=== PATIENT | female | born 1945 | race Caucasian/White ===

== ENCOUNTER 2018-01-13 16:57 | Inpatient (IN) | payer OTHER ==
[2018-01-13] MEDS ORDERED: GLUCAGON 1 MG/VIAL IM PRN (17:53)
[2018-01-13] MEDS ORDERED: D50W 25 GM/50 ML SYRINGE IV PRN (17:53)
[2018-01-13 17:54] LABS: Urine Appearance CLOUDY; Urine Bilirubin NEGATIVE (NEG); Urine Blood TRACE (NEG); Urine Color YELLOW; Urine Glucose TRACE (NEG); Urine Protein 2+ (NEG); Urine Specific Gravity 1.015 (1.005-1.030); Urine Urobilinogen 0.2 mg/dL (0.2-1.0); Urine pH 6.5 (5.0-7.0)
[2018-01-13 18:52] LABS: ALT/SGPT 16 U/L (12-78); AST/SGOT 21 U/L (15-37); Albumin 3.7 g/dL (3.4-5.0); Alkaline Phosphatase 122 U/L (45-117); Amylase Level 152 U/L (25-115); BUN Blood Urea Nitrogen 48 mg/dL (7-18); Bicarbonate 24 mmol/L (21-32); CKMB Creatine Kinase MB < 1.0 ng/mL (0.3-3.6); Creatine Phosphokinase 73 U/L (26-192); Glucose Level 170 mg/dL (74-106); Lipase 1944 U/L (73-393); Magnesium 1.9 mg/dL (1.8-2.4); Potassium 3.6 mmol/L (3.5-5.1); Sodium Level 137 mmol/L (136-145); Troponin I < 0.02 ng/mL (0.0-0.045)
[2018-01-13 18:53] LABS: Absolute Lymphocytes (CBC) 2.2 K/uL (0.7-4.9); Absolute Monocytes 0.7 K/uL (0.1-1.3); Absolute Neutrophil 6.2 K/uL (1.8-8.0); Basophils % 0.5 % (0-1.3); Eosinophils % 1.3 % (0-4.4); Hematocrit 43.6 % (36.0-45.0); Lymphocytes % 23.4 % (15.3-44.8); MCH 30.9 pg (27.0-35.0); MCV 86.3 fL (80-100); MPV 10.4 fL (7.6-11.3); RBC Red Blood Cell Count 5.05 M/uL (3.86-4.86)
[2018-01-13 19:13] LABS: Urine Bacteria 20-50 /HPF (<20); Urine Culture Reflex Order REFLEXED; Urine RBC <5 /HPF (NONE SEEN)
--- NOTE | 2018-01-13 19:13 | RAD REPORT ---
EXAM DESCRIPTION: RAD - Chest Pa And Lat (2 Views) - 01/13/2018 7:06 pm CLINICAL HISTORY: chest pain Chest pain. COMPARISON: CHEST PA AND LAT 2 VIEW dated 09/24/2008; CHEST SINGLE VIEW dated 03/25/2006 FINDINGS: The lungs are clear. The heart is normal in size. No displaced fractures. IMPRESSION: No acute or concerning finding suspected.
[2018-01-13] MEDS ORDERED: SODIUM CHL 0.9% 1000 ML BAG IV ONE (20:34)
[2018-01-13] MEDS ORDERED: AMLODIPINE 5 MG TAB PO ONE (20:45)
[2018-01-13] MEDS ORDERED: ONDANSETRON 4 MG/2 ML VIAL IV PRN (20:51)
[2018-01-13] MEDS ORDERED: MORPHINE 2 MG/ML SYR IV PRN (20:51)
[2018-01-13] MEDS: INSULIN -REGULAR HUMAN 50 UNIT/0.5 ML ML SQ SCH (21:00)
[2018-01-13] MEDS ORDERED: NA CHLORIDE 0.9% 1,000 ML IV SCH ×2 (21:00)
[2018-01-13] MEDS: METOPROLOL TAR 50 MG TAB PO SCH (21:05)
[2018-01-14] MEDS: NA CHLORIDE 0.9% 1,000 ML IV SCH ×3 (03:09→22:54)
[2018-01-14 04:45] LABS: Absolute Lymphocytes (CBC) 2.3 K/uL (0.7-4.9); Absolute Monocytes 0.8 K/uL (0.1-1.3); Absolute Neutrophil 4.2 K/uL (1.8-8.0); Basophils % 0.8 % (0-1.3); Hematocrit 38.8 % (36.0-45.0); Lymphocytes % 30.8 % (15.3-44.8); MCH 30.8 pg (27.0-35.0); Monocytes % 10.5 % (3.3-12.3); RBC Red Blood Cell Count 4.51 M/uL (3.86-4.86)
[2018-01-14 05:18] LABS: Albumin 3.1 g/dL (3.4-5.0); Bilirubin Total 0.7 mg/dL (0.2-1.0); Magnesium 1.7 mg/dL (1.8-2.4); Potassium 3.8 mmol/L (3.5-5.1); Protein, Total 6.5 g/dL (6.4-8.2)
[2018-01-14] MEDS ORDERED: MAGNESIUM SULFATE 1 gm IVPB 1 GM/100 ML BAG IV ONE (05:49)
[2018-01-14] MEDS ORDERED: POTASSIUM CL SA 10 MEQ TAB PO ONE (05:51)
[2018-01-14] MEDS: LEVOTHYROXINE SOD 0.075 MG TAB PO SCH (06:00)
--- NOTE | 2018-01-14 06:49 | HP ---
Date of Admission: 01/13/2018 Chief Complaint: Abdominal pain, chest pain, nausea, vomiting. History Of Present Illness: This is a 72-year-old female patient who came into office today and she called office this morning with her complaints and she was asked to come in and she was walked in for this acute problem. The patient described as last 1 week she has been having upper abdominal pain that radiates to her lower center of chest area. She has some stomach upset type of feeling, nausea and vomiting off and on in last 1 week. She feels hot and cold. She did not check her temperature as she does not have any thermometer at home. She stopped taking her metformin about 1 month ago and she has not taken her Jardiance or Januvia since she got sick. She does not have good appetite in last 1 week, but in last 2 days or so she has not had anything to eat or drink except some peppermint from time to time. The patient says eating or drinking anything makes her symptoms worse. Denies any constipation or diarrhea. She feels very weak and dizzy, especially when she gets up. After she was evaluated at office, decision was made to admit her to hospital directly and further evaluation after admission has revealed presence of acute renal failure and acute pancreatitis. Allergies: TO PROCHLORPERAZINE CAUSING BLURRED VISION. Medications: According to office list, aspirin 81 mg daily, Crestor 40 mg daily , Flonase 1 spray 2 times a day nasal spray, Januvia 100 mg daily, Jardiance 10 mg daily, levothyroxine 75 mcg daily, losartan/HCTZ 100/12.5 p.o. daily, metoprolol 50 mg 2 times a day, multivitamin daily, Nexium 20 mg daily as needed , Proventil inhaler as needed. Review of Systems: GI: As mentioned above. Cardiovascular: As mentioned. Above all other systems reviewed and negative. Social History: Negative for smoking and alcohol use. Family History: Significant for coronary artery disease and lung cancer. Past Surgical History: Significant for surgery for right shoulder rotator cuff repair in 2011 and malignant melanoma surgery, benign breast tumor removal, D and C, and thyroidectomy. Past Medical History: Significant for hypertension, mixed hyperlipidemia, diabetes mellitus, overactive bladder, postoperative hypothyroidism. Physical Examination: Vital Signs: When she came into office today, height 60 inches, weight 151.6 pounds, blood pressure 151/78, pulse 78, respiratory rate 15, temperature 98.2. General: Awake, alert, oriented, not in distress. HEENT: Head atraumatic, normocephalic. Conjunctivae nonerythematous. Sclerae white. Mouth, no thrush or edema noted. Ears/Nose, no mass, lesion, discharge noted. Neck: Supple. No JVD, lymph nodes, bruit, thyromegaly noted. Lungs: Bilateral good equal air entry. Clear to auscultation. No rhonchi. No rales. Heart: Normal heart sounds, no murmur or gallop. Abdomen: The patient has epigastric tenderness. No guarding, rigidity. No distention. Bowel sounds normoactive. No hepatosplenomegaly. Extremities: No leg edema. No calf tenderness. Skin: No rash, ulcer, cellulitis. Lymphatics: No lymph node enlargement in neck, supraclavicular, infraclavicular region. Neuro: No focal neurological deficit. Chest: Unremarkable. External Genitalia: Deferred. Rectal: Deferred. Laboratory Data: White count 9.3, hemoglobin 15.6, platelets 267. Sodium 137, potassium 3.6, chloride 101, bicarb 24, BUN 48, creatinine 6, glucose 170. Liver function tests unremarkable. Amylase 152, lipase 1944. Urinalysis 1+ esterase, 20-50 bacteria. Impression: 1. Acute renal failure. 2. Acute pancreatitis. 3. Mixed hyperlipidemia. 4. Hypertension. 5. Type 2 diabetes mellitus. 6. Postoperative hypothyroidism. 7. Overactive bladder. Plan: Admit the patient to hospital for further evaluation and management of this problem. The patient is appropriate for inpatient and is expected to spend 2 midnights in hospital. Her chest x-ray came back unremarkable. After available test results, we will go ahead and treat her by keeping her in the hospital as an inpatient. She is appropriate for inpatient and is expected to spend 2 midnights in hospital. We will keep her n.p.o. Home medications will be continued per order and we will go ahead and not give her any losartan at this point considering acute renal failure problem and start her on amlodipine 5 mg daily first dose to be given tonight. IV fluid will be given at normal saline 150 cc/hour for 1 L and then we will reduce rate to 100 cc/hour. SCD was ordered for DVT prophylaxis. We will consult Nephrology, tomorrow morning, we will do CT scan of abdomen and abdominal ultrasound. CAT scan of abdomen will be done without IV contrast. Her cardiac enzymes are negative. I will see her tomorrow morning for followup. PATRIC/JATIN Voice ID: [id number]
[2018-01-14] MEDS ORDERED: KCL 20 MEQ/100 mL IVPB 20 MEQ/100 ML BAG IV SCH (07:00)
[2018-01-14] MEDS: INSULIN -REGULAR HUMAN 50 UNIT/0.5 ML ML SQ SCH ×4 (07:30→21:00)
[2018-01-14] MEDS: AMLODIPINE 5 MG TAB PO SCH (09:09)
[2018-01-14] MEDS: METOPROLOL TAR 50 MG TAB PO SCH ×2 (09:10→21:09)
--- NOTE | 2018-01-14 09:31 | RAD REPORT ---
EXAM DESCRIPTION: US - Abdomen Exam Complete - 01/14/2018 8:46 am CLINICAL HISTORY: Abdominal pain COMPARISON: none FINDINGS: The liver has a normal echotexture. . A gallstone is present. The gallbladder wall is not thickened. The biliary tree is normal caliber. The pancreas is normal in size and echotexture The right kidney measures 12 centimeters with a mildly increased echotexture. The left kidney measures 11 centimeters with a mildly increased echotexture. The spleen measures 10 centimeters. The abdominal aorta and inferior vena cava appear unremarkable IMPRESSION: Cholelithiasis without evidence cholecystitis Mildly increased renal echotexture may indicate parenchymal disease
--- NOTE | 2018-01-14 09:40 | RAD REPORT ---
EXAM DESCRIPTION: CT - Abdomen Pelvis Wo Contrast - 01/14/2018 8:51 am CLINICAL HISTORY: Abdominal pain COMPARISON: None TECHNIQUE: Computed axial tomography of the abdomen and pelvis was obtained. IV was not requested. O ral contrast was given. Coronal reconstructions performed. All CT scans are performed using dose optimization technique as appropriate and may include automated exposure control or mA/KV adjustment according to patient size. FINDINGS: The evaluation of solid organs and vessels is limited secondary to the lack of contrast a dministration. The liver, spleen, pancreas, adrenals and kidneys appear grossly normal. A pseudocyst is not noted. Gallstone is present without gallbladder wall thickening. Biliary tree is normal caliber. The appendix is normal. There is no evidence of diverticulitis. IMPRESSION: Cholelithiasis without evidence cholecystitis
[2018-01-14 12:26] LABS: Urine Appearance CLEAR; Urine Bilirubin NEGATIVE (NEG); Urine Blood TRACE (NEG); Urine Color YELLOW; Urine Glucose TRACE (NEG); Urine Protein TRACE (NEG); Urine Specific Gravity <=1.005 (1.005-1.030); Urine Urobilinogen 0.2 mg/dL (0.2-1.0); Urine pH 7.5 (5.0-7.0)
[2018-01-14 12:31] LABS: CKMB Creatine Kinase MB < 1.0 ng/mL (0.3-3.6); Creatine Phosphokinase 75 U/L (26-192)
[2018-01-14 12:56] LABS: Urine Bacteria <20 /HPF (<20); Urine Culture Reflex Order NOT NEEDED; Urine RBC <5 /HPF (NONE SEEN)
[2018-01-14 13:01] LABS: Urine Protein/Creatinine Ratio 1.09 ratio (<0.15)
--- NOTE | 2018-01-14 15:37 | EKG ---
Test Date: 2018-01-14 Test Time: 07:55:24 Tree Trimming Line Technician: CLARISSA MEASUREMENT RESULTS: Intervals: Rate: 71 IN: 144 QRSD: 66 QT: 430 QTc: 467 [place]: P: 42 IN: 144 QRS: -6 T: 64 INTERPRETIVE STATEMENTS: Normal sinus rhythm Normal ECG Compared to ECG 03/25/2006 21:22:17 No significant changes Electronically Signed On 01-14-18 15:34:48 CDT by Fausto Segura
--- NOTE | 2018-01-14 15:51 | ECHO ---
HEIGHT: 5 ft 0 in WEIGHT: 152 lb 0 oz DATE OF STUDY: 01/14/[address]: Geremias Thompson MD 2-DIMENSIONAL: YES M.MODE: YES DOPPLER: YES COLOR FLOW: YES TDS: PORTABLE: DEFINITY: BUBBLE STUDY: DIAGNOSIS: CHEST PAIN CARDIAC HISTORY: CATHERIZATION: NO SURGERY: NO PROSTHETIC VALVE: NO PACEMAKER: NO MEASUREMENTS (cm) DIASTOLIC (NORMALS) SYSTOLIC (NORMALS) IVSd 1.0 (0.6-1.2) LA Diam 3.9 (1.9-4.0) LVEF 51% LVIDd 4.5 (3.5-5.7) LVIDs 3.4 (2.0-3.5) %FS 26% LVPWd 1.1 (0.6-1.2) Ao Diam 2.8 (2.0-3.7) 2 DIMENSIONAL ASSESSMENT: RIGHT ATRIUM: NORMAL LEFT ATRIUM: NORMAL RIGHT VENTRICLE: NORMAL LEFT VENTRICLE: NORMAL TRICUSPID VALVE: NORMAL MITRAL VALVE: NORMAL PULMONIC VALVE: NORMAL AORTIC VALVE: NORMAL PERICARDIAL EFFUSION: NONE AORTIC ROOT: NORMAL LEFT VENTRICULAR WALL MOTION: NORMAL DOPPLER/COLOR FLOW: MILD TRICUSPID REGURGITATION. COMMENTS: MILD TRICUSPID REGURGITATION. NORMAL LEFT VENTRICULAR SIZE AND FUNCTION. NO WALL MOTION ABNORMALITY. NO EFFUSION. TECHNOLOGIST: WILI CRUZ
--- NOTE | 2018-01-15 01:15 | PN ---
Date of Progress Note: 01/14/2018 Subjective: The patient was seen this morning for followup. Her abdominal pain is better. Denies a ny chest pain, shortness of breath, nausea, or vomiting. Overall, she feels better compared to yeste rday. Objective: Vital Signs: Reviewed. HEENT: Examination unremarkable. Lungs: Clear to auscultation. Heart: Sounds normal. Abdomen: Soft. Bowel sounds normal. No guarding, rigidity, tenderness, or distention. Extremities: No leg edema. Laboratory Data: White count 7.6, hemoglobin 13.9, and platelets 226. Sodium 142, potassium 3.8, ch loride 108, bicarb 27, BUN 44, creatinine 5.30, and glucose 152. Liver function tests unremarkable. Magnesium 1.7. Lipase 1607. Impression: 1.Acute pancreatitis. 2.Acute renal failure. 3.Hypertension. 4.Type 2 diabetes mellitus. Plan: We will go ahead and continue IV fluid. We will follow up on ultrasound and CAT scan result. Continue to follow with farm mechanic apprentice. Repeat blood work tomorrow morning. Details of plan of treat ment discussed with the patient today. Ambulation was encouraged. Continue SCD for DVT prophylaxis. PATRIC/MODL Voice ID: [id number] Report ID: [id number]
--- NOTE | 2018-01-15 02:51 | CON ---
Date of Consultation: 01/14/2018 Reason For Consultation: Elevated BUN and creatinine, fluid management, electrolyte imbalance. History Of Present Illness: This is a pleasant 72-year-old female with significant past medical history of hypertension, hyperlipidemia, diabetes newly diagnosed, complicated with neuropathy, no retinopathy, no nephropathy, and GERD. The patient was in her regular state of health. The patient started having some abdominal pain with discomfort in the chest area. The patient reported that her symptoms were the last week. Denied any fever or any chills. Apparently, primary workup showed elevation in BUN and creatinine. For that reason, the patient was directed to the hospital. According to the patient, the patient had been taking Advil on a daily basis for the last few months. The patient has also been on metformin. The patient is also on losartan and hydrochlorothiazide. Primary workup yesterday; creatinine of 6 with GFR of 7. Reviewing the record, the patient back in May 2016, creatinine 0.7 with normal GFR. Blood sugar was not elevated. Past Medical History: Includes; 1. Diabetes, newly diagnosed, complicated with neuropathy, no retinopathy. 2. Hypertension. 3. Hyperlipidemia. 4. Arthritis. 5. GERD. Home Medications: Include; 1. Aspirin. 2. Crestor. 3. Flonase. 4. Januvia. 5. Jardiance. 6. Metformin. 7. Levothyroxine. 8. Losartan and hydrochlorothiazide. 9. Metoprolol. 10. Multivitamin. 11. Nexium. 12. P.r.n. Advil. Social History: Denies smoking, denies drinking, and denies drug abuse. Family History: Positive for cancer and coronary artery disease. Past Surgical History: Includes; 1. Rotator cuff. 2. Melanoma removal. 3. Breast tumor removal. 4. Thyroidectomy. 5. . Review of Systems: Head and Neck: No red eye. No ear pain. Gastrointestinal: Has epigastric pain. Genitourinary: No polyuria. No dysuria. No hematuria. Gynecologic: No vaginal discharge. Respiratory: No shortness of breath. Cardiovascular: No leg swelling. Endocrine: No polydipsia. Skin: No rash. Physical Examination: Vital Signs: When I saw the patient, blood pressure of 123/62, pulse of 67, and afebrile. The patient had still good urine output. Chest: Clear to auscultation. Heart: S1, S2. Regular. Abdomen: Soft, nontender. Extremities: No edema. Vascular Examination: No carotid bruit. No renal bruit. Neurologic: Alert and oriented x3. Nonfocal. No tremor. Laboratory Data: Sodium 142, potassium 3.8, bicarb 27, chloride 108, BUN 44, creatinine 5.3, and calcium of 8.6. Albumin 3.1. Lipase of 1600. Amylase 136 TSH of 5, PTH of 80. Urinalysis; specific gravity of 1.005, wbc's of 10, protein and creatinine of 1. Peripheral WBC 7.6, H and H 13.9/38.8. Reviewing the record back in May 2016, H and H 16.1/46.8. CT abdomen and pelvis showing cholelithiasis without cholecystitis. Abdominal ultrasound; no hydronephrosis, 12.1. Assessment And Plan: 1. Acute kidney injury secondary to multifactorial. a. Nonsteroidal use. b. Poor perfusion, acute tubular necrosis, dehydration, superimposed with hydrochlorothiazide. c. Losartan and hydrochlorothiazide. 2. Normal sized kidney, proteinuric, nonnephrotic. a. Given the the JERRICA and normal GFR before : I am going to go ahead and send for full serology. b. We will hold the hydrochlorothiazide and ARB. Start aggressive hydration for the patient, agreed with holding nonsteroidal, and we will follow up the patient. c. I had long discussion with the patient regarding the need to avoid any nonsteroidal. d. We will monitor. 3. Hypertension, currently controlled. We will keep holding losartan and hydrochlorothiazide. Start the patient on calcium channel lesia to avoid rebound on her blood pressure. 4. Diabetes. Discontinue metformin. Follow up with the primary. 5. Hypokalemia. We will replace cautiously. 6. Hypothyroidism. We will follow up with the primary. 7. Cholelithiasis as by primary. CHRISTOPHER/JATIN Voice ID: [id number] Report ID: [id number] RADHA
[2018-01-15] MEDS: LEVOTHYROXINE SOD 0.075 MG TAB PO SCH (05:29)
[2018-01-15 06:42] LABS: Rheumatoid Factor NEG (NEG)
[2018-01-15 06:57] LABS: Albumin 3.4 g/dL (3.4-5.0); Magnesium 1.7 mg/dL (1.8-2.4); Phosphorus 3.9 mg/dL (2.5-4.9); Potassium 3.7 mmol/L (3.5-5.1)
[2018-01-15] MEDS: INSULIN -REGULAR HUMAN 50 UNIT/0.5 ML ML SQ SCH ×4 (07:30→21:00)
[2018-01-15] MEDS: METOPROLOL TAR 50 MG TAB PO SCH ×2 (09:27→21:20)
[2018-01-15] MEDS: AMLODIPINE 5 MG TAB PO SCH (09:27)
[2018-01-15] MEDS ORDERED: KCL 20 MEQ/100 mL IVPB 20 MEQ/100 ML BAG IV SCH (10:00)
[2018-01-15] MEDS: NA CHLORIDE 0.9% 1,000 ML IV SCH ×2 (13:34→21:21)
[2018-01-15] MEDS ORDERED: MAGNESIUM SULFATE 1 gm IVPB 1 GM/100 ML BAG IV ONE (17:00)
--- NOTE | 2018-01-15 23:41 | PN ---
Date of Progress Note: 01/15/2018 Subjective: The patient feeling better. The patient being on IV fluid. The patient was admitted wi th acute kidney injury, acidosis. Physical Examination: Vital Signs: Blood pressure 152/70, pulse of 67, afebrile. Chest: Clear to auscultation. Heart: S1, S2. Regular. Abdomen: Soft, nontender. Extremities: No edema. Laboratory Data: WBC 7.6, H and H 13.9/38.8, platelet of 226. Sodium 143, potassium 3.7, bicarb 26, BUN 34, creatinine of 4, calcium 8.9, phos 3.9. Magnesium 1.7. CK within normal limits. Serology is still pending. Protein creatinine is 1. Renal ultrasound, no hydronephrosis, normal-sized kidney . Current Medications: 1.IV fluid. 2.Norvasc. 3.Metoprolol. 4.Zofran. Assessment And Plan: 1.Acute kidney injury secondary to prerenal, superimposed with ARB and hydrochlorothiazide and nonst eroidal use with metformin on chronic kidney disease, on the recovery, nonoliguric, still I do not se e any need for any renal replacement therapy. I am going to continue hydration. We will follow up t he rest of the serology. 2.Hypertension. Keep holding losartan and hydrochlorothiazide. Continue current treatment. We val l continue to monitor. 3.Hypothyroidism. Continue supplement. 4.Diabetes, as by primary. CHRISTOPEHR/JATIN Voice ID: [id number] Report ID: [id number]
--- NOTE | 2018-01-16 00:39 | PN ---
Date of Progress Note: 01/15/2018 Subjective: The patient was seen this morning for followup. She was feeling much better this vita cunningham. Denies any nausea or vomiting. No abdominal pain. No chest pain. Objective: Vital Signs: Reviewed. HEENT Examination: Unremarkable. Lungs: Clear to auscultation. Heart: Sounds normal. Abdomen: Soft. Bowel sounds normal. No guarding, rigidity, tenderness, or distention. Extremities: No leg edema. Laboratory Data: Sodium 143, potassium 3.7, chloride 110, bicarb 26, BUN 34, creatinine 4.0, glucose 123, lipase 3016. Impression: 1.Acute renal failure. 2.Acute pancreatitis. 3.Diabetes mellitus. 4.Gallstones. Plan: The patient's CAT scan and abdominal ultrasound both showing gallstones, without any evidence of cholecystitis. She does not drink alcohol and we have 2 possible explanations about her pancreati tis; one is gallstone, other one is her medication like Januvia. Her common bile duct appeared marvin l. I am thinking that her pancreatitis is more likely to be medication induced and gallstone induced , but we definitely need to keep gallstone induced pancreatitis in mind at this point. GI consultati on was requested. Details were discussed with Dr. Adkins. I talked to him this morning and all th e details were explained to him and he did evaluate the patient and, after his evaluation, Dr. Black ui called and he informed me that he would like to keep in mind about possibility of gallstone induce d pancreatitis and has recommended elective outpatient surgical evaluation by surgeon to see if she w ill need gallbladder surgery or not, but after talking to him we will go ahead and order HIDA scan fo r further evaluation. Her renal failure is improving. We will continue IV fluid. Ambulation was en couraged. Clear liquid diet will be started, and I will see her tomorrow for followup. The patient' s daughter was present at bedside. Details were discussed with both of them. PATRIC/MODL Voice ID: [id number] Report ID: [id number]
[2018-01-16] MEDS: LEVOTHYROXINE SOD 0.075 MG TAB PO SCH (05:26)
[2018-01-16] MEDS: NA CHLORIDE 0.9% 1,000 ML IV SCH ×3 (05:27→15:00)
[2018-01-16 06:17] LABS: Phosphorus 3.6 mg/dL (2.5-4.9); Potassium 3.8 mmol/L (3.5-5.1)
[2018-01-16] MEDS: INSULIN -REGULAR HUMAN 50 UNIT/0.5 ML ML SQ SCH ×4 (07:30→20:38)
[2018-01-16] MEDS: METOPROLOL TAR 50 MG TAB PO SCH ×3 (09:00→20:01)
[2018-01-16] MEDS ORDERED: POTASSIUM 25 MEQ EFFERV TAB PO ONE ×2 (09:00→16:06)
[2018-01-16] MEDS: AMLODIPINE 5 MG TAB PO SCH ×2 (09:00→16:18)
[2018-01-16] MEDS ORDERED: KCL 20 MEQ/100 mL IVPB 20 MEQ/100 ML BAG IV SCH (11:00)
--- NOTE | 2018-01-16 15:28 | RAD REPORT ---
EXAM DESCRIPTION: NM - Hepatobiliary System W/ Ph - 01/16/2018 3:15 pm CLINICAL HISTORY: Abdominal pain TECHNIQUE: The patient was administered approximately 6.6 millicuries technetium Choletec intravenou sly. Images of the gallbladder were obtained for 58 minutes. The patient declined to eat ice cream so images of gallbladder contraction could not be obtained. FINDINGS: There is prompt radiotracer uptake involving the liver. Activity is promptly seen within small bowel. Radiotracer uptake is visualized in the gallbladder by 30 minutes. IMPRESSION: No evidence of cholecystitis as radiotracer enters the gallbladder Evaluation for gallbladder contraction could not be obtained as described above
[2018-01-16] MEDS ORDERED: NACHLORIDE 0.45% 1,000 ML IV SCH (18:00)
[2018-01-16 18:29] LABS: Potassium 3.8 mmol/L (3.5-5.1)
[2018-01-16] MEDS: AMOXICILLIN TRIHYDR 250 MG CAP PO SCH (20:01)
[2018-01-16] MEDS ORDERED: POTASSIUM CL SA 10 MEQ TAB PO ONE (20:19)
[2018-01-16] MEDS ORDERED: SODIUM BICARB 50 MEQ/50ML VIAL ONE (20:55)
[2018-01-16] MEDS ORDERED: D5W 1,000 ML IV ONE (20:56)
[2018-01-16] MEDS ORDERED: D5W 1,000 ML with NA BICARB 8.4% 100 MEQ IV SCH ×2 (21:00)
--- NOTE | 2018-01-17 00:26 | PN ---
Date of Progress Note: 01/16/2018 Subjective: The patient was seen this morning for followup. She was complaining of some cough, sore throat and coughing up yellowish colored mucus. No shortness of breath. No nausea. No vomiting. No abdominal pain. Objective: Vital Signs: Reviewed. HEENT: Unremarkable. Lungs: Clear to auscultation. No rhonchi or rales. Heart: Heart sounds normal. Abdomen: Soft. Bowel sounds normal. No guarding, rigidity, tenderness, or distention. Extremities: No leg edema. Laboratory Data: Sodium 144, potassium 3.8, chloride 113, bicarb 24, BUN 27, creatinine 3.0, glucose 115. Impression: 1.Acute renal failure. 2.Volume depletion. 3.Acute pancreatitis. 4.Acute bronchitis. 5.Hypertension. 6.Diabetes mellitus. 7.Gallstones. Plan: We will go ahead and get a HIDA scan done today. Details were discussed with the patient. He r daughter was present with her at bedside and reason for such testing explained. We will start her on oral antibiotic, amoxicillin, for bronchitis symptoms. Continue other current medications. We wi ll repeat her lipase, CBC and chemistry test tomorrow. Renal function is improving on a day-to-day b asis. I will see her tomorrow for followup. Possible discharge to go home this weekend. PATRIC/JATIN Voice ID: [id number] Report ID: [id number]
--- NOTE | 2018-01-17 01:34 | PN ---
Date of Progress Note: 01/16/2018 Chief Complaint: Acute kidney injury secondary to prerenal azotemia superimposed with effects of medication. History Of Present Illness: The patient was taking multiple medications prior to this admission including angiotensin receptor lesia, hydrochlorothiazide, and nonsteroidal anti-inflammatory medication, which were contributory to prerenal azotemia, acute kidney injury. The patient was taken off metformin because of chronic kidney disease. The patient has moderately severe nonoliguric acute kidney injury. Renal function has not improved significantly. The patient has history of hypertension, and losartan and hydrochlorothiazide were stopped because of acute kidney injury. The patient has diabetes mellitus, and currently, she is on insulin. The patient is not a candidate for metformin due to kidney insufficiency. For future reference, the patient cannot resume metformin because of high risk of side effects. Review of Systems: Denies fever, chills. Physical Examination: Lungs: Clear to auscultation bilaterally. Heart: S1, S2. Abdomen: Soft, benign. Extremities: Minimal edema. Laboratory Work: Sodium 144, potassium 3.8, chloride 113, CO2 24, BUN 27, creatinine 3.0, glucose 115, albumin 3.0. Lab work was done this evening showed sodium 144, potassium 3.8, chloride 115, CO2 16, BUN 24, creatinine 2.5, glucose 107. Impression And Plan: 1. Acute on chronic kidney injury, renal function has not improved over the last 24 hours, although since January 13 creatinine level improved from 6.0 to 2.5. The patient has nonoliguric urine output. The patient developed metabolic acidosis, non-anion gap. Plan is to change IV fluids and add sodium bicarbonate for replacement. Monitor potassium level and continue replacement of potassium as needed. 2. Hypertension. Monitor blood pressure. Adjust medication. Avoid angiotensin receptor lesia and avoid ROXANA inhibitor because of acute kidney injury. The patient is taking Norvasc and metoprolol. 3. Diabetes mellitus. Continue insulin. I spent total 36 min including 25 min to coordinate care plan. JORGE ALBERTO/JATIN Voice ID: [id number] Report ID: [id number] RADHA
[2018-01-17] MEDS: LEVOTHYROXINE SOD 0.075 MG TAB PO SCH (05:03)
[2018-01-17 06:21] LABS: Absolute Lymphocytes (CBC) 2.2 K/uL (0.7-4.9); Absolute Monocytes 0.9 K/uL (0.1-1.3); Absolute Neutrophil 6.5 K/uL (1.8-8.0); Hematocrit 36.9 % (36.0-45.0); Lymphocytes % 22.5 % (15.3-44.8); MCH 30.6 pg (27.0-35.0); MCV 84.4 fL (80-100); MPV 9.3 fL (7.6-11.3); Monocytes % 9.1 % (3.3-12.3); RBC Red Blood Cell Count 4.37 M/uL (3.86-4.86)
[2018-01-17 06:37] LABS: Albumin 2.9 g/dL (3.4-5.0); Bilirubin Direct 0.2 mg/dL (0-0.2); Bilirubin Total 0.6 mg/dL (0.2-1.0); Phosphorus 3.4 mg/dL (2.5-4.9); Potassium 3.6 mmol/L (3.5-5.1); Protein, Total 6.3 g/dL (6.4-8.2)
[2018-01-17] MEDS: INSULIN -REGULAR HUMAN 50 UNIT/0.5 ML ML SQ SCH ×4 (07:30→21:00)
[2018-01-17] MEDS ORDERED: POTASSIUM CL SA 10 MEQ TAB PO ONE (08:00)
[2018-01-17] MEDS ORDERED: CETIRIZINE HCL 5 MG TABLET PO PRN (08:17)
[2018-01-17] MEDS: AMLODIPINE 5 MG TAB PO SCH (09:26)
[2018-01-17] MEDS: AMOXICILLIN TRIHYDR 250 MG CAP PO SCH ×2 (09:26→21:20)
[2018-01-17] MEDS: METOPROLOL TAR 50 MG TAB PO SCH ×2 (09:27→21:20)
[2018-01-17] MEDS: NACHLORIDE 0.45% 1,000 ML IV SCH ×2 (10:04→22:51)
[2018-01-17] MEDS: CEPACOL LOZENGES PO PRN (10:10)
--- NOTE | 2018-01-17 10:17 | RAD REPORT ---
EXAM DESCRIPTION: Norah Dowd (2 Views)01/17/2018 9:40 am CLINICAL HISTORY: Cough COMPARISON: 12/28/2017 FINDINGS: The lungs appear clear of acute infiltrate. The heart is normal size IMPRESSION: No acute abnormalities displayed
[2018-01-17 18:30] LABS: Hepatitis C Virus RNA (PCR)log <1.18 log IU/mL
[2018-01-17 19:46] LABS: HBsAG Nonreactive (Nonreactive)
--- NOTE | 2018-01-17 23:17 | PN ---
Date of Progress Note: 01/17/2018 Chief Complaint: Acute kidney injury secondary to prerenal azotemia with nonoliguric acute tubular necrosis superimposed with effect of medication causing renal hypoperfusion and accelerating prerenal azotemia. Hpi: The patient was taking multiple medications prior to this admission, including angiotensin receptor lesia, hydrochlorothiazide, and nonsteroidal anti-inflammatory medication, which likely were contributory to prerenal azotemia. The patient was taken off metformin because of renal insufficiency. The patient developed moderately uehhya-ct-rmyses nonoliguric acute kidney injury. Renal function has improved slightly over last 24 hours. The patient has history of hypertension and losartan was stopped because of acute kidney injury. Review of Systems: The patient is complaining of upper respiratory congestion, nonproductive cough. Denies PND, orthopnea. Physical Examination: Lungs: Few rhonchi. Heart: S1-S2. Abdomen: Soft, benign. Extremities: Slight edema in both legs. Laboratory Data: Hemoglobin 13.4, hematocrit 36.9, WBC 10, and platelet count 237,000. Chemistry showed sodium 143, potassium 3.6, chloride 112, CO2 24, BUN 21, creatinine 2.3, and glucose 161. Albumin 2.9. Yesterday, creatinine was 2.5. On arrival to the hospital, creatinine was 6.0. Impression And Plan: 1. Acute kidney injury, nonoliguric, associated with prerenal azotemia, acute tubular necrosis, nonoliguric. Renal function is gradually improving. The patient will continue IV fluids. The patient tolerated IV fluids. Chest x-ray did not show any evidence of vascular congestion. There is no infiltrate. The patient developed nonproductive cough, is on antibiotics for bronchitis. Acute kidney injury is nonoliguric. The patient does not have uremic symptomatology and plan is to monitor urine output and fluid balance. Continue IV fluids. The patient was found to have metabolic acidosis and was started on bicarbonate drip. Currently, bicarbonate is improving, acidosis resolved, and the patient will continue half normal saline. Plan is to monitor potassium and replace potassium as needed. 2. Hypertension. Monitor blood pressure closely. Angiotensin receptor lesia is on hold. The patient is taking Norvasc and metoprolol for blood pressure. 3. Diabetes mellitus. The patient is not a candidate for metformin because of renal insufficiency. The patient will continue insulin for blood glucose control. EB/MODL Voice ID: [id number] Report ID: [id number]
--- NOTE | 2018-01-17 23:32 | PN ---
Date of Progress Note: 01/17/2018 Subjective: The patient was seen this morning for followup. She was lying in bed, not in distress. Feels better. No chest pain, shortness of breath. No abdominal pain, nausea, vomiting. Objective: Vital Signs: Reviewed. HEENT: Unremarkable. Lungs: Clear to auscultation. Heart: Sounds normal. Abdomen: Soft. Bowel sounds normal. No guarding, rigidity, tenderness, or distention. Extremities: No leg edema. Laboratory Data: White count 10, hemoglobin 13.4, platelets 237. Sodium 143, potassium 3.6, chlorid e 112, bicarb 24, BUN 21, creatinine 2.30, glucose 161. Liver function tests unremarkable. Amylase 78, lipase 523. Chest x-ray done today shows no evidence of any infiltrate. Impression: 1.Acute pancreatitis. 2.Acute renal failure. 3.Volume depletion. 4.Acute bronchitis. 5.Hypertension. 6.Diabetes mellitus. 7.Gallstones. Plan: We will continue current medications. Continue current antibiotic, which is amoxicillin for b ronchitis. Throat lozenges ordered for her sore throat and cough problem and we will continue other current medical management. I will see her tomorrow for followup, possible discharge to go home this weekend depending on her condition. PATRIC/MODL Voice ID: [id number] Report ID: [id number]
[2018-01-18] MEDS: LEVOTHYROXINE SOD 0.075 MG TAB PO SCH (06:09)
[2018-01-18 06:31] LABS: Albumin 2.9 g/dL (3.4-5.0); Phosphorus 3.6 mg/dL (2.5-4.9); Potassium 3.2 mmol/L (3.5-5.1)
[2018-01-18] MEDS ORDERED: POTASSIUM 25 MEQ EFFERV TAB PO ONE (06:54)
[2018-01-18] MEDS: INSULIN -REGULAR HUMAN 50 UNIT/0.5 ML ML SQ SCH ×4 (07:30→21:00)
[2018-01-18] MEDS ORDERED: POTASSIUM CL SA 10 MEQ TAB PO ONE (07:53)
[2018-01-18] MEDS: NACHLORIDE 0.45% 1,000 ML IV SCH ×3 (08:47→18:47)
[2018-01-18] MEDS: AMOXICILLIN TRIHYDR 250 MG CAP PO SCH ×2 (09:42→20:36)
[2018-01-18] MEDS: METOPROLOL TAR 50 MG TAB PO SCH ×2 (09:42→20:36)
[2018-01-18] MEDS: AMLODIPINE 5 MG TAB PO SCH (09:43)
[2018-01-18 19:18] LABS: HIV 1/2 Antibody Diff Not indicated.; HIV AG/AB 4TH GEN Non-reactive (Non-reactive)
--- NOTE | 2018-01-18 23:28 | PN ---
Date of Progress Note: 01/18/2018 Subjective: The patient was seen this morning for followup. She is feeling better. Had a normal tab wel movement this morning, and she reported no abdominal pain. No nausea, no vomiting. She is ambul ating well. Objective: Vital Signs: Reviewed. HEENT: Unremarkable. Lungs: Clear to auscultation. Heart: Sounds normal. Abdomen: Soft, bowel sounds normal. No guarding, rigidity, tenderness, or distention. Extremity: No leg edema. Laboratory Data: Creatinine this morning is 2.10, yesterday morning it was 2.30, and day before yest erday it was 3.0. This morning, sodium 144, potassium 3.2, chloride 112, bicarb 25, BUN 16, glucose 120. Impression: 1.Acute pancreatitis. 2.Acute renal failure. 3.Cholelithiasis. 4.Acute bronchitis. Plan: We will go ahead and continue current antibiotic which is amoxicillin. Continue IV fluid, rat e was increased from 75 cc/hour to 100 cc/hour and we will go ahead and continue other current medica l management. I will repeat blood work tomorrow morning. Depending on her blood test results, we wi ll see if we can discharge her tomorrow or Saturday. Details were discussed with the patient and her tomeka monreal who was at bedside. We also discussed about outpatient evaluation by 1 of the General Rashel chery for her gallstone problem. Daughter reported today that in last 6 months, the patient has been hav ing intermittent nausea, belching, bloating type of problem and that could be due to her gallstones. So, we will need to consider gallbladder surgery some time after 4-6 weeks. PATRIC/MODL Voice ID: [id number] Report ID: [id number]
--- NOTE | 2018-01-19 01:34 | PN ---
Date of Progress Note: 01/18/2018 Chief Complaint: Acute kidney injury. History Of Present Illness: Acute kidney injury, nonoliguric, secondary to prerenal azotemia, nonoliguric, ATN, superimposed with medication and had causing renal hypoperfusion. The patient was taken off any medication. Apparently, she was taking a nonsteroidal anti-inflammatory medication prior to this admission. She was instructed to stay off nonsteroidal anti-inflammatory medication because of risk of acute kidney injury. The patient was taken off metformin because of renal insufficiency. The patient developed moderately severe to severe nonoliguric acute kidney injury. Renal function is gradually improving. Review of Systems: Denies fever or chills. Denies PND or orthopnea. Cough is resolving. Physical Examination: Lungs: Few crackles. Heart: S1 and S2. Abdomen: Soft and benign. Extremities: Minimal edema. Impression And Plan: 1. Acute kidney injury associated with prerenal azotemia, acute tubular necrosis. Renal function is gradually improving. Continue IV fluids. Monitor fluid balance. 2. Chest x-ray did not show any evidence of congestion. There is no infiltrate. 3. The patient does not have uremic symptomatology. Continue to monitor fluid balance. Patient was found to have mild metabolic acidosis secondary to renal insufficiency and currently acidosis is well compensated. 4. Hypertension. Monitor blood pressure closely. Angiotensin receptor lesia is on hold to prevent renal hypoperfusion. JORGE ALBERTO/JATIN Voice ID: [id number] Report ID: [id number] RADHA
[2018-01-19] MEDS: NACHLORIDE 0.45% 1,000 ML IV SCH ×2 (05:14→16:09)
[2018-01-19] MEDS: LEVOTHYROXINE SOD 0.075 MG TAB PO SCH (05:14)
[2018-01-19 06:07] LABS: Albumin 2.8 g/dL (3.4-5.0); Magnesium 1.7 mg/dL (1.8-2.4); Phosphorus 3.7 mg/dL (2.5-4.9); Potassium 3.4 mmol/L (3.5-5.1)
[2018-01-19] MEDS ORDERED: MAGNESIUM SULFATE 1 gm IVPB 1 GM/100 ML BAG IV ONE (06:15)
[2018-01-19] MEDS ORDERED: POTASSIUM CL SA 10 MEQ TAB PO ONE ×2 (06:16→14:17)
[2018-01-19] MEDS: INSULIN -REGULAR HUMAN 50 UNIT/0.5 ML ML SQ SCH ×4 (07:30→20:43)
[2018-01-19] MEDS: CEPACOL LOZENGES PO PRN ×2 (07:47→20:42)
[2018-01-19] MEDS: AMLODIPINE 5 MG TAB PO SCH (08:24)
[2018-01-19] MEDS: AMOXICILLIN TRIHYDR 250 MG CAP PO SCH ×2 (08:25→20:43)
[2018-01-19] MEDS: METOPROLOL TAR 50 MG TAB PO SCH ×2 (08:25→20:43)
--- NOTE | 2018-01-19 16:07 | PN ---
Date of Progress Note: 01/19/2018 Subjective: Patient was seen this morning for followup. Denied any complaints. Had 2 bowel movemen ts yesterday. No nausea, vomiting. No abdominal pain. Objective: Vital signs: Reviewed. HEENT: Unremarkable. Lungs: Clear to auscultation. Heart: Sounds normal. Abdomen: Soft. Bowel sounds normal. No guarding, rigidity, tenderness, or distention. Extremities: No leg edema. Laboratory Data: Sodium 144, potassium 3.4, chloride 111, bicarb 25, BUN 15, creatinine 1.90, glucos e 135, magnesium 1.7. Impression: 1.Acute pancreatitis. 2.Acute renal failure. 3.Volume depletion. 4.Hypertension. 5.Diabetes mellitus. 6.Acute bronchitis. 7.Hypokalemia. Plan: We will continue current medication. Replace electrolyte per protocol. We will continue IV f luid at current rate and repeat blood work tomorrow morning. Possible discharge to go home either to [facility] or day after tomorrow depending on the patient's renal function test result. Continue amoxicillin for bronchitis problem. She is tolerating diet very well and ambulatin g well. PATRIC/MODL Voice ID: [id number] Report ID: [id number]
[2018-01-19 19:58] LABS: P-ANCA Anti-Myeloperoxidase Ab <1.0 AI (<1.0)
[2018-01-20] MEDS: NACHLORIDE 0.45% 1,000 ML IV SCH ×3 (01:44→20:29)
--- NOTE | 2018-01-20 02:42 | PN ---
Date of Progress Note: 01/19/2018 Chief Complaint: Acute kidney injury. History Of Present Illness: Acute kidney injury, nonoliguric, secondary to prerenal azotemia, nonoliguric ATN, superimposed with medication effect causing renal hypoperfusion. The patient was taken off medication. Apparently, she was taking nonsteroidal anti-inflammatory medication prior to this admission. The patient is improving with IV fluids. Review of Systems: Denies fever, chills. Cough is resolving. Physical Examination: Lungs: Clear to auscultation bilaterally. Heart: S1, S2. Abdomen: Soft, benign. Extremities: No edema. Laboratory Data: Hemoglobin 13.4, WBC 10.0, platelet count 237,000. Chemistry showed sodium 144, potassium 3.4, chloride 111, CO2 25, BUN 15, creatinine 1.9, magnesium 1.7, phosphorus 3.7, calcium 8.7. Impression And Plan: 1. Acute kidney injury in recovery phase. Renal function is gradually improving. Continue IV fluids. Monitor electrolytes, adjust replacement according to lab results. 2. Hypertension. Blood pressure controlled. Angiotensin receptor lesia is on hold due to acute kidney injury. JORGE ALBERTO/JATIN Voice ID: [id number] Report ID: [id number] RADHA
[2018-01-20 05:35] LABS: Absolute Lymphocytes (CBC) 1.9 K/uL (0.7-4.9); Absolute Monocytes 0.7 K/uL (0.1-1.3); Absolute Neutrophil 5.9 K/uL (1.8-8.0); Basophils % 0.5 % (0-1.3); Eosinophils % 2.7 % (0-4.4); Hematocrit 37.9 % (36.0-45.0); Lymphocytes % 21.4 % (15.3-44.8); MCV 85.3 fL (80-100); MPV 9.2 fL (7.6-11.3); Monocytes % 7.9 % (3.3-12.3); RBC Red Blood Cell Count 4.44 M/uL (3.86-4.86)
[2018-01-20] MEDS: LEVOTHYROXINE SOD 0.075 MG TAB PO SCH (05:35)
[2018-01-20 05:56] LABS: Magnesium 1.9 mg/dL (1.8-2.4); Potassium 3.6 mmol/L (3.5-5.1)
[2018-01-20] MEDS ORDERED: POTASSIUM CL SA 10 MEQ TAB PO ONE (06:30)
[2018-01-20] MEDS: INSULIN -REGULAR HUMAN 50 UNIT/0.5 ML ML SQ SCH ×4 (07:30→20:30)
[2018-01-20] MEDS: AMOXICILLIN TRIHYDR 250 MG CAP PO SCH ×2 (10:02→20:29)
[2018-01-20] MEDS: AMLODIPINE 5 MG TAB PO SCH (10:02)
[2018-01-20] MEDS: METOPROLOL TAR 50 MG TAB PO SCH ×2 (10:03→20:29)
--- NOTE | 2018-01-20 23:33 | PN ---
Date of Progress Note: 01/20/2018 Subjective: The patient was seen this morning for followup. She was sitting at bedside. No new com plaints or problems reported. Her daughter was present with her. Denies any abdominal pain today, b ut yesterday she says after she ate some, she had some pain. No nausea, no vomiting. Objective: Vital Signs: Reviewed HEENT Examination: Unremarkable. Lungs: Clear to auscultation. Heart: Sounds normal. Abdomen: Soft. Bowel sounds normal. No guarding, rigidity, tenderness, or distention. Extremities: No leg edema. Laboratory Data: White count 8.8, hemoglobin 13.8, platelets 273. Sodium 142, potassium 3.6, chlori de 110, bicarb 23, BUN 13, creatinine 1.70, glucose 147. Impression: 1.Acute renal failure. 2.Acute pancreatitis. 3.Hypertension. 4.Diabetes mellitus. 5.Acute bronchitis. Plan: The patient's renal function is improving, but in last 2 days or so we are seeing much slower improvement. We will continue IV fluid. Repeat blood work tomorrow. Possible discharge to go home tomorrow. Continue current amoxicillin and other current medications. Details and plan of treatment discussed with the patient. PATRIC/MODL Voice ID: [id number] Report ID: [id number]
--- NOTE | 2018-01-21 02:36 | PN ---
Date of Progress Note: 01/20/2018 Chief Complaint: Acute kidney injury, nonoliguric, secondary to prerenal azotemia, nonoliguric ATN. In the setting of medication effect causing renal hypoperfusion, the patient was taken off nonsteroid al anti-inflammatory medication and is started on IV fluids. Renal function has gradually improved. Review of Systems: Denies fever or chills. Cough, resolved. Physical Examination: Lungs: Clear to auscultation bilaterally. Heart: S1, S2. Abdomen: Soft benign. Extremities: No edema. Laboratory Data: Hemoglobin 13.8, WBC 8.8, platelet count is 273,000. Chemistries showed sodium 142 , potassium 3.6, chloride 110, CO2 23, BUN 13, creatinine 1.7, glucose 147, calcium 8.8, phosphorus 1 .9. Impression And Plan: 1.Acute kidney injury, nonoliguric. Renal function is improving. Continue IV fluids and avoid nons teroidal anti-inflammatory medication. 2.Hypertension. Blood pressure is controlled. 3.Nonoliguric acute tubular necrosis. The patient was instructed to avoid nonsteroidal anti-inflamm atory medication. JORGE ALBERTO/JATIN Voice ID: [id number] Report ID: [id number]
[2018-01-21 03:59] VITALS: O2SAT 95
[2018-01-21 04:58] LABS: Potassium 3.6 mmol/L (3.5-5.1)
[2018-01-21 04:59] VITALS: BMI 28.5
[2018-01-21] MEDS ORDERED: POTASSIUM CL SA 10 MEQ TAB PO ONE (05:29)
[2018-01-21] MEDS: NACHLORIDE 0.45% 1,000 ML IV SCH (05:59)
[2018-01-21] MEDS: LEVOTHYROXINE SOD 0.075 MG TAB PO SCH (05:59)
[2018-01-21] MEDS: INSULIN -REGULAR HUMAN 50 UNIT/0.5 ML ML SQ SCH ×2 (07:30→11:30)
[2018-01-21] MEDS ORDERED: INFLUENZA VACCINE (for 3y+) 0.5 ML DOSE IMVAC ONE (08:00)
[2018-01-21 08:41] VITALS: BP 155/74; TEMP 98.3
[2018-01-21] MEDS: METOPROLOL TAR 50 MG TAB PO SCH (10:23)
[2018-01-21] MEDS: AMOXICILLIN TRIHYDR 250 MG CAP PO SCH (10:23)
[2018-01-21] MEDS: AMLODIPINE 5 MG TAB PO SCH (10:23)
--- NOTE | 2018-01-21 18:15 | PN ---
Date of Progress Note: 01/21/2018 Subjective: The patient was admitted with acute kidney injury secondary to prerenal, normal sized ki dney, superimposed with nonsteroidal use and ARB, recovered plateau. Objective: Vital Signs: Currently blood pressure 155/74, pulse of 69, afebrile. Chest: Clear to auscultation. Heart: S1, S2. Regular. Abdomen: Soft, nontender. Extremities: No edema. Laboratory Data: WBC 8.8, H and H 13.9/37.9, platelets 273. Sodium 142, potassium 3.6, bicarb 2, BU N 17, creatinine 1.8, calcium 8.5. Medications: Current medications the patient on its include amlodipine 5 mg, metoprolol 50, Zofran, IV fluid. Assessment And Plan: 1.Acute kidney injury, normal size kidney, secondary to prerenal, nonsteroidal use, plateau currentl y possible slow recovery. I am going to discontinue IV fluid. The patient is going to be cleared fr om the renal standpoint for discharge planning to follow up in the office in 2-3 weeks with chemistry . 2.Proteinuria, not on nephrotic. Workup including serology and SPEP was negative. I am going to ke ep holding ARB for the time being and hydrochlorothiazide given the acute kidney injury and we will c ontinue to monitor. 3.Hypertension, controlled, not optimal. I am going to go ahead and increase Norvasc. 4.Dehydration, resolved. 5.Cholelithiasis as by primary. Case discussed with the patient and verbalized understanding. IRINA Voice ID: [id number] Report ID: [id number]
--- NOTE | 2018-01-22 06:39 | DS ---
Date of Discharge: 01/21/2018 Disposition: Discharged to go home. Physical Examination: HEENT: Unremarkable. Lungs: Clear to auscultation. Heart: Sounds normal. Abdomen: Soft. Bowel sounds normal. No guarding, rigidity, tenderness, or distention. Extremities: No leg edema. Laboratory Data: Initial white count was 9.3, hemoglobin 15.6, and platelets 267. Yesterday, white count 8.8, hemoglobin 13.8, and platelets 273. Last chemistry today, sodium 142, potassium 3.6, chlo ride 109, bicarb 25, BUN 17, creatinine 1.80, glucose 138. Lowest creatinine was yesterday. It was 1.70. Her highest creatinine was when she came in. It was 6.0. Discharge Medications: 1.Do not take any metformin, Januvia, Jardiance, losartan/HCTZ. 2.Take amlodipine 5 mg p.o. daily and amoxicillin 500 mg p.o. twice a day for 5 days. 3.Follow up at my office next week on Saturday or . Call office for appointment. 4.Follow up with Dr. Campbell in 2 weeks. 5.The patient to come to my office for blood work next week on Saturday or Saturday. 6.Drink 60 ounces of water daily. 7.Do not take any Aleve, Motrin, naproxen, ibuprofen, etc. 8.Continue rosuvastatin, metoprolol, and levothyroxine. Hospital Course: The 72-year-old female patient who came in to office with abdominal pain, chest kael n, nausea, and vomiting. Please see dictated H and P for more information. After she was evaluated at the office, she was admitted to the hospital. The patient had further testing done after admissio n to the hospital. It revealed that she was in acute renal failure with creatinine of 6.0. Her lipa se was also elevated. Amylase was 152. Lipase was 1944. The patient was treated with IV fluid hydr ation for this volume depletion. Her acute renal failure problem was thought to be due to acute tubu lar necrosis. Nephrology consultation was obtained. Her electrolytes and renal function were follow ed on a day-to-day basis, and it showed steady daily improvement, except last 24 hours we have not se en any improvement. IV fluid was continued throughout this hospitalization. Her abdominal pain has resolved. Lipase level came down. GI consultation was obtained from Dr. Adkins. The patient was started on diet, and she is tolerating diet very well. Abdominal ultrasound and CAT scan of the abdo men showed evidence of gallstones, but no evidence of cholecystitis. HIDA scan was done, and it show ed no evidence of cholecystitis. We were not able to evaluate motility of gallbladder and biliary tr act because the patient did not cooperate with the last part of the HIDA scan, and she did not get th e last part done because the patient told me that she was getting claustrophobic. So, she requested the test to be terminated. Dr. Adkins has advised for her to get evaluation done on an elective ou tpatient basis by one of the surgeons for consideration of gallbladder surgery. The patient's daught er did report that in last 6 months, the patient has been having some upper abdominal discomfort with belching and nausea, and it is possible that those symptoms could be related to her gallstones. Her abdominal pain complaint resolved. Chest pain complaint resolved. She did have some symptoms of ac clifford bronchitis with cough, congestion, coughing up some colored mucus, and was started on oral antibi otic amoxicillin and has responded well to that. Land Use Planner continue to follow her up; and overall , her condition had improved. We are not sure what actually she takes at home for her diabetes becau se my office medications list does not match with her medication supply that her daughter was showing me today. Obviously, her diabetes medication gets managed by her manager grant, Dr. Belle, in [facility], and I have advised her today that she should follow up with Dr. Belle as soon as possible for di abetes management. During this hospitalization, she did not get any diabetes medication except she r eceived insulin per sliding scale one time. Otherwise, she did not require any medication for her di abetes. Final Diagnoses: 1.Acute renal failure. 2.Acute tubular necrosis. 3.Acute pancreatitis. 4.Volume depletion. 5.Acute bronchitis. 6.Gallstones without choledocholithiasis and without cholecystitis. 7.Mixed hyperlipidemia. 8.Hypertension. 9.Type 2 diabetes mellitus. 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 11.Overactive bladder. PATRIC/MODL Voice ID: [id number] Report ID: [id number]
[2018-01-22] MEDS ORDERED: AMLODIPINE 10 MG TAB PO SCH (09:00)
== END 2018-01-21 15:20 | disposition home or self-care (01) | DRG 682 ==
LOC: OBSVTOIN 17:09 → 4TH 17:09 → INTOOBSV 17:09 → OBSVTOIN 20:50
PROVIDERS: ADMIT Internal Medicine; ATTEND Internal Medicine
DX: N17.0 Acute kidney failure with tubular necrosis (principal); K85.90 Acute pancreatitis without necrosis or infection, unspecified; E86.9 Volume depletion, unspecified; J20.9 Acute bronchitis, unspecified; K80.80 Other cholelithiasis without obstruction; E78.2 Mixed hyperlipidemia; E11.9 Type 2 diabetes mellitus without complications; E03.9 Hypothyroidism, unspecified; N32.81 Overactive bladder; E87.6 Hypokalemia; I10 Essential (primary) hypertension; Z79.1 Long term (current) use of non-steroidal anti-inflammatories (NSAID)
CPT/HCPCS: 36415; 71046; 74176; 76700; 78227; 80048; 80053; 80069; 80076; 81001; 82150; 82550; 82553; 82570; 82962; 83520; 83690; 83735; 83970; 84132; 84156; 84439; 84443; 84484; 85025; 86021; 86038; 86160; 86225; 86317; 86430; 86704; 86706; 87086; 87088; 87340; 87389; 87522; 93005; 93306; A9537; J2405; J3475; J7030

== ENCOUNTER 2018-02-07 06:22 | Day surgery (SDC) | payer OTHER ==
[2018-02-06 10:53] LABS: Absolute Lymphocytes (CBC) 2.6 K/uL (0.7-4.9); Absolute Monocytes 0.5 K/uL (0.1-1.3); Absolute Neutrophil 3.1 K/uL (1.8-8.0); Basophils % 0.6 % (0-1.3); Eosinophils % 4.6 % (0-4.4); Hematocrit 39.8 % (36.0-45.0); Lymphocytes % 39.7 % (15.3-44.8); MCH 31.2 pg (27.0-35.0); MCV 85.7 fL (80-100); MPV 9.7 fL (7.6-11.3); Monocytes % 7.4 % (3.3-12.3); RBC Red Blood Cell Count 4.64 M/uL (3.86-4.86)
[2018-02-06 11:15] LABS: Potassium 3.4 mmol/L (3.5-5.1)
[2018-02-06 11:18] LABS: Albumin 3.8 g/dL (3.4-5.0); Bilirubin Direct 0.3 mg/dL (0-0.2); Protein, Total 7.9 g/dL (6.4-8.2)
[2018-02-07] MEDS ORDERED: NA CHLORIDE 0.9% 1,000 ML ONE (06:33)
[2018-02-07] MEDS ORDERED: CEFOXITIN/SWI 1gm 1 GM/10 ML SYR ONE (06:33)
[2018-02-07] MEDS ORDERED: PROPOFOL 200 MG/20 ML VIAL IV ONE ×2 (06:49→07:00)
[2018-02-07] MEDS ORDERED: GLYCOPYRROLATE 0.2 MG/ML SYR ONE (06:50)
[2018-02-07] MEDS ORDERED: FENTANYL CITR 100 MCG/2 ML ONE ×2 (06:50→07:00)
[2018-02-07] MEDS ORDERED: LIDOCAINE 2% MPF 5 ML VIAL ONE ×2 (06:51→07:00)
[2018-02-07] MEDS ORDERED: ROCURONIUM 50 MG/5 ML VIAL IV ONE (06:55)
[2018-02-07] MEDS ORDERED: NEOSTIGMINE 1 MG/ML -5 ML SYRINGE ONE (06:55)
[2018-02-07] MEDS ORDERED: MIDAZOLAM HCL 2 MG/2 ML INJ ONE (07:00)
[2018-02-07] MEDS ORDERED: EPHEDRINE SULF 50 MG/10 ML SYR ONE (07:30)
[2018-02-07] MEDS ORDERED: ONDANSETRON 4 MG/2 ML VIAL ONE (08:16)
[2018-02-07] MEDS ORDERED: PROMETHAZINE 25 MG/ML VIAL ONE (08:27)
[2018-02-07] MEDS ORDERED: MEPERIDINE HCL 50 MG/ML AMP ONE (08:32)
[2018-02-07] MEDS ORDERED: HYDROCODONE/APAP 7.5/325 MG TAB ONE (10:10)
[2018-02-07 12:16] VITALS: BP 134/52; TEMP 97.5; O2SAT 98
--- NOTE | 2018-02-07 12:27 | OP ---
Date of Procedure: 02/07/2018 Surgeon: Brian Huynh MD Custom Clothier: JAIDA Zee. Preoperative Diagnosis: Symptomatic cholelithiasis. Postoperative Diagnosis: Symptomatic cholelithiasis. Procedure: Laparoscopic cholecystectomy. Estimated Blood Loss: Minimal. Specimen: Gallbladder. Finding: As above. Anesthesia: General. Complications: None. Disposition: The patient tolerated the procedure in stable condition and taken to Recovery in good g eneral condition. Procedure In Detail: The patient was brought to the OR and placed in supine position. General anest hesia was begun. The patient was prepped and draped in the usual sterile fashion. Marcaine 0.5% was infiltrated locally. A 15-blade was used to make a 1 cm supraumbilical midline incision. Subcutane ous tissue divided. The fascia was identified and divided. A #1 Vicryl stay suture was placed. Per itoneal cavity was entered with blunt dissection. A 12-mm trocar was placed into the peritoneal cavi ty under direct vision. Pneumoperitoneum was established and then three 5-mm trocars were placed, 1 in the epigastrium just to the right of midline and 2 in the right subcostal region. Laparoscopy rev ealed chronic inflammation of the gallbladder. Fundus retracted superiorly. Infundibulum was identi fied and retracted inferolaterally. Cystic duct and cystic artery were clearly identified with blunt dissection. Clips were placed. Both structures were divided. Cautery used to remove the gallbladd er from the liver bed. Bleeding on the liver bed was controlled with cautery. The gallbladder was r etrieved through the umbilicus via an EndoCatch bag. Right upper quadrant was irrigated. Effluent w as clear. No evidence of bleeding or bile leakage appreciated. Subsequently, all trocars were remov ed under direct vision. Stay sutures were tied to each other across the fascial defect. Subcutaneou s wounds were irrigated. Bleeding controlled with cautery. 3-0 chromic used to approximate the subc utaneous tissue and close the skin. Sterile dressing applied. The patient was awakened and taken to Recovery in good general condition. /MODL Voice ID: [id number] Report ID: [id number]
--- NOTE | 2018-02-07 12:33 | DS ---
Discharge Note: The patient will go to Day Surgery and home when stable. Disposition: Home. Condition: Stable. Discharge Instructions: Resume home medications and diet. Activity as tolerated. No heavy lifting. Remove outer dressing in 2 days. Shower. Keep wound clean and dry. Keep Steri-Strips on at all t imes. Tylenol No. 3 one tablet p.o. q.4 hours p.r.n. pain. Incentive spirometry is ordered. Follow up in my office in 1 week. Call for appointment. MICHELLE/JATIN Voice ID: [id number] Report ID: [id number]
== END 2018-02-07 11:10 | disposition home or self-care (01) ==
LOC: OR 06:22
PROVIDERS: ATTEND Surgery
PROC: 0FT44ZZ Resection of Gallbladder, Percutaneous Endoscopic Approach (ICD-10-PCS; principal; 2018-02-07 07:30)
DX: K80.10 Calculus of gallbladder with chronic cholecystitis without obstruction (principal); I10 Essential (primary) hypertension; E11.9 Type 2 diabetes mellitus without complications; E07.9 Disorder of thyroid, unspecified; Z88.8 Allergy status to other drugs, medicaments and biological substances; Z80.1 Family history of malignant neoplasm of trachea, bronchus and lung
CPT/HCPCS: 36415; 47562; 80048; 80076; 82150; 82962 ×2; 83690; 85025; 88304; J2175; J2405; J2550; J2710; J3010; J7030; J2250

== ENCOUNTER 2018-11-08 10:48 | Emergency (ER) | payer OTHER ==
--- OUTSIDE RECORDS SUMMARY | 2018-11-08 11:01 | XMS REPORT ---
:1945 [facility] Address [address] [place] [address] Dr. Goss [address] [place] [id number] Care Team Providers Name Role Phone Unavailable Unavailable Unavailable Problems This patient has no known problems. Allergies, Adverse Reactions, Alerts This patient has no known allergies or adverse reactions. Medications This patient has no known medications.
--- OUTSIDE RECORDS SUMMARY | 2018-11-08 11:01 | XMS REPORT | Clinical Summary ---
:1945 Author Organization [facility] Address [address] [place] [address] Care Team Providers Name Role Phone Asked, No Pcp Primary Care Provider Unavailable Allergies Not on File Medications Not on file Active Problems Not on file Encounters Date Type Specialty Care Team Description 07/02/2018 Hospital Encounter Radiology Tano Reyes Polyarthropathy MD Corey 07/02/2018 Transcribe Orders Radiology Tano Reyes Polyarthropathy ( Primary Dx) MD Corey after 11/07/2017 Social History Tobacco Use Types Packs/Day Years Used Date Never Assessed Sex Assigned at Date Recorded Not on file Job Start Date Occupation Industry Not on file Not on file Not on file Travel History Travel Start Travel End No recent travel history available. 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 after 11/07/2017 Results XR Hands 3 Vw Bilateral (07/02/2018 4:14 PM WAREHOUSE LOGISTICS MANAGER) Specimen Narrative Performed At EXAMINATION:XR HANDS 3 VW BILATERAL HM [facility] CLINICAL HISTORY:M13.0 Polyarthritis COMPARISON:None available at this time. 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 No evidence of an inflammatory arthropathy. FINDINGS: RIGHT HAND: Changes of mild and moderately severe primary osteoarthritis involving the interphalangeal joints of the thumb and fingers are greatest in the distal interphalangeal joints of the ring and little fingers. Changes of moderate and severe osteoarthritis are also observed within the first CMC, scaphotrapezial, and scaphotrapezoid joints. There is also moderate to severe narrowing of the capitolunate joint with subchondral sclerosis and cystic changes. There is no evidence of an inflammatory arthropathy, and no fracture or malalignment. Soft tissues are unremarkable. No chondrocalcinosis. LEFT HAND: Changes of mild and moderately severe primary osteoarthritis involving the interphalangeal joints of the thumb and fingers are greatest in the distal interphalangeal joints of the index and ring fingers. Changes of moderate and severe primary osteoarthritis are seen in the first CMC, scaphotrapezial, and scaphotrapezoid joints. There is also mild narrowing of the scaphocapitate joint with subcortical cystic change in the proximal scaphoid pole. Faint calcification of the triangular fibrocartilage is likely degenerative. A small ossicle distal to the ulnar styloid process is probably chronic posttraumatic. There is no evidence of an inflammatory arthropathy, and no acute fracture or malalignment. Soft tissues are unremarkable. No chondrocalcinosis. [facility]-[id number] Procedure Note Hm Interface, Radiology Results Incoming - 07/04/2018 9:53 AM WAREHOUSE LOGISTICS MANAGER EXAMINATION: XR HANDS 3 VW BILATERAL CLINICAL HISTORY: M13.0 Polyarthritis COMPARISON: None available at this time. 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 No evidence of an inflammatory arthropathy. FINDINGS: RIGHT HAND: Changes of mild and moderately severe primary osteoarthritis involving the interphalangeal joints of the thumb and fingers are greatest in the distal interphalangeal joints of the ring and little fingers. Changes of moderate and severe osteoarthritis are also observed within the first CMC, scaphotrapezial, and scaphotrapezoid joints. There is also moderate to severe narrowing of the capitolunate joint with subchondral sclerosis and cystic changes. There is no evidence of an inflammatory arthropathy, and no fracture or malalignment. Soft tissues are unremarkable. No chondrocalcinosis. LEFT HAND: Changes of mild and moderately severe primary osteoarthritis involving the interphalangeal joints of the thumb and fingers are greatest in the distal interphalangeal joints of the index and ring fingers. Changes of moderate and severe primary osteoarthritis are seen in the first CMC , scaphotrapezial, and scaphotrapezoid joints. There is also mild narrowing of the scaphocapitate joint with subcortical cystic change in the proximal scaphoid pole. Faint calcification of the triangular fibrocartilage is likely degenerative. A small ossicle distal to the ulnar styloid process is probably chronic posttraumatic. There is no evidence of an inflammatory arthropathy, and no acute fracture or malalignment. Soft tissues are unremarkable. No chondrocalcinosis. [facility]-[id number] Performing Organization Address City/State/Zipcode Phone Number [facility] [address] [place] [address] after 11/07/2017 Insurance Payer Benefit Plan / Subscriber ID Effective Dates Phone Address Type Group HUMANA MEDICARE HUMANA MEDICARE xxxxxxxxx 2018-Present PPO PPO/PFFS/ERS [facility] Advance Directives Patient has advance care planning documents on file. For more information, please contact:[address] [place] [address]
[2018-11-08 11:33] LABS: Absolute Lymphocytes (CBC) 1.7 K/uL (0.7-4.9); Basophils % 0.6 % (0-1.3); Eosinophils % 2.2 % (0-4.4); Hematocrit 46.2 % (36.0-45.0); Lymphocytes % 27.2 % (15.3-44.8); MPV 9.9 fL (7.6-11.3); Monocytes % 9.5 % (3.3-12.3); RBC Red Blood Cell Count 5.26 M/uL (3.86-4.86)
[2018-11-08] MEDS ORDERED: NA CHLORIDE 0.9% 500 ML ONE (11:39)
[2018-11-08 11:46] LABS: Albumin 3.5 g/dL (3.4-5.0); Potassium 3.8 mmol/L (3.5-5.1); Protein, Total 7.1 g/dL (6.4-8.2)
--- NOTE | 2018-11-08 13:01 | ER ---
Nurse's Notes [facility] Name: María Robison Age: 73 yrs Sex: Female : 1945 Arrival Date: 11/08/2018 Time: 11:02 Bed 13 Private MD: Diagnosis: Malaise and fatigue Presentation: 11/08 10:45 Presenting complaint: EMS states: Received call from daughter saying that the pt. was rb1 in severe pain. When EMS arrived she was out in the yard watering her plants and denied pain. She took EMS in the house and put some dishes away and took her blood pressure medication and insulin before coming to the hospital. BP 200/100, 170/78, BGL before insulin 225. Pt. is A \T\ O x 4. Transition of care: patient was not received from another setting of care. Onset of symptoms was November 08, 2018. Risk Assessment: Do you want to hurt yourself or someone else? Patient reports no desire to harm self or others. Initial Sepsis Screen: Does the patient meet any 2 criteria? No. Patient's initial sepsis screen is negative. Does the patient have a suspected source of infection? No. Patient's initial sepsis screen is negative. Care prior to arrival: Pt. took home medications. 10:45 Method Of Arrival: EMS: [facility] 10:45 Acuity: CHEVY 3 rb1 Triage Assessment: 10:45 General: Appears in no apparent distress. comfortable, Behavior is calm, cooperative, rb1 Denies fever, Pt. reports feeling shaky, jittery. Pain: Denies pain. Neuro: Level of Consciousness is awake, alert, obeys commands, Oriented to person, place, time, situation, [employer] Att[employer] are equal bilaterally Moves all extremities. Gait is steady, Speech is normal, Facial symmetry appears normal, Pupils are PERRLA. Cardiovascular: Capillary refill < 3 seconds is brisk in bilateral fingers. Respiratory: Airway is patent Respiratory effort is even, unlabored, Respiratory pattern is regular, symmetrical. GI: No signs and/or symptoms were reported involving the gastrointestinal system. : No signs and/or symptoms were reported regarding the genitourinary system. Derm: Skin is pink, warm \T\ dry. Musculoskeletal: Range of motion: intact in all extremities. 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 - Social history:: Smoking status: Patient/guardian denies using tobacco. - Ebola Screening: : Patient negative for fever greater than or equal to 101.5 degrees Fahrenheit, and additional compatible Ebola Virus Disease symptoms. Screenin:45 Abuse screen: Denies threats or abuse. Nutritional screening: No deficits noted. rb1 Tuberculosis screening: No symptoms or risk factors identified. Fall Risk None identified. Assessment: 10:45 General: See triage assessment. rb1 11:45 Reassessment: Patient appears in no apparent distress at this time. No changes from rb1 previously documented assessment. 12:38 Reassessment: Patient appears in no apparent distress at this time. Patient and/or rb1 family updated on plan of care and expected duration. Pain level reassessed. Patient is alert, oriented x 3, equal unlabored respirations, skin warm/dry/pink. Pt. is sitting in the chair in her room talking on the telephone Patient denies pain at this time. 13:15 Reassessment: Patient appears in no apparent distress at this time. No changes from rb1 previously documented assessment. Vital Signs: 10:45 BP 174 / 82; Pulse 84; Resp 19; Temp 98.3(O); Pulse Ox 95% on R/A; Weight 68.04 kg (R); rb1 Height 5 ft. 0 in. (152.40 cm) (R); Pain 0/10; 11:45 BP 162 / 78; Pulse 80; Resp 16; Temp 98.3(O); Pulse Ox 99% on R/A; Pain 0/10; rb1 12:38 BP 148 / 85; Pulse 83; Resp 17; Temp 98.2(O); Pulse Ox 100% on R/A; Pain 0/10; rb1 13:15 BP 139 / 94; Pulse 83; Resp 17; Temp 97.9(O); Pulse Ox 100% on R/A; Pain 0/10; rb1 10:45 Body Mass Index 29.29 (68.04 kg, 152.40 cm) [facility] ED Course: 10:45 Arm band placed on right wrist. rb1 11:02 Patient arrived in ED. [facility] 11:05 Bhupendra Morales PA is PHCP. [facility] 11:05 Mikey Shelton MD is Attending Physician. [facility] 11:09 Patient has correct armband on for positive identification. Bed in low position. Call mh5 light in reach. Warm blanket given. Pulse ox on. NIBP on. 11:11 Triage completed. rb1 11:24 Inserted saline lock: 22 gauge in right antecubital area, using aseptic technique. tw2 Blood collected. 11:25 CPK Sent. tw2 11:25 CMP Sent. tw2 11:25 CBC with Diff Sent. tw2 11:44 Zayra Thayer, RN is Primary Nurse. rb1 13:25 No provider procedures requiring assistance completed. IV discontinued, intact, rb1 bleeding controlled, No redness/swelling at site. Pressure dressing applied. Administered Medications: 11:40 Drug: NS 0.9% 500 ml Route: IV; Rate: bolus; Site: right antecubital; rb1 12:10 Follow up: IV Status: Completed infusion [facility] Point of Care Testing: Blood Glucose: 11:12 Blood Glucose: 248 mg/dL; 5 Ranges: Outcome: 13:00 Discharge ordered by . [facility] 13:25 Patient left the ED. rb1 13:25 Discharged to home ambulatory. rb1 13:25 Condition: stable 13:25 Discharge instructions given to patient, Instructed on discharge instructions, follow up and referral plans. Demonstrated understanding of instructions, follow-up care, Prescriptions given X none Signatures: Bhupendra Morales PA PA Zayra Cole, RN RN [facility] Karyna Rhodes RN RN 2 Abigail Sanchez 5 Corrections: (The following items were deleted from the chart) 13:36 13:34 Patient left the ED. rb1 rb1
--- NOTE | 2018-11-08 13:01 | EDPHYS ---
Physician Documentation [facility] Name: María Robison Age: 73 yrs Sex: Female : 1945 Arrival Date: 11/08/2018 Time: 11:02 Bed 13 Private MD: ED Physician Mikey Shelton HPI: 11/08 11:10 This 73 yrs old Female presents to ER via EMS with complaints of Jitters; rojas schofield. 11:10 This is a 73 year old female with a history of DM, HLP, HTN that presents to the ED jm with complaints of "jitteryness" and fatigue which began last night. Patient states she believes she over exerted herself yesterday. Patient denies chest pain, shortness of breath, abdominal pain, vomiting.. 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 - Social history:: Smoking status: Patient/guardian denies using tobacco. - Ebola Screening: : Patient negative for fever greater than or equal to 101.5 degrees Fahrenheit, and additional compatible Ebola Virus Disease symptoms. ROS: 11:10 Cardiovascular: Negative for chest pain, palpitations, and edema, Respiratory: Negative [facility] for shortness of breath, cough, wheezing, and pleuritic chest pain, Abdomen/GI: Negative for abdominal pain, nausea, vomiting, diarrhea, and constipation. 11:10 Constitutional: Positive for malaise. 11:10 All other systems are negative. Exam: 11:10 Constitutional: This is a well developed, well nourished patient who is awake, alert, jmm and in no acute distress. Head/Face: atraumatic. Eyes: EOMI, no conjunctival erythema appreciated ENT: Moist Mucus Membranes Neck: Trachea midline, Supple Chest/axilla: Normal chest wall appearance and motion. Cardiovascular: Regular rate and rhythm. No edema appreciated Respiratory: Normal respirations, no respiratory distress appreciated Abdomen/GI: Non distended, soft Back: Normal ROM Skin: General appearance color normal MS/ Extremity: Moves all extremities, no obvious deformities appreciated, no edema noted to the lower extremities Neuro: Awake and alert, normal gait Psych: Behavior is normal, Mood is normal, Patient is cooperative and pleasant Vital Signs: 10:45 BP 174 / 82; Pulse 84; Resp 19; Temp 98.3(O); Pulse Ox 95% on R/A; Weight 68.04 kg (R); rb1 Height 5 ft. 0 in. (152.40 cm) (R); Pain 0/10; 11:45 BP 162 / 78; Pulse 80; Resp 16; Temp 98.3(O); Pulse Ox 99% on R/A; Pain 0/10; rb1 12:38 BP 148 / 85; Pulse 83; Resp 17; Temp 98.2(O); Pulse Ox 100% on R/A; Pain 0/10; rb1 13:15 BP 139 / 94; Pulse 83; Resp 17; Temp 97.9(O); Pulse Ox 100% on R/A; Pain 0/10; rb1 10:45 Body Mass Index 29.29 (68.04 kg, 152.40 cm) rb1 MDM: 11:10 Patient medically screened. [facility] 12:51 Data reviewed:. [facility] 15:29 Data reviewed: vital signs, nurses notes, lab test result(s). Counseling: I had a [facility] detailed discussion with the patient and/or guardian regarding: the historical points, exam findings, and any diagnostic results supporting the discharge/admit diagnosis, lab results, the need for outpatient follow up, to return to the emergency department if symptoms worsen or persist or if there are any questions or concerns that arise at home. ED course: Patient is alert and non toxic in appearance. Normal PE, labs unremarkable. Patient is advised to follow up with her pcp and otherwise given strict return precautions. patient understood and agrees with the plan of care. . 11/08 11:11 Order name: CBC with Diff; Complete Time: 11:54 [facility] 11/08 11:11 Order name: CMP; Complete Time: 11:54 [facility] 11/08 11:11 Order name: CPK; Complete Time: 11:54 [facility] 11/08 13:32 Order name: Urine Microscopic Only; Complete Time: 15:28 [facility] 11/08 13:32 Order name: Urine Culture [facility] 11/08 11:11 Order name: Urine Dipstick-Ancillary (obtain specimen); Complete Time: 13:33 [facility] 11/08 11:11 Order name: Saline Lock; Complete Time: 11:25 [facility] Administered Medications: 11:40 Drug: NS 0.9% 500 ml Route: IV; Rate: bolus; Site: right antecubital; rb1 12:10 Follow up: IV Status: Completed infusion rb1 Point of Care Testing: Blood Glucose: 11:12 Blood Glucose: 248 mg/dL; 5 Ranges: Critical Glucose Levels:Adult <50 mg/dl or >400 mg/dl <40 mg/dl or >180 mg/dl Disposition: 15:14 Co-signature as Attending Physician, Mikey Shelton MD. rn Disposition: 11/08/18 13:00 Discharged to Home. Impression: Malaise and fatigue. - Condition is Stable. - Discharge Instructions: Fatigue. - Medication Reconciliation Form, Thank You Letter, Antibiotic Education, Prescription Opioid Use form. - Follow up: Private Physician; When: 2 - 3 days; Reason: Recheck today's complaints, Continuance of care, Re-evaluation by your physician. Signatures: Dispatcher [employer] EDMS Bhupendra Morales PA PA [facility] Mikey Shelton MD MD rn Barber, Rebecca, RN RN rb1 Corrections: (The following items were deleted from the chart) 13:34 13:00 11/08/2018 13:00 Discharged to Home. Impression: Malaise and fatigue. Condition rb1 is Stable. Forms are Medication Reconciliation Form, Thank You Letter, Antibiotic Education, Prescription Opioid Use. Follow up: Private Physician; When: 2 - 3 days; Reason: Recheck today's complaints, Continuance of care, Re-evaluation by your physician. [facility]
[2018-11-08 14:04] LABS: Urine Bacteria <20 /HPF (<20); Urine Culture Reflex Order NOT NEEDED; Urine RBC <5 /HPF (NONE SEEN)
== END 2018-11-08 13:34 | disposition home or self-care (01) ==
LOC: ER 10:48
DX: R53.83 Other fatigue (principal); I10 Essential (primary) hypertension; E78.00 Pure hypercholesterolemia, unspecified; E11.9 Type 2 diabetes mellitus without complications; Z79.82 Long term (current) use of aspirin; Z88.8 Allergy status to other drugs, medicaments and biological substances
CPT/HCPCS: 36415; 80053; 81015; 82550; 82962; 85025; 87077; 87086; 87088; 87186; 99284

== ENCOUNTER 2019-04-10 13:52 | Inpatient (IN) | payer OTHER ==
--- OUTSIDE RECORDS SUMMARY | 2019-04-10 13:54 | XMS REPORT ---
:1945 [facility] Address [address] [place] [address] Dr. Goss [address] [place] [id number] Care Team Providers Name Role Phone Unavailable Unavailable Unavailable Problems This patient has no known problems. Allergies, Adverse Reactions, Alerts This patient has no known allergies or adverse reactions. Medications This patient has no known medications.
--- OUTSIDE RECORDS SUMMARY | 2019-04-10 13:54 | XMS REPORT | Summary of Care ---
:1945 Author Organization [facility] - Health Address [address] [place] [address] Care Team Providers Name Role Phone Geremias Thompson Candido Primary Care Provider Encounter Details Date Type Department Care Team Description 01/02/2019 Orders Only [facility] Doctor Unassigned, No [address] [facility] [place] [address] [address] [place] [address] Allergies Active Allergy Reactions Severity Noted Date Comments Prochlorperazine Unknown - See comments 02/23/2015 Mental reaction documented as of this encounter (statuses as of 01/02/2019) Medications Medication Sig Dispensed Refills Start Date End Date Status rosuvastatin 40 mg 0 11/28/2016 Active tablet metoprolol succinate XL Take 50 mg by 0 Active 50 mg 24 hr tablet mouth. levothyroxine 75 mcg 0 12/04/2016 Active tablet amlodipine besylate Take by mouth. 0 Active (AMLODIPINE ORAL) Insulin Syringe-Needle Use as directed 200 Syringe 2 06/04/2018 Active U-100 (INSULIN SYRINGE) BID DX: E11.9 1/2 mL 30 gauge x 5/16 Syrg methylPREDNISolone Take by mouth 21 Each 0 06/11/2018 Active (MEDROL, RANJEET,) 4 mg SEE-INSTRUCTION tabletsIndications: S. follow Multiple joint pain package directions diclofenac 75 mg EC Take 1 tablet 60 tablet 1 06/19/2018 Active tabletIndications: by mouth 2 Multiple joint pain (two) times daily with meals. blood sugar diagnostic Use daily DX 200 Strip 1 07/29/2018 Active (FREESTYLE LITE STRIPS) E11.8. Twice stripIndications: Type 2 daily diabetes mellitus with complication, without long-term current use of insulin Insulin [place], Use as 200 Each 1 07/29/2018 Active Disposable, (PEN NEEDLE) directed, twice 31 gauge x 5/16" daily, DX;E11.8 NdleIndications: Type 2 diabetes mellitus with complication, without long-term current use of insulin Lancets (ACCU-CHEK Use as 200 Each 1 07/29/2018 Active FASTCLIX LANCET DRUM) directed, 1-2 MiscIndications: Type 2 times daily, diabetes mellitus with DX:E11.9 complication, without long-term current use of insulin ACCU-CHEK GUIDE GLUCOSE Use as 1 Each 0 08/07/2018 Active METER Misc directed, TID, DX:E11.9 LEVEMIR FLEXTOUCH U-100 inject 12 Units 22 mL 1 09/30/2018 Active INSULN 100 unit/mL (3 under the skin mL) injection BID documented as of this encounter (statuses as of 01/02/2019) Active Problems Problem Noted Date H/O acute pancreatitis 01/28/2018 Type 2 diabetes mellitus with complication, without long-term current use of insulin Uncontrolled diabetes mellitus type 2 without complications 09/27/2015 HLD (hyperlipidemia) 09/27/2015 Primary hypothyroidism 09/27/2015 Wrist pain 02/23/2015 Hand pain 02/23/2015 documented as of this encounter (statuses as of 01/02/2019) Social History Tobacco Use Types Packs/Day Years Used Date Never Smoker Smokeless Tobacco: Never Used Alcohol Use Drinks/Week oz/Week Comments Not Asked 0 Standard drinks or equivalent 0.0 Sex Assigned at Date Recorded Not on file Job Start Date Occupation Industry Not on file Not on file Not on file Travel History Travel Start Travel End No recent travel history available. documented as of this encounter Last Filed Vital Signs Not on filedocumented in this encounter Plan of Treatment Date Type Specialty Care Team Description 02/03/2019 Office Visit Endocrinology Diabetes & Dominguez, MD [facility] [address], [place] [id number] Health Maintenance Due Date Last Done Comments EYE EXAM 07/07/1953 LDL-C 07/07/1953 URINE MICROALBUMIN 07/07/1953 DTaP,Tdap,and Td Vaccines (1 - 07/07/1962 Tdap) MAMMOGRAM 1983 COLONOSCOPY 07/07/1993 Zoster Recombinant Vaccine 07/07/1993 (SHINGRIX) (1 of 2) Medicare Wellness Visit 07/07/2008 Osteoporosis Screening 07/07/2008 PNEUMOCOCCAL VACCINES 65+ (1 of 2 07/07/2008 - PCV13) INFLUENZA VACCINE (#1) 2018 HgA1C 01/28/2019 07/29/2018, 04/01/2018, 01/27/2018, Additional history exists CREATININE (SERUM) 04/08/2019 04/08/2018 FOOT EXAM 07/30/2019 07/29/2018, 07/29/2018, 04/01/2018, Additional history exists documented as of this encounter Procedures Procedure Name Priority Date/Time Associated Diagnosis Comments NO SHOW OR MISSED Routine 01/02/2019 8:29 AM APPOINTMENT POLICY CDT ACKNOWLEDGEMENT documented in this encounter Results Not on filedocumented in this encounter Insurance Payer Benefit Plan / Subscriber ID Effective Dates Phone Address Type Group HUMANA - HUMANA [id number] 2016-Presen Medicare Adv MANAGED MEDICARE ERS t PPO MEDICARE documented as of this encounter
--- OUTSIDE RECORDS SUMMARY | 2019-04-10 13:55 | XMS REPORT | Summary of Care ---
:1945 Author Organization [facility] Address [address] [place] [id number] Care Team Providers Name Role Phone Geremias Thompson Primary Care Provider Reason for Visit Reason Comments Diabetes Mellitus II Follow-up Encounter Details Date Type Department Care Team Description 01/02/2019 Office Visit [facility] Sony Olmos Type 2 diabetes Endocrinology- [address] [place] [address] Dr mellitus with [facility] 208 complication, [place] [address] long-term current use Building [phone] of insulin ([address] Dx) [address] [place] [address] Allergies Active Allergy Reactions Severity Noted Date Comments Prochlorperazine Unknown - See comments 02/23/2015 Mental reaction documented as of this encounter (statuses as of 01/05/2019) Medications Medication Sig Dispensed Refills Start End Status Date Date metoprolol succinate Take 50 mg by 0 Active XL 50 mg 24 hr tablet mouth. levothyroxine 75 mcg 0 Active tablet 7 amlodipine besylate Take by 0 Active (AMLODIPINE ORAL) mouth. Insulin Syringe-Needle Use as 200 Syringe 2 Active U-100 (INSULIN directed BID 9 SYRINGE) 1/2 mL 30 DX: E11.9 gauge x 5/16 Syrg diclofenac 75 mg EC Take 1 tablet 60 tablet 1 Active tabletIndications: by mouth 2 9 Multiple joint pain (two) times daily with meals. blood sugar diagnostic Use daily DX 200 Strip 1 Active (FREESTYLE LITE E11.8. Twice 9 STRIPS) daily stripIndications: Type 2 diabetes mellitus with complication, without long-term current use of insulin Insulin [place], Use as 200 Each 1 Active Disposable, (PEN directed, 9 NEEDLE) 31 gauge x twice daily, 09/11" NdleIndications: DX;E11.8 Type 2 diabetes mellitus with complication, without long-term current use of insulin Lancets (ACCU-CHEK Use as 200 Each 1 Active FASTCLIX LANCET DRUM) directed, 1-2 9 MiscIndications: Type times daily, 2 diabetes mellitus DX:E11.9 with complication, without long-term current use of insulin ACCU-CHEK GUIDE Use as 1 Each 0 Active GLUCOSE METER Misc directed, TID, 9 DX:E11.9 gemfibrozil 600 mg TAKE 1 TABLET 6 Active tablet BY MOUTH TWICE 9 A DAY pantoprazole 40 mg EC TAKE 1 TABLET 3 Active tablet BY MOUTH 9 EVERYDAY AT BEDTIME predniSONE 5 mg tablet Take 5 mg by 2 Active mouth daily. 9 rosuvastatin 5 mg TAKE 1 TABLET 6 Active tablet BY MOUTH 2 9 TIMES A WEEK Insulin Detemir inject 12 22 mL 1 Active (LEVEMIR FLEXTOUCH Units under 9 U-100 INSULN) 100 the skin BID unit/mL (3 mL) injectionIndications: Type 2 diabetes mellitus with complication, without long-term current use of insulin rosuvastatin 40 mg 0 Discontinued tablet 7 019 methylPREDNISolone Take by mouth 21 Each 0 Discontinued (MEDROL, RANJEET,) 4 mg SEE-INSTRUCTIO 9 019 tabletsIndications: NS. follow Multiple joint pain package directions LEVEMIR FLEXTOUCH inject 12 22 mL 1 Discontinued U-100 INSULN 100 Units under 9 019 unit/mL (3 mL) the skin BID injection documented as of this encounter (statuses as of 01/05/2019) Active Problems Problem Noted Date H/O acute pancreatitis 01/28/2018 Type 2 diabetes mellitus with complication, without long-term current use of insulin Uncontrolled diabetes mellitus type 2 without complications 09/27/2015 HLD (hyperlipidemia) 09/27/2015 Primary hypothyroidism 09/27/2015 Wrist pain 02/23/2015 Hand pain 02/23/2015 documented as of this encounter (statuses as of 01/05/2019) Social History Tobacco Use Types Packs/Day Years [...] of this encounter Last Filed Vital Signs Vital Sign Reading Time Taken Comments Blood Pressure 153/80 01/02/2019 8:46 AM CDT Pulse 74 01/02/2019 8:46 AM CDT Temperature - - Respiratory Rate 18 01/02/2019 8:46 AM CDT Oxygen Saturation - - Inhaled Oxygen Concentration - - Weight 67.6 kg (149 lb) 01/02/2019 8:46 AM CDT Height 152.4 cm (5') 01/02/2019 8:46 AM CDT Body Mass Index 29.1 01/02/2019 8:46 AM CDT documented in this encounter Patient Instructions Patient InstructionsSony Olmos - 01/02/2019 8:30 AM CDTContinue Levemir 12 units twice daily. Check blood sugars before breakfast and before supper twice daily. Write down the times that you check them. They should be between 90 and 130. If they are high in the morning, but okay in the evening, that's generally okay. If they are high consistently throughout the day, we may suggest increasing the insulin to 14 units twice daily. Continue to work on avoiding liquid calories. Avoid high carbohydrate foods when going out to eat. Make sure Dr Thompson checks your cholesterol and thyroid tests. documented in this encounter Progress Notes Sony Olmos - 01/02/2019 8:30 AM CDT Chief Complaint Patient presents with Diabetes Mellitus II Follow-up HPI Patient is a 73 year old /White female who is here today for Diabetes Mellitus Type 2. Patient's diabetes is complicated by atherogenic diet, hyperlipidemia, hypertension , hypothyroidism andsedentary lifestyle. Diabetes regimen: Insulin N 12 unit bid- Takes once daily only Previous medications: None of brand insulins covered ( expansive), januvia, Metformin Glucose readings: Checks once daily in the AM, post meals (200s, but no times recorded) Diet: Semi compliant. Exercise: Limited Following all managed by PCP: Dyslipidemia HTn Hypothyroidism: Managed by PCP s/p thyroidectomy. Current dose LT4 at 50 mcg daily. [facility] Last Ophthalmology visit was 2017, s/p cataract surgery Patient on ROXANA/ARB therapy - No Patient on ASA therapy - Yes. Patient on Statin/Fibrate therapy - Yes. Patient instructed about daily feet exams, last sensation exam was 07/29/2018 Patient has received Nutrition/Diet/Diabetes Education on today. HISTORY Reviewed past medical, surgical, social, family history and no changes REVIEW OF SYSTEMS Constitutional: negative Eyes: Denies blurry vision. Cardiovascular: denies chest pain . Respiratory: denies shortness of breath. Gastrointestinal: negative Neuro: Denies pain in feet Endocrine: denies goiter, denies intolerance to cold and denies intolerance to heat. PHYSICAL EXAM Vitals: 01/02/19 0846 BP: (!) 153/80 Pulse: 74 Resp: 18 Weight: 149 lb (67.6 kg) Height: 5' (1.524 m) General: alert, oriented times three, no apparent distress, appearing age appropriate. Neck: negative findings: carotids without bruits Thyroid: bosselated Lungs: no wheezes or crackles. Heart: regular rate and rhythm. Neuro: no tremors Extremities/Musculoskeletal: no cyanosis, no edema Sensory exam of the foot is normal. Monofilament exam with sensation Right: 5/5 , Left: 5/5. Lesions and ulcers absent. Peripheral pulses present 2+. 10/2016 A1C 7 TC 199, TG 265, HDL 38, LDL 108, Non HDL 161 CMP normal TSH 3.9 Component Latest Ref Rng & Units 09/30/2017 06/24/2017 12:00 AM 9:34 AM POCT HBA1C 4 - 6 % 7.4 (A) 7.7 (A) Labs Scanned and reviewed from recent hospitalization Component Latest Ref Rng & Units 04/01/2018 01/27/2018 10:39 AM 12:00 AM POCT HBA1C 4 - 6 % 5.8 7.3 (A) Component Latest Ref Rng & Units 07/29/2018 12:00 AM POCT HBA1C 4 - 6 % 7.1 (A) Recent Labs 07/29/18 [id number] 7.1* ASSESSMENT ICD-10-CM ICD-9-CM 1. Type 2 diabetes mellitus with complication, without long-term current use of insulin E11.8 250.90 BGs high in the AM may be due to the Candace phenomenon. They were also post-meal numbers. Continue Levemir 12 units twice daily. Check BGs twice daily; write down times. BGs should be between 90 and 130. If they are high in the morning, but okay in the evening, that's generally okay. If BGs are high consistently throughout the day, consider increasing the insulin to 14 units twice daily. Emphasized lifestyle modifications. Ask Dr Thompson to check cholesterol and thyroid tests. No orders of the defined types were placed in this encounter. Jeannine Choe RN - 01/02/2019 8:30 AM CDT María Robison is a 73 year old female seen for a follow up visit for diabetes; Patient Active Problem List Diagnosis Wrist pain Hand pain Uncontrolled diabetes mellitus type 2 without complications HLD (hyperlipidemia) Primary hypothyroidism Type 2 diabetes mellitus with complication, without long-term current use of insulin H/O acute pancreatitis Current Outpatient Medications on File Prior to Visit Medication Sig Dispense Refill gemfibrozil 600 mg tablet TAKE 1 TABLET BY MOUTH TWICE A DAY 6 pantoprazole 40 mg EC tablet TAKE 1 TABLET BY MOUTH EVERYDAY AT BEDTIME 3 predniSONE 5 mg tablet Take 5 mg by mouth daily. 2 rosuvastatin 5 mg tablet TAKE 1 TABLET BY MOUTH 2 TIMES A WEEK 6 LEVEMIR FLEXTOUCH U-100 INSULN 100 unit/mL (3 mL) injection inject 12 Units under the skin BID 22 mL 1 ACCU-CHEK GUIDE GLUCOSE METER Misc Use as directed, TID, DX:E11.9 1 Each 0 blood sugar diagnostic (FREESTYLE LITE STRIPS) strip Use daily DX E11.8. Twice daily 200 Strip 1 Insulin Delphi, Disposable, (PEN NEEDLE) 31 gauge x 5/16" Ndle Use as directed, twice daily, DX;E11.8 200 Each 1 Lancets (ACCU-CHEK FASTCLIX LANCET DRUM) Misc Use as directed, 1-2 times daily, DX:E11.9 200 Each 1 diclofenac 75 mg EC tablet Take 1 tablet by mouth 2 (two) times daily with meals. 60 tablet 1 Insulin Syringe-Needle U-100 (INSULIN SYRINGE) 1/2 mL 30 gauge x 5/16 Syrg Use as directed BID DX: E11.9 200 Syringe 2 amlodipine besylate (AMLODIPINE ORAL) Take by mouth. levothyroxine 75 mcg tablet metoprolol succinate XL 50 mg 24 hr tablet Take 50 mg by mouth. No current facility-administered medications on file prior to visit. Level of pain is zero Location of pain n/a Appearance: healthy,alert,cooperative. This patient is accompanied in the office by her daughter. Medications and allergies reviewed with patient by BHARAT Booth. Patient will demonstrate three measures of preventative foot care: avoid going shoeless, daily cleaning and check, proper care of toe nails and proper foot wear. Met documented in this encounter Plan of Treatment Date Type Specialty Care Team Description 05/29/2019 Office Visit Endocrinology Diabetes & Sony Olmos Metabolism [facility] Dr Merida [address] [place] [id number] Health Maintenance Due Date Last Done Comments [...] history exists documented as of this encounter Results Not on filedocumented in this encounter Visit Diagnoses Diagnosis Type 2 diabetes mellitus with complication, without long-term current use of insulin - Primary documented in this encounter Insurance Payer Benefit Plan / Subscriber ID Effective Dates Phone Address Type Group HUMANA - HUMANA [id number] 2016-Presen Medicare Adv MANAGED MEDICARE ERS t PPO MEDICARE documented as of this encounter
--- OUTSIDE RECORDS SUMMARY | 2019-04-10 13:55 | XMS REPORT | Summary of Care ---
:1945 Author Organization [facility] Address [address] [place] [address] Care Team Providers Name Role Phone Geremias Thompson Primary Care Provider Reason for Visit Reason Comments Diabetes Mellitus II Follow-up Encounter Details Date Type Department Care Team Description 01/02/2019 Office Visit [facility] Sony Olmos Type 2 diabetes Endocrinology- [address] [place] [address] Dr mellitus with [facility] 208 complication, [place] [address] long-term current use Building [phone] of insulin ([address] Dx) [address] [place] [address] Allergies Active Allergy Reactions Severity [...] without long-term current use of insulin Insulin [place], Use as 200 Each 1 Active Disposable, [...] 6 % 7.1 (A) Recent Labs 07/29/18 [id number] 7.1* ASSESSMENT ICD-10-CM ICD-9-CM 1. Type 2 [...] E11.8. Twice daily 200 Strip 1 Insulin [place], Disposable, (PEN NEEDLE) 31 gauge x 5/16" [...] Visit Endocrinology Diabetes & Sony Olmos Metabolism [facility] Dr Merida [address] [place] [address] [id number] Health Maintenance Due Date Last Done Comments [...] Phone Address Type Group HUMANA - HUMANA [id number] 2016-Presen Medicare Adv MANAGED MEDICARE ERS t PPO MEDICARE documented as of this encounter
[2019-04-10 14:53] LABS: Absolute Lymphocytes (CBC) 2.3 K/uL (0.7-4.9); Basophils % 0.6 % (0-1.3); Lymphocytes % 12.8 % (15.3-44.8); MPV 9.9 fL (7.6-11.3)
[2019-04-10 14:55] LABS: Urine Blood TRACE (NEG); Urine Glucose NEGATIVE (NEG); Urine Protein NEGATIVE (NEG); Urine Specific Gravity <1.005 (1.005-1.030); Urine pH 6.5 (5.0-7.0)
[2019-04-10 15:12] LABS: Albumin 4.2 g/dL (3.4-5.0); Bilirubin Direct 0.2 mg/dL (0-0.2); Bilirubin Total 0.7 mg/dL (0.2-1.0); Potassium 4.1 mmol/L (3.5-5.1); Protein, Total 8.2 g/dL (6.4-8.2)
[2019-04-10 15:14] LABS: Urine Bacteria 20-50 /HPF (<20); Urine Culture Reflex Order REFLEXED; Urine Mucus 1+ /HPF (NONE SEEN); Urine RBC <5 /HPF (NONE SEEN)
[2019-04-10] MEDS ORDERED: NA CHLORIDE 0.9% 1,000 ML ONE (16:01)
--- NOTE | 2019-04-10 16:50 | RAD REPORT ---
EXAM DESCRIPTION: CT - Abdomen Pelvis W Contrast - 04/10/2019 4:23 pm CLINICAL HISTORY: unable to urinate for 2 days, abdominal pain, decreased bowel movement COMPARISON: CT study December 2017 TECHNIQUE: Biphasic, helical CT imaging of the abdomen and pelvis was performed following 100 ml non -ionic IV contrast. No oral contrast administered. All CT scans are performed using dose optimization technique as appropriate and may include automated exposure control or mA/KV adjustment according to patient size. FINDINGS: No suspicious findings in the lung bases. The liver, spleen, and pancreas show no suspicious findings. Cholecystectomy clips are present. No bi liary tree dilatation. Symmetric renal function is seen with no hydronephrosis or suspicious renal mass. No pyelonephritis o r acute parenchymal process. No bladder abnormalities. No adrenal abnormalities are present. No uteri ne abnormality. Left ovary is relatively prominent in size for the patient's age. However, the left o vary has not changed since December 2017. Right ovary is not clearly distinguishable from the on opa cified bowel. No ovarian process suspected. No gastric dilatation or gastric wall thickening. No small bowel abnormality. The appendix is normal. Moderate stool volume present in the right-side of the colon. From cecum to mid rectum there are no acute findings. Trivedi of the distal rectum are relatively prominent. There is stranding in the latera l and posterior perirectal tissues. There is a 15 millimeter area of ill-defined decreased density al tad the posterior wall of the anus at the inferior aspect of the gluteal crease. No free air, free fluid or pneumatosis. No hernia, mass or bulky lymphadenopathy. No acute bone finding. Degenerative disc disease at L4-5 and L5-S1. No acute vascular findings. IMPRESSION: No pyelonephritis or acute renal parenchymal process. No urinary bladder abnormality see n. Trivedi of the distal rectum are prominent and there is some stranding in the perirectal fat is well is an ill-defined 15 millimeter low-density area midline posterior at the rectal anal junction. Correlation is needed to determine the patient's urinary pain and bowel issues are related to a proct itis and possible developing posterior perirectal abscess. No diverticulitis or acute colon finding. Moderate stool volume is present in the right-side of the c olon.
--- NOTE | 2019-04-10 17:17 | RAD REPORT ---
EXAM DESCRIPTION: RAD - Abdomen Acute Series - 04/10/2019 3:50 pm CLINICAL HISTORY: unable to urinate for 2 days;Constipation Abdominal pain COMPARISON: Chest Pa And Lat (2 Views) dated 05/06/2018 . FINDINGS: Lungs are clear. Interstitial pattern matches comparison. Heart size and pulmonary vascula ture are normal. No pleural effusion, pneumothorax or other acute cardiopulmonary process seen. Bowel gas pattern is nonspecific. No bowel obstruction, free air or other acute findings. Patient bond s have a moderate stool volume filling but not dilating the colon from cecum to sigmoid colon. No other suspicious for significant findings. IMPRESSION: No acute chest finding. Moderately large stool volume filling but not dilating the colon from cecum to sigmoid colon.
--- NOTE | 2019-04-10 17:53 | EDPHYS ---
Physician Documentation [facility] Name: María Robison Age: 73 yrs Sex: Female : 1945 Arrival Date: 04/10/2019 Time: 13:53 Bed 30 Private MD: Sugey Thompson C ED Physician Virgil Champagne HPI: 04/10 14:31 This 73 yrs old Female presents to ER via Ambulatory with complaints of pkl Urinary Retention. 14:31 The patient presents with urinary symptoms, unable to urinate for 2 days. Associated pkl signs and symptoms: Pertinent positives: constipation, for 2 days. The patient has not experienced similar symptoms in the past. Historical: - Allergies: 14:04 Compazine; ss - Home Meds: 14:04 Aspirin Oral [Active]; levothyroxine oral [Active]; losartan-hydrochlorothiazide ss 100-12.5 mg Oral tab [Active]; amlodipine oral [Active]; Metoprolol Tartrate Oral [Active]; Prednisone Oral [Active]; gemfibrozil 600 mg Oral tab [Active]; pantoprazole oral oral [Active]; rosuvastatin oral oral [Active]; Humira subcutaneous subcutaneous [Active]; Trulicity subcutaneous subcutaneous [Active]; Levemir 100 unit/mL subcutaneous soln [Active]; - PMHx: 14:04 bladder problems; High Cholesterol; Hypertension; Diabetes - IDDM; ss - PSHx: 14:04 Knee surgery; Thyroidectomy; 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 - Social history:: Smoking status: Patient/guardian denies using tobacco. - Ebola Screening: : No symptoms or risks identified at this time. ROS: 14:31 Positive for unable to urinate for 2 days. pkl 14:31 Eyes: Negative for injury, pain, redness, and discharge, ENT: Negative for injury, pain, and discharge, Neck: Negative for injury, pain, and swelling, Cardiovascular: Negative for chest pain, palpitations, and edema, Respiratory: Negative for shortness of breath, cough, wheezing, and pleuritic chest pain. 14:31 Abdomen/GI: Positive for constipation. 14:31 Back: Negative for acute changes. 14:31 : Positive for unable to urinate . 14:31 MS/extremity: Negative for acute changes. 14:31 Skin: Negative for rash. 14:31 Neuro: Negative for altered mental status. Exam: 14:31 Head/Face: Normocephalic, atraumatic. Eyes: Pupils equal round and reactive to light, pkl extra-ocular motions intact. Lids and lashes normal. Conjunctiva and sclera are non-icteric and not injected. Cornea within normal limits. Periorbital areas with no swelling, redness, or edema. ENT: Nares patent. No nasal discharge, no septal abnormalities noted. Tympanic membranes are normal and external auditory canals are clear. Oropharynx with no redness, swelling, or masses, exudates, or evidence of obstruction, uvula midline. Mucous membranes moist. Neck: Trachea midline, no thyromegaly or masses palpated, and no cervical lymphadenopathy. Supple, full range of motion without nuchal rigidity, or vertebral point tenderness. No Meningismus. Chest/axilla: Normal chest wall appearance and motion. Nontender with no deformity. No lesions are appreciated. Cardiovascular: Regular rate and rhythm with a normal S1 and S2. No gallops, murmurs, or rubs. Normal PMI, no JVD. No pulse deficits. Respiratory: Lungs have equal breath sounds bilaterally, clear to auscultation and percussion. No rales, rhonchi or wheezes noted. No increased work of breathing, no retractions or nasal flaring. 14:31 Abdomen/GI: Bowel sounds: normal, Palpation: abdomen is soft and non-tender, in all quadrants. 14:31 Back: Exam negative for acute changes. 14:31 : Exam negative for acute changes. 14:31 Musculoskeletal/extremity: Exam is negative for acute changes. 14:31 Skin: Exam negative for rash. 14:31 Neuro: Orientation: is normal, Mentation: is normal, Cranial nerves: grossly normal, Motor: is normal. 17:49 Abdomen/GI: Rectal exam: hemorrhoid(s), external, tenderness, that is moderate. pkl Vital Signs: 14:04 BP 153 / 80; Pulse 88; Resp 17 S; Temp 97.2(TE); Pulse Ox 96% on R/A; Weight 65.77 kg ss (R); Pain 5/10; 15:00 BP 142 / 67; Pulse 89; Resp 16; Pulse Ox 98% on R/A; rv 15:30 BP 130 / 64; Pulse 89; Resp 16; Pulse Ox 98% on R/A; rv 16:30 BP 136 / 68; Pulse 87; Resp 17; Pulse Ox 97% on R/A; rv 18:00 BP 156 / 90; Pulse 97; Resp 17; Pulse Ox 96% ; rv 19:46 BP 141 / 77; Pulse 91; Resp 17; Pulse Ox 99% on R/A; rv MDM: 14:10 Patient medically screened. pkl 17:45 Data reviewed: vital signs, nurses notes, lab test result(s), radiologic studies, CT pkl scan, plain films. ED course: Talked to Dr. Thompson and Dr. Sanchez. Admit patient. 04/10 14:29 Order name: Basic Metabolic Panel; Complete Time: 15:35 pkl 04/10 14:29 Order name: CBC with Diff; Complete Time: 15:06 pkl 04/10 14:29 Order name: Creatinine for Radiology; Complete Time: 15:35 pkl 04/10 14:29 Order name: Hepatic Function; Complete Time: 15:35 pkl 04/10 14:29 Order name: Lipase; Complete Time: 15:35 pkl 04/10 14:45 Order name: Urine Microscopic Only; Complete Time: 15:35 ss 04/10 14:30 Order name: XRAY Abdomen Acute Series; Complete Time: 17:53 pkl 04/10 14:46 Order name: Urine Dipstick--Ancillary (enter results); Complete Time: 15:06 ss 04/10 15:16 Order name: Urine Culture EDSC 04/10 15:52 Order name: CT Abd/Pelvis - IV Contrast Only; Complete Time: 17:10 pkl 04/10 18:25 Order name: Basic Metabolic Panel EDMS 04/10 18:25 Order name: Basic Metabolic Panel EDMS 04/10 18:25 Order name: CBC with Automated Diff EDMS 04/10 18:25 Order name: CBC with Automated Diff EDMS 04/10 14:29 Order name: IV Saline Lock; Complete Time: 14:50 pkl 04/10 14:29 Order name: Labs collected and sent; Complete Time: 14:51 pkl 04/10 18:25 Order name: CONS Physician Consult EDSC 04/10 18:25 Order name: NPO EDMS Administered Medications: 16:10 Drug: NS 0.9% 500 ml Route: IV; Rate: bolus; Site: right femoral; mg2 17:05 Follow up: IV Status: Completed infusion; IV Intake: 500ml rv 17:06 Drug: NS 0.9% 1000 ml Route: IV; Rate: 100 ml/hr; Site: right antecubital; rv 19:46 Follow up: IV Status: Completed infusion rv Disposition: 04/10/19 17:52 Hospitalization ordered by Sugey Thompson for Inpatient Admission. Preliminary diagnosis is Rectal pain. Leucocytosis. Possible perirectal abscess. External hemorrhoids. - Bed requested for Telemetry/MedSurg (Inpatient). - Status is Inpatient Admission. rv - Condition is Stable. - Problem is new. - Symptoms are unchanged. UTI on Admission? No Signatures: Dispatcher [employer] EDMS Virgil Champagne MD MD pkl Daniel, Rickie em1 Coral Mars RN RN ss Daniele Allen RN RN mg2 Naldo Herrera RN RN rv Corrections: (The following items were deleted from the chart) 18:52 17:52 Hospitalization Ordered by A Jay COULTER for Inpatient Admission. Preliminary em1 diagnosis is Rectal pain. Leucocytosis. Possible perirectal abscess. External hemorrhoids. Bed requested for Telemetry/MedSurg (Inpatient). Status is Inpatient Admission. Condition is Stable. Problem is new. Symptoms are unchanged. UTI on Admission? No. pkl 19:48 18:52 04/10/2019 17:52 Hospitalization Ordered by A Jay COULTER for Inpatient Admission. rv Preliminary diagnosis is Rectal pain. Leucocytosis. Possible perirectal abscess. External hemorrhoids. Bed requested for Telemetry/MedSurg (Inpatient). Status is Inpatient Admission. Condition is Stable. Problem is new. Symptoms are unchanged. UTI on Admission? No. em1
--- NOTE | 2019-04-10 17:53 | ER ---
Nurse's Notes [facility] Name: María Robison Age: 73 yrs Sex: Female : 1945 Arrival Date: 04/10/2019 Time: 13:53 Bed 30 Private MD: Sugey Thompson C Diagnosis: Rectal pain. Leucocytosis. Possible perirectal abscess. External hemorrhoids Presentation: 04/10 13:59 Presenting complaint: Patient states: "I haven't peed in 2 days." Reports last BM was 2 ss days ago as well. Transition of care: patient was not received from another setting of care. Onset of symptoms was April 08, 2019. Risk Assessment: Do you want to hurt yourself or someone else? Patient reports no desire to harm self or others. Initial Sepsis Screen: Does the patient meet any 2 criteria? No. Patient's initial sepsis screen is negative. Does the patient have a suspected source of infection? No. Patient's initial sepsis screen is negative. Care prior to arrival: None. 13:59 Method Of Arrival: Ambulatory ss 13:59 Acuity: CHEVY 3 ss Historical: - Allergies: 14:04 Compazine; ss - Home Meds: 14:04 Aspirin Oral [Active]; levothyroxine oral [Active]; losartan-hydrochlorothiazide ss 100-12.5 mg Oral tab [Active]; amlodipine oral [Active]; Metoprolol Tartrate Oral [Active]; Prednisone Oral [Active]; gemfibrozil 600 mg Oral tab [Active]; pantoprazole oral oral [Active]; rosuvastatin oral oral [Active]; Humira subcutaneous subcutaneous [Active]; Trulicity subcutaneous subcutaneous [Active]; Levemir 100 unit/mL subcutaneous soln [Active]; - PMHx: 14:04 bladder problems; High Cholesterol; Hypertension; Diabetes - IDDM; ss - PSHx: 14:04 Knee surgery; Thyroidectomy; 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 - Social history:: Smoking status: Patient/guardian denies using tobacco. - Ebola Screening: : No symptoms or risks identified at this time. Screenin:49 Abuse screen: Denies threats or abuse. Denies injuries from another. Nutritional rv screening: No deficits noted. Tuberculosis screening: No symptoms or risk factors identified. Fall Risk None identified. Assessment: 14:48 General: Appears in no apparent distress. uncomfortable, Behavior is calm, cooperative. rv Pain: Denies pain. Neuro: Level of Consciousness is awake, alert, obeys commands, Oriented to person, place, time, situation. Cardiovascular: Patient's skin is warm and dry. Respiratory: Airway is patent. GI: No signs and/or symptoms were reported involving the gastrointestinal system. : Reports inability to void, urgency. EENT: No signs and/or symptoms were reported regarding the EENT system. Derm: Skin is intact. Musculoskeletal: No signs and/or symptoms reported regarding the musculoskeletal system. 18:00 Reassessment: Patient appears in no apparent distress at this time. Patient and/or rv family updated on plan of care and expected duration. Pain level reassessed. Patient is alert, oriented x 3, equal unlabored respirations, skin warm/dry/pink. Daniele NICHOLSON assisted Dr Champagne with rectal exam. Guaiac test is positive. Vital Signs: 14:04 BP 153 / 80; Pulse 88; Resp 17 S; Temp 97.2(TE); Pulse Ox 96% on R/A; Weight 65.77 kg ss (R); Pain 5/10; 15:00 BP 142 / 67; Pulse 89; Resp 16; Pulse Ox 98% on R/A; rv 15:30 BP 130 / 64; Pulse 89; Resp 16; Pulse Ox 98% on R/A; rv 16:30 BP 136 / 68; Pulse 87; Resp 17; Pulse Ox 97% on R/A; rv 18:00 BP 156 / 90; Pulse 97; Resp 17; Pulse Ox 96% ; rv 19:46 BP 141 / 77; Pulse 91; Resp 17; Pulse Ox 99% on R/A; rv ED Course: 13:53 Patient arrived in ED. as 13:54 Tihsa Crowley MD is Private Physician. as 13:54 Sugey Thompson MD is Private Physician. as 14:00 Triage completed. ss 14:04 Arm band placed on right wrist. ss 14:10 Virgil Champagne MD is Attending Physician. pkl 14:40 Bladder scan completed. 391 ml. Inserted saline lock: 22 gauge in right forearm, using rv aseptic technique. Blood collected. 14:46 Naldo Herrera, RN is Primary Nurse. rv 14:50 Patient has correct armband on for positive identification. Call light in reach. Side rv rails up X 1. Pulse ox on. NIBP on. 15:46 Urine Culture Sent. jp3 15:50 XRAY Abdomen Acute Series In Process Unspecified. EDMS 16:34 CT Abd/Pelvis - IV Contrast Only In Process Unspecified. EDMS 17:50 Sugey Thompson MD is Hospitalizing Provider. pkl 19:47 No provider procedures requiring assistance completed. Patient admitted, IV remains in rv place. Administered Medications: 16:10 Drug: NS 0.9% 500 ml Route: IV; Rate: bolus; Site: right femoral; mg2 17:05 Follow up: IV Status: Completed infusion; IV Intake: 500ml rv 17:06 Drug: NS 0.9% 1000 ml Route: IV; Rate: 100 ml/hr; Site: right antecubital; rv 19:46 Follow up: IV Status: Completed infusion rv Intake: 17:05 IV: 500ml; Total: 500ml. rv Outcome: 17:52 Decision to Hospitalize by Provider. pkl 19:47 Admitted to Med/surg accompanied by tech, via wheelchair, room 210, with chart, Report rv called to DANE NICHOLSON 19:47 Condition: good 19:47 Instructed on the need for admit. 19:48 Patient left the ED. rv Signatures: Dispatcher [employer] Virgil Gonzalez MD MD pkl Phuong Sanchez Shelby, RN RN Daniele Allen RN RN [facility] Naldo Herrera RN RN rv Chad Castaneda jp3
[2019-04-10] MEDS ORDERED: MORPHINE 2 MG/ML SYR IV PRN (18:03)
[2019-04-10] MEDS ORDERED: ONDANSETRON 4 MG/2 ML VIAL IV PRN (18:03)
[2019-04-10] MEDS ORDERED: VANCOMYCIN 1 GM in NA CHLORIDE 0.9% 500 ML IVPB SCH (19:00)
[2019-04-10 20:17] VITALS: BMI 28.3
[2019-04-10] MEDS: PIPER/TAZO/NS 3.375gm 3.375 GM/100 ML BAG IVPB SCH (21:00)
[2019-04-10] MEDS ORDERED: VANCOMYCIN 1 GM/VIAL ONE (21:18)
[2019-04-10] MEDS ORDERED: VANCOMYCIN 500 MG/VIAL ONE (21:19)
[2019-04-10] MEDS ORDERED: NA CHLORIDE 0.9% 250 ML ONE (21:23)
[2019-04-10] MEDS ORDERED: PIPER/TAZO/NS 3.375gm 6.750 GM/200 ML BAG ONE (21:24)
[2019-04-10] MEDS: NA CHLORIDE 0.9% 1,000 ML IV SCH (21:48)
[2019-04-10] MEDS: VANCOMYCIN 1.25 GM in NA CHLORIDE 0.9% 250 ML IV SCH (22:00)
[2019-04-11] MEDS: PIPER/TAZO/NS 3.375gm 3.375 GM/100 ML BAG IVPB SCH ×4 (03:26→20:58)
[2019-04-11] MEDS: NA CHLORIDE 0.9% 1,000 ML IV SCH ×2 (05:00→14:43)
[2019-04-11 06:43] LABS: Basophils % 0.8 % (0-1.3); Hematocrit 39.3 % (36.0-45.0); Lymphocytes % 38.5 % (15.3-44.8); MPV 9.9 fL (7.6-11.3); RBC Red Blood Cell Count 4.47 M/uL (3.86-4.86)
[2019-04-11] MEDS ORDERED: D50W 25 GM/50 ML SYRINGE/VIAL IV PRN (06:49)
[2019-04-11] MEDS ORDERED: GLUCAGON 1 MG/VIAL IM PRN (06:49)
[2019-04-11] MEDS ORDERED: predniSONE 5 MG TAB PO SCH (07:00)
[2019-04-11 07:02] LABS: Potassium 3.5 mmol/L (3.5-5.1)
[2019-04-11] MEDS: INSULIN -REGULAR HUMAN 50 UNIT/0.5 ML ML SQ SCH ×4 (07:30→21:00)
[2019-04-11] MEDS: METOPROLOL TAR 50 MG TAB PO SCH ×2 (08:51→18:00)
[2019-04-11] MEDS: PANTOPRAZOLE 40MG TABLET PO SCH (08:51)
[2019-04-11] MEDS: ASPIRIN 81 MG CHEWABLE TABLET PO SCH (09:00)
[2019-04-11] MEDS ORDERED: PNEUMOCOCCAL VACCINE 0.5 ML IMVAC ONE (16:00)
[2019-04-11] MEDS ORDERED: INFLUENZA VACCINE (for 3y+) 0.5 ML DOSE IMVAC ONE (16:00)
[2019-04-11] MEDS ORDERED: ENOXAPARIN 40 MG/0.4 ML SQ SCH (17:00)
[2019-04-11 18:23] VITALS: O2SAT 96
[2019-04-11] MEDS: VANCOMYCIN 1.25 GM in NA CHLORIDE 0.9% 250 ML IV SCH (22:00)
--- NOTE | 2019-04-11 23:19 | HP ---
Date of Admission: 04/11/2019 Chief Complaint: Trouble urinating and abdominal pain. History Of Present Illness: This is a 73-year-old female patient who was brought into emergency room yesterday with trouble urinating with abdominal pain. The patient's daughter contacted me yesterday and when I called her back , she informed me that as of yesterday was the first time she found out about all this moment and this is actually while she was at the office of her entrepreneurial finance professor, Dr. Quan, she informed office staff members about this complaints that she had not urinated for last 36 hours and was having some abdominal pain, so with that in mind, Dr. Quan directed her to go to emergency room right away and daughter contacted me with this information. I did contact the ER physician requesting evaluation. After workup was done in the emergency room, patient was admitted to the hospital. Patient's normal bowel habit is either she has bowel movement every day or every other day. After she came into emergency room, she had a bowel movement in the ER and she describes the first bowel movement was hard stool and she had to strain a little bit at that time. Subsequently, she had few bowel movement and stool at that time was soft to loose. Denies any nausea, vomiting. She had a little bit discomfort in the emergency room when she had a bowel movement with a hard stool, but after that, denies any pain in rectum. Patient was able to void also in the emergency room after she had a bowel movement. She has not had any trouble voiding since that time. No fever, chills. Allergies: COMPAZINE CAUSING BLURRED VISION. Medications: List reviewed. Review of Systems: GI: As mentioned above. All other systems reviewed and negative. Past Medical History: Mixed hyperlipidemia, hypertension, type 2 diabetes mellitus, overactive bladder, rheumatoid arthritis, insomnia, and postsurgical hypothyroidism. Past Surgical History: Thyroidectomy, which is total removal of benign left breast tumor, cholecystectomy, D and C, shoulder surgery on the right side, knee surgery on the left side. Family History: Father had coronary artery disease. Mother had lung cancer. Brother had coronary artery disease. Social History: Negative for smoking. Use of alcohol occasionally. Physical Examination: Vital Signs: Today her last temperature 99.1, pulse 81, respiratory rate 16, blood pressure 125/58, height 5 feet, weight 144 pounds. General: Awake, alert, oriented, not in distress. HEENT: Head atraumatic, normocephalic. Conjunctivae nonerythematous. Sclerae white. Mouth, no thrush or edema noted. Ears/Nose, no mass, lesion, discharge noted. Neck: Supple. No JVD, lymph nodes, bruit, thyromegaly noted. Lungs: Bilateral good equal air entry. Clear to auscultation. No rhonchi. No rales. Heart: Normal heart sounds, no murmur or gallop. Abdomen: Soft, bowel sounds normal. No guarding, rigidity, tenderness, mass, hepatosplenomegaly, distention, or bruit noted. Extremities: No leg edema. No calf tenderness. Skin: No rash, ulcer, cellulitis. Lymphatics: No lymph node enlargement in neck, supraclavicular, infraclavicular region. Neuro: No focal neurological deficit. Chest: Unremarkable. External Genitalia: Deferred. Rectal: Done in presence of nurse and patient's daughter in the room. Upon inspection, rectal exam shows multiple hemorrhoids outside the anal opening. None of them are thrombosed or painful. Rectal exam shows normal sphincter tone. No rectal mass. No tenderness. Stool color brown. Laboratory Data: Yesterday's white count 17.7, hemoglobin 16. Today, white count 7.7, hemoglobin 14, platelets 250. Yesterday sodium 140, potassium 4.1, chloride 108, bicarb 26, BUN 11, creatinine 0.86, glucose 139. Liver function tests unremarkable. Lipase 308. Today, sodium 145, potassium 3.5, chloride 111 , bicarb 26, BUN 8, creatinine 0.78 glucose 106. Urinalysis; trace leukocyte esterase, 20-50 bacteria otherwise. CAT scan of abdomen pelvis with contrast shows no evidence of pyelonephritis or any other acute renal finding, coker of distal rectum is prominent with some stranding in the perirectal fat and there is ill-defined 15 mm low density area in midline posterior at the rectoanal junction. These findings could be related to proctitis or early developing perirectal abscess. Moderate stool volume on the right side of the colon. Impression: 1. Rule out perirectal abscess. 2. Constipation. 3. Urinary retention. 4. Rheumatoid arthritis. 5. Hypertension. 6. Hyperlipidemia, mixed. 7. Type 2 diabetes mellitus. 8. Postsurgical hypothyroidism. 9. Primary insomnia. Plan: Admit patient to hospital for further evaluation of and management of this problem. The patient is appropriate for inpatient and is expected to spend 2 midnights in hospital. We will go ahead and continue current IV antibiotics. Continue her home medication. She was kept n.p.o. after midnight for her general surgeon Dr. Sanchez to look at her and consultation is pending. We will find out if Dr. Sanchez is not planning to do any surgical intervention, then we can start her on diet. Home medications will be given per order. We will monitor fingerstick blood sugar with sliding scale insulin and I will see her tomorrow for followup. If no surgery is planned by Dr. Sanchez, then we will plan to discharge her tomorrow. Other details and plan of treatment discussed with the patient and her daughter. She takes Humira injection every 2 weeks and her last injection was last week. Next injection will be coming up next week and I have advised the patient and her daughter that she should skip the next dose considering this current infectious problem that is going on. We will see her tomorrow for followup. DVT prophylaxis was ordered with Lovenox. PATRIC/MODL Voice ID: [id number] RADHA
[2019-04-12] MEDS: NA CHLORIDE 0.9% 1,000 ML IV SCH (00:39)
[2019-04-12] MEDS: PIPER/TAZO/NS 3.375gm 3.375 GM/100 ML BAG IVPB SCH ×2 (02:58→08:36)
[2019-04-12] MEDS: METOPROLOL TAR 50 MG TAB PO SCH (05:08)
[2019-04-12] MEDS ORDERED: LEVOTHYROXINE SOD 0.075 MG TAB PO SCH (06:00)
[2019-04-12] MEDS: INSULIN -REGULAR HUMAN 50 UNIT/0.5 ML ML SQ SCH (07:30)
[2019-04-12] MEDS: ASPIRIN 81 MG CHEWABLE TABLET PO SCH (08:36)
[2019-04-12] MEDS: PANTOPRAZOLE 40MG TABLET PO SCH (08:37)
[2019-04-12 10:01] VITALS: BP 149/73; TEMP 98.3
--- NOTE | 2019-04-13 02:26 | DS ---
Date of Discharge: 04/12/2019 Subjective: Patient was seen this morning for followup. No new complaints were reported by patient. Denies any abdominal pain, nausea, vomiting. No constipation. No trouble emptying bladder. Objective: Vital Signs: Reviewed. HEENT: Unremarkable. Lungs: Clear to auscultation. Heart: Sounds normal. Abdomen: Soft. Bowel sounds normal. No guarding, rigidity, tenderness, or distention. Extremities: No leg edema. Discharge Medications And Instructions: Continue prior home medications except do not take your next dose of Humira, which is coming up this week and restart her Humira injection 2 weeks after the next dose, so it will be about 3 weeks from now. Followup with Dr. Thompson on 04/16/2019 at 5:[address] Sanchez on 04/17/2019 and call his office for appointment. Take Cipro and metronidazole as prescribed for 1 week, which is Cipro 500 mg twice a day and metronidazole 500 mg 3 times a day for 10 days. Hospital Course: This is a 73-year-old female patient who was admitted to the hospital after she came into emergency room with abdominal pain and trouble urinating. Please see dictated H and P for more information. After patient was evaluated in the ER, she was admitted to the hospital. Her initial white count was 17.7, hemoglobin 6, and this was on day of admission. Day after that her white count came down to 7.7, with hemoglobin 14, platelets 250. Upon admission, sodium 140, potassium 4.1, chloride 108, bicarb 26, BUN 11, creatinine of 0.86, glucose 139, and liver function tests unremarkable. Lipase was 308. CT scan of abdomen and pelvis with contrast done in emergency room did not show any evidence of pyelonephritis or any other acute renal finding. Trivedi of the distal rectum are prominent with some stranding in the perirectal fat and there is ill-defined 15 mm low density area in the midline posterior at rectoanal junction and this finding could be due to proctitis or early developing perirectal abscess. Moderate amount of stool on the right side of the colon present. After the patient was admitted to the hospital, she was given IV antibiotics. Dr. Sanchez was consulted from General Surgery and the patient actually had a bowel movement in the emergency room and has been having bowel movement on a daily basis and her trouble voiding urine has resolved and she has not had any further problems regarding bladder during this hospitalization. She denies any rectal pain. She is tolerating diet very well and she is feeling fine, back to her normal self, and wants to go home. Medically, she is stable for discharge. I did talk to Dr. Sanchez and he is okay with the patient going home with oral antibiotics and he will see patient on Saturday of this coming week and that he will plan to do either sigmoidoscopy or colonoscopy on an elective basis. Details were discussed with the patient and her daughter. Final Diagnoses: 1. Proctitis. 2. Rule out perirectal abscess. 3. Constipation. 4. Urinary retention. 5. Rheumatoid arthritis. 6. Hypertension. 7. Type 2 diabetes mellitus. 8. Postsurgical hypothyroidism. 9. Primary insomnia. 10. Mixed hyperlipidemia. PATRIC/MODL Voice ID: [id number] Report ID: [id number] MTDD
== END 2019-04-12 11:04 | disposition home or self-care (01) | DRG 394 ==
LOC: ER 13:52 → ERHOLD 18:01 → 2ND 19:34
PROVIDERS: ADMIT Internal Medicine; ATTEND Internal Medicine
DX: K62.89 Other specified diseases of anus and rectum (principal); K61.1 Rectal abscess; K59.00 Constipation, unspecified; R33.9 Retention of urine, unspecified; M06.9 Rheumatoid arthritis, unspecified; I10 Essential (primary) hypertension; E11.9 Type 2 diabetes mellitus without complications; E89.0 Postprocedural hypothyroidism; F51.01 Primary insomnia; E78.2 Mixed hyperlipidemia
CPT/HCPCS: 36415; 74022; 74177; 80048; 80076; 81003; 81015; 82947; 83690; 85025; 87086; 87088; 96360; 96361; 99285; J1650; J2543; J7030; J7512; Q9967

== ENCOUNTER 2019-04-20 14:02 | Emergency (ER) | payer OTHER ==
--- OUTSIDE RECORDS SUMMARY | 2019-04-20 14:03 | XMS REPORT ---
:1945 [facility] Address [address] [place] [address] Dr. Goss [address] [place] [id number] Care Team Providers Name Role Phone Unavailable Unavailable Unavailable Problems This patient has no known problems. Allergies, Adverse Reactions, Alerts This patient has no known allergies or adverse reactions. Medications This patient has no known medications.
[2019-04-20] MEDS ORDERED: KETOROLAC 30 MG/ML INJ ONE (15:04)
[2019-04-20 15:10] LABS: Absolute Lymphocytes (CBC) 1.9 K/uL (0.7-4.9); Hematocrit 46.7 % (36.0-45.0); Lymphocytes % 26.4 % (15.3-44.8); RBC Red Blood Cell Count 5.28 M/uL (3.86-4.86)
[2019-04-20 15:10] LABS: Urine Blood NEGATIVE (NEG); Urine Glucose NEGATIVE (NEG); Urine Protein NEGATIVE (NEG); Urine Specific Gravity <1.005 (1.005-1.030)
[2019-04-20 15:22] LABS: Albumin 4.1 g/dL (3.4-5.0); Bilirubin Direct 0.2 mg/dL (0-0.2); Bilirubin Total 0.6 mg/dL (0.2-1.0); Protein, Total 7.6 g/dL (6.4-8.2)
--- NOTE | 2019-04-20 16:08 | RAD REPORT ---
EXAM DESCRIPTION: CT - Abdomen Pelvis W Contrast - 04/20/2019 3:59 pm CLINICAL HISTORY: ABD PAIN, left flank pain COMPARISON: CT April 10 TECHNIQUE: Biphasic, helical CT imaging of the abdomen and pelvis was performed following 100 ml non -ionic IV contrast. No oral contrast given. All CT scans are performed using dose optimization technique as appropriate and may include automated exposure control or mA/KV adjustment according to patient size. FINDINGS: No suspicious findings in the lung bases. The liver, spleen, and pancreas show no suspicious findings. Gallbladder is absent. No biliary tree d ilatation. Symmetric renal function is seen with no hydronephrosis or suspicious renal mass. No pyelonephritis o r acute parenchymal process. No bladder abnormalities. No adrenal abnormalities. Uterus and ovaries s how no new or progressive finding from the short interval April 10 study. Stomach and small bowel show no acute findings. No evidence for appendicitis. Large stool volume is p resent filling but not dilating the colon. No wall thickening or edema. No acute colon process. No free air, free fluid or inflammatory stranding. No hernia, mass or bulky lymphadenopathy. No suspicious bony findings. Disc and bony degenerative changes are present they are IMPRESSION: No hydronephrosis, obstructing calculus or acute finding. Large stool volume is present filling but not dilating the entirety of the colon. No colon mass, wall thickening or acute process seen. Cholecystectomy change with no biliary tree or pancreatic abnormalities.
--- NOTE | 2019-04-20 16:20 | ER ---
Nurse's Notes [facility] Name: María Robison Age: 73 yrs Sex: Female : 1945 Arrival Date: 04/20/2019 Time: 14:03 Bed 19 Private MD: Diagnosis: Upper abdominal pain, unspecified Presentation: 04/20 14:11 Presenting complaint: Patient states: left flank sharp pain x 3 days. Denies urinary sv problems. Transition of care: patient was not received from another setting of care. Onset of symptoms was April 17, 2019. Risk Assessment: Do you want to hurt yourself or someone else? Patient reports no desire to harm self or others. Care prior to arrival: None. 14:11 Method Of Arrival: Ambulatory sv 14:11 Acuity: CHEVY 3 sv 14:30 Initial Sepsis Screen: Does the patient meet any 2 criteria? No. Patient's initial em sepsis screen is negative. Does the patient have a suspected source of infection? No. Patient's initial sepsis screen is negative. Historical: - Allergies: 14:12 Compazine; sv - PMHx: 14:12 bladder problems; Diabetes - IDDM; Diabetes - NIDDM; High Cholesterol; Hypertension; sv - PSHx: 14:12 Knee surgery; Thyroidectomy; tumor removed from breast; shoulder surgery; sv - Immunization history:: Adult Immunizations up to date, Flu vaccine is not up to date. - Social history:: Smoking status: Patient/guardian denies using tobacco, Patient/guardian denies using alcohol, street drugs, The patient lives with family. - Ebola Screening: : No symptoms or risks identified at this time. - Family history:: not pertinent. Screenin:29 Abuse screen: Denies threats or abuse. Nutritional screening: No deficits noted. em Tuberculosis screening: No symptoms or risk factors identified. Fall Risk None identified. Assessment: 14:30 General: Appears in no apparent distress. comfortable, Behavior is calm, cooperative, em Denies fever. Pain: Complains of pain in anterior aspect of left lateral abdomen Pain currently is 4 out of 10 on a pain scale. Pain began 1 day ago. Neuro: Level of Consciousness is awake, alert, obeys commands, Oriented to person, place, time, situation, Appropriate for age. Cardiovascular: Capillary refill < 3 seconds Patient's skin is warm and dry. Respiratory: Airway is patent Respiratory effort is even, unlabored, Respiratory pattern is regular, symmetrical. GI: Abdomen is flat, Bowel sounds present X 4 quads. Abd is soft X 4 quads Abdomen is tender to palpation in anterior aspect of left lateral abdomen Reports diarrhea, nausea, Patient currently denies vomiting. : Denies burning with urination. Derm: Skin is intact, is healthy with good turgor, Skin is pink, warm \T\ dry. Musculoskeletal: Capillary refill < 3 seconds, Range of motion: intact in all extremities. 16:12 Reassessment: Patient appears in no apparent distress at this time. Patient and/or em family updated on plan of care and expected duration. Pain level reassessed. Patient is alert, oriented x 3, equal unlabored respirations, skin warm/dry/pink. Patient states feeling better. Patient states symptoms have improved. Vital Signs: 14:13 BP 135 / 67; Pulse 82; Resp 16; Temp 97.7(O); Pulse Ox 99% ; Weight 63.5 kg; Height 5 sv ft. 0 in. (152.40 cm); Pain 4/10; 15:43 BP 109 / 62; Pulse 86; Resp 16; Temp 98.0(O); Pulse Ox 98% on R/A; mh5 16:19 BP 141 / 71; Pulse 87; Resp 18; Pulse Ox 99% on R/A; Pain 2/10; em 14:13 Body Mass Index 27.34 (63.50 kg, 152.40 cm) sv ED Course: 14:03 Patient arrived in ED. as 14:12 Triage completed. sv 14:14 Arm band placed on. sv 14:15 Barrett Haro LVN is Primary Nurse. em 14:25 Satish Carranza MD is Attending Physician. ma2 14:29 Patient has correct armband on for positive identification. Placed in gown. Bed in low em position. Call light in reach. Pulse ox on. NIBP on. 14:33 Patient has correct armband on for positive identification. Pulse ox on. NIBP on. mh5 14:33 Urine collected: clean catch specimen, clear. mh5 14:47 Missed attempt(s): 22 gauge in right forearm. mh5 15:00 Initial lab(s) drawn, by me, sent to lab. Inserted saline lock: 22 gauge in right em antecubital area, using aseptic technique. Blood collected. 15:59 CT Abd/Pelvis - IV Contrast Only In Process Unspecified. EDMS 16:34 No provider procedures requiring assistance completed. IV discontinued, intact, em bleeding controlled, No redness/swelling at site. Pressure dressing applied. Administered Medications: 15:10 Drug: TORadol 30 mg Route: IVP; Site: right antecubital; 16:10 Follow up: Response: No adverse reaction; Marked relief of symptoms; Pain is decreased em Outcome: 16:19 Discharge ordered by MD. [email or web address] 16:35 Discharged to home ambulatory. em 16:35 Condition: good 16:35 Discharge instructions given to patient, Instructed on discharge instructions, follow up and referral plans. medication usage, Demonstrated understanding of instructions, follow-up care, medications, Prescriptions given X 2. 16:36 Patient left the ED. em Signatures: Dispatcher [employer] Rosette Duke RN RN sv Munoz, Edgar, BANQUET COOK BANQUET COOK em Phuong Sanchez Shelby, RN RN ss Martinez, [facility] Satish Carranza MD MD ma2 Corrections: (The following items were deleted from the chart) 14:14 14:13 Pulse 82bpm; Resp 16bpm; Pulse Ox 99%; Temp 97.7F Oral; 63.5 kg; Height 5 ft. 0 sv in.; BMI: 27.3; Pain 4/10; sv
--- NOTE | 2019-04-20 16:21 | EDPHYS ---
Physician Documentation [facility] Name: María Robison Age: 73 yrs Sex: Female : 1945 Arrival Date: 04/20/2019 Time: 14:03 Bed 19 Private MD: ED Physician Satish Carranza HPI: 04/20 16:17 This 73 yrs old Female presents to ER via Ambulatory with complaints of ma2 Abdominal Pain. 16:17 The patient presents with abdominal pain. Onset: The symptoms/episode began/occurred ma2 gradually, 1 hour(s) ago. Associated signs and symptoms: Pertinent negatives: blood in stools, chest pain, headache, palpitations, vomiting. Severity of pain: At its worst the pain was very mild mild in the emergency department the pain is unchanged. The patient has not experienced similar symptoms in the past. Historical: - Allergies: 14:12 Compazine; sv - PMHx: 14:12 bladder problems; Diabetes - IDDM; Diabetes - NIDDM; High Cholesterol; Hypertension; sv - PSHx: 14:12 Knee surgery; Thyroidectomy; tumor removed from breast; shoulder surgery; sv - Immunization history:: Adult Immunizations up to date, Flu vaccine is not up to date. - Social history:: Smoking status: Patient/guardian denies using tobacco, Patient/guardian denies using alcohol, street drugs, The patient lives with family. - Ebola Screening: : No symptoms or risks identified at this time. - Family history:: not pertinent. ROS: 16:17 Constitutional: Negative for fever, chills, and weight loss. ma2 16:17 All other systems are negative. Exam: 16:17 Constitutional: This is a well developed, well nourished patient who is awake, alert, ma2 and in no acute distress. Neck: Trachea midline, no thyromegaly or masses palpated, and no cervical lymphadenopathy. Supple, full range of motion without nuchal rigidity, or vertebral point tenderness. No Meningismus. Chest/axilla: Normal chest wall appearance and motion. Nontender with no deformity. No lesions are appreciated. Cardiovascular: Regular rate and rhythm with a normal S1 and S2. No gallops, murmurs, or rubs. Normal PMI, no JVD. No pulse deficits. Respiratory: Lungs have equal breath sounds bilaterally, clear to auscultation and percussion. No rales, rhonchi or wheezes noted. No increased work of breathing, no retractions or nasal flaring. Abdomen/GI: Soft, non-tender, with normal bowel sounds. No distension or tympany. No guarding or rebound. No evidence of tenderness throughout. MS/ Extremity: Pulses equal, no cyanosis. Neurovascular intact. Full, normal range of motion. Neuro: Awake and alert, GCS 15, oriented to person, place, time, and situation. Cranial nerves II-XII grossly intact. Motor strength 5/5 in all extremities. Sensory grossly intact. Cerebellar exam normal. Normal gait. Vital Signs: 14:13 BP 135 / 67; Pulse 82; Resp 16; Temp 97.7(O); Pulse Ox 99% ; Weight 63.5 kg; Height 5 sv ft. 0 in. (152.40 cm); Pain 4/10; 15:43 BP 109 / 62; Pulse 86; Resp 16; Temp 98.0(O); Pulse Ox 98% on R/A; mh5 16:19 BP 141 / 71; Pulse 87; Resp 18; Pulse Ox 99% on R/A; Pain 2/10; em 14:13 Body Mass Index 27.34 (63.50 kg, 152.40 cm) sv MDM: 14:25 Patient medically screened. ma2 16:17 Differential diagnosis: cholecystitis, diverticulitis, gastritis, Hepatitis. Data ma2 reviewed: vital signs, nurses notes. Counseling: I had a detailed discussion with the patient and/or guardian regarding: the historical points, exam findings, and any diagnostic results supporting the discharge/admit diagnosis, the presence of at least one elevated blood pressure reading (>120/80) during this emergency department visit, the need for outpatient follow up. ED course: she got n orectal pain at this time, was old, epigastric pain resolved. 04/20 14:26 Order name: Basic Metabolic Panel; Complete Time: 15:42 ma2 04/20 14:26 Order name: CBC with Diff; Complete Time: 15:20 ma2 04/20 14:26 Order name: Creatinine for Radiology; Complete Time: 15:42 ma2 04/20 14:26 Order name: Hepatic Function; Complete Time: 15:42 ma2 04/20 14:26 Order name: Lipase; Complete Time: 15:42 ma2 04/20 14:32 Order name: Urine Dipstick--Ancillary (enter results); Complete Time: 15:20 bd 04/20 14:26 Order name: IV Saline Lock; Complete Time: 14:58 ma2 04/20 14:26 Order name: Labs collected and sent; Complete Time: 14:58 ma2 04/20 14:27 Order name: Urine Dipstick-Ancillary (obtain specimen); Complete Time: 14:29 ma2 04/20 14:27 Order name: CT Abd/Pelvis - IV Contrast Only; Complete Time: 16:23 ma2 Administered Medications: 15:10 Drug: TORadol 30 mg Route: IVP; Site: right antecubital; 16:10 Follow up: Response: No adverse reaction; Marked relief of symptoms; Pain is decreased em Disposition: 04/20/19 16:19 Discharged to Home. Impression: Upper abdominal pain, unspecified. - Condition is Stable. - Discharge Instructions: Abdominal Pain, Adult. - Prescriptions for Zofran 4 mg Oral Tablet - take 1 tablet by ORAL route every 12 hours As needed; 20 tablet. Pepcid 20 mg Oral Tablet - take 1 tablet by ORAL route once daily for 10 days; 10 tablet. - Medication Reconciliation Form, Thank You Letter, Antibiotic Education, Prescription Opioid Use form. - Follow up: Private Physician; When: Tomorrow; Reason: Continuance of care. Signatures: Dispatcher [employer] Rosette Duke RN RN sv Munoz, Edgar, HEALTHCARE ADMINISTRATION INTERN HEALTHCARE ADMINISTRATION INTERN Coral Baxter RN RN ss Alzahri, Mohammad, MD MD ma2 Corrections: (The following items were deleted from the chart) 16:36 16:19 04/20/2019 16:19 Discharged to Home. Impression: Upper abdominal pain, em unspecified. Condition is Stable. Forms are Medication Reconciliation Form, Thank You Letter, Antibiotic Education, Prescription Opioid Use. Follow up: Private Physician; When: Tomorrow; Reason: Continuance of care. ma2
[2019-04-20 17:19] VITALS: TEMP 98
[2019-04-20 17:21] VITALS: BP 141/71; O2SAT 99
== END 2019-04-20 16:36 | disposition home or self-care (01) ==
LOC: ER 14:02
DX: R10.13 Epigastric pain (principal); I10 Essential (primary) hypertension; Z88.8 Allergy status to other drugs, medicaments and biological substances
CPT/HCPCS: 85025; 80048; 36415; 80076; 81003; 83690; 74177; 96374; 99284; Q9967

== ENCOUNTER 2019-05-11 09:39 | Day surgery (SDC) | payer OTHER ==
--- OUTSIDE RECORDS SUMMARY | 2019-05-11 09:42 | XMS REPORT ---
:1945 [facility] Address [address] [place] [address] Dr. Goss [address] [place] [id number] Care Team Providers Name Role Phone Unavailable Unavailable Unavailable Problems This patient has no known problems. Allergies, Adverse Reactions, Alerts This patient has no known allergies or adverse reactions. Medications This patient has no known medications.
--- OUTSIDE RECORDS SUMMARY | 2019-05-11 09:44 | XMS REPORT ---
:1945 [facility] Address [address] [place] [address] Dr. Goss [address] [place] [id number] Care Team Providers Name Role Phone Unavailable Unavailable Unavailable Problems This patient has no known problems. Allergies, Adverse Reactions, Alerts This patient has no known allergies or adverse reactions. Medications This patient has no known medications.
[2019-05-11] MEDS ORDERED: NA CHLORIDE 0.9% 1,000 ML ONE (09:59)
[2019-05-11] MEDS ORDERED: EPINEPHRINE/PF 1 MG/ML AMP ONE ×3 (10:22→10:23)
[2019-05-11] MEDS ORDERED: propofoL 200 MG/20 ML VIAL IV ONE (10:34)
[2019-05-11] MEDS ORDERED: LIDOCAINE 1% MPF 5 ML VIAL ONE (10:34)
--- NOTE | 2019-05-11 11:18 | ENDO RPT ---
[address], [address] COLONOSCOPY PROCEDURE REPORT EXAM DATE: 05/11/2019 PATIENT NAME: María Robison MR #: [id number] BIRTHDATE: 1945 ATTENDING: Jim Sanchez MD STATUS: outpatient MONITOR TECH: Sissy Coombs and Katheryn Fry RN INDICATIONS: The patient is a 73 yr old Female here for a colonoscopy due to rectal abscess PROCEDURE PERFORMED: Colonoscopy with biopsy - cold polypectomy MEDICATIONS: Per Anesthesia. ESTIMATED BLOOD LOSS: None CONSENT: The patient understands the risks and benefits of the procedure and understands that these risks include, but are not limited to: sedation, allergic reaction, infection, perforation and/or bleeding. Alternative means of evaluation and treatment include, among others: physical exam, x-rays, and/or surgical intervention. The patient elects to proceed with this endoscopic procedure. DESCRIPTION OF PROCEDURE: During intra-op preparation period all mechanical medical equipment was checked for proper function. Hand hygiene and appropriate measures for infection prevention was taken. Procedure, possible complications, alternatives including, but not limited to possibility of bleeding, perforation, tear, infection, sepsis, need for surgery, need for blood transfusion, were explained to the patient. After the risks, benefits and alternatives of the procedure were thoroughly explained, Informed consent was verified, confirmed and timeout was successfully executed by the treatment team. The patient was placed in the left lateral position. After appropriate level of anesthesia, the scope was passed. The EC-[id number] ([id number]) endoscope was introduced through the anus and advanced to the cecum, which was identified by transillumination from the light source, the appendix, and the ileocecal valve. The quality of the prep was fair. The instrument was then slowly withdrawn as the colon was fully examined. Scope withdrawal time was . COLON FINDINGS: A sessile polyp was found at about 110 cm frm anal verge. Retroflexed views revealed no abnormalities. The scope was then completely withdrawn from the patient and the procedure terminated. ADVERSE EVENTS: There were no complications. IMPRESSIONS: 1. Sessile polyp was found; multiple biopsies were performed using hot forceps 2. Scattered diverticulum 3. External hemorrhoids 4. Internal hemorrhoids RECOMMENDATIONS: 1. follow-up: office 1 week(s) 2. no seeds in diet 3. await biopsy results RECALL: for Colonoscopy, pending biopsy results. Jim Sanchez MD eSigned: Jim Sanchez MD 05/11/2019 11:18 AM cc: CPT CODES: ICD9 CODES: PATIENT NAME: María Robison MR#: [id number]
--- NOTE | 2019-05-11 11:20 | ENDO RPT ---
[address], [address] COLONOSCOPY PROCEDURE REPORT EXAM DATE: 05/11/2019 PATIENT NAME: María Robison MR #: [id number] BIRTHDATE: 1945 ATTENDING: Jim Sanchez MD STATUS: outpatient STENCIL PRINTER: Sissy Coombs and Katheryn Fry RN INDICATIONS: The patient is a 73 yr old Female here for a colonoscopy due to rectal abscess PROCEDURE PERFORMED: Colonoscopy with biopsy - cold polypectomy MEDICATIONS: Per Anesthesia. ESTIMATED BLOOD LOSS: None CONSENT: The patient understands the risks and benefits of the procedure and understands that these risks include, but are not limited to: sedation, allergic reaction, infection, perforation and/or bleeding. Alternative means of evaluation and treatment include, among others: physical exam, x-rays, and/or surgical intervention. The patient elects to proceed with this endoscopic procedure. DESCRIPTION OF PROCEDURE: During intra-op preparation period all mechanical medical equipment was checked for proper function. Hand hygiene and appropriate measures for infection prevention was taken. Procedure, possible complications, alternatives including, but not limited to possibility of bleeding, perforation, tear, infection, sepsis, need for surgery, need for blood transfusion, were explained to the patient. After the risks, benefits and alternatives of the procedure were thoroughly explained, Informed consent was verified, confirmed and timeout was successfully executed by the treatment team. The patient was placed in the left lateral position. After appropriate level of anesthesia, the scope was passed. The EC-[id number] ([id number]) endoscope was introduced through the anus and advanced to the cecum, which was identified by transillumination from the light source, the appendix, and the ileocecal valve. The quality of the prep was fair. The instrument was then slowly withdrawn as the colon was fully examined. Scope withdrawal time was . COLON FINDINGS: A sessile polyp was found at about 110 cm frm anal verge. Retroflexed views revealed no abnormalities. The scope was then completely withdrawn from the patient and the procedure terminated. ADVERSE EVENTS: There were no complications. IMPRESSIONS: 1. Sessile polyp was found; multiple biopsies were performed using hot forceps 2. Scattered diverticulum 3. External hemorrhoids 4. Internal hemorrhoids RECOMMENDATIONS: 1. follow-up: office 1 week(s) 2. no seeds in diet 3. await biopsy results RECALL: for Colonoscopy, pending biopsy results. Jim Sanchez MD eSigned: Jim Sanchez MD 05/11/2019 11:19 AM Revised: 05/11/2019 11:19 AM cc: Geremias Thompson M.D. CPT CODES: ICD9 CODES: PATIENT NAME: María Robison MR#: [id number]
[2019-05-11 11:40] VITALS: BP 155/73; TEMP 97.3; O2SAT 100
== END 2019-05-11 11:35 | disposition home or self-care (01) ==
LOC: OR 09:39
PROVIDERS: ATTEND Surgery
PROC: 0DBP8ZX Excision of Rectum, Via Natural or Artificial Opening Endoscopic, Diagnostic (ICD-10-PCS; principal; 2019-05-11 10:45)
DX: D12.8 Benign neoplasm of rectum (principal); K61.1 Rectal abscess; K57.90 Diverticulosis of intestine, part unspecified, without perforation or abscess without bleeding; K64.4 Residual hemorrhoidal skin tags; K64.8 Other hemorrhoids
CPT/HCPCS: 82947; 88305; 45380; J2704; J7030; J0171

== ENCOUNTER 2019-09-09 09:50 | Observation (INO) | payer OTHER ==
--- OUTSIDE RECORDS SUMMARY | 2019-09-09 09:57 | XMS REPORT | Summary of Care ---
:1945 Author Encounter PRICILLA Douglas(EDDA) [id number] Date(s): 11/19/13 - 11/19/[address] Discharge Diagnosis: Snake bite Discharge Disposition: Home Physician Attending: Ashley Powers MD Physician Admitting: Andreas Mccartney MD PHD Reason for Visit SNAKEBITE Vital Signs Most recent to oldest 1 2 3 [Reference Range]: Height 152.4 cm (11/19/13 9:56 AM) Temperature Oral [96.4-99.1 98.5 DegF DegF] (11/19/13 9:56 AM) Systolic Blood Pressure [90-140 187 mmHg 197 mmHg 185 mmHg mmHg] *HI* *HI* *HI* (11/19/13 2:51 PM) (11/19/13 1:25 PM) (11/19/13 9:5 6 AM) Diastolic Blood Pressure [60-90 73 mmHg 95 mmHg 75 mmHg mmHg] (11/19/13 2:51 PM) *HI* (11/19/13 9:56 AM) (11/19/13 1:25 PM) Respiratory Rate [14-20 BRMIN] 72 BRMIN 76 BRMIN 7 4 BRMIN *HI* *HI* *HI* (11/19/13 2:51 PM) (11/19/13 1:25 PM) (11/19/13 9:5 6 AM) Peripheral Pulse Rate [60-100 18 bpm 20 bpm bpm] *LOW* *LOW* (11/19/13 2:51 PM) (11/19/13 9:56 AM) Weight 70.455 kg (11/19/13 9:56 AM) Body Mass Index 30.33 m2 (11/19/13 9:56 AM) Problem List Condition Effective Dates Status Health Status Informant CAD (coronary artery Resolved disease)(Confirmed) Diabetes(Confirmed) Resolved HTN (hypertension)(Confirmed) Resolved Hypothyroid(Confirmed) Resolved Allergies, Adverse Reactions, Alerts Substance Reaction Severity Status Compazine Active Medications Aspirin Low Dose 81 mg oral tablet 0 Refill(s) Start Date: 11/19/13 Status: OrderedCrestor 0 Refill(s) Start Date: 11/19/13 Status: OrderedFish Oil 0 Refill(s) Start Date: 11/19/13 Status: Orderedhydrochlorothiazide-losartan 12.5 mg-100 mg oral tablet 0 Refill(s) Start Date: 11/19/13 Status: OrderedmetFORMIN 500 mg oral tablet 0 Refill(s) Start Date: 11/19/13 Status: Orderedmetoprolol tartrate 0 Refill(s) Start Date: 11/19/13 Status: Orderedoxybutynin 0 Refill(s) Start Date: 11/19/13 Status: Orderedtetanus/diphtheria/pertussis, acel (Tdap) 5 units-2.5 units-18.5 mcg/0.5 mL intramuscular suspensio 0.5 ml, Route: IM, Drug Form: INJ, Dosing Weight 70.455, kg, ONCE, Start date: 11/19/13 10:44:00, Stop date: 11/19/13 10:44:00 Notes: (Tdap ) For Adolecent and Adult use For IM Use. Same as: Adacel (Tdap) Start Date: 11/19/13 Stop Date: 11/19/13 Status: DiscontinuedTylenol 975 mg, 3 tab, Route: PO, Drug form: TAB, ONCE, Dosing Weight 70.455, kg, Priority: STAT, Start date: 11/19/13 10:16:00, Stop date: 11/19/13 10:16:00 Notes: Do not exceed 4 gm/day. (Same as: Tylenol) Start Date: 11/19/13 Stop Date: 11/19/13 Status: Completed Results ELECTROLYTES Most recent to oldest [Reference Range]: 1 Sodium Lvl [135-145 mEq/L] 140 mEq/L (11/19/13 10:00 AM) Potassium Lvl [3.5-5.1 mEq/L] 4.0 mEq/L (11/19/13 10:00 AM) Chloride Lvl [95-109 mEq/L] 105 mEq/L (11/19/13 10:00 AM) CO2 [24-32 mEq/L] 26 mEq/L (11/19/13 10:00 AM) AGAP [10.0-20.0 mEq/L] 13.0 mEq/L (11/19/13 10:00 AM) CHEM PANEL Most recent to oldest [Reference Range]: 1 Creatinine Lvl [0.5-1.4 mg/dL] 1.0 mg/dL (11/19/13 10:00 AM) eGFR 57 mL/min/1.73m2 1 *NA* (11/19/13 10:00 AM) BUN [7-22 mg/dL] 22 mg/dL (11/19/13 10:00 AM) Glucose Lvl [70-99 mg/dL] 179 mg/dL 2 *HI* (11/19/13 10:00 AM) Calcium Lvl [8.5-10.5 mg/dL] 10.3 mg/dL (11/19/13 10:00 AM) 1Result Comment: The eGFR is calculated using the CKD-EPI formula. In most young, healthy individualsthe eGFR will be >90 mL/min/1.73m2. The eGFR declines with age. An eGFR of 60-89 may be normal in some populations, particularly the elderly, for whom the CKD-EPI formula has not been extensively validated. Use of the eGFR is not recommended in the following populations: Individuals with unstable creatinine concentrations, including patients and those with serious co-morbid conditions. Patients with extremes in muscle mass or diet. The data above are obtained from the National Kidney Disease Education Program (NKDEP) which additionally recommends that when the eGFR is used in patients with extremes of body mass index for purposesof drug dosing, the eGFR should be multiplied by the estimated BMI.2Interpretive Data: Adult reference range values reflect the clinical guidelines of the [place] [employer].CARDIAC ENZYMES Most recent to oldest [Reference Range]: 1 Total CK [12-191 unit/L] 80 unit/L (11/19/13 10:00 AM) HEMATOLOGY Most recent to oldest [Reference Range]: 1 WBC [3.7-10.4 K/CMM] 7.4 K/CMM (11/19/13 10:00 AM) RBC [4.20-5.40 M/CMM] 5.09 M/CMM (11/19/13 10:00 AM) Hgb [12.0-16.0 g/dL] 15.6 g/dL (11/19/13 10:00 AM) Hct [36.0-48.0 %] 44.7 % (11/19/13 10:00 AM) MCV [81.0-99.0 fL] 88.0 fL (11/19/13 10:00 AM) MCH [27.0-31.0 pg] 30.7 pg (11/19/13 10:00 AM) MCHC [32.0-36.0 g/dL] 34.8 g/dL (11/19/13 10:00 AM) RDW [11.5-14.5 %] 12.9 % (11/19/13 10:00 AM) Platelet [133-450 K/CMM] 235 K/CMM (11/19/13 10:00 AM) MPV [7.4-10.4 fL] 9.2 fL (11/19/13 10:00 AM) Segs [45.0-75.0 %] 43.4 % *LOW* (11/19/13 10:00 AM) Lymphocytes [20.0-40.0 %] 44.2 % *HI* (11/19/13 10:00 AM) Monocytes [2.0-12.0 %] 7.6 % (11/19/13 10:00 AM) Eosinophils [0.0-4.0 %] 4.7 % *HI* (11/19/13 10:00 AM) Basophils [0.0-1.0 %] 0.1 % (11/19/13 10:00 AM) Segs-Bands # [1.5-8.1 K/CMM] 3.2 K/CMM (11/19/13 10:00 AM) Lymphocytes # [1.0-5.5 K/CMM] 3.3 K/CMM (11/19/13 10:00 AM) Monocytes # [0.0-0.8 K/CMM] 0.6 K/CMM (11/19/13 10:00 AM) Eosinophils # [0.0-0.5 K/CMM] 0.3 K/CMM (11/19/13 10:00 AM) Basophils # [0.0-0.2 K/CMM] 0.0 K/CMM (11/19/13 10:00 AM) PT [12.0-14.7 seconds] 11.9 seconds *LOW* (11/19/13 10:00 AM) INR [0.85-1.17] 0.88 3 (11/19/13 10:00 AM) PTT [22.9-35.8 seconds] 27.3 seconds 4 (11/19/13 10:00 AM) 3Interpretive Data: RECOMMENDED RANGES FOR PROTIME INR: 2.0-3.0 for most medical and surgical thromboembolic states. 2.5-3.5 for artificial heart valves and recurrent embolism. INR SHOULD BE USED ONLY FOR PATIENTS ON STABLE ANTICOAGULANT THERAPY.4 Interpretive Data: Heparin Therapeutic Range: 57 - 92 Seconds Medications Administered During Your Visit No data available for this section Immunizations Vaccine Date Refusal Reason diphtheria/pertussis, acel/tetanus adult 11/19/13 Procedures Procedure Type Body Site Date of Procedure Related Diagno sis Knee replacement Rotator cuff repair
--- OUTSIDE RECORDS SUMMARY | 2019-09-09 09:57 | XMS REPORT | Continuity of Care Document ---
:1945 Author Organization [facility] Care Team Providers Name Role Phone [facility] Unavailable Un available Problems Problem Status Onset Classification Date Comments Sourc e Date Reported H/O acute Active 01/29/20 01/06/2019 [facility] pancreatitis 18 Health Uncontrolled Active 09/27/19 01/06/2019 [facility] diabetes mellitus 16 He alth type 2 without complications HLD Active 09/27/19 01/06/2019 [facility] (hyperlipidemia) 16 Hea lth Primary Active 09/27/19 01/06/2019 [facility] hypothyroidism 16 Healt h Wrist pain Active 02/24/20 01/06/2019 [facility] 15 Health Hand pain Active 02/24/20 01/06/2019 [facility] 15 Health Discharge 11/20/19 11/22/2013 [facility] Diagnosis: Snake 14 Med ical bite Center SNAKEBITE Active 11/20/19 [place] [id number] [facility] LIFE FLIGHT Active 11/20/19 [facility] BILLING [address] [place] [address] 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/21/2019 [facility] coronary artery Neur o, (disorder) [facility] Dementia Active Problem 08/21/2019 [facility] (disorder) Neuro Diabetes mellitus Resolved Problem 08/21/2019 [facility] (disorder) Neuro,[facility] Hypertensive Resolved Problem 08/21/2019 [facility] r disorder, systemic N euro, arterial [place] (disorder) [facility] Hyperlipidemia Active Problem [facility]2019 [facility] Hypothyroidism Resolved Problem 08/21/2019 [facility] [place]order) Neuro,[facility] Type 2 diabetes Active 01/06/2019 [facility] B mellitus with Health complication, without long-term current use of insulin Medications Medication Details Route Status Patient Ordering Order Source Instructions Provider Date donepezil 10 mg oral 10 mg = 1 Active 08/18/ M [facility]cher tablet tab, PO, 2019 Neuro Bedtime, # 30 tab, 3 Refill(s), Pharmacy: [facility]/pharmacy #[id number] Donepezil 5 mg = 1 Active 05/20/ [facility] hydrochloride 5 MG tab, PO, 2019 Neur o Oral Tablet [Aricept] Bedtime, # 30 tab, 3 Refill(s), Pharmacy: [facility]/pharmacy #[id number] Linagliptin 5 MG Oral 5 mg = 1 Active ischer Tablet [Tradjenta] tab, PO, 2019 Neur o Daily, # 30 tab, 3 Refill(s) Lorazepam 0.5 MG Oral See No Longer cher Tablet [Ativan] Instructions Active 2018 Carol[facility] , Take 1 tab po 1 hour prior to MRI, may repeat q 15 min. if still anxious, # 5 tab, 0 Refill(s), called to pharmacy losartan 25 mg oral 25 mg = 1 Active reynaldo tablet tab, PO, 2018 Neuro Daily, # 30 tab, 0 Refill(s) amLODIPine 5 mg oral 5 mg = 1 Active reynaldo tablet tab, PO, 2018 Neuro Daily, # 30 tab, 0 Refill(s) predniSONE 5 mg oral 5 mg = 1 Active reynaldo tablet tab, PO, 2018 Neuro Every Other Day, 0 Refill(s) gemfibrozil 600 mg 600 mg = 1 Active reynaldo oral tablet tab, PO, 2018 Neuro BID, # 60 tab, 1 Refill(s) levothyroxine 75 mcg 75 microgram Active cher (0.075 mg) oral = 1 tab, PO, 2018 Carolann ro tablet Daily, 0 Refill(s) 0.5 ML dulaglutide 3 SUB-Q, 0 Active reynaldo MG/ML Prefilled Refill(s) 2018 Neuro Syringe [Trulicity] Insulin Detemir inject 12 Active MB (LEVEMIR FLEXTOUCH Units under [facility] INSULN) 100 the skin BID unit/mL (3 mL) injection gemfibrozil 600 mg TAKE 1 Active MB tablet TABLET BY 2018 Health MOUTH TWICE A DAY rosuvastatin 5 mg TAKE 1 Active MB tablet TABLET BY 2018 Health MOUTH 2 TIMES A WEEK predniSONE 5 mg Take 5 mg by Oral Active M B tablet mouth daily. 2019 Health pantoprazole 40 mg EC TAKE 1 Active MB tablet TABLET BY 2018 Health MOUTH EVERYDAY AT BEDTIME LEVEMIR FLEXTOUCH inject 12 No Longer 09/30/ [place] MB U-100 INSULN 100 Units under Active 2018 [facility] lt unit/mL (3 mL) the skin BID injection ACCU-CHEK GUIDE Use as Active GLUCOSE METER Misc directed, 2018 Hea lth TID, DX:E11.9 blood sugar Use daily DX Active [facility] diagnostic (FREESTYLE E11.8. Twice 2018 [facility] LITE STRIPS) strip daily Insulin [place], Use as Active [facility] Disposable, (PEN directed, 2018 Healt h NEEDLE) 31 gauge x twice daily, 09/11" Ndle DX;E11.8 Lancets (ACCU-CHEK Use as Active [facility] FASTCLIX LANCET DRUM) directed, [facility] daily, DX:E11.9 diclofenac 75 mg EC Take 1 Oral Active tablet tablet by 2018 [facility] mouth 2 (two) times daily with meals. methylPREDNISolone Take by Oral No Longer (MEDROL RANJEET,) 4 mg mouth Active 2018 Heal th tablets SEE-INSTRUCT IONS. follow package directions Insulin Use as Active [facility] Syringe-Needle U-100 directed BID 2018 [facility] (INSULIN SYRINGE) 04/30 DX: E11.9 mL 30 gauge x 09/11 Syrg levothyroxine 75 mcg Active 12/04/ [facility] B tablet 2017 [facility] rosuvastatin 40 mg No Longer [facility] B tablet Active 2016 [facility] 0.5 ML Bordetella Notes: (Tdap Inactive [facility] pertussis filamentous ) For 2014 Me dical hemagglutinin [facility] vaccine, inactivated and Adult 0.016 MG/ML / use For IM Bordetella pertussis Use. Same pertactin vaccine, as: Adacel inactivated 0.005 (Tdap) MG/ML / Bordetella pertussis toxoid vaccine, inactivated 0.016 MG/ML / diphtheria toxoid vaccine, inactivate Tylenol Notes: Do Inactive [place] not exceed 4 2014 Medical gm/day. Center (Same as: Tylenol) Metformin 0 Refill(s) Active [facility] hydrochloride 500 MG 2013 Med ical Oral Tablet Center Hydrochlorothiazide 0 Refill(s) Active [facility] 12.5 MG / Losartan 2013 Medic al Potassium 100 MG Oral Ce nter Tablet Aspirin Low Dose 81 0 Refill(s) Active [facility] mg oral tablet 2013 [facility] Fish Oil 0 Refill(s) Active [facility] 2013 [facility] metoprolol tartrate 0 Refill(s) Active [facility] 2013 [facility] Crestor 0 Refill(s) Active [facility] 2013 [facility] oxybutynin 0 Refill(s) Active [facility] 2013 [facility] metoprolol succinate Take 50 mg Oral Active [facility] XL 50 mg 24 hr tablet by mouth. Health amlodipine besylate Take by Oral Active [facility] B (AMLODIPINE ORAL) mouth. Health Allergies, Adverse Reactions, Alerts Substance Category Reaction Severity Reaction Status Date Comments S ource type Reported Prochlorperaz Unknown - Propensity Active [facility] ine See to adverse 5 Healt h comments reactions Compazine Assertion Drug Active Misc her allergy Neuro Immunizations Immunization Date Given Site Status Last Comments Source Updated diphtheria/pertus 11/19/2013 Left completed Annamaria Ortega ischer sis, acel/tetanus Deltoid Ne uro,[facility] Results Order Name Results Value Reference Date Interpretation Comments Mitzi rce Range HEMATOLOGY INR 0.88 0.85 - 11/19 <sup>3</sup>[place] 1.17 erpretive Data: [facility] RANGES FOR PROTIME INR:
2.0-3.0 for most medical and surgical thromboembolic states.
2.5-3.5 for artificial heart valves and recurrent embolism.
< br/>INR SHOULD BE USED ONLY FOR PATIENTS ON STABLE ANTICOAGULANT THERAPY. HEMATOLOGY PT 11.9 12.0 - 11/19 [facility] 14.7 [facility] HEMATOLOGY PTT 27.3 22.9 - 11/19 <sup>4</sup>[place] 35.8 /2013 erpretive Data: [facility] Center Therapeutic Range: 57 - 92 Seconds CARDIAC Total CK 80 12 - 191 11/19 [facility] CHEM PANEL eGFR 57 11/19 <sup>1</sup>[place] /2013 ult Comment: Medical The eGFR is Center calculated using the CKD-EPI formula. In most young, healthy individuals the eGFR will be >90 mL/min/1.73m2. The eGFR declines with age. An eGFR of 60-89 may be normal in some populations, particularly the elderly, for whom the CKD-EPI formula has not been extensively validated. Use of the eGFR is not recommended in the following populations:&lt ;br/>
Indiv iduals with unstable creatinine concentrations, including patients and those with serious co-morbid conditions.<br/ >
Patients with extremes in muscle mass or diet.

The data above are obtained from the National Kidney Disease Education Program (NKDEP) which additionally recommends that when the eGFR is used in patients with extremes of body mass index for purposes of drug dosing, the eGFR should be multiplied by the estimated BMI. CHEM PANEL Glucose Lvl 179 70 - 99 11/19 <sup>2</sup>Int M H erpretive Data: [facility] Adult reference Center range values reflect the clinical guidelines
of the [place] [employer]. CHEM PANEL Creatinine 1.0 0.5 - 1.4 11/19 [facility] CHEM PANEL BUN 22 7 - 22 11/19 [facility] CHEM PANEL Calcium Lvl 10.3 8.5 - 10.5 11/19 [facility] CHEM PANEL CO2 26 24 - 32 11/19 [facility] CHEM PANEL Chloride Lvl 105 95 - 109 11/19 s [facility] CHEM PANEL Sodium Lvl 140 135 - 145 11/19 [facility] CHEM PANEL Potassium Lvl 4.0 3.5 - 5.1 11/19 [place] [facility] CHEM PANEL AGAP 13.0 10.0 - 11/19 20.0 [facility] HEMATOLOGY MPV 9.2 7.4 - 10.4 11/19 [facility] HEMATOLOGY Platelet 235 133 - 450 11/19 [facility] HEMATOLOGY Hgb 15.6 12.0 - 11/19 16. [facility] HEMATOLOGY Hct 44.7 36.0 - 11/19 48.0 [facility] HEMATOLOGY RDW 12.9 11.5 - 11/19 14. [facility] HEMATOLOGY MCHC 34.8 32.0 - 11/19 36.0 [facility] HEMATOLOGY WBC 7.4 3.7 - 10.4 11/19 [facility] HEMATOLOGY RBC 5.09 4.20 - 11/19 5.40 [facility] HEMATOLOGY MCH 30.7 27.0 - 11/19 31.0 [facility] HEMATOLOGY MCV 88.0 81.0 - 11/19 99.0 [facility] HEMATOLOGY Basophils # 0.0 0.0 - 0.2 11/19 [facility] HEMATOLOGY Monocytes # 0.6 0.0 - 0.8 11/19 [facility] HEMATOLOGY Eosinophils # 0.3 0.0 - 0.5 11/19 [facility] HEMATOLOGY Segs 43.4 45.0 - 11/19 75.0 [facility] HEMATOLOGY Lymphocytes 44.2 20.0 - 11/19 40.0 [facility] HEMATOLOGY Eosinophils 4.7 0.0 - 4.0 11/19 [facility] HEMATOLOGY Segs-Bands # 3.2 1.5 - 8.1 11/19 [facility] HEMATOLOGY Lymphocytes # 3.3 1.0 - 5.5 11/19 [facility] HEMATOLOGY Basophils 0.1 0.0 - 1.0 11/19 [facility] HEMATOLOGY Monocytes 7.6 2.0 - 12.0 11/19 [facility] Pathology Reports No Data Provided for This Section Diagnostic Reports No Data Provided for This Section Consultation Notes No Data Provided for This Section Discharge Summaries No Data Provided for This Section History and Physicals No Data Provided for This Section Vital Signs Vital Sign Value Date Comments Source Systolic (mm Hg) 105 05/20/2019 [facility] Carolann ro Diastolic (mm Hg) 68 05/20/2019 [facility] Ne uro Heart Rate 75 05/20/2019 [facility] Neuro Respitory Rate 16 05/20/2019 [facility] Neuro Height 149.86 cm 05/20/2019 [facility] Neuro Weight 63.636 05/20/2019 [facility] Neuro BMI Calculated 28.34 05/20/2019 [facility] Neuro Systolic (mm Hg) 133 04/08/2019 [facility] Carolann ro Diastolic (mm Hg) 71 04/08/2019 [facility] Ne uro Heart Rate 83 04/08/2019 [facility] Neuro Respitory Rate 16 04/08/2019 [facility] Height 152.4 cm 04/08/2019 [facility] Neuro Weight 66.818 04/08/2019 [facility] Neuro BMI Calculated 28.77 04/08/2019 [facility] Systolic (mm Hg) 153 01/02/2019 [facility] Health Diastolic (mm Hg) 80 01/02/2019 [facility] Healt h Heart Rate 74 01/02/2019 [facility] Health Respitory Rate 18 01/02/2019 [facility] Health Height 152.4 cm 01/02/2019 [facility] Health Weight 67.586 01/02/2019 [facility] Health Diastolic (mm Hg) 73 11/19/2013 [facility] edical Center Heart Rate 18 11/19/2013 [facility] Respitory Rate 72 11/19/2013 [facility] Systolic (mm Hg) 187 11/19/2013 [facility] Center Respitory Rate 76 11/19/2013 [facility] Diastolic (mm Hg) 95 11/19/2013 [facility] Systolic (mm Hg) 197 11/19/2013 [facility] Weight 70.455 11/19/2013 [facility] BMI Calculated 30.33 11/19/2013 [facility] Height 152.4 cm 11/19/2013 [facility] Diastolic (mm Hg) 75 11/19/2013 [facility] [place] Systolic (mm Hg) 185 11/19/2013 [facility] Heart Rate 20 11/19/2013 [facility] Temperature Oral (F) 98.5 F 11/19/2013 [facility] Respitory Rate 74 11/19/2013 [facility] Encounters Location Location Encounter Encounter Reason Attending ADM DC Stat us Source Details Type Number For Provider Date Date Visit [facility] [id number] Ashley Powers 11/19 11/19 [facility]2013 [facility] Orders Only [id number] No Doctor 01/02 [facility] Unassigned Health [facility] Office [id number] Sony 01/02 01/02 [facility] Health Visit [place] /2018 Health Endocrinol meenakshi Bean Outpatient [id number] Sina Asher 04/08 [facility] Kris MNA Outpatient [id number] Sina Asher 04/08 04/09 [facility]2018 Neuro [place] [facility] [id number] Sina Krell 05/20 [facility] Kris MNA Outpatient [id number] Sina Gardnerll 05/20 05/21 [facility]2019 Neuro [place] Outpatient [id number] Sina Krell 08/18 [facility] Kris MNA Outpatient [id number] Geremias Thompson 08/18 08/19 [facility] [place] Outpatient [id number] Sina Asher 12/21 Ac t[facility] [place] Procedures Procedure Code Date Perfomer Comments Source NO SHOW OR MISSED [id number] 01/02/2019 Doctor [facility] He alth APPOINTMENT POLICY Unassigned ACKNOWLEDGEMENT Knee replacement [id number] [facility] Rotator cuff repair [id number] [facility] Neuro,[facility] Assessment and Plan No Data Provided for This Section Plan of Care Plan of Care Date Source FOOT EXAM 07/30/2019 [facility] CREATININE (SERUM) 04/08/2019 [facility] HgA1C 01/28/2019 [facility] Upcoming EncountersDateTypeSpecialtyCare TeamDescription 09/2018 [facility] 05/29/2019 Office Visit Endocrinology Diabetes and Metabolism [place] [address] [phone] (Fax) Health MaintenanceDue DateLast DoneComments EYE EXAM 07/07/1955 LDL-C 07[birth year]07/1955 URINE MICROALBUMIN 07/07/1953 DTaP,Tdap,and Td Vaccines (1 - Tdap) 07/07/1962 MAMMOGRAM 1983 COLONOSCOPY 07/07/1993 Zoster Recombinant Vaccine (SHINGRIX) (1 of 2) 07/07/1993 Medicare Wellness Visit 07/07/2008 Osteoporosis Screening 07/07/2008 PNEUMOCOCCAL VACCINES 65+ (1 of 2 - PCV13) 07/07/2008 INFLUENZA VACCINE (#1) 2018 HgA1C 01/28/2019 07/29/2018, 04/01/2018, 01/27/2018, Additional history exist s CREATININE (SERUM) 04/08/2019 04/08/2018 FOOT EXAM 07/30/2019 07/29/2018, 07/29/2018, 04/01/2018, Additional history exist s documented as of this encounter Upcoming EncountersDateTypeSpecialtyCare TeamDescription 09/2018 [facility] Health 02/03/2019 Office Visit Endocrinology Diabetes and Metabolism Neelam Dominguez MD[address], [place] [phone] (Fax) Health MaintenanceDue DateLast DoneComments EYE EXAM 07/07/1955 LDL-C 07/07/1953 URINE MICROALBUMIN 07/07/1953 DTaP,Tdap,and Td Vaccines (1 - Tdap) 07/07/1962 MAMMOGRAM 1983 COLONOSCOPY 07/07/1993 Zoster Recombinant Vaccine (SHINGRIX) (1 of 2) 07/07/1993 Medicare Wellness Visit 07/07/2008 Osteoporosis Screening 07/07/2008 PNEUMOCOCCAL VACCINES 65+ (1 of 2 - PCV13) 07/07/2008 INFLUENZA VACCINE (#1) 2018 HgA1C 01/28/2019 07/29/2018, 04/01/2018, 01/27/2018, Additional history exist s CREATININE (SERUM) 04/08/2019 04/08/2018 FOOT EXAM 07/30/2019 07/29/2018, 07/29/2018, 04/01/2018, Additional history exist s documented as of this encounter INFLUENZA VACCINE (#1) 2018 [facility] Medicare Wellness Visit 07/07/2008 [facility] Health COLONOSCOPY 07/07/1993 [facility] MAMMOGRAM 1983 [facility] DTaP,Tdap,and Td Vaccines (1 - Tdap) 07/07/1962 [facility] Health EYE EXAM 07/07/1953 [facility] Social History Social History Date Source Social History TypeResponse 08/19/2019 [facility] Smoking Status Never smoker; Exposure to Tobacco Smoke None; Cigarette Smoking Last 365 Days No; Reg Smoking Cessation Counseling No entered on: 08/19/19 Tobacco UseTypesPacks/DayYears UsedDate 06/19/2018 [facility] Never Smoker Smokeless Tobacco: Never Used Alcohol UseDrinks/Weekoz/WeekComments Not Asked 0 Standard drinks or equivalent 0.0 Sex Assigned at BirthDate Recorded Not on file Job Start DateOccupationIndustry Not on file Not on file Not on file Travel HistoryTravel StartTravel End No recent travel history available. documented as of this encounter Family History No Data Provided for This Section Advance Directives No Data Provided for This Section Functional Status No Data Provided for This Section
--- OUTSIDE RECORDS SUMMARY | 2019-09-09 09:57 | XMS REPORT | Summary of Care ---
:1945 Author Organization [facility] [place] Address [address] [place] [address]- Encounter [facility] Misael(FIN) [id number] Date(s): 04/08/19 - 04/08/19 [facility] [address] [place] [address]- [phone] Discharge Disposition: Home or Self Care Attending Physician: Sina Asher MD Referring Physician: Geremias Thmopson MD Vital Signs Most recent to oldest [Reference Range]: 1 Height 152.4 cm (04/08/19 10:53 AM) Blood Pressure [90-140/60-90 mmHg] 133/71 mmHg (04/08/19 10:53 AM) Respiratory Rate [14-20 BRMIN] 16 BRMIN (04/08/19 10:53 AM) Peripheral Pulse Rate [60-100 bpm] 83 bpm (04/08/19 10:53 AM) Weight 66.818 kg (04/08/19 10:53 AM) Body Mass Index 28.77 m2 (04/08/19 10:53 AM) Problem List Condition Effective Dates Status Health Status Informant CAD (coronary artery Resolved disease)(Confirmed) Dementia(Confirmed) Active Diabetes(Confirmed) Resolved HTN (hypertension)(Confirmed) Resolved Hyperlipidemia(Confirmed) Active Hypothyroid(Confirmed) Resolved Allergies, Adverse Reactions, Alerts Substance Reaction Severity Status Compazine Active Medications amLODIPine 5 mg oral tablet 5 mg = 1 tab, PO, Daily, # 30 tab, 0 Refill(s) Start Date: 04/08/19 Status: Orderedgemfibrozil 600 mg oral tablet 600 mg = 1 tab, PO, BID, # 60 tab, 1 Refill(s) Start Date: 04/08/19 Status: Orderedlevothyroxine 75 mcg (0.075 mg) oral tablet 75 microgram = 1 tab, PO, Daily, 0 Refill(s) Start Date: 04/08/19 Status: Orderedlosartan 25 mg oral tablet 25 mg = 1 tab, PO, Daily, # 30 tab, 0 Refill(s) Start Date: 04/08/19 Status: OrderedpredniSONE 5 mg oral tablet 5 mg = 1 tab, PO, Every Other Day, 0 Refill(s) Start Date: 04/08/19 Status: OrderedTrulicity Pen 1.5 mg/0.5 mL subcutaneous solution SUB-Q, 0 Refill(s) Start Date: 04/08/19 Status: Ordered Results No data available for this section Immunizations Given and Recorded Vaccine Date Status Refusal Reason diphtheria/pertussis, acel/tetanus adult 11/19/13 Given Procedures Procedure Date Related Diagnosis Body Site Status Knee replacement Completed Rotator cuff repair Complete d Social History Social History Type Response Smoking Status Never smoker; Exposure to To bacco Smoke None; Cigarette Smoking Last 365 Days No; Reg Smoking Cessation Counseling No entered on: 04/08/19 Assessment and Plan No data available for this section
--- OUTSIDE RECORDS SUMMARY | 2019-09-09 09:57 | XMS REPORT | Summary of Care ---
:1945 Author Organization [facility] [place] Address [address] [place] [address]- Encounter [facility] Misael(FIN) [id number] Date(s): 05/20/19 - 05/20/19 [facility] [place] [address], [place] [address]- [phone] Discharge Disposition: Home or Self Care Attending Physician: Sina Asher MD Referring Physician: Geremias Thompson MD Vital Signs Most recent to oldest [Reference Range]: 1 Height 149.86 cm (05/20/19 10:56 AM) Blood Pressure [90-140/60-90 mmHg] 105/68 mmHg (05/20/19 10:56 AM) Respiratory Rate [14-20 BRMIN] 16 BRMIN (05/20/19 10:56 AM) Peripheral Pulse Rate [60-100 bpm] 75 bpm (05/20/19 10:56 AM) Weight 63.636 kg (05/20/19 10:56 AM) Body Mass Index 28.34 m2 (05/20/19 10:56 AM) Problem List Condition Effective Dates Status Health Status Informant CAD (coronary artery Resolved disease)(Confirmed) Dementia(Confirmed) Active Diabetes(Confirmed) Resolved HTN (hypertension)(Confirmed) Resolved Hyperlipidemia(Confirmed) Active Hypothyroid(Confirmed) Resolved Allergies, Adverse Reactions, Alerts Substance Reaction Severity Status Compazine Active Medications Aricept 5 mg oral tablet 5 mg = 1 tab, PO, Bedtime, # 30 tab, 3 Refill(s), Pharmacy: [facility]/pharmacy #[id number] Start Date: 05/20/19 Stop Date: 09/17/19 Status: OrderedAtivan 0.5 mg oral tablet See Instructions, Take 1 tab po 1 hour prior to MRI, may repeat q 15 min. if still anxious, # 5 tab,0 Refill(s), called to pharmacy Start Date: 04/14/19 Stop Date: 04/27/19 Status: CompletedTradjenta 5 mg oral tablet 5 mg = 1 tab, PO, Daily, # 30 tab, 3 Refill(s) Start Date: 05/20/19 Status: Ordered Results No data available for [...] Reg Smoking Cessation Counseling No entered on: 05/20/19 Assessment and Plan No data available for this section
--- OUTSIDE RECORDS SUMMARY | 2019-09-09 09:57 | XMS REPORT | Summary of Care ---
:1945 Author Organization [facility] [place] Address [address] [place] [address]- Encounter HQ Encntr_orne(FIN) [phone] Date(s): 08/19/19 - 08/19/19 [facility] [address] [place] [address]- [phone] Discharge Disposition: Home or Self Care Attending Physician: Sina Asher MD Referring Physician: Geremias Thompson MD Vital Signs No data available for this section Problem List Condition Effective Dates Status Health Status Informant CAD (coronary artery Resolved disease)(Confirmed) Dementia(Confirmed) Active Diabetes(Confirmed) Resolved HTN (hypertension)(Confirmed) Resolved Hyperlipidemia(Confirmed) Active Hypothyroid(Confirmed) Resolved Allergies, Adverse Reactions, Alerts Substance Reaction Severity Status Compazine Active Medications donepezil 10 mg oral tablet 10 mg = 1 tab, PO, Bedtime, # 30 tab, 3 Refill(s), Pharmacy: [id number] Start Date: 08/19/19 Stop Date: 12/17/19 Status: Ordered Results No data available for [...] Smoking Cessation Counseling No entered on: 08/19/19 Assessment and Plan No data available for this section
[2019-09-09] MEDS ORDERED: MORPHINE 2 MG/ML SYR IV PRN (10:17)
[2019-09-09] MEDS ORDERED: ONDANSETRON 4 MG/2 ML VIAL IV PRN (10:17)
[2019-09-09 10:43] LABS: Absolute Lymphocytes (CBC) 2.4 K/uL (0.7-4.9); Basophils % 0.9 % (0-1.3); Hematocrit 48.5 % (36.0-45.0); MPV 9.8 fL (7.6-11.3); RBC Red Blood Cell Count 5.61 M/uL (3.86-4.86)
[2019-09-09 10:56] LABS: Bilirubin Total 0.9 mg/dL (0.2-1.0); Potassium 3.6 mmol/L (3.5-5.1); Protein, Total 8.1 g/dL (6.4-8.2)
[2019-09-09] MEDS: Ringers Lactate 1,000 ML IV SCH ×2 (11:46→22:19)
[2019-09-09 11:55] LABS: Urine Appearance CLOUDY; Urine Blood NEGATIVE (NEG); Urine Color DK YELLOW; Urine Glucose 3+ (NEG); Urine Protein NEGATIVE (NEG); Urine Specific Gravity >=1.030 (1.005-1.030); Urine Urobilinogen 0.2 mg/dL (0.2-1.0); Urine pH 5.5 (5.0-7.0)
[2019-09-09 11:58] LABS: Urine Bilirubin NEGATIVE (NEG); Urine Microscopic Reflex ORDER UMIC
[2019-09-09 12:08] LABS: Calcium Oxalate Crystals- Ur MANY (NONE SEEN); Urine Bacteria NONE SEEN /HPF (<20); Urine Culture Reflex Order REFLEXED; Urine Mucus LIGHT /HPF (NONE SEEN); Urine RBC NONE SEEN /HPF (NONE SEEN)
--- NOTE | 2019-09-09 12:55 | RAD REPORT ---
EXAM DESCRIPTION: CT - Abdomen Pelvis W Contrast - 09/09/2019 12:41 pm CLINICAL HISTORY: acute pancreatitis, abdominal pain COMPARISON: Abdomen Pelvis W Contrast dated 04/20/2019 TECHNIQUE: Biphasic, helical CT imaging of the abdomen and pelvis was performed following 100 ml non -ionic IV contrast. Oral contrast was given. All CT scans are performed using dose optimization technique as appropriate and may include automated exposure control or mA/KV adjustment according to patient size. FINDINGS: No suspicious findings in the lung bases. Liver size is normal. Attenuation values indicate liver is borderline for fatty infiltration. No foca l liver lesion identified. Spleen is unremarkable. Cholecystectomy clips are present. Biliary tree is minimally dilated but within normal limits for a post cholecystectomy patient. No solid or cystic mass within the pancreatic parenchyma. No edematous or inflammatory stranding in t he peripancreatic tissues. Pancreatic duct is not dilated. Symmetric renal function is seen with no hydronephrosis or suspicious renal mass. No pyelonephritis o r acute parenchymal process. No bladder abnormalities. No adrenal abnormalities. No uterine abnormali ty seen. No acute ovarian process. Ovaries are similar to the March 2019 comparison. Minimal hiatal hernia is present. Distal esophageal coker are not abnormally thickened. No gastric di latation or wall thickening. Duodenum shows no wall thickening or edema. Remainder of the small bowel is unremarkable. There is minimal diverticulosis in a tortuous sigmoid colon. No appendicitis. There is no active GI process seen. No free air, free fluid or inflammatory stranding. No hernia, mass or bulky lymphadenopathy. No suspicious bony findings. Degenerative disc disease present at L4-5 and L5-S1. IMPRESSION: No pancreatic or peripancreatic abnormality identified. Gallbladder is absent. The mild biliary tree dilatation is not outside of normal range for a post cho lecystectomy patient. As detailed above, no active or acute abdominal or pelvic process identifiable.
--- NOTE | 2019-09-09 13:01 | RAD REPORT ---
EXAM DESCRIPTION: RAD - Chest Pa And Lat (2 Views) - 09/09/2019 12:45 pm CLINICAL HISTORY: pancreatitis, abdominal pain COMPARISON: Single-view chest March 2019, two view chest April 2018 TECHNIQUE: Frontal and lateral views of the chest were obtained. FINDINGS: The lungs are clear. Interstitial pattern matches comparison. Heart size is normal and ce ntral vasculature is within normal limits. No pleural effusion or pneumothorax seen. No acute bony finding noted. No aortic abnormality. IMPRESSION: No acute cardiopulmonary process. No significant change from comparison.
[2019-09-09 15:11] VITALS: BMI 27.3
[2019-09-09] MEDS ORDERED: ENOXAPARIN 40 MG/0.4 ML SQ SCH (17:00)
[2019-09-09] MEDS: ACETAMINOPHEN 500 MG TAB PO PRN (18:15)
[2019-09-09] MEDS ORDERED: PREDNISONE PO SCH (22:00)
--- NOTE | 2019-09-10 04:24 | HP ---
Date of Admission: 09/09/2019 Chief Complaint: Abdominal pain. History Of Present Illness: This is a 74-year-old pleasant female patient who was evaluated on 09/02 with her complaints of abdominal pain. At that time patient reported that a week prior to that evaluation, that on August 28, 2019 after she ate pizza, she started to have upper abdominal pain and na usea, had 1 episode of vomiting when she first got sick, but no more vomiting after that. She contin ues to have nausea. Denies any fever. Nausea she reports as more less constant feeling. No constip ation or diarrhea. No acid reflux feeling. No blood in stool. After I talked to her, I did a brief exam at the office limited to her abdominal exam which revealed very minimal tenderness in left uppe r and left lower quadrants, otherwise abdominal exam was unremarkable. Patient was asked to go get s ome blood work done, urinalysis done, and was started on empiric antibiotic, thinking about possibili ty of diverticulitis and she was prescribed Cipro 500 mg twice a day and metronidazole 500 mg 3 times a day for 1 week. Her blood work showed triglyceride 202, LDL 126, glucose 144. Rest of the chem p rofile was normal and hemoglobin A1c was 5.8. Amylase 71, which was normal with the range of 21 to 1 01. Lipase was slightly elevated at 63 with her range of 7 to 60. TSH normal. White count 9.8, hem oglobin 16.2, platelets 281. Urinalysis; leukocyte esterase trace, wbc 6 to 10, bacteria few, nitrit e negative. This morning on Saturday, I talked to patient and patient's daughter and the patient repor danny that she still continues to have abdominal pain and nausea. No fever. So, we did decide to go a head and repeat blood work again. Yesterday we did chem profile and amylase lipase. Her fasting glu cose was 130, otherwise rest of the chemistry was normal. Amylase 95 and lipase was 123. Patient's daughter was contacted this morning with this lab result. Considering patient's lack of improvement and worsening of lipase level, decision was made to admit her to the hospital with this diagnosis of acute pancreatitis. When I saw her today. She denies any complaints besides abdominal pain and naus ea. Medications: List reviewed. Review of Systems: GI: As mentioned above. AUTO DAMAGE ESTIMATOR: Impaired memory. All other systems reviewed and negative. Allergies: COMPAZINE CAUSING BLURRED VISION. Past Surgical History: Laparoscopic cholecystectomy in 2018, otherwise in the past she had total thy roidectomy, breast tumor removed from left breast which was benign, D and C, shoulder surgery, and kn ee surgery. Family History: Father , had coronary artery disease. Mother , had lung cancer. One brothe r of coronary artery disease. Social History: Negative for smoking. Use of alcohol, occasional use of a glass of wine. Past Medical History: Significant for type 2 diabetes mellitus, hypertension, mixed hyperlipidemia, overactive bladder, rheumatoid arthritis, insomnia. Physical Examination: Vital Signs: Temperature 97, pulse 64, respiratory rate 18, blood pressure 154/69, oxygen saturation 99%. Height 5 feet, weight is 140 pounds. General: Awake, alert, oriented, not in distress. HEENT: Head atraumatic, normocephalic. Conjunctivae nonerythematous. Sclerae white. Mouth, no thr ush or edema noted. Ears/Nose, no mass, lesion, discharge noted. Neck: Supple. No JVD, lymph nodes, bruit, thyromegaly noted. Lungs: Bilateral good equal air entry. Clear to auscultation. No rhonchi. No rales. Heart: Normal heart sounds, no murmur or gallop. Abdomen: Very minimum left upper quadrant tenderness. No rebound tenderness. Bowel sounds normoact angel. No guarding, rigidity, distention. Extremities: No leg edema. No calf tenderness. Skin: No rash, ulcer, cellulitis. Lymphatics: No lymph node enlargement in neck, supraclavicular, infraclavicular region. Neuro: No focal neurological deficit. Chest: Unremarkable. External Genitalia: Deferred. Rectal: Deferred. Laboratory Data: White count 11.1, hemoglobin 16.6, platelets 266. Sodium 138, potassium 3.6, chlor stephen 106, bicarb 27, BUN 13, creatinine 0.94, glucose 161. Liver function tests unremarkable. Amylas e 92, lipase 284. Urinalysis; 1+ esterase, bacteria not seen, nitrites negative, wbc less than 5. Imaging Studies: Chest x-ray; no acute cardiopulmonary changes. CAT scan of the abdomen and pelvis, no evidence of pancreatitis. Impression: 1.Acute pancreatitis. 2.Hypertension. 3.Mixed hyperlipidemia. 4.Type 2 diabetes mellitus. 5.Rheumatoid arthritis. Plan: Admit patient to hospital for further evaluation and management of this problem. After I cont acted the patient's daughter, arrangements were made for patient to be admitted to the hospital. Dir ect admission was done and lab work reviewed as mentioned above. CAT scan also reviewed. This eveni ng, I did call patient's daughter and details were discussed with her about all the test results and plan of treatment. Patient was started on Ringer lactate IV fluid and she was kept n.p.o. all day. Starting tomorrow we will start her on diet. I will see her again tomorrow morning depending on her condition our plan is to discharge her to go home tomorrow. She takes Tradjenta at home which is 1 o f her diabetes medication prescribed by her poultry helper and I have asked the patient's daughter t o discontinue this medication as of Saturday of this week. Her triglyceride was around 200, not high e nough to cause this acute pancreatitis. She does not have any gallstone or gallbladder. So we need to think about possibility of medication side effect and that is why stopped that medication and we w ill continue to monitor her blood sugar with sliding scale insulin while in the hospital, but when sh noemi goes home, she will not take Tradjenta. I have asked the patient and her daughter to make sure to follow up with her poultry helper Dr. Trinh as soon as possible to discuss about this possibility o f Tradjenta causing pancreatitis and I have advised her not to take it anymore and for Dr. Trinh to make decision about replacement therapy for that. What I suspect that the patient has very mild case of pancreatitis, mild enough not to show up on her CAT scan at this point, but clinically with her a bdominal pain and clinical parameters including elevated lipase level which was obviously done at out side labs, [facility] is consistent with acute pancreatitis. At this point no need for furthe r intervention as long as she shows clinical improvement. I also informed daughter that by next week if her abdominal pain continues then she will need to follow up with aquaculture director. Daughter w ill schedule her appointment or call my office if she needs any assistance. DVT prophylaxis will be given using Lovenox. PATRIC/MODL Voice ID: [id number]
[2019-09-10] MEDS: ACETAMINOPHEN 500 MG TAB PO PRN (05:39)
[2019-09-10] MEDS ORDERED: LEVOTHYROXINE SODIUM 75 MCG PO SCH (06:00)
[2019-09-10] MEDS: Ringers Lactate 1,000 ML IV SCH (07:00)
[2019-09-10 07:53] VITALS: O2SAT 97
[2019-09-10] MEDS ORDERED: HOME MED 1 EA UNK (Pantoprazole [Protonix Tab*] 1 TAB) PO SCH (09:00)
[2019-09-10] MEDS ORDERED: HOME MED 1 EA UNK (Metoprolol Tartrate [Lopressor*] 50 MG) PO SCH (09:00)
[2019-09-10] MEDS ORDERED: HOME MED 1 EA UNK (Aspirin Chewable [Aspirin Chewable*] 1 TAB) PO SCH (09:00)
[2019-09-10] MEDS ORDERED: HYDROXYCHLOROQUINE 200 MG PO SCH (09:00)
[2019-09-10 09:32] VITALS: BP 151/68; TEMP 97.1
[2019-09-10] MEDS ORDERED: DONEPEZIL 5 MG PO SCH (21:00)
--- NOTE | 2019-09-11 03:21 | DS ---
Date of Discharge: 09/10/2019 History Of Present Illness: Patient was seen this morning for followup. No new complaints or problems reported by the patient. Her nausea and abdominal pain were still present, but better today than yesterday. She had some diarrhea, which started after CAT scan, and she was made aware of expected problem due to oral contrast and that should resolve within the next 24 hours as well. Physical Examination: HEENT: Unremarkable. Lungs: Clear to auscultation. Heart: Sounds normal. Abdomen: Soft. Bowel sounds normal. No guarding, rigidity, tenderness, or distention. Extremities: No leg edema. Laboratory Data: White count 11.1, hemoglobin 16.6, platelets 266. Sodium 138, potassium 3.6, chloride 106, bicarb 27, BUN 13, creatinine 0.94, glucose 161, lipase 284, amylase 92. Hospital Course: 74-year-old very pleasant female patient, admitted to the hospital with abdominal pain and nausea. See dictated H and P for more details. After the patient was admitted to the hospital, she was initially kept n.p.o. CAT scan of the abdomen was done. Chest x-ray was unremarkable. Details were discussed with the patient and patient's daughter. Patient was started on diet. She is tolerating that very well. Her symptoms have improved. Her outpatient blood tests last week and this week showed elevated lipase level. This was done through [facility], and patient was admitted to the hospital with worsening lipase level with acute pancreatitis problem. After her admission, her condition has improved. I strongly suspect that her pancreatitis could be related to the use of oral diabetes medication, Tradjenta, and I have advised her to discontinue that medication. She normally sees Dr. Trinh for diabetes management and I have advised her and her daughter to follow with Dr. Trinh to discuss treatment options since she will not be taking any Tradjenta. Overall, her condition has improved. I have also advised patient's daughter that if her abdominal pain continues by later part of next week, that she should follow up with supplier quality engineering manager. Final Diagnoses: 1. Acute pancreatitis. 2. Hypertension. 3. Mixed hyperlipidemia. 4. Type 2 diabetes mellitus. 5. Rheumatoid arthritis. Discharge Medications And Instructions: 1. Continue all prior home medications except stop Tradjenta. 2. Follow up at my office a week after next. 3. Follow up with Dr. Trinh. PATRIC/MODL Voice ID: [id number] Report ID: [id number] RADHA
== END 2019-09-10 09:25 | disposition home or self-care (01) ==
LOC: 2ND 09:50 → INTOOBSV 09:50
PROVIDERS: ADMIT Internal Medicine; ATTEND Internal Medicine
DX: K85.90 Acute pancreatitis without necrosis or infection, unspecified (principal); I10 Essential (primary) hypertension; E78.2 Mixed hyperlipidemia; E11.9 Type 2 diabetes mellitus without complications; R19.7 Diarrhea, unspecified; M06.9 Rheumatoid arthritis, unspecified; N32.81 Overactive bladder; G47.00 Insomnia, unspecified; Z90.49 Acquired absence of other specified parts of digestive tract; Z80.1 Family history of malignant neoplasm of trachea, bronchus and lung; Z82.49 Family history of ischemic heart disease and other diseases of the circulatory system
CPT/HCPCS: 87088; 85025; 87086; 36415; 82150; 83735; 82947 ×2; 83690; 80053; 74177; 71046; Q9967; J1650; J7120 ×2; J2405; G0379; G0378 ×3; 81003; 81015

== ENCOUNTER 2021-06-01 19:28 | Observation (INO) | payer OTHER ==
--- OUTSIDE RECORDS SUMMARY | 2021-06-01 19:32 | XMS REPORT | Continuity of Care Document ---
:1945 Author Organization [facility] t Address [address] [place] [address] Care Team Providers Name Role Phone Candido Thompson Primary Care Physician Ashley COULTER L Attending Clinician Ziggy_T Attending Clinician Unavailable Lab, Fam Pob I Attending Clinician Unavailable Doctor Unassigned, Name Attending Clinician Unavailable Tony Olmos Attending Clinician Ziggy_Johnnie Admitting Clinician Unavailable Payers Payer Name Policy Type Policy Number Effective Date Expiration Date [facility] [id number] (MEDICARE REPLACEMENT/ADVANT AGE - PPO) [employer] (MEDICARE [id number] 2019 2020 REPLACEMENT/ADVANT 00:00:00 00:00:00 AGE - PPO) Problems Condition Condition Condition Status Onset Resolution Last Treating Co mments Source Name Details Category Date Date Treatment Clinician Date Overweight Overweight Problem Active 2020-04 [place] 05-07 Family 00:00: Practic 00 e Orthostati Orthostati Problem Active 2020-04 V illage c c 05-07 Family hypotensio Hypotensio 00:00: Pr actic n n 00 e Recurrent Recurrent Problem Active 2020-04 Josr [place] 05-07 Family 00:00: Practic 00 e Type 2 Type 2 Problem Active [facility] diabetes Diabetes 2- Family mellitus Mellitus 00:00: Practi c without without 00 e complicati Complicati on on Hypothyroi Hypothyroi Problem Active 2018-04 V ill[place] dism dism 05-18 Family 00:00: Practic 00 e Hyperlipid Hyperlipid Problem Active 2018-04 V illage emia emia 1-20 Family 00:00: Practic 00 e Essential Essential Problem Active 2018-04 Josr negro hypertensi Hypertensi 1-20 Fa trevor on on 00:00: Practic 00 e Rheumatoid Rheumatoid Problem Active 2018-04 [facility] [place] arthritis Arthritis 1-20 Fami ly 00:00: Practic 00 e Rheumatoid Rheumatoid Problem Active 2018-04 V ill[place] factor Factor 1-20 Family positive Positive 00:00: Practi c rheumatoid Rheumatoid 00 e arthritis Arthritis 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 Rheumatoid 00:00: Pr actic arthritis Arthritis 00 e Hypertensi Hypertensi Problem Active 2018-04 V illage ve ve 1-20 Family disorder Disorder 00:00: Practi c 00 e Gastro-eso Gastro-eso Problem Active 2018-04 V ill[place] phageal phageal 1-20 Family reflux Reflux 00:00: Practic disease Disease 00 e with with esophagiti Esophagiti s s H/O acute H/O acute Disease Active 2017-04 Uni vers pancreatit pancreatit 0-02 it y of is is 00:00: [place] [facility] Type 2 Type 2 Disease Active Univers diabetes diabetes 2-26 ity of mellitus mellitus 00:00: [place] with with 00 Medical complicati complicati Br anch on, on, without without long-term long-term current current use of use of insulin insulin Uncontroll Uncontroll Disease Active U roderick ed ed 5-31 ity of diabetes diabetes 00:00: [place] mellitus mellitus 00 Medica l type 2 type 2 Branch without without complicati complicati ons ons HLD HLD Disease Active Univers (hyperlipi (hyperlipi 09-26 it y of demia) demia) 00:00: [place] 00 Medical Branch Primary Primary Disease Active Univers hypothyroi hypothyroi 09-26 it y of dism dism 00:00: [place] [facility] Wrist pain Wrist pain Disease Active 2014-04 U nivers 0-28 ity of 00:00: [place] [facility] Hand pain Hand pain Disease Active 2014-04 Uni vers 0-28 ity of 00:00: [place] 00 Medical Branch LIFE Diagnosis Active 2013-11-19 Mem oria FLIGHT 11-19 11:46:00 l BILLING LIFE 00:00: Kris FLIGHT 00 BILLING Active 11/19/2013 [facility] SNAKEBITE Diagnosis Active 2013-11-19 Memoria 11-19 11:39:00 l 00:00: Kris SNAKEBITE 00 Active 11/19/2013 [facility] 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 d 21:41:33 l coronary [place] artery Atheroscle (disorder) rosis of coronary artery (disorder) Resolved Problem 09/03/2020 [facility] Diabetes Problem Resolve 2020-09-03 Me moria mellitus d 21:41:33 l (disorder) Diabetes He rmann mellitus (disorder) Resolved Problem 09/03/2020 [facility] Dementia Problem Active 2020-09-03 Mem oria (disorder) 21:41:33 l Dementia Joe n (disorder) Active Problem 09/03/2020 [facility] History of Past Illness Condition Condition Condition Status Onset Resolution Last Treating Co mments Source Name Details Category Date Date Treatment Clinician Date Discharge Problem 2013-11-22 2013-11-22 Memoria Diagnosis: 11-19 03:26:16 03:26:16 l Snake bite 05:00: Joe n Discharge 00 Diagnosis: Snake bite 11/19/2013 11/22/2013 [facility] Allergies, Adverse Reactions, Alerts Allergy Allergy Status Severity Reaction(s) Onset Inactive Treating Comm ents Source Name Type Date Date Clinician Prochlor Manasa Active Unknown - 2014-04 Mental Uni vers perazine ty to See comments 0-28 reaction ity of adverse 00:00: [place] reaction 00 Medical s Branch Compazin Allergy Active Anaphylaxis Vi llage e to Family substanc Practic e e Compazin Compazin Active Memori a e e l Kris Social History Social Habit Start Date Stop Date Quantity Comments Source History [facility] [place] Alcohol Comment Medical B ranch History [facility] [place] Alcohol Std Drinks Medica l Branch History [facility] [place] Alcohol Binge Medical Bra [facility] Alcohol intake 2020-12-29 2020-12-29 0 /d [facility] 00:00:00 00:00:00 Medical Branch History [facility] 2020-07-18 2020-07-18 1 [facility] o f [place] Alcohol Frequency 00:00:00 00:00:00 Medical Branch Social History 2020-04-06 2020-04-06 [facility] maryann 19:41:37 19:41:37 [birth year] [facility] [place] 00:00:00 00:00:00 Medical Branch Smoking Status Start Date Stop Date Source Never smoker [facility] Medical Branch Medications Ordered Filled Start Stop Current Ordering Indication Dosage Frequency Signature Comments Components Source Medication Medication Date Date Medication? Clinician (SIG) Name Name KELLEN Yes Univers FLEXTOUCH 3-08 ity of U-100 100 00:00: [place] unit/mL (3 00 Medical mL) InPn Branch TRESIBA Yes Univers FLEXTOUCH 3-08 ity of U-100 100 00:00: [place] unit/mL (3 00 Medical mL) InPn Branch memantine Yes Univers 10 mg 3-05 ity of tablet 00:00: 00 Medical Branch memantine Yes Univers 10 mg 3-05 ity of tablet 00:00: 00 Medical Branch losartan 25 Yes Univer s mg tablet 3-03 ity of 00:00: 00 Medical Branch losartan 25 0 Yes Univer s mg tablet 3-03 ity of 00:00: 00 Medical Branch fluconazole Yes TAKE 1 Univ ers 150 mg 2-26 TABLET BY ity of tablet 00:00: ORAL ROUTE ONCE FOR Medical VAGINAL Branch YEAST INFECTION fluconazole Yes TAKE 1 Univ ers 150 mg 2-26 TABLET BY ity of tablet 00:00: ORAL ROUTE ONCE FOR Medical VAGINAL Branch YEAST INFECTION Memantine Yes 10 mg = 1 Mem oria hydrochlori 1-28 tab, PO, l de 10 MG 18:08: BID, # 60 Herm valarie Oral Tablet 00 tab, 3 [Namenda] Refill(s), Pharmacy: [facility] cy #[id number], 152.4, cm, 05/26/20 11:42:00 BILLIARD [employer]CH[employer], Height, 88.636, kg, 05/26/20 11:42:00 [employer], Weight TRIJARDY XR Yes 2{tbl} Take 2 Un jessika 5-2.5-1,000 1-02 tablets by it y of mg TBph 00:00: mouth daily. Medical Branch TRIJARDY XR Yes 2{tbl} Take 2 Un jessika 5-2.5-1,000 -02 tablets by it y of mg TBph 00:00: mouth daily. Medical Branch pantoprazol 2019-04 Yes 40 mg, PO, Memoria e 2-09 Daily, # l 19:35: 30 tab, 0 [place] 00 Refill(s) Memantine 2019-04 Yes 5 mg = 1 Ronald johana hydrochlori 2-09 tab, PO, l de 5 MG 19:35: BID, # 60 Daphne nn Oral Tablet 00 tab, 3 [Namenda] Refill(s), Pharmacy: [facility] cy #[id number], 149.86, cm, 05/20/19 10:56:00 [employer], Height, 63.636, kg, 05/20/19 10:56:00 [employer], Weight 24 HR 2019-04 Yes 2 tab, PO, Memori a empaglifloz 209 QAM, 0 l in 25 MG / 19:35: Refill(s) He ann linagliptin 00 5 MG / metformin hydrochlori de 1000 MG Extended Release Oral Tablet [Trijardy] Tresiba 2019-04 Yes 14 units, Memor ia 2-09 SUB-Q, l 19:35: Daily, 0 [place] 00 Refill(s) rosuvastati 2019-04 Yes 10 mg, PO, Memoria n 2-09 Daily, 0 l 19:35: Refill(s) [place] 00 donepezil Yes 10 mg = 1 Mem oria 10 mg oral 4-22 tab, PO, l tablet 14:45: Bedtime, # Daphne nn 00 30 tab, 3 Refill(s), Pharmacy: [id number] Donepezil 2019-0 Yes 5 mg = 1 Ronald johana hydrochlori 1-22 tab, PO, l de 5 MG 17:33: Bedtime, # Herm valarie Oral Tablet 00 30 tab, 3 [Aricept] Refill(s), Pharmacy: [facility] #[id number] Linagliptin 2019-0 Yes 5 mg = 1 Me moria 5 MG Oral 1-22 tab, PO, l Tablet 17:01: Daily, # Kris [Tradjenta] 00 30 tab, 3 Refill(s) Lorazepam 2018-04 No See Memoria 0.5 MG Oral 2-17 Instructio l Tablet 23:06: ns, Take 1 Daphne nn [Ativan] 00 tab po 1 hour prior to MRI, may repeat q 15 min. if still anxious, # 5 tab, 0 Refill(s), called to pharmacy losartan 2018-04 Yes 25 mg = 1 M emoria mg oral 2-11 tab, PO, l tablet 17:24: Daily, # Kris 00 30 tab, 0 Refill(s) amLODIPine 2018-04 Yes 5 mg = 1 Mem oria 5 mg oral 2-11 tab, PO, l tablet 17:24: Daily, # [place] 00 30 tab, 0 Refill(s) predniSONE 2018-04 Yes 5 mg = 1 Mem oria 5 mg oral 2-11 tab, PO, l tablet 17:24: Every [place] 00 Other Day, 0 Refill(s) gemfibrozil 2018-04 Yes 600 mg = 1 Memoria 600 mg oral 2-11 tab, PO, l tablet 17:24: BID, # 60 Joe n 00 tab, 1 Refill(s) levothyroxi 2018-04 Yes 75 Memori a ne 75 mcg 2-11 microgram l (0.075 mg) 17:24: = 1 tab, Her urbano oral tablet 00 PO, Daily, 0 Refill(s) 0.5 ML 2018-04 Yes SUB-Q, 0 Memoria dulaglutide 2-11 Refill(s) l 3 MG/ML 17:24: [place] Prefilled 00 Syringe [Trulicity] gemfibrozil Yes TAKE 1 Univ ers 600 mg 8-27 TABLET BY ity of tablet 00:00: MOUTH 00 TWICE A Medical DAY Branch rosuvastati Yes TAKE 1 Univ ers n 5 mg 8-27 TABLET BY ity of tablet 00:00: MOUTH 2 TIMES A Medical WEEK Branch gemfibrozil Yes TAKE 1 Univ ers 600 mg 8-27 TABLET BY ity of tablet 00:00: MOUTH 00 TWICE A Medical DAY Branch rosuvastati Yes TAKE 1 Univ ers n 5 mg 8-27 TABLET BY ity of tablet 00:00: MOUTH 2 TIMES A Medical WEEK Branch predniSONE Yes 5mg Take 5 mg Un jessika 5 mg tablet 7-28 by mouth ity of 00:00: daily. Medical Branch predniSONE 2018- Yes 5mg Take 5 mg Un jessika 5 mg tablet 7-28 by mouth ity of 00:00: daily. Medical Branch pantoprazol Yes TAKE 1 Univ ers e 40 mg EC 7-09 TABLET BY ity of tablet 00:00: MOUTH EVERYDAY Medical AT BEDTIME Branch pantoprazol Yes TAKE 1 Univ ers e 40 mg EC 7-09 TABLET BY ity of tablet 00:00: MOUTH EVERYDAY Medical AT BEDTIME Branch ACCU-CHEK Yes Use as Univer s GUIDE 08-07 directed, ity of GLUCOSE 00:00: TID, [place] METER Misc 00 DX:E11.9 [facility] Branch ACCU-CHEK Yes Use as Univer s GUIDE 08-07 directed, ity of GLUCOSE 00:00: TID, [place] METER Misc 00 DX:E11.9 [facility] Branch metoprolol Yes 50mg Take 50 mg U nivers succinate - by mouth. ity o f XL 50 mg 24 09:07: [place] hr tablet Medical Branch amlodipine Yes Take by Uni vers besylate - mouth. ity of (AMLODIPINE 09:07: [place] ORAL) [address] [place] [address] Branch metoprolol Yes 50mg Take 50 mg U nivers succinate -02 by mouth. ity o f XL 50 mg 24 09:07: [place] hr tablet 26 [facility] Branch amlodipine Yes Take by Uni vers besylate 07-29 mouth. ity of (AMLODIPINE 09:07: [place] ORAL) [address] [place] [address] blood sugar Yes [id number] Use daily Univers diagnostic 07-29 DX E11.8. ity of (FREESTYLE 00:00: Twice [place] LITE 00 daily Medical STRIPS) Branch strip Insulin Yes [id number] Use as Univ ers [place], 07-29 directed, ity of Disposable, 00:00: twice [place] (PEN 00 daily, Medical NEEDLE) 31 DX;E11.8 Branc h gauge x 5/16" Ndle Lancets Yes [id number] Use as Univ ers (ACCU-CHEK 4-02 directed, ity of FASTCLIX 00:00: 1-2 times [place] LANCET 00 daily, Medical DRUM[place] [facility] [place]:E11.9 Branc h blood sugar Yes [id number] Use daily Univers diagnostic 4-02 DX E11.8. ity of (FREESTYLE 00:00: Twice [place] LITE 00 daily Medical STRIPS) Branch strip Insulin Yes [id number] Use as Univ ers [place], 4 directed, ity of Disposable, 00:00: twice [place] (PEN 00 daily, Medical NEEDLE) 31 DX;E11.8 Branc h gauge x 5/16" Ndle Lancets Yes [id number] Use as Univ ers (ACCU-CHEK 07-29 directed, ity of FASTCLIX 00:00: 1-2 [place] LANCET 00 daily, Medical DRUM[place] [facility] [place]:E11.9 Branc h diclofenac Yes [id number] 75mg Take 1 U nivers 75 mg EC 2-21 tablet by ity of tablet 00:00: mouth 2 (two) Medical times Branch daily with meals. diclofenac Yes [id number] 75mg Take 1 U nivers 75 mg EC 2-21 tablet by ity of tablet 00:00: mouth 2 00 (two) Medical times Branch daily with meals. Insulin Yes Use as Univers Syringe-Nee 2-06 directed ity of dle U-100 00:00: BID DX: [place] (INSULIN 00 E11.9 Medical SYRINGE) Branch 1/2 mL 30 gauge x 5/16 Syrg Insulin Yes Use as Univers Syringe-Nee 2-06 directed ity of dle U-100 00:00: BID DX: [place] (INSULIN 00 E11.9 Medical SYRINGE) Branch 1/2 mL 30 gauge x 5/16 Syrg levothyroxi Yes Univer s ne 75 mcg 8-08 ity of tablet 00:00: [place] [facility] levothyroxi Yes Univer s ne 75 mcg 8-08 ity of tablet 00:00: [place] [facility] 0.5 ML No Notes: Junior Bordetella 7-24 (Tdap ) l pertussis 15:44: For [place] filamentous 00 Adolecent hemagglutin and Adult in vaccine, use For IM inactivated Use. Same 0.016 MG/ML as: Adacel / (Tdap) Bordetella pertussis pertactin vaccine, inactivated 0.005 MG/ML / Bordetella pertussis toxoid vaccine, inactivated 0.016 MG/ML / diphtheria toxoid vaccine, inactivate Tylenol No Notes: Do Memor ia 7-24 not exceed l 15:16: 4 gm/day. (Same as: Tylenol) Metformin Yes 0 Memoria hydrochlori 7-24 Refill(s) l de 500 MG 15:12: Oral Tablet 00 Hydrochloro Yes 0 Memori a thiazide 7-24 Refill(s) l 12.5 MG / 15:12: Losartan 00 Potassium 100 MG Oral Tablet Aspirin Low Yes 0 Memori a Dose 81 mg 7-24 Refill(s) l oral tablet 15:11: Joe Fish Oil Yes 0 Memoria 7-24 Refill(s) l 15:11: metoprolol Yes 0 Memoria tartrate 7-24 Refill(s) l 15:11: Crestor Yes 0 Memoria 7-24 Refill(s) l 15:10: oxybutynin Yes 0 Memoria 7-24 Refill(s) l 15:10: Accu-Chek Accu-Chek No Accu-Chek [facility] FastClix FastClix FastClix Fam jose Lancing Lancing Lancing Practi c Device Device Device e Accu-Chek Accu-Chek No Accu-Chek [facility] Guide test Guide test Guide test Family strips USE strips USE strips USE Practic TO CHECK TO CHECK TO CHECK e GLUCOSE 3 GLUCOSE 3 GLUCOSE 3 TIMES A DAY TIMES A DAY TIMES A DAY Adult Adult No 1 Q1D Adult [place] Aspirin Aspirin Aspirin Family Regimen 81 Regimen 81 Regimen 81 Practic mg mg mg e tablet,korin tablet,korin tablet,del yed release yed release ayed Take 1 Take 1 release tablet tablet Take 1 every day every day tablet by oral by oral every day route. route. by oral route. alprazolam alprazolam No alprazolam [place] 0.25 mg 0.25 mg 0.25 mg Family tablet tablet tablet Practic e amlodipine amlodipine No amlodipine [facility] 5 mg tablet 5 mg tablet 5 mg F amily TAKE 1 TAKE 1 tablet Practic TABLET BY TABLET BY TAKE 1 e MOUTH EVERY MOUTH EVERY TABLET BY DAY DAY MOUTH EVERY DAY BD BD No BD [place] Ultra-Fine Ultra-Fine Ultra-Fine Family Short Pen Short Pen Short Pen Practic Needle 31 Needle 31 Needle 31 e gauge x gauge x gauge x 5/16" USE 516" USE 16" USE DIRECTED DIRECTED TWICE TWICE DIRECTED DAILY, DX DAILY, DX TWICE E11.8 90 E11.8 90 DAILY, DX E11.8 90 ciprofloxac ciprofloxac No ciprofloxa [facility] in 500 mg in 500 mg laxmi 500 mg Family tablet tablet tablet Practic e diclofenac diclofenac No diclofenac [facility] sodium 75 sodium 75 sodium 75 Family mg mg mg Practic tablet,korin tablet,korin tablet,del e yed release yed release ayed release dicyclomine dicyclomine No dicyclomin [facility] 10 mg 10 mg e 10 mg Family capsule capsule capsule Practi c e donepezil donepezil No donepezil [facility] 10 mg 10 mg 10 mg Family tablet tablet tablet Practic e famotidine famotidine No famotidine [facility] 20 mg 20 mg 20 mg Family tablet tablet tablet Practic e fluconazole fluconazole No fluconazol [facility] 150 mg 150 mg e 150 mg Family tablet TAKE tablet TAKE tablet Practic 1 TABLET BY 1 TABLET BY TAKE 1 e ORAL ROUTE ORAL ROUTE TABLET BY ONCE FOR ONCE FOR ORAL ROUTE VAGINAL VAGINAL ONCE FOR YEAST YEAST VAGINAL INFECTION INFECTION YEAST INFECTION FreeStyle FreeStyle No FreeStyle [facility] Soheila 14 Soheila 14 Soheila 14 Fam jose Day Sensor Day Sensor Day Sensor Practic e galantamine galantamine No galantamin [facility] ER 8 mg 24 ER 8 mg 24 e ER 8 mg Family hr hr 24 hr Practic capsule,ext capsule,ext capsule,ex e ended ended tended release release release Humira(CF) Humira(CF) No Humira(CF) [facility] Pen 40 Pen 40 Pen 40 Family mg/0.4 mL mg/0.4 mL mg/0.4 mL Practic subcutaneou subcutaneou subcutaneo e s kit s kit us kit hydroxychlo hydroxychlo No hydroxychl [facility] roquine 200 roquine 200 oroquine Family mg tablet mg tablet 200 mg Pra ctic tablet e levothyroxi levothyroxi No levothyrox [facility] ne 75 mcg ne 75 mcg ine 75 mcg Family tablet 1 tablet 1 tablet 1 Pra ctic TABLET BY TABLET BY TABLET BY e MOUTH MOUTH MOUTH DAILY, 30 DAILY, 30 DAILY, 30 MINUTES MINUTES MINUTES BEFORE BEFORE BEFORE BREAKFAST BREAKFAST BREAKFAST lorazepam lorazepam lorazepam [facility] 0.5 mg 0.5 mg 0.5 mg Family tablet tablet tablet Practic e losartan 25 losartan 25 No losartan [place] mg tablet mg tablet 25 mg Fami ly TAKE 1 TAKE 1 tablet Practic TABLET BY TABLET BY TAKE 1 e MOUTH EVERY MOUTH EVERY TABLET BY DAY DAY MOUTH EVERY DAY memantine memantine No memantine [facility] 10 mg 10 mg 10 mg Family tablet TAKE tablet TAKE tablet Practic 1 TABLET BY 1 TABLET BY TAKE 1 e MOUTH TWICE MOUTH TWICE TABLET BY A DAY A DAY MOUTH TWICE A DAY memantine 5 memantine 5 No memantine [facility] mg tablet mg tablet 5 mg Famil y TAKE 1 TAKE 1 tablet Practic TABLET BY TABLET BY TAKE 1 e MOUTH TWICE MOUTH TWICE TABLET BY A DAY A DAY MOUTH TWICE A DAY metoprolol metoprolol No metoprolol [facility] tartrate 25 tartrate 25 tartrate Family mg tablet mg tablet 25 mg Prac tic tablet e metoprolol metoprolol metoprolol [facility] tartrate 50 tartrate 50 tartrate Family mg tablet mg tablet 50 mg Prac tic TAKE 1 TAKE 1 tablet e TABLET BY TABLET BY TAKE 1 MOUTH TWICE MOUTH TWICE TABLET BY A DAY A DAY MOUTH TWICE A DAY metronidazo metronidazo No metronidaz [facility] le 500 mg le 500 mg ole 500 mg Family tablet tablet tablet Practic e on[facility]ansetron [facility] 4 mg HCl 4 mg n HCl 4 mg F amily tablet tablet tablet Practic e pantoprazol pantoprazol pantoprazo [facility] e 40 mg e 40 mg le 40 mg Famil y tablet,korin tablet,korin tablet,del Practic yed release yed release ayed e TAKE 1 TAKE 1 release TABLET BY TABLET BY TAKE 1 MOUTH MOUTH TABLET BY EVERYDAY AT EVERYDAY AT MOUTH BEDTIME BEDTIME EVERYDAY AT BEDTIME prednisone prednisone No prednisone [facility] 2.5 mg 2.5 mg 2.5 mg Family tablet TAKE tablet TAKE tablet Practic 1 TABLET BY 1 TABLET BY TAKE 1 e MOUTH EVERY MOUTH EVERY TABLET BY DAY DAY MOUTH EVERY DAY prednisone prednisone No prednisone [facility] 5 mg tablet 5 mg tablet 5 mg F amily TAKE 1 TAKE 1 tablet Practic TABLET BY TABLET BY TAKE 1 e MOUTH EVERY MOUTH EVERY TABLET BY OTHER DAY OTHER DAY MOUTH EVERY OTHER DAY rosuvastati rosuvastati No rosuvastjamal [facility] n 10 mg n 10 mg in 10 mg Famil y tablet TAKE tablet TAKE tablet Practic 1 TABLET BY 1 TABLET BY TAKE 1 e MOUTH MOUTH TABLET BY EVERYDAY AT EVERYDAY AT MOUTH BEDTIME BEDTIME EVERYDAY AT BEDTIME rosuvastati rosuvastati No 1 Q1D joaquinaastjamal [facility] n 5 mg n 5 mg in 5 mg Family tablet Take tablet Take tablet Practic 1 tablet 1 tablet Take 1 e every day every day tablet by oral by oral every day route. route. by oral route. Suprep Suprep No Suprep [place] Bowel Prep Bowel Prep Bowel Prep Family Kit 17.5 Kit 17.5 Kit 17.5 Pra ctic gram-3.13 gram-3.13 gram-3.13 e gram-1.6 gram-1.6 gram-1.6 gram oral gram oral gram oral solution solution solution tramadol 50 tramadol 50 No tramadol [place] mg tablet mg tablet 50 mg Fami ly TAKE 1 TAKE 1 tablet Practic TABLET BY TABLET BY TAKE 1 e MOUTH EVERY MOUTH EVERY TABLET BY 6 HOURS 6 HOURS MOUTH NEEDED FOR NEEDED FOR EVERY 6 PAIN PAIN HOURS NEEDED FOR PAIN Tresiba Tresiba No Tresiba [place] FlexTouch FlexTouch FlexTouch Family U-100 U-100 U-100 Practic insulin 100 insulin 100 insulin e unit/mL (3 unit/mL (3 100 mL) mL) unit/mL (3 subcutaneou subcutaneou mL) s pen s pen subcutaneo INJECT INJECT us pen UNDER THE UNDER THE INJECT SKIN 14 SKIN 14 UNDER THE UNITS EVERY UNITS EVERY SKIN 14 MORNING AND MORNING AND UNITS INCREASE INCREASE EVERY DIRECTED DIRECTED MORNING TOTAL DAILY TOTAL DAILY AND DOSE OF 30 DOSE OF 30 INCREASE DIRECTED TOTAL DAILY DOSE OF 30 Trijardy XR [facility]y [facility] 5 mg-2.5 5 mg-2.5 XR 5 Family mg-1,000 mg mg-1,000 mg mg-2.5 Practic tablet, tablet, mg-1,000 e extended extended mg tablet, release release extended TAKE 2 TAKE 2 release TABLETS BY TABLETS BY TAKE 2 MOUTH EVERY MOUTH EVERY TABLETS BY DAY DAY MOUTH EVERY DAY Immunizations Ordered Filled Immunization Date Status Comments Sour e Immunization Name Name SARS-COV-2 COVID-19 2020-07-07 Completed Unive rsity of ROXANNE/J&J VACCINE 00:00:00 [facility] SARS-COV-2 COVID-19 2020-07-07 Completed Unive rsity of ROXANNE/J&J VACCINE 00:00:00 [facility] SARS-COV-2 SARS-COV-2 2020-06-27 Completed [facility] (COVID-19) vaccine, (COVID-19) vaccine, 00:00:00 Practice UNSPECIFIED UNSPECIFIED influenza, influenza, 2020-03-15 Completed [facility] injectable, injectable, 00:00:00 Practice quadrivalent quadrivalent diphtheria/pertussi 2013-11-19 Completed Memor maribell Ponce s, acel/tetanus 18:23:00 adult Vital Signs Vital Name Observation Time Observation Value Comments Source BP Diastolic 2021-03-07 00:00:00 65 mm[Hg] [facility] Height 2021-03-07 00:00:00 60 [in_i] [facility] BMI (Body Mass Index) 2021-03-07 00:00:00 24.9 kg/m2 [facility] BP Systolic 2021-03-07 00:00:00 110 mm[Hg] [facility] Body Weight 2021-03-07 00:00:00 127.4 [lb_av] [facility] BP Systolic 2020-10-26 00:00:00 117 mm[Hg] [facility] Body Weight 2020-10-26 00:00:00 138.8 [lb_av] [facility] BP Diastolic 2020-10-26 00:00:00 54 mm[Hg] [facility] Height 2020-10-26 00:00:00 60 [in_i] [facility] BMI (Body Mass Index) 2020-10-26 00:00:00 27.1 kg/m2 [facility] BP Diastolic 2020-07-13 00:00:00 66 mm[Hg] [facility] Height 2020-07-13 00:00:00 60 [in_i] [facility] [facility] BMI (Body Mass Index) 2020-07-13 00:00:00 27.7 kg/m2 [facility] BP Systolic 2020-07-13 00:00:00 123 mm[Hg] [facility] Body Weight 2020-07-13 00:00:00 142 [lb_av] [facility] BP Diastolic 2020-03-30 00:00:00 82 mm[Hg] [facility] Height 2020-03-30 00:00:00 60 [in_i] [facility] BMI (Body Mass Index) 2020-03-30 00:00:00 30.5 kg/m2 [facility] BP Systolic 2020-03-30 00:00:00 126 mm[Hg] [facility] Body Weight 2020-03-30 00:00:00 156 [lb_av] [facility] BP Diastolic 2020-02-29 00:00:00 72 mm[Hg] [facility] Height 2020-02-29 00:00:00 60 [in_i] [facility] BMI (Body Mass Index) 2020-02-29 00:00:00 29.9 kg/m2 [facility] BP Systolic 2020-02-29 00:00:00 128 mm[Hg] [facility] Body Weight 2020-02-29 00:00:00 153 [lb_av] [facility] Systolic (mm Hg) 2020-05-26 17:13:00 Ronald [facility] Diastolic (mm Hg) 2020-05-26 17:13:00 [facility] [place] Heart Rate 2020-05-26 17:13:00 [facility] [place] Respitory Rate 2020-05-26 17:13:00 [facility] Height 2020-05-26 17:13:00 152.4 cm [facility] [place] Weight 2020-05-26 17:13:00 [facility] [place] BMI Calculated 2020-05-26 17:13:00 [facility] [place] Systolic (mm Hg) 2020-04-06 19:20:00 Ronald rial Kris Diastolic (mm Hg) 2020-04-06 19:20:00 [facility] [place] Heart Rate 2020-04-06 19:20:00 [facility] Respitory Rate 2020-04-06 19:20:00 [facility] Height 2020-04-06 19:20:00 147.32 cm [facility] Weight 2020-04-06 19:20:00 [facility] [place] BMI Calculated 2020-04-06 19:20:00 [facility] [place] Respitory Rate 2019-05-20 16:56:00 [facility] [place] Height 2019-05-20 16:56:00 149.86 cm [facility] [place] Weight 2019-05-20 16:56:00 [facility] [place] BMI Calculated 2019-05-20 16:56:00 [facility] [place] Systolic (mm Hg) 2019-05-20 16:56:00 [facility] [place] Diastolic (mm Hg) 2019-05-20 16:56:00 [facility] [place] Heart Rate 2019-05-20 16:56:00 [facility] [place] Systolic (mm Hg) 2019-04-08 16:53:00 Ronald rial Kris Diastolic (mm Hg) 2019-04-08 16:53:00 [facility] [place] Heart Rate 2019-04-08 16:53:00 [facility] Respitory Rate 2019-04-08 16:53:00 [facility] Height 2019-04-08 16:53:00 152.4 cm [facility] [place] Weight 2019-04-08 16:53:00 [facility] [place] BMI Calculated 2019-04-08 16:53:00 [facility] Diastolic (mm Hg) 2013-11-19 19:51:00 [facility] Heart Rate 2013-11-19 19:51:00 [facility] Respitory Rate 2013-11-19 19:51:00 [facility] Systolic (mm Hg) 2013-11-19 19:51:00 Ronald rial Kris Respitory Rate 2013-11-19 18:25:00 [facility] [place] Diastolic (mm Hg) 2013-11-19 18:25:00 [facility] [place] Systolic (mm Hg) 2013-11-19 18:25:00 Ronald [facility] Weight 2013-11-19 14:56:00 [facility] [place] BMI Calculated 2013-11-19 14:56:00 [facility] [place] Height 2013-11-19 14:56:00 152.4 cm [facility] [place] Diastolic (mm Hg) 2013-11-19 14:56:00 [facility] Systolic (mm Hg) 2013-11-19 14:56:00 Ronald [facility] Heart Rate 2013-11-19 14:56:00 [facility] Temperature Oral (F) 2013-11-19 14:56:00 98.5 F [facility] [place] Respitory Rate 2013-11-19 14:56:00 [facility] [place] Procedures Procedure Date / Time Performing Clinician Source Performed Procedure on Shoulder 2019-07-29 00:00:00 [facility] Colonoscopy 2019-04-29 00:00:00 [facility] Knee replacement Gaurav chery Rotator cuff repair Gaurav urbano [facility] Portia Graff amily Keratomileusis Practice Laparoscopic [facility] Cholecystectomy [facility] Total Replacement of Left [facility] Complete Repair of Rotator Nino ge Family Cuff Practice Plan of Care Planned Activity Planned Date Details Comments Source Diagnostic Test 2021-03-07 glucose, fingerstick, Josr negro Family Pending 00:00:00 blood [code = Practice glucose, fingerstick, blood] Diagnostic Test 2021-03-07 hemoglobin A1C, Portia lee Pending 00:00:00 fingerstick [code = Practice hemoglobin A1C, fingerstick] Encounters Start End Encounter Admission Attending Care Care Encounter Source Date/Time Date/Time Type Type Clinicians Facility Department ID 2021-05-30 2021-05-30 Telephone [facility] [id number] 00:00:00 00:00:00 [facility] [id number] it y of [place] [id number] Maximus as NICKY?BLEA [id number] [address] OFFICE [facility] 2021-05-17 2021-05-17 Telephone [facility] [id number] [facility] 00:00:00 00:00:00 [facility] [id number] it y of [place] [id number] Maximus as NICKY?BLEA [id number] [address] MEDICAL OFFICE [facility] 2021-04-03 2021-04-03 Outpatient Daniel_T VFP VFP [id number] 2-20 [facility] 08:37:00 08:37:00 [id number] Family Practic e 2021-03-07 2021-03-07 Outpatient Daniel_T VFP VFP [id number] 2-20 [facility] 05:08:00 05:08:00 [id number] Family Practic e 2021-03-07 2021-03-07 Luis VFP [place] - [id number] [place] ill[place] 00:00:00 00:00:00 Ashlie [facility] Jessy Portillo - Juma burr MD: [id number] GENOVEVA_KEYANNA_Wei e Shadow [address] [address] , Ph. 2020-10-28 2020-10-28 Outpatient Daniel_T VFP VFP [id number] [address] [place] [address] 06:10:00 06:10:00 [id number] Family Practic e 2020-10-28 2020-10-28 Outpatient Daniel_T VFP VFP [id number] [address] [place] [address] 06:10:00 06:10:00 [id number] Family Practic e 2020-10-26 2020-10-26 Outpatient Daniel_T VFP VFP [id number] [address] [place] [address] 03:14:00 03:14:00 [id number] Family Practic e 2020-10-26 2020-10-26 Luis VFP [place] - [id number] [facility] 00:00:00 00:00:00 [facility] Jessy rTinh - Prachans burr MD: [id number] [address], [address] [address] , Ph. 2020-09-01 2020-09-01 Ambulatory nullFlavo MNA [id number] [facility] 16:45:00 16:45:00 Pre-Reg r Neurology 08 l Sheridan Kris 2020-08-20 2020-08-20 Outpatient Daniel_T VFP VFP [id number] [address] [place] [address] 02:40:00 02:40:00 [id number] Family Practic e 2020-07-22 2020-07-22 Outpatient Daniel_T VFP VFP [id number] [address] [place] [address] 07:52:00 07:52:00 [id number] Family Practic e 2020-07-13 2020-07-13 Outpatient Daniel_T VFP VFP [id number] [address] [place] [address] 01:17:00 01:17:00 [id number] Family Practic e 2020-07-13 2020-07-13 Luis VFP [place] - [id number] V ill[place] 00:00:00 00:00:00 [facility] Jessy Trinh - Juma burr MD: [id number] VM[address]d e Shadow [address], [address], [place] [address] , Ph. 2020-07-12 2020-07-12 Outpatient Daniel_T VFP VFP [id number] [address] [place] [address] 07:47:00 07:47:00 [id number] Family Practic e 2020-05-26 2020-05-27 Outpatient nullFlavo MNA [id number] Memoria 17:15:00 05:59:59 r Neurology 07 l Sheridan Kris 2020-05-18 2020-05-18 Ambulatory nullFlavo MNA [id number] [facility] 19:45:00 19:45:00 Pre-Reg r Neurology 06 l Sheridan Kris 2020-04-18 2020-04-18 Outpatient Daniel_T VFP VFP [id number] [address] [place] [address] 06:01:00 06:01:00 [id number] Family Practic e 2020-04-06 2020-04-07 Outpatient nullFlavo MNA [id number] [facility] 19:00:00 05:59:59 r Neurology 05 l Sheridan Kris 2020-04-04 2020-04-04 Outpatient Daniel_T VFP VFP [id number] [address] [place] [address] 07:55:00 07:55:00 Family Practic e 2020-03-30 2020-03-30 Outpatient Daniel_T VFP VFP [id number] [address] [place] [address] 01:21:00 01:21:00 Family Practic e 2020-03-30 2020-03-30 Luis VFP [place] - [id number] V illage 00:00:00 00:00:00 Ashlie [facility] Family TrinhJessy - Prachans burr MD: [id number] VM_HOU_Dani e Shadow [facility], [address], [place] [address] , Ph. 2020-03-29 2020-03-29 Outpatient Daniel_T VFP VFP [id number] [address] [place] [address] 04:57:00 04:57:00 Family Practic e 2020-02-29 2020-02-29 Outpatient Daniel_T VFP VFP [id number] [address] [place] [address] 02:38:00 02:38:00 Family Practic e 2020-02-29 2020-02-29 Luis VFP [place] - [id number] [place] illage 00:00:00 00:00:00 Dilon [facility] Family Ziggy, Jessy - Juma burr MD: [id number] VM_HOU_Roberto [facility]lin [facility], [place] [address], [place] [address] , Ph. 2020-02-26 2020-02-26 Outpatient Ziggy_T VFP VFP [id number] [facility] 02:07:00 02:07:00 Family Practic e 2020-02-14 2020-02-14 Laboratory Lab, [facility] [id number] 10:15:11 10:35:11 Only Fam [facility] [id number] [place] [id number] [phone] nal [address] 2020-02-14 2020-02-14 Orders Doctor NINI [id number] 00:00:00 00:00:00 Only Unassigned, APOLINAR [id number] [place] [facility] [id number] 2019-12-22 2019-12-22 Ambulatory nullFlavo MNA [id number] Memoria 14:30:00 14:30:00 Pre-Reg r Neurology 04 l Shannan Ponce 2019-12-22 2019-12-22 Ambulatory nullFlavo MNA [id number] Mem[facility] 14:30:00 14:30:00 Pre-Reg r Neurology 03 l Shannan Ponce 2019-08-19 2019-08-20 Outpatient nullFlavo MNA [id number] [facility] 14:30:00 04:59:59 r Neurology 02 l Shannan Ponce 2019-05-20 2019-05-21 Outpatient nullFlavo MNA [id number] [facility] 16:45:00 05:59:59 r Neurology 01 l Shannan Ponce 2019-04-08 2019-04-09 Outpatient nullFlavo MNA [id number] [facility] 17:15:00 05:59:59 r Neurology 00 l Shannan Ponce 2019-01-02 2019-01-02 Office Nickolas [facility] [id number] 08:31:13 10:01:24 Visit Sony Bean [id number] [place] [id number] Edwin [id number] [facility] [address] 2013-11-19 2013-11-[facility] [id number] Mem[facility] 14:56:00 19:53:00 Emergency r [address] Results Test Description Test Time Test Comments Results Result Comments Source Hemoglobin A1c measurement device panel 2021-03-07 15:02:32 Test Item Value Reference Range Interpretation Comme nts Hemoglobin A1C Fingerstick: (test code = Hemoglobin A1C Fingerstick :) 4.6 [facility] PracticeGlucose [Mass/volume] in Capillary [id number] 14:49:06 Test Item Value Reference Range Interpretation Comments Blood Glucose: mg/dl (test code = Blood 235 Glucose: mg/dl) [facility] PracticeGlucose [Mass/volume] in Capillary [id number] 14:27:33 Test Item Value Reference Range Interpretation Comments Blood Glucose: mg/dl (test code = Blood 177 Glucose: mg/dl) [facility] WfpafswfHFUPBIVELN4072-80-38 15:00:420.88[facility] [id number] 15:00:42 Test Item Value Reference Range Interpretation Comments PT (test code = PT) 11.9 s 12.0-14.7 [facility] IudolpgKDLIBOPVYC7174-13-26 15:00:42 Test Item Value Reference Range Interpretation Comments PTT (test code = PTT) 27.3 s 22.9-35.8 [facility] HermannCARDIAC [id number] 15:00:0080[facility] HermannCHEM PANEL 2013-11-19 15:00:0057[facility] HermannCHEM [id number] 15:00:05270Cmarjndh HermannCHEM WPTKW5021-29-02 15:00:001.0[facility] HermannCHEM QTQXH0217-19-08 15:00:0022[facility] HermannCHEM [id number] 15:00:0010.3[facility] HermannCHEM GJQSU6549-01-41 15:00:0026[facility] HermannCHEM [id number] 15:00:25886 [facility] HermannCHEM PMYWX9911-07-17 15:00:46746Otozmouv HermannCHEM PANEL 2013-11-19 15:00:004.0[facility] HermannCHEM ATONQ5510-76-21 15:00:0013.0[facility]orial XplzetmAYXWZJXAFO0504-59-31 15:00:009.2[facility]orial VjsdtcnHIXTOSEJGQ3663-66-39 15:00:89690Ogpzacqt VwkwvakGTFMHTUPJG1536-05-85 15:00:0015.6[facility] [place] HFYFFFWHRY3806-90-00 15:00:0044.7[facility] WrkxblrDGCGTVEFVD5554-92-88 15:00:00 12.9[facility]orial NiizvfsTMVNEHHIQP3255-50-71 15:00:0034.8[facility] HermannHEMATOLOGY 2013-11-19 15:00:007.4[facility] VyqyqgkGSSHZMHTCG0774-39-27 15:00:005.09[facility] NtdzsncNVRZKRLHIS2257-36-67 15:00:00 Test Item Value Reference Range Interpretation Comments MCH (test code = MCH) 30.7 pg 27.0-31.0 [facility] WlkxhrfAVIHAEALAG3470-34-65 15:00:0088.0[facility] HermannHEMATOLOGY 2013-11-19 15:00:000.0[facility] LkuwemnJUIKSQJNEX7289-80-09 15:00:000.6[facility]orial QcgmkbtAEXPMXOWTC6851-63-93 15:00:000.3[facility] NkkaurkVVAKAYTNXQ8115-87-34 15:00:0043.4[facility] IxrawurQZOZSUTEHI9295-36-15 15:00:0044.2[facility] HOGJVSYGOK7408-81-60 15:00:004.7[facility] FehjbswJILZSPXGOS1068-10-88 15:00:003.2 [facility] IjkuyuwHCCYJPVDUW1191-80-13 15:00:003.3[facility] HermannHEMATOLOGY 2013-11-19 15:00:000.1[facility] HtvslymOWPLVAVSHJ9613-93-27 15:00:007.6[facility]
--- NOTE | 2021-06-01 20:12 | EDPHYS ---
Physician Documentation [facility] Name: María Robison Age: 75 yrs Sex: Female : 1945 Arrival Date: 06/01/2021 Time: 19:31 Bed 17 Private MD: Sugey Thompson C ED Physician Barak Underwood HPI: 06/01 19:59 This 75 yrs old Female presents to ER via Ambulatory with complaints of RT side pain. sp3 19:59 75-year-old female with history of diabetes, hyperlipidemia, bladder incontinence in sp3 the past now presents with right lower extremity radiculopathy type pain. Patient is seen by Dr. Thompson who has ordered outpatient radiographs and also had an MRI of the brain and C-spine yesterday. Patient's pain in the lower back radiculopathy started yesterday evening. He has advised her to come into the ED for pain control "to get admitted for an MRI". Patient denies any loss of strength, loss of sensation, numbness, or any other neurological symptoms. Patient only complains of pain. Patient also denies leg swelling, loss of bowel or bladder control past what her bladder is at baseline, abdominal pain, nausea, vomiting, diarrhea, chest pain, shortness of breath, neck pain, headache, syncope, memory loss (past her baseline dementia per her daughter), any other review of systems at this time.. Historical: - Allergies: 19:38 Compazine; [facility] - PMHx: 19:38 bladder problems; Diabetes - IDDM; Diabetes - NIDDM; High Cholesterol; Hypertension; [facility] - PSHx: 19:38 LEFT KNEE REPLACEMENT; RIGHT ROTATOR CUFF; [facility] - Immunization history:: Adult Immunizations up to date. - Social history:: Smoking status: Patient denies any tobacco usage or history of. ROS: 20:04 Constitutional: Negative for fever, chills, and weight loss, Eyes: Negative for injury, sp3 pain, redness, and discharge, ENT: Negative for injury, pain, and discharge, Neck: Negative for injury, pain, and swelling, Cardiovascular: Negative for chest pain, palpitations, and edema, Respiratory: Negative for shortness of breath, cough, wheezing, and pleuritic chest pain, Abdomen/GI: Negative for abdominal pain, nausea, vomiting, diarrhea, and constipation, MS/Extremity: Negative for injury and deformity, Skin: Negative for injury, rash, and discoloration, Neuro: Negative for headache, weakness, numbness, tingling, and seizure, Psych: Negative for depression, anxiety, suicide ideation, homicidal ideation, and hallucinations, Endocrine: Negative for neck swelling, polydipsia, polyuria, polyphagia, and marked weight changes, Hematologic/Lymphatic: Negative for swollen nodes, abnormal bleeding, and unusual bruising. 20:04 All other systems are negative. Exam: 20:05 Constitutional: This is a well developed, well nourished patient who is awake, alert, sp3 and in no acute distress. Head/Face: Normocephalic, atraumatic. Eyes: Pupils equal round and reactive to light, extra-ocular motions intact. Lids and lashes normal. Conjunctiva and sclera are non-icteric and not injected. Cornea within normal limits. Periorbital areas with no swelling, redness, or edema. ENT: Nares patent. No nasal discharge, no septal abnormalities noted. External auditory canals are clear. Oropharynx with no redness, swelling, or masses, exudates, or evidence of obstruction, uvula midline. Mucous membranes moist. Neck: Trachea midline, no thyromegaly or masses palpated, and no cervical lymphadenopathy. Supple, full range of motion without nuchal rigidity, or vertebral point tenderness. No Meningismus. Chest/axilla: Normal chest wall appearance and motion. Nontender with no deformity. No lesions are appreciated. Cardiovascular: Regular rate and rhythm with a normal S1 and S2. No gallops, murmurs, or rubs. Normal PMI, no JVD. No pulse deficits. Respiratory: Lungs have equal breath sounds bilaterally, clear to auscultation and percussion. No rales, rhonchi or wheezes noted. No increased work of breathing, no retractions or nasal flaring. Abdomen/GI: Soft, non-tender, with normal bowel sounds. No distension or tympany. No guarding or rebound. No evidence of tenderness throughout. Back: No spinal tenderness. No costovertebral tenderness. Full range of motion. Skin: Warm, dry with normal turgor. Normal color with no rashes, no lesions, and no evidence of cellulitis. Neuro: Awake and alert, GCS 15, oriented to person, place, time, and situation. Cranial nerves II-XII grossly intact. Motor strength 5/5 in all extremities. Sensory grossly intact. Cerebellar exam normal. Normal gait. Psych: Awake, alert, with orientation to person, place and time. Behavior, mood, and affect are within normal limits. 20:05 Musculoskeletal/extremity: Patient has pain on right leg raise at approximately 20 degrees. No neurological symptoms demonstrated including motor, sensory two-point discrimination, pin and temperature, or any other neurological symptoms.. Vital Signs: 19:33 BP 183 / 71; Pulse 87; Resp 16; Temp 99.4; Pulse Ox 99% ; Weight 61.23 kg; Height 4 ft. jh5 11 in. (149.86 cm); Pain 9/10; 20:15 BP 188 / 61; Pulse 85; Resp 18; Pulse Ox 99% ; Pain 10/10; al4 20:56 BP 164 / 74; Pulse 72; Resp 18; Pulse Ox 98% ; al4 21:56 BP 168 / 64; Pulse 68; Resp 18 S; Pulse Ox 98% on R/A; Pain 8/10; al4 23:00 BP 124 / 67; Pulse 68; Resp 18; Pulse Ox 98% ; Pain 8/10; al4 19:33 Body Mass Index 27.27 (61.23 kg, 149.86 cm) [facility] MDM: 19:41 Patient medically screened. sp3 20:06 Data reviewed: vital signs, nurses notes. ED course: 75-year-old with significant past sp3 medical history now presents with right radiculopathy in the lower extremity. Will treat pain with Dilaudid and Zofran and obtain a CT scan of the lumbosacral spine. Emergent MRI is not indicated and is also not available at this hour. I have a call out to Dr. Thompson to discuss possible admission for pain control and a.m. MRI versus discharge patient home with outpatient MRI. . 20:10 ED course: Discussed with PCP Dr. Thompson who has gladly accepted her onto his service for sp3 23 observation for pain control, IV steroids, and a.m. MRI of the lumbosacral spine.. 06/01 20:10 Order name: CBC with Diff sp3 06/01 20:10 Order name: CMP sp3 06/01 19:50 Order name: CT Lumbar Spine Wo Con sp3 06/01 20:29 Order name: COVID-19 SARS RT PCR (Document "Date of Onset" if Symptomatic) bb 06/01 19:50 Order name: IV Saline Lock; Complete Time: 20:26 sp3 Administered Medications: 20:25 Drug: SOLU-Medrol (methylPrednisoLONE) 40 mg Route: IVP; Site: right forearm; al4 20:50 Follow up: Response: No adverse reaction al4 20:26 Drug: Dilaudid (HYDROmorphone) 0.5 mg Route: IVP; Site: right forearm; al4 20:50 Follow up: Response: No adverse reaction; RASS: Alert and Calm (0) al4 20:26 Drug: Zofran (Ondansetron) 4 mg Route: IVP; Site: right forearm; al4 20:50 Follow up: Response: No adverse reaction al4 22:15 Drug: Dilaudid (HYDROmorphone) 0.5 mg Route: IVP; Site: right forearm; al4 23:00 Follow up: Response: No adverse reaction; RASS: Alert and Calm (0) al4 Disposition Summary: 06/01/21 20:11 Hospitalization Ordered Hospitalization Status: Observation sp3 Provider: Sugey Thompson3 Location: Telemetry/MedSurg (observation) sp3 Condition: Stable sp3 Problem: new sp3 Symptoms: are unchanged sp3 Bed/Room Type: Standard sp3 Room Assignment: 230(06/01/21 23:09) cg Diagnosis - Radiculopathy, lumbosacral region sp3 Forms: - Medication Reconciliation Form sp3 - SBAR form sp3 Signatures: Dispatcher [employer] Annie Bowen, RN RN Barak Canas MD MD sp3 Kaylynn Dunn RN RN [email or web address] Chester Garduno al4 Corrections: (The following items were deleted from the chart) 23:09 20:11 sp3 cg
--- NOTE | 2021-06-01 20:12 | ER ---
Nurse's Notes [facility] Name: María Robison Age: 75 yrs Sex: Female : 1945 Arrival Date: 06/01/2021 Time: 19:31 Bed 17 Private MD: Sugey Garcia C Diagnosis: Radiculopathy, lumbosacral region Presentation: 06/01 19:33 Chief complaint: Patient states: right side; saw Dr. GARCIA for multiple xrays this past 5 week and everything came back negative so he called daughter approx 6pm today saying to get up to the hospital to be ADMITTED for an MRI. Coronavirus screen: Vaccine status: Patient reports receiving the 2nd dose of the covid vaccine. Client denies travel out of the [place] in the last 14 days. At this time, the client does not indicate any symptoms associated with coronavirus-19. Ebola Screen: Patient negative for fever greater than or equal to 101.5 degrees Fahrenheit, and additional compatible Ebola Virus Disease symptoms Patient denies exposure to infectious person. Patient denies travel to an Ebola-affected area in the 21 days before illness onset. Initial Sepsis Screen: Does the patient meet any 2 criteria? No. Patient's initial sepsis screen is negative. Does the patient have a suspected source of infection? No. Patient's initial sepsis screen is negative. Risk Assessment: Do you want to hurt yourself or someone else? Patient reports no desire to harm self or others. Onset of symptoms was June 01, 2021. 19:33 Method Of Arrival: Ambulatory [facility] 19:33 Acuity: CHEVY 3 jh5 Triage Assessment: 19:38 General: Appears in no apparent distress. comfortable, slender, well groomed, well jh developed, Behavior is calm, cooperative, appropriate for age. Pain: Complains of pain in RIGHT SIDE OF BODY. Historical: - Allergies: 19:38 Compazine; jh5 - PMHx: 19:38 bladder problems; Diabetes - IDDM; Diabetes - NIDDM; High Cholesterol; Hypertension; [facility] - PSHx: 19:38 LEFT KNEE REPLACEMENT; RIGHT ROTATOR CUFF; jh5 - Immunization history:: Adult Immunizations up to date. - Social history:: Smoking status: Patient denies any tobacco usage or history of. Screenin:08 Abuse screen: Denies threats or abuse. Nutritional screening: No deficits noted. al4 Tuberculosis screening: No symptoms or risk factors identified. Fall Risk No fall in past 12 months (0 pts). IV access (20 points). Ambulatory Aid- None/Bed Rest/Nurse Assist (0 pts). Gait- Weak (10 pts.). Mental Status- Oriented to own ability (0 pts). Total [place] Fall Scale indicates No Risk (0-24 pts). Assessment: 20:00 General: Appears in no apparent distress. uncomfortable, Behavior is calm, cooperative, al4 Reports daughter states: she woke up yesterday morning with pain from neck down. Pain: Pain currently is 10 out of 10 on a pain scale. Neuro: Level of Consciousness is awake, alert, obeys commands, Oriented to person, place, situation. Cardiovascular: Capillary refill < 3 seconds Patient's skin is warm and dry. Respiratory: Airway is patent Respiratory effort is even, unlabored, Respiratory pattern is regular, symmetrical. GI: No signs and/or symptoms were reported involving the gastrointestinal system. : Reports incontinence. EENT: No signs and/or symptoms were reported regarding the EENT system. Derm: No signs and/or symptoms reported regarding the dermatologic system. Musculoskeletal: Range of motion: intact in all extremities. 21:00 Reassessment: Patient and/or family updated on plan of care and expected duration. Pain al4 level reassessed. 22:00 Reassessment: Patient and/or family updated on plan of care and expected duration. Pain al4 level reassessed. Patient wheeled to restroom. . 23:08 Reassessment: Patient is sleeping. Easily awakened. Reports feeling better. al4 23:36 Reassessment: Patient and family aware of transfer to room 230 and visiting hour al4 policy. Patient is awake and alert. 23:43 Reassessment: patient being transferred upstairs with [facility]. al4 Vital Signs: 19:33 BP 183 / 71; Pulse 87; Resp 16; Temp 99.4; Pulse Ox 99% ; Weight 61.23 kg; Height 4 ft. jh5 11 in. (149.86 cm); Pain 9/10; 20:15 BP 188 / 61; Pulse 85; Resp 18; Pulse Ox 99% ; Pain 10/10; al4 20:56 BP 164 / 74; Pulse 72; Resp 18; Pulse Ox 98% ; al4 21:56 BP 168 / 64; Pulse 68; Resp 18 S; Pulse Ox 98% on R/A; Pain 8/10; al4 23:00 BP 124 / 67; Pulse 68; Resp 18; Pulse Ox 98% ; Pain 8/10; al4 19:33 Body Mass Index 27.27 (61.23 kg, 149.86 cm) 5 ED Course: 19:31 Patient arrived in ED. es 19:31 Sugey Garcia MD is Private Physician. es 19:38 Triage completed. jh5 19:38 Arm band placed on right wrist. jh5 19:40 Barak Underwood MD is Attending Physician. sp3 20:11 Sugey Garcia MD is Hospitalizing Provider. sp3 20:14 Inserted saline lock: 20 gauge in right forearm, using aseptic technique. oe 20:25 Chester Garduno is Primary Nurse. al4 20:37 CT Lumbar Spine Wo Con In Process Unspecified. EDMS 21:05 Patient has correct armband on for positive identification. Bed in low position. Side al4 rails up X2. Adult w/ patient. Pulse ox on. NIBP on. Door closed. Noise minimized. Warm blanket given. Head of bed elevated. 23:25 No provider procedures requiring assistance completed. Patient admitted, IV remains in al4 place. Administered Medications: 20:25 Drug: SOLU-Medrol (methylPrednisoLONE) 40 mg Route: IVP; Site: right forearm; al4 20:50 Follow up: Response: No adverse reaction al4 20:26 Drug: Dilaudid (HYDROmorphone) 0.5 mg Route: IVP; Site: right forearm; al4 20:50 Follow up: Response: No adverse reaction; RASS: Alert and Calm (0) al4 20:26 Drug: Zofran (Ondansetron) 4 mg Route: IVP; Site: right forearm; al4 20:50 Follow up: Response: No adverse reaction al4 22:15 Drug: Dilaudid (HYDROmorphone) 0.5 mg Route: IVP; Site: right forearm; al4 23:00 Follow up: Response: No adverse reaction; RASS: Alert and Calm (0) al4 Outcome: 20:11 Decision to Hospitalize by Provider. sp3 23:23 Admitted to [facility]/surg room 230, Report called to Giovanna. unable to give report. will al4 call back in 15 min 23:23 Condition: stable 23:23 Discharge instructions given to patient, family, Instructed on the need for admit, Demonstrated understanding of instructions. 23:28 Admitted to Med/surg room 230, Report called to BHARAT Heredia al4 23:44 Patient left the ED. al4 Signatures: Dispatcher [employer] EDAshley Louis, Barak Haley MD MD sp3 Kaylynn Dunn RN RN jh5 Chester Garduno al4 Corrections: (The following items were deleted from the chart) 23:08 23:06 Reassessment: Patient and/or family updated on plan of care and expected al4 duration. Pain level reassessed. Patient resting comfortably.. al4 23:20 21:02 BP 164 / 74; Pulse 72bpm; Resp 18bpm; Pulse Ox 98%; Pain 8/10; al4 al4 23:20 22:00 BP 177 / 69; Pulse 68bpm; Resp 18bpm; Pulse Ox 98%; al4 al4 23:20 23:00 BP 134 / 58; Pulse 66bpm; Resp 18bpm; Spontaneous; Pulse Ox 98% RA; Pain 8/10; al4al4 23:37 20:00 Neuro: Level of Consciousness is awake, alert, obeys commands, Oriented to al4 person, place, al4
[2021-06-01] MEDS ORDERED: HYDROMORPHONE HCL 1 MG/ML INJ ONE (20:17)
[2021-06-01] MEDS ORDERED: ONDANSETRON 4 MG/2 ML VIAL ONE (20:18)
[2021-06-01] MEDS ORDERED: METHYLPREDNISOLONE 40 MG INJ ONE (20:20)
[2021-06-01] MEDS ORDERED: ONDANSETRON 4 MG/2 ML VIAL IV PRN (20:35)
[2021-06-01] MEDS ORDERED: ACETAMINOPHEN 500 MG TAB PO PRN (20:35)
--- NOTE | 2021-06-01 20:53 | RAD REPORT ---
EXAM DESCRIPTION: CT - Spine Lumbar Wo Con - 06/01/2021 8:37 pm CLINICAL HISTORY: Radiculopathy. Pain;Radiculopathy COMPARISON: No comparisons TECHNIQUE: Axial noncontrast CT imaging of the lumbar spine was performed with coronal and sagittal re-formatted images. All CT scans are performed using dose optimization technique as appropriate and may include automated exposure control or mA/KV adjustment according to patient size. FINDINGS: No acute lumbar spine fracture seen. 5 mm degenerative anterolisthesis of L4 on 5 is seen. Prominent L5-S1 disc thinning with endplate sclerosis posterior osteophyte. Paraspinal tissues are normal in thickness. No paraspinal abscess or hematoma seen. Prominent posterior disc bulging with canal narrowing is seen at L3-4, L4-5 and L5-S1. Spinal canal n arrowing is most significant at L5-S1 reaching moderate to severe. IMPRESSION: No acute lumbar spine abnormality is detected. Moderate lower lumbar degenerative spondylosis is present with significant canal stenosis suspected a t L5-S1.
[2021-06-01] MEDS ORDERED: HYDROMORPHONE HCL 0.5 MG/0.5 ML INJ ONE (22:10)
[2021-06-01 22:35] LABS: Absolute Lymphocytes (CBC) 1.6 K/uL (0.7-4.9); Hematocrit 44.2 % (36.0-45.0); Lymphocytes % 12.6 % (15.3-44.8); MPV 8.8 fL (7.6-11.3); RBC Red Blood Cell Count 5.06 M/uL (3.86-4.86)
[2021-06-01 22:51] LABS: Albumin 3.4 g/dL (3.4-5.0); Bilirubin Total 0.7 mg/dL (0.2-1.0); Protein, Total 6.8 g/dL (6.4-8.2)
[2021-06-02] MEDS: METHYLPREDNISOLONE 40 MG INJ IV SCH ×2 (00:42→09:40)
[2021-06-02 01:07] VITALS: BMI 27.2
[2021-06-02] MEDS: HYDROMORPHONE HCL 1 MG/ML INJ IV PRN ×2 (02:30→09:48)
[2021-06-02 07:08] LABS: Absolute Lymphocytes (CBC) 1.3 K/uL (0.7-4.9); Hematocrit 44.9 % (36.0-45.0); Lymphocytes % 12.1 % (15.3-44.8); MPV 9.2 fL (7.6-11.3); RBC Red Blood Cell Count 5.07 M/uL (3.86-4.86)
[2021-06-02 07:14] LABS: Potassium 4.6 mmol/L (3.5-5.1)
[2021-06-02] MEDS ORDERED: GLUCAGON 1 MG/VIAL IM PRN (07:14)
[2021-06-02] MEDS ORDERED: D50W 25 GM/50 ML SYRINGE IV PRN (07:14)
[2021-06-02] MEDS ORDERED: INSULIN -REGULAR HUMAN 50 UNIT/0.5 ML ML SQ SCH (07:30)
--- NOTE | 2021-06-02 08:37 | HP ---
PATRIC/JATIN Voice ID: [id number] MTDD
[2021-06-02 09:48] VITALS: TEMP 97.3
[2021-06-02] MEDS ORDERED: PNEUMOCOCCAL VACCINE 0.5 ML IMVAC ONE (10:00)
[2021-06-02 13:01] VITALS: BP 116/61
--- NOTE | 2021-06-02 13:36 | RAD REPORT ---
EXAM DESCRIPTION: MRI - Lumbar Spine Wo Con- 06/02/2021 1:21 pm CLINICAL HISTORY: back pain, radiculopathy Back pain, radiculopathy COMPARISON: Spine Lumbar Wo Con dated 06/01/2021 FINDINGS: Vertebral body heights are within normal limits. No aggressive marrow pattern is observed. No fracture is suspected. The conus medullaris terminates at a normal level. No thickening of the cauda equina or clumping of n erve roots seen. L1-2 level: Minimal posterior disc bulge. L2-3 level: Mild posterior disc bulge asymmetric to the left. L3-4 level: Mild posterior disc bulge asymmetric to the left is present with mild facet and ligamentu m flavum hypertrophy. Mild narrowing of both exit foramina, slightly greater on the left. L4-5 level: 3 mm degenerative anterolisthesis is present with moderate broad-based posterior disc bul ge. Moderate facet and ligamentum flavum hypertrophy is also seen. Moderate central canal narrowing i s seen with attenuation of both lateral recesses. Significant right-sided exit foraminal stenosis. L5-S1 level: Mild posterior disc bulge is seen with moderate facet hypertrophy, greater on the left. No significant lateral recess stenosis. Narrowing of both exit foramina is present moderate on the le ft. IMPRESSION: Moderate lower lumbar spondylosis is present, most significant at L4-5. There is severe right exit foraminal stenosis at L4-5.
[2021-06-02 16:12] VITALS: O2SAT 94
--- NOTE | 2021-06-03 00:58 | HP ---
Date of Admission: 06/02/2021 Chief Complaint: Back pain, leg pain. History Of Present Illness: This is a 75-year-old pleasant female patient who saw me at the office on 05/31/2021 with lower back pain radiating to her right leg. The patient was evaluated and was diagnosed as having lumbar radiculopathy, right hip x-ray and lumbar spine x-ray were ordered, which showed changes of osteoarthritis. No fracture. The patient was started on prednisone with instruction to come back for a followup. Yesterday, the patient's daughter contacted our office and informed us that the patient was having severe pain, that she was crying because of the pain, so she was advised to bring the patient to the emergency room. After she was evaluated last night, she was admitted to the hospital. This morning when I saw her, the patient was in the room. Daughter was present with her at bedside and informed me that the patient was having a lot of confusion and hallucinations since she has been in the hospital. The patient has an underlying history of dementia, and daughter was informed that confusion and hallucination is to be expected because of the patient being in the hospital, as well as pain medication could also contribute to such a problem. The patient's pain is under much better control now with medication that she has received in the hospital, which is pain medication as well as IV steroids. Allergies: TO COMPAZINE CAUSING BLURRED VISION. Medications: Aspirin 81 mg daily; galantamine; Tresiba; levothyroxine 75 mcg, she takes a half a tablet daily; losartan 25 mg daily; metoprolol 25 mg, takes half a tablet 2 times a day; pantoprazole 40 mg daily; prednisone 5 mg daily; rosuvastatin 10 mg daily. Review of Systems: JACKET CHANGER: The patient has some problem with headache and impaired memory. Musculoskeletal: Back pain and hip pain. Past Medical History: Significant for dementia, hypothyroidism, type 2 diabetes mellitus, hypertension, mixed hyperlipidemia, overactive bladder, rheumatoid arthritis, and insomnia. Past Surgical History: Total thyroidectomy, benign left breast tumor removal, cholecystectomy, D and C, right shoulder surgery, left knee surgery. Family History: Father , had coronary artery disease. Mother , had lung cancer. Brother with coronary artery disease. Social History: Negative for smoking. Use of alcohol occasional. Immunization History: The patient had [place] and [place] vaccine on July 07, 2020. Physical Examination: Vital Signs: Height 4 feet 11 inches, weight 135 pounds. Temperature 97.3, pulse 66, respiratory rate 18, blood pressure 128/57. General: Awake, alert, oriented, not in distress. HEENT: Head atraumatic, normocephalic. Conjunctivae nonerythematous. Sclerae white. Mouth, no thrush or edema noted. Ears/Nose, no mass, lesion, discharge noted. Neck: Supple. No JVD, lymph nodes, bruit, thyromegaly noted. Lungs: Bilateral good equal air entry. Clear to auscultation. No rhonchi. No rales. Heart: Normal heart sounds, no murmur or gallop. Abdomen: Soft, bowel sounds normal. No guarding, rigidity, tenderness, mass, hepatosplenomegaly, distention, or bruit noted. Extremities: No leg edema. No calf tenderness. Skin: No rash, ulcer, cellulitis. Lymphatics: No lymph node enlargement in neck, supraclavicular, infraclavicular region. Neuro: No focal neurological deficit. Chest: Unremarkable. External Genitalia: Deferred. Rectal: Deferred. Laboratory Data: Yesterday, white count 12.4, hemoglobin 14.9, platelets 202. Today, white count 10.6, hemoglobin 15, platelets 236. Yesterday, sodium 142, potassium 4, chloride 109, bicarb 27, BUN 18, creatinine 0.92, glucose 198, AST 88, ALT 40, alkaline phosphatase 98, total bilirubin 0.7. This morning sodium 139, potassium 4.6, chloride 106, bicarb 27, BUN 20, creatinine 0.97, glucose 264. COVID-19 test negative. CAT scan of the lumbar spine done yesterday evening in the emergency room shows evidence of degenerative joint disease of lumbar spine with lumbar spinal stenosis. No acute findings. The patient had outpatient lumbar spine x-ray on May 31, 2021 shows prominent degenerative changes in the lumbar spine and right hip x-ray done on May 31 was negative for any acute changes. No fracture. Impression: 1. Lumbar radiculopathy. 2. Hypertension. 3. Hyperlipidemia. 4. Type 2 diabetes mellitus. 5. Senile dementia. Plan: The patient was evaluated in the ER and admitted to the hospital for observation. After her admission to the hospital, she received IV steroid and IV pain medication. This morning when I saw her she was very comfortable. Our plan is to go ahead and get the MRI of the lumbar spine done today. Once the MRI is done, I will be able to discharge her to go home with outpatient followup. The patient had a CAT scan of the lumbar spine done, which showed changes of osteoarthritis, but no fracture. I suspect that the MRI of the lumbar spine will reveal more details regarding our suspicion for bulging disk, herniated disk, or foraminal stenosis, etc. I have discussed all those details with the patient and patient's daughter, and after the MRI is done the daughter will contact me for discharge order. Daughter was informed that upon discharge, the patient will continue all her previous home medication including prednisone which was just started a couple of days ago, and I will also add anti- inflammatory medication and I will send a prescription to her pharmacy. Daughter was informed to call our office next week on Saturday, and I would like to see the patient at our office either Saturday or Saturday, which is June 05, 2021 or June 06, 2021. Final Diagnoses: 1. Lumbar radiculopathy. 2. Senile dementia. 3. Hypertension. 4. Hyperlipidemia. 5. Type 2 diabetes mellitus. PATRIC/MODL Voice ID: [id number] RADHA
== END 2021-06-02 16:15 | disposition home or self-care (01) ==
LOC: ER 19:28 → ERHOLD 20:33 → 2ND 23:19
PROVIDERS: ADMIT Internal Medicine; ATTEND Internal Medicine
DX: M54.16 Radiculopathy, lumbar region (principal); I10 Essential (primary) hypertension; E11.9 Type 2 diabetes mellitus without complications; E78.5 Hyperlipidemia, unspecified; F03.90 Unspecified dementia, unspecified severity, without behavioral disturbance, psychotic disturbance, mood disturbance, and anxiety; E03.9 Hypothyroidism, unspecified; M06.9 Rheumatoid arthritis, unspecified; G47.00 Insomnia, unspecified; N32.81 Overactive bladder; Z20.822 Contact with and (suspected) exposure to COVID-19; Z79.82 Long term (current) use of aspirin; Z79.899 Other long term (current) drug therapy; Z88.8 Allergy status to other drugs, medicaments and biological substances; Z90.49 Acquired absence of other specified parts of digestive tract; Z82.49 Family history of ischemic heart disease and other diseases of the circulatory system; Z80.1 Family history of malignant neoplasm of trachea, bronchus and lung
CPT/HCPCS: 85025 ×2; 80048; 36415; 80053; 72131; 72148; 96375; 96374; 99285; U0003; J1170 ×4; J2405; J2920 ×3; G0378 ×2

== ENCOUNTER 2022-03-14 18:22 | Emergency (ER) | payer OTHER ==
--- OUTSIDE RECORDS SUMMARY | 2022-03-14 18:28 | XMS REPORT | Continuity of Care Document ---
:1945 Author Organization [facility] t Address [address] [place] [address] Care Team Providers Name Role Phone Asked, No Pcp Primary Care Physician Unavailable Sina Asher Attending Clinician SILVA PAZ Attending Clinician Unavailable HARVEY FREITAS Attending Clinician Unavailable Silva Gautam Attending Clinician Harvey Freitas MD Attending Clinician Beata Perla RN Attending Clinician Unavailable Only, Ang Db Test Attending Clinician Unavailable Sandra Tang Attending Clinician SANDRA TOLBERT Attending Clinician Unavailable Doctor Unassigned, Rio Attending Clinician Unavailable Ziggy_Johnnie Attending Clinician Unavailable Lab, Adc Fam Pob I Attending Clinician Unavailable Sony Olmos Attending Clinician Ashley Powers Attending Clinician Oralia Admitting Clinician Unavailable Andreas Mccartney Admitting Clinician Payers Payer Name Policy Type Policy Number Effective Date Expiration Date S cee [facility] [id number] 2020 [facility] 00:00:00 O [facility] [id number] (MEDICARE REPLACEMENT/ADVANT AGE - PPO) [place] (MEDICARE [id number] 2019 2020 REPLACEMENT/ADVANT 00:00:00 00:00:00 AGE - PPO) [employer] MEDICARE [id number] 2016 ERS 00:00:00 Problems Condition Condition Condition Status Onset Resolution Last Treating Co mments Source Name Details Category Date Date Treatment Clinician Date Overweight Overweight Problem Active 2020-04 V ill[place] 1-09 Family 00:00: Practic 00 e Orthostati Orthostati Problem Active 2020-04 V illage c c 09 Family hypotensio Hypotensio 00:00: Pr actic n n 00 e Recurrent Recurrent Problem Active 2020-04 [place] 1-09 Family 00:00: Practic 00 e Type 2 Type 2 Problem Active [place] diabetes Diabetes 2-20 Family mellitus Mellitus 00:00: Practi c without without 00 e complicati Complicati on on Essential Essential Problem Active 2018-04 Josr negro [...] 00:00: Pr actic arthritis Arthritis 00 e Gastro-eso Gastro-eso Problem Active 2018-04 V illage phageal phageal 1-20 Family reflux Reflux 00:00: Practic disease Disease 00 e with with esophagiti Esophagiti s s H/O acute H/O acute Disease Active 2017-04 Uni vers pancreatit pancreatit 0-02 it y of is is 00:00: [place] [facility] Uncontroll Uncontroll Disease Active U roderick ed ed 09-26 ity of diabetes diabetes 00:00: [place] mellitus mellitus 00 Medica l type 2 type 2 Branch without without complicati complicati ons ons HLD HLD Disease Active Univers (hyperlipi (hyperlipi 09-26 it y of demia) demia) 00:00: [place] [facility] Primary Primary Disease Active Univers hypothyroi hypothyroi 09-26 it y of dism dism 00:00: [place] [facility] Wrist pain Wrist pain Disease Active 2014-04 U nivers 0-28 ity of 00:00: [place] 00 Medical Branch Hand pain Hand pain Disease Active 2014-04 Uni vers 0-28 ity of 00:00: [place] 00 Medical Branch LIFE LIFE Diagnosis Active 2013-11-19 Mem oria FLIGHT FLIGHT 11-19 11:46:00 l BILLING BILLING 00:00: Kris Active 00 11/19/2013 [facility] SNAKEBITE SNAKEBITE Diagnosis Active 2013-11-19 Memoria Active 11-19 11:39:00 l 11/19/2013 00:00: Joe chery [address] Atheroscle Atheroscl Problem Resolve 2021-11-02 Memoria rosis of erosis of d 21:55:11 l coronary coronary Joe n artery artery (disorder) (disorder) Resolved Problem 11/02/2021 [facility] Diabetes Diabetes Problem Resolve 2021-11-02 Memoria mellitus mellitus d 21:55:11 l (disorder) (disorder) He rmann Resolved Problem 11/02/2021 [facility] Hypothyroi Hypothyro Problem Resolve 2021-11-02 Memoria dism idism d 21:55:11 l (disorder) (disorder) He rmann Resolved Problem 11/02/2021 [facility] Dementia Dementia Problem Active 2022-02-19 Memoria (disorder) (disorder) 03:54:04 l Active Kris Problem 02/19/2022 [facility] Diabetes Diabetes Problem Active 2022-02-19 Memoria mellitus mellitus 03:54:04 l type 2 type 2 Kris (disorder) (disorder) Active Problem 02/19/2022 Automatic ally added by Discern Expert with order of Add Problem Diabetes Type II on April 06, 2020 13:38:10 MEDICAL MANAGER with order ID: [id number] 3.0 entered by Sina Asher. [facility] Neuro Headache Headache Problem Active 2022-02-19 Memoria (finding) (finding) 03:54:04 l Active Kris Problem 02/19/2022 [facility] Hypertensi Hypertens Problem Active 2022-02-19 Memoria ve angel 03:54:04 l disorder, disorder, Herm valarie systemic systemic arterial arterial (disorder) (disorder) Active Problem 02/19/2022 [facility] Hyperlipid Hyperlipi Problem Active 2022-02-19 [facility] demia 03:54:04 l (disorder) (disorder) He rmann Active Problem 02/19/2022 [facility] History of Past Illness Condition Condition Condition Status Onset Resolution Last Treating Co mments Source Name Details Category Date Date Treatment Clinician Date Discharge Discharge Problem 2013-2013-11-22 2013-11-22 Memoria Diagnosis: Diagnosis: 11-19 03:26:16 03:26:16 l Snake bite Snake bite 05:00: He rmann 00 4 11/22/2013 [facility] Allergies, Adverse Reactions, Alerts Allergy Allergy Status Severity Reaction(s) Onset Inactive Treating Comm ents Source Name Type Date Date Clinician Prochlor Propensi Active Unknown - 2014-04 Mental Uni vers perazine ty to See comments 0-28 reaction ity of adverse 00:00: [place] reaction 00 Medical s Branch PROCHLOR DRUG Active Unknown-Cmnt 2014-04 Un jessika PERAZINE INGREDI 0-28 ity of 00:00: [place] 00 Medical Branch Compazin Allergy Active Anaphylaxis Vi llage e to Family substanc Practic e e Compazin Compazin Active Memori a e e l [place] Social History Social Habit Start Date Stop Date Quantity Comments Source History [facility] [place] Alcohol Comment Medical B ranch History [facility] [place] Alcohol Std Drinks Medica l Branch History [facility] [place] Alcohol Binge Medical Bra [facility] Alcohol intake 2021-10-23 2021-10-23 0 /d [facility] 00:00:00 00:00:00 Medical Branch Exposure to 2021-10-11 2021-10-21 Not sure [facility] SARS-CoV-2 (event) 00:00:00 17:38:00 Medica l Branch History [facility] 2020-07-18 2020-07-18 1 [facility] [place] Alcohol Frequency 00:00:00 00:00:00 Medical Branch Social History 2020-04-06 2020-04-06 [facility] Tony wolf 19:41:37 19:41:37 Sex Ass[birth year] [facility] 00:00:00 00:00:00 Smoking Status Start Date Stop Date Source Tobacco smoking consumption unknown [facility] Tobacco smoking status [facility] Medications Ordered Filled Start Stop Current Ordering Indication Dosage Frequency Signature Comments Components Source Medication Medication Date Date Medication? Clinician (SIG) Name Name juliustalmaria g 80 2021-04 Yes TAKE 1/2 Mem oria mg oral 0-21 TABLET BY l tablet 18:40: MOUTH [place] 00 TWICE DAILY aspirin 325 2021-04 Yes 325 mg = 1 Memoria mg tablet 0-21 tab, PO, l 18:40: Daily, # [place] 00 90 tab, 3 Refill(s) memantine Yes = 1 tab, Ronald johana 10 mg oral 9-26 PO, BID, # l tablet 13:22: 180 tab, 2 Daphne nn 00 Refill(s), Pharmacy: [id number], 149.86, cm, 07/20/21 11:05:00 CDT, Height, 57.273, kg, 07/20/21 11:05:00 CDT, Weight galantamine Yes = 1 cap, Me moria 8 mg oral 9-26 PO, QAM, # l capsule, 13:22: 90 unknown Her urbano extended 00 unit, 2 release Refill(s), Pharmacy: [facility] [id number], 149.86, cm, 07/20/21 11:05:00 CDT, Height, 57.273, kg, 07/20/21 11:05:00 CDT, Weight hyaluronate 2021- No [id number] 16mg Univers (SYNVISC) 10-23 9100 ity of injection 21:45: 20:38 [place] 16 mg 00 :00 Medical Branch hyaluronate 2021- No [id number] 16mg 16 mg, Univers (SYNVISC) 10-23 9100 Intra-deep ity of injection 21:45: 20:38 cular, [place] 16 mg 00 :00 ONCE, 1 Medical dose, On Branch 10/23/21 at 1645, Routine tramadol Yes TAKE 1 Memoria hydrochlori 3-24 TABLET BY l de 50 MG 16:17: MOUTH [place] Oral Tablet 00 THREE TIMES A DAY NEEDED FOR PAIN meloxicam Yes TAKE 1 Memori a 15 mg oral 3-24 TABLET BY l tablet 16:17: MOUTH Kris 00 EVERY DAY WITH FOOD tramadol 50 Yes TAKE 1 Ronald johana mg oral 3-24 TABLET BY l tablet 16:17: MOUTH Kris 00 THREE TIMES A DAY NEEDED FOR PAIN 24 HR 2020-04 Yes 8 mg = 1 Memoria galantamine 1-02 cap, PO, l hydrobromid 20:29: QAM, # 90 H ermann e 8 MG 00 cap, 2 Extended Refill(s), Release Pharmacy: [facility] cy #[id number], 147.32, cm, 02/28/21 15:03:00 CDT, Height, 56.824, kg, 02/28/21 15:03:00 CDT, Weight memantine 2020-04 Yes 10 mg = 1 Mem oria 10 mg oral 1-02 tab, PO, l tablet 20:23: BID, # 180 Daphne nn 00 tab, 2 Refill(s), Pharmacy: [facility] #[id number], 147.32, cm, 02/28/21 15:03:00 CDT, Height, 56.824, kg, 02/28/21 15:03:00 CDT, Weight TRESIBA Yes Univers FLEXTOUCH 3-08 ity of U-100 100 00:00: [place] unit/mL (3 00 Medical mL) InPn Branch memantine Yes Univers 10 mg 3-05 ity of tablet 00:00: [place] 00 Medical Branch losartan 25 Yes Univer s mg tablet 3-03 ity of 00:00: [place] 00 Medical Branch fluconazole Yes TAKE 1 Univ ers 150 mg 2-26 TABLET BY ity of tablet 00:00: ORAL ROUTE [place] 00 ONCE FOR Medical VAGINAL Branch YEAST INFECTION Memantine Yes 10 mg = 1 Mem oria hydrochlori 1-28 tab, PO, l de 10 MG 18:08: BID, # 60 Herm valarie Oral Tablet 00 tab, 3 [Namenda] Refill(s), Pharmacy: [facility] #[id number], 152.4, cm, 05/26/20 11:42:00 MEDICAL MANAGER, Height, 88.636, kg, 05/26/20 11:42:00 MEDICAL MANAGER, Weight Memantine Yes 10 mg = 1 Mem oria hydrochlori 1-28 tab, PO, l de 10 MG 18:08: BID, # 60 Herm valarie Oral Tablet 00 tab, 3 [Namenda] Refill(s), Pharmacy: [facility] #[id number], 152.4, cm, 05/26/20 11:42:00 MEDICAL MANAGER, Height, 88.636, kg, 05/26/20 11:42:00 MEDICAL MANAGER, Weight TRIJARDY XR 0 Yes 2{tbl} Take 2 Un jessika 5-2.5-1,000 1-02 tablets by it y of mg TBph 00:00: mouth [place] 00 daily. Medical Branch pantoprazol 2019-04 Yes 40 mg, PO, Memoria e 2-09 Daily, # l 19:35: 30 tab, 0 Kris 00 Refill(s) Memantine 2019-04 Yes 5 mg = 1 Ronald johana hydrochlori 2-09 tab, PO, l de 5 MG 19:35: BID, # 60 Daphne nn Oral Tablet 00 tab, 3 [Namenda] Refill(s), Pharmacy: [facility] #[id number], 149.86, cm, 05/20/19 10:56:00 MEDICAL MANAGER, Height, 63.636, kg, 05/20/19 10:56:00 MEDICAL MANAGER, Weight 24 HR 2019-04 Yes 2 tab, PO, Memori a empaglifloz 2-09 QAM, 0 l in 25 MG / 19:35: Refill(s) He rmann linagliptin 00 5 MG / metformin hydrochlori de 1000 MG Extended Release Oral Tablet [Trijardy] Tresiba 2019-04 Yes 14 units, Memor ia 2-09 SUB-Q, l 19:35: Daily, 0 [place] 00 Refill(s) rosuvastati 2019-04 Yes 10 mg, PO, Memoria n 2-09 Daily, 0 l 19:35: Refill(s) [place] 00 pantoprazol 2019-04 Yes 40 mg, PO, Memoria e 2-09 Daily, # l 19:35: 30 tab, 0 [place] 00 Refill(s) Trijardy XR 2019-04 Yes 2 tab, PO, Memoria 25 mg-5 2-09 QAM, 0 l mg-1000 mg 19:35: Refill(s) He rmann oral 00 tablet, extended release Tresiba 2019-04 Yes 14 units, Memor ia 2-09 SUB-Q, l 19:35: Daily, 0 Kris 00 Refill(s) rosuvastati 2019-04 Yes 10 mg, PO, Memoria n 2-09 Daily, 0 l 19:35: Refill(s) [place] 00 pantoprazol 2019-04 Yes 40 mg, PO, Memoria e 2-09 Daily, # l 19:35: 30 tab, 0 [place] 00 Refill(s) Memantine 2019-04 Yes 5 mg = 1 Ronald johana hydrochlori 2-09 tab, PO, l de 5 MG 19:35: BID, # 60 Daphne nn Oral Tablet 00 tab, 3 [Namenda] Refill(s), Pharmacy: [facility] #[id number], 149.86, cm, 05/20/19 10:56:00 MEDICAL MANAGER, Height, 63.636, kg, 05/20/19 10:56:00 MEDICAL MANAGER, Weight 24 HR 2019-04 Yes 2 tab, PO, Memori a empaglifloz 2-09 QAM, 0 l in 25 MG / 19:35: Refill(s) He ann linagliptin 00 5 MG / metformin hydrochlori de 1000 MG Extended Release Oral Tablet [Trijardy] Tresiba 2019-04 Yes 14 units, Memor ia 2-09 SUB-Q, l 19:35: Daily, 0 Kris 00 Refill(s) rosuvastati 2019-04 Yes 10 mg, PO, Memoria n 2-09 Daily, 0 l 19:35: Refill(s) [place] 00 donepezil 2020-0 Yes 10 mg = 1 Mem oria 10 mg oral 4-22 tab, PO, l tablet 14:45: Bedtime, # Daphne nn 00 30 tab, 3 Refill(s), Pharmacy: [id number] donepezil 2020-0 Yes 10 mg = 1 Mem oria 10 mg oral 4-22 tab, PO, l tablet 14:45: Bedtime, # Daphne nn 00 30 tab, 3 Refill(s), Pharmacy: [facility] #[id number] Donepezil 2020-0 Yes 5 mg = 1 Ronald johana hydrochlori 1-22 tab, PO, l de 5 MG 17:33: Bedtime, # Herm valarie Oral Tablet 00 30 tab, 3 [Aricept] Refill(s), Pharmacy: [id number] Donepezil 2020-0 Yes 5 mg = 1 Ronald johana hydrochlori 1-22 tab, PO, l de 5 MG 17:33: Bedtime, # Herm valarie Oral Tablet 00 30 tab, 3 [Aricept] Refill(s), Pharmacy: [id number] Linagliptin 2020-0 Yes 5 mg = 1 Me moria 5 MG Oral 1-22 tab, PO, l Tablet 17:01: Daily, # [place] [Tradjenta] 00 30 tab, 3 Refill(s) Linagliptin 2020-0 Yes 5 mg = 1 Me moria 5 MG Oral 1-22 tab, PO, l Tablet 17:01: Daily, # [place] [Tradjenta] 00 30 tab, 3 Refill(s) Lorazepam 2018-04 No See Memoria 0.5 MG Oral 2-17 Instructio l Tablet 23:06: ns, Take 1 Daphne nn [Ativan] 00 tab po 1 hour prior to MRI, may repeat q 15 min. if still anxious, # 5 tab, 0 Refill(s), called to pharmacy Lorazepam 2018-04 No See Memoria 0.5 MG Oral 2-17 Instructio l Tablet 23:06: ns, Take 1 Daphne nn [Ativan] 00 tab po 1 hour prior to MRI, may repeat q 15 min. if still anxious, # 5 tab, 0 Refill(s), called to pharmacy losartan 25 2018-04 Yes 25 mg = 1 M emoria mg oral 2-11 tab, PO, l tablet 17:24: Daily, # [place] 00 30 tab, 0 Refill(s) amLODIPine 2018-04 Yes 5 mg = 1 Mem oria 5 mg oral 2-11 tab, PO, l tablet 17:24: Daily, # [place] 00 30 tab, 0 Refill(s) predniSONE 2018-04 Yes 5 mg = 1 Mem oria 5 mg oral 2-11 tab, PO, l tablet 17:24: Every [place] 00 Other Day, 2.5 QD, 0 Refill(s) gemfibrozil 2018-04 Yes 600 mg = 1 Memoria 600 mg oral 2-11 tab, PO, l tablet 17:24: BID, # 60 Joe n 00 tab, 1 Refill(s) levothyroxi 2018-04 Yes 75 Memori a ne 75 mcg 2-11 microgram l (0.075 mg) 17:24: = 1 tab, Her urbano oral tablet 00 PO, Daily, 1/2 QD, 0 Refill(s) 0.5 ML 2018-04 Yes SUB-Q, 0 Memoria dulaglutide 2-11 Refill(s) l 3 MG/ML 17:24: [place] Prefilled 00 Syringe [Trulicity] losartan 25 2018-04 Yes 25 mg = 1 M emoria mg oral 2-11 tab, PO, l tablet 17:24: Daily, # Kris 00 30 tab, 0 Refill(s) amLODIPine 2018-04 Yes 5 mg = 1 Mem oria 5 mg oral 2-11 tab, PO, l tablet 17:24: Daily, # Kris 00 30 tab, 0 Refill(s) predniSONE 2018-04 Yes 5 mg = 1 Mem oria 5 mg oral 2-11 tab, PO, l tablet 17:24: Every Kris 00 Other Day, 0 Refill(s) gemfibrozil 2018-04 [...] dulaglutide 2-11 Refill(s) l 3 MG/ML 17:24: [place] Prefilled 00 Syringe [Trulicity] gemfibrozil Yes TAKE 1 Univ ers 600 mg 8-27 TABLET BY ity of tablet 00:00: MOUTH TWICE A Medical DAY Branch rosuvastati Yes TAKE 1 Univ ers n 5 mg 8-27 TABLET BY ity of tablet 00:00: MOUTH 2 TIMES A Medical WEEK Branch predniSONE Yes 5mg Take 5 mg Un jessika 5 mg tablet 11-23 by mouth ity of 00:00: daily. [place] [facility] pantoprazol Yes TAKE 1 Univ ers e 40 mg EC 11-04 TABLET BY ity of tablet 00:00: MOUTH [place] 00 EVERYDAY Medical AT BEDTIME Branch ACCU-CHEK Yes Use as Univer s GUIDE 08-07 directed, ity of GLUCOSE 00:00: TID, [place] METER [facility] 00 DX:E11.9 Medic al Branch metoprolol Yes 50mg Take 50 mg U nivers succinate 07-29 by mouth. ity o f XL 50 mg 24 09:07: [place] hr tablet Medical Branch amlodipine Yes Take by Uni vers besylate 07-29 mouth. ity of (AMLODIPINE 09:07: [place] ORAL) 26 Medical Branch blood sugar Yes [id number] Use daily Univers diagnostic 07-29 DX E11.8. ity of (FREESTYLE 00:00: Twice [place] LITE 00 daily Medical STRIPS) Branch strip Insulin Yes [id number] Use as Univ ers Francis, 07-29 directed, ity of Disposable, 00:00: twice [place] (PEN 00 daily, Medical NEEDLE) 31 DX;E11.8 Branc h gauge x 5/16" Ndle Lancets Yes [id number] Use as Univ ers (ACCU-CHEK 07-29 directed, ity of FASTCLIX 00:00: 1-2 times [place] LANCET 00 daily, Medical DRUM) [facility] DX:E11.9 Branc h diclofenac Yes [id number] 75mg Take 1 U nivers 75 mg EC 2-21 tablet by ity of tablet 00:00: mouth 2 [place] 00 (two) Medical times Branch daily with meals. Insulin Yes Use as Univers Syringe-Nee 2-06 directed ity of dle U-100 00:00: BID DX: [place] (INSULIN 00 E11.9 Medical SYRINGE) Branch 1/2 mL 30 gauge x 5/16 Syrg levothyroxi Yes Univer s ne 75 mcg 12-04 ity of tablet 00:00: [place] 00 Medical Branch 0.5 ML No Notes: Juan Antoniooria Bordetella 24 (Tdap ) l pertussis 15:44: For [place] filamentous 00 Adolecent hemagglutin and Adult in vaccine, use For IM inactivated Use. Same 0.016 MG/ML as: Adacel / (Tdap) Bordetella pertussis pertactin vaccine, inactivated 0.005 MG/ML / Bordetella pertussis toxoid vaccine, inactivated 0.016 MG/ML / diphtheria toxoid vaccine, inactivate 0.5 ML No Notes: Memoria Bordetella 7-24 (Tdap ) l pertussis 15:44: For Adolecent hemagglutin and Adult in vaccine, use For IM inactivated Use. Same 0.016 MG/ML as: Adacel / (Tdap) Bordetella pertussis pertactin vaccine, inactivated 0.005 MG/ML / Bordetella pertussis toxoid vaccine, inactivated 0.016 MG/ML / diphtheria toxoid vaccine, inactivate Tylenol No Notes: Do Memor ia 7-24 not exceed l 15:16: 4 gm/day. (Same as: Tylenol) Tylenol No Notes: Do Memor ia 7-24 not exceed l 15:16: 4 gm/day. (Same as: Tylenol) Metformin Yes 0 Memoria hydrochlori 7-24 Refill(s) l de 500 MG 15:12: Oral Tablet Hydrochloro Yes 0 Memori a thiazide 7-24 Refill(s) l 12.5 MG / 15:12: Losartan Potassium 100 MG Oral Tablet Metformin Yes 0 Memoria hydrochlori 7-24 Refill(s) l de 500 MG 15:12: Oral Tablet 00 Hydrochloro Yes 0 Memori a thiazide 7-24 Refill(s) l 12.5 MG / 15:12: Losartan Potassium 100 MG Oral Tablet Fish Oil Yes 0 Memoria 7-24 Refill(s) l 15:11: metoprolol Yes 12.5 mg, Mem oria tartrate 7-24 PO, BID, 0 l 15:11: Refill(s) Aspirin Low Yes 0 Memori a Dose 81 mg 7-24 Refill(s) l oral tablet 15:11: Aspirin Low Yes 0 Memori a Dose 81 mg 7-24 Refill(s) l oral tablet 15:11: Fish Oil Yes 0 Memoria 7-24 Refill(s) l 15:11: metoprolol Yes 0 Memoria tartrate 7-24 Refill(s) l 15:11: Crestor Yes 0 Memoria 7-24 Refill(s) l 15:10: oxybutynin Yes 0 Memoria 7-24 Refill(s) l 15:10: Crestor Yes 0 Memoria 7-24 Refill(s) l 15:10: oxybutynin Yes 0 Memoria 7-24 Refill(s) l 15:10: Accu-Chek Accu-Chek No Accu-Chek [facility] FastClix FastClix FastClix Fam jose Lancing Lancing Lancing Practi c Device Device Device e Accu-Chek Accu-Chek No Accu-Chek [facility] Guide test Guide test Guide [...] by oral route. alprazolam alprazolam No alprazolam [facility] 0.25 mg 0.25 mg 0.25 mg Family tablet tablet tablet Practic e amlodipine amlodipine No amlodipine [facility] 5 mg tablet 5 mg [...] e gauge x gauge x gauge x 09/11" USE 09/11" USE 09/11" USE DIRECTED DIRECTED TWICE TWICE DIRECTED DAILY, DX DAILY, DX TWICE E11.8 90 E11.8 90 DAILY, DX E11.8 90 ciprofloxac ciprofloxac No [facility] in 500 mg in 500 mg laxmi 500 mg Family tablet tablet tablet Practic e diclofenac diclofenac diclofenac [facility] sodium 75 sodium 75 sodium 75 Family mg mg mg Practic tablet,korin tablet,korin tablet,del e yed release yed release ayed release dicyclomine dicyclomine No dicyclomin [facility] 10 mg 10 mg e 10 mg Family capsule capsule capsule Practi c e donepezil donepezil No donepezil [facility] 10 mg 10 mg 10 mg Family tablet tablet tablet Practic e famotidine famotidine No famotidine [facility] 20 mg 20 mg 20 mg Family tablet tablet tablet Practic e fluconazole fluconazole No fluconazol [facility] 150 mg 150 mg e 150 mg Family tablet TAKE tablet TAKE tablet Practic 1 TABLET BY 1 TABLET BY TAKE 1 e ORAL ROUTE ORAL ROUTE TABLET BY ONCE FOR ONCE FOR ORAL ROUTE VAGINAL VAGINAL ONCE FOR YEAST YEAST VAGINAL INFECTION INFECTION YEAST INFECTION FreeStyle FreeStyle No FreeStyle [facility] Soheila 14 Soheila 14 Soheila 14 Fam jose Day Sensor Day Sensor Day Sensor Practic e galantamine galantamine No galantamin [facility] ER 8 mg 24 ER 8 mg 24 e ER 8 mg Family hr hr 24 hr Practic capsule,ext capsule,ext capsule,ex e ended ended tended release release release Humira(CF) Humira(CF) No Humira(CF) [facility] Pen 40 Pen 40 Pen 40 Family mg/0.4 mL mg/0.4 mL mg/0.4 mL Practic subcutaneou subcutaneou subcutaneo e s kit s kit us kit hydroxychlo hydroxychlo No hydroxychl [facility] roquine 200 roquine 200 oroquine Family mg tablet mg tablet 200 mg Pra ctic tablet e levothyroxi levothyroxi No levothyrox [facility] ne 75 mcg ne 75 mcg ine 75 mcg Family tablet 1 tablet 1 tablet 1 Pra ctic TABLET BY TABLET BY TABLET BY e MOUTH MOUTH MOUTH DAILY, 30 DAILY, 30 DAILY, 30 MINUTES MINUTES MINUTES BEFORE BEFORE BEFORE BREAKFAST BREAKFAST BREAKFAST lorazepam lorazepam No lorazepam [facility] 0.5 mg 0.5 mg 0.5 mg Family tablet tablet tablet Practic e losartan 25 losartan 25 No losartan [facility] mg tablet mg tablet 25 mg Fami ly TAKE 1 TAKE 1 tablet Practic TABLET BY TABLET BY TAKE 1 e MOUTH EVERY MOUTH EVERY TABLET BY DAY DAY MOUTH EVERY DAY memantine memantine No memantine [facility] 10 mg 10 mg 10 mg Family tablet TAKE tablet TAKE tablet Practic 1 TABLET BY 1 TABLET BY TAKE 1 e MOUTH TWICE MOUTH TWICE TABLET BY A DAY A DAY MOUTH TWICE A DAY memantine 5 memantine 5 No memantine [place] mg tablet mg tablet 5 mg Famil y TAKE 1 TAKE 1 tablet Practic TABLET BY TABLET BY TAKE 1 e MOUTH TWICE MOUTH TWICE TABLET BY A DAY A DAY MOUTH TWICE A DAY metoprolol metoprolol No metoprolol [facility] tartrate 25 tartrate 25 tartrate Family mg tablet mg tablet 25 mg Prac tic tablet e [facility]oprolol [facility]op[facility] tartrate 50 tartrate 50 tartrate Family mg tablet mg tablet 50 mg Prac tic TAKE 1 TAKE 1 tablet e TABLET BY TABLET BY TAKE 1 MOUTH TWICE MOUTH TWICE TABLET BY A DAY A DAY MOUTH TWICE A DAY metronidazo metronidazo No metronidaz [facility] le 500 mg le 500 mg ole 500 mg Family tablet tablet tablet Practic e on[facility]ansetron [facility] 4 mg HCl 4 mg n HCl 4 mg F amily tablet tablet tablet Practic e pantoprazol pantoprazol No pantoprazo [facility] e 40 mg e 40 mg le 40 mg Famil y tablet,korin tablet,korin tablet,del Practic yed release yed release ayed e TAKE 1 TAKE 1 release TABLET BY TABLET BY TAKE 1 MOUTH MOUTH TABLET BY EVERYDAY AT EVERYDAY AT MOUTH BEDTIME BEDTIME EVERYDAY AT BEDTIME prednisone prednisone No prednisone [place] 2.5 mg 2.5 mg 2.5 mg Family tablet TAKE tablet TAKE tablet Practic 1 TABLET BY 1 TABLET BY TAKE 1 e MOUTH EVERY MOUTH EVERY TABLET BY DAY DAY MOUTH EVERY DAY prednisone prednisone No prednisone [facility] 5 mg tablet 5 mg tablet 5 mg F amily TAKE 1 TAKE 1 tablet Practic TABLET BY TABLET BY TAKE 1 e MOUTH EVERY MOUTH EVERY TABLET BY OTHER DAY OTHER DAY MOUTH EVERY OTHER DAY rosuvastati rosuvastati No rosuvastat [facility] n 10 mg n 10 mg in 10 mg Famil y tablet TAKE tablet TAKE tablet Practic 1 TABLET BY 1 TABLET BY TAKE 1 e MOUTH MOUTH TABLET BY EVERYDAY AT EVERYDAY AT MOUTH BEDTIME BEDTIME EVERYDAY AT BEDTIME rosuvastati rosuvastati No 1 Q1D rosuvastat [facility] n 5 mg n 5 [...] OF 30 Trijardy XR Trijardy XR No Trijardy [facility] 5 mg-2.5 5 mg-2.5 XR Family mg-1,000 mg mg-1,000 mg mg-2.5 Practic tablet, tablet, mg-1,000 e extended extended mg tablet, release release extended TAKE 2 TAKE 2 release TABLETS BY TABLETS BY TAKE 2 MOUTH EVERY MOUTH EVERY TABLETS BY DAY DAY MOUTH EVERY DAY Immunizations Ordered Filled Immunization Date Status Comments [facility] e Immunization Name Name SARS-COV-2 COVID-19 2020-07-07 Completed [facility] of CertiVox/J&J VACCINE 00:00:00 [facility] SARS-COV-2 SARS-COV-2 2020-06-27 Completed [facility] (COVID-19) vaccine, (COVID-19) vaccine, 00:00:00 Practice UNSPECIFIED UNSPECIFIED influenza, influenza, 2020-03-15 Completed [facility] injectable, injectable, 00:00:00 Practice quadrivalent quadrivalent diphtheria/pertussi 2013-11-19 Completed Ren mejia acel/tetanus 18:23:00 adult diphtheria/pertussi 2013-11-19 Completed eRn mejia acel/tetanus 18:23:00 adult Vital Signs Vital Name Observation Time Observation Value Comments Source Systolic blood 2021-10-23 20:30:00 126 mm[Hg] Univer sity of pressure [facility] Diastolic blood 2021-10-23 20:30:00 69 mm[Hg] Unive rsity of pressure [facility] Heart rate 2021-10-23 20:30:00 77 /min Universi ty of [facility] Body weight 2021-10-23 20:30:00 56.7 kg Universi [facility] BMI 2021-10-23 20:30:00 25.25 kg[facility]m2 [facility] O[facility] saturation in 2021-10-23 20:30:00 95 /min [facility] Arterial blood by [facility] Pulse oximetry Branch BP Diastolic 2021-03-07 00:00:00 65 mm[Hg] [facility] Height 2021-03-07 00:00:00 60 [in_i] [facility] BMI (Body Mass 2021-03-07 00:00:00 24.9 kg/m2 [facility] BP Systolic 2021-03-07 00:00:00 110 mm[Hg] [facility] Body Weight 2021-03-07 00:00:00 127.4 [lb_av] [facility] BP Systolic 2020-10-26 00:00:00 117 mm[Hg] [facility] Body Weight 2020-10-26 00:00:00 138.8 [lb_av] [facility] BP Diastolic 2020-10-26 00:00:00 54 mm[Hg] [facility] Height 2020-10-26 00:00:00 60 [in_i] [facility] BMI (Body Mass 2020-10-26 00:00:00 27.1 kg/m2 [facility] BP Diastolic 2020-07-13 00:00:00 66 mm[Hg] [facility] Height 2020-07-13 00:00:00 60 [in_i] [facility] BMI (Body Mass 2020-07-13 00:00:00 27.7 kg/m2 [facility] BP Systolic 2020-07-13 00:00:00 123 mm[Hg] [facility] Body Weight 2020-07-13 00:00:00 142 [lb_av] [facility] BP Diastolic 2020-03-30 00:00:00 82 mm[Hg] [facility] Height 2020-03-30 00:00:00 60 [in_i] [facility] BMI (Body Mass 2020-03-30 00:00:00 30.5 kg/m2 [facility] BP Systolic 2020-03-30 00:00:00 126 mm[Hg] [facility] Family [facility] Body Weight 2020-03-30 00:00:00 156 [lb_av] [facility] BP Diastolic 2020-02-29 00:00:00 72 mm[Hg] [facility] Height 2020-02-29 00:00:00 60 [in_i] [facility] BMI (Body Mass 2020-02-29 00:00:00 29.9 kg/m2 [facility] BP Systolic 2020-02-29 00:00:00 128 mm[Hg] [facility] Family [facility] Body Weight 2020-02-29 00:00:00 153 [lb_av] [facility] Family Practice Systolic (mm Hg) 2022-02-16 18:29:00 Ronald rial [place] Diastolic (mm Hg) 2022-02-16 18:29:00 Mem orial Kris Heart Rate 2022-02-16 18:29:00 [facility] Height 2022-02-16 18:29:00 4 [ft_i] [facility] [place] Weight 2022-02-16 18:29:00 [facility] [place] BMI Calculated 2022-02-16 18:29:00 Memori al Kris Systolic (mm Hg) 2021-07-20 15:55:00 Ronald rial Kris Diastolic (mm Hg) 2021-07-20 15:55:00 Mem orial [place] Heart Rate 2021-07-20 15:55:00 [facility] Respitory Rate 2021-07-20 15:55:00 Memori al Kris Height 2021-07-20 15:55:00 149.86 cm [facility] Weight 2021-07-20 15:55:00 [facility] BMI Calculated 2021-07-20 15:55:00 [facility] [place] Systolic (mm Hg) 2021-05-18 15:12:00 Ronald rial Kris Diastolic (mm Hg) 2021-05-18 15:12:00 Mem orial [place] Heart Rate 2021-05-18 15:12:00 [facility] [place] Respitory Rate 2021-05-18 15:12:00 Memori al Kris Height 2021-05-18 15:12:00 149.86 cm [facility] [place] Weight 2021-05-18 15:12:00 [facility] [place] BMI Calculated 2021-05-18 15:12:00 Memori al Kris Systolic (mm Hg) 2021-02-28 19:54:00 Ronald rial Kris Diastolic (mm Hg) 2021-02-28 19:54:00 Mem orial [place] Heart Rate 2021-02-28 19:54:00 [facility] Respitory Rate 2021-02-28 19:54:00 Memori al Kris Height 2021-02-28 19:54:00 147.32 cm [facility] [place] Weight 2021-02-28 19:54:00 [facility] [place] BMI Calculated 2021-02-28 19:54:00 Memori [facility] [place] Systolic (mm Hg) 2020-05-26 17:13:00 Ronald rial [place] Diastolic (mm Hg) 2020-05-26 17:13:00 Mem orial Kris Heart Rate 2020-05-26 17:13:00 [facility] [place] Respitory Rate 2020-05-26 17:13:00 Memori al [place] Height 2020-05-26 17:13:00 152.4 cm [facility] Weight 2020-05-26 17:13:00 [facility] [place] BMI Calculated 2020-05-26 17:13:00 Memori al [place] Systolic (mm Hg) 2020-04-06 19:20:00 Ronald rial Kris Diastolic (mm Hg) 2020-04-06 19:20:00 Mem orial [place] Heart Rate 2020-04-06 19:20:00 [facility] Respitory Rate 2020-04-06 19:20:00 Memori al [place] Height 2020-04-06 19:20:00 147.32 cm [facility] [place] Weight 2020-04-06 19:20:00 [facility] BMI Calculated 2020-04-06 19:20:00 Memori al [place] Height 2019-05-20 16:56:00 149.86 cm [facility] Weight 2019-05-20 16:56:00 [facility] BMI Calculated 2019-05-20 16:56:00 Memori al [place] Systolic (mm Hg) 2019-05-20 16:56:00 Ronald rial [place] Diastolic (mm Hg) 2019-05-20 16:56:00 Mem orial Kris Heart Rate 2019-05-20 16:56:00 [facility] [place] Respitory Rate 2019-05-20 16:56:00 Memori al [place] Systolic (mm Hg) 2019-04-08 16:53:00 Ronald rial [place] Diastolic (mm Hg) 2019-04-08 16:53:00 Mem orial Kris Heart Rate 2019-04-08 16:53:00 [facility] Respitory Rate 2019-04-08 16:53:00 Memori al Kris Height 2019-04-08 16:53:00 152.4 cm [facility] Weight 2019-04-08 16:53:00 [facility] [place] BMI Calculated 2019-04-08 16:53:00 Memori al [place] Diastolic (mm Hg) 2013-11-19 19:51:00 Mem orial Kris Heart Rate 2013-11-19 19:51:00 [facility] [place] Respitory Rate 2013-11-19 19:51:00 Memori al [place] Systolic (mm Hg) 2013-11-19 19:51:00 Ronald rial Kris Respitory Rate 2013-11-19 18:25:00 Memori al Kris Diastolic (mm Hg) 2013-11-19 18:25:00 Mem orial Kris Systolic (mm Hg) 2013-11-19 18:25:00 Ronald rial [place] Weight 2013-11-19 14:56:00 [facility] [place] BMI Calculated 2013-11-19 14:56:00 Memori al [place] Height 2013-11-19 14:56:00 152.4 cm [facility] [place] Diastolic (mm Hg) 2013-11-19 14:56:00 Mem orial [place] Systolic (mm Hg) 2013-11-19 14:56:00 Ronald rial Kris Heart Rate 2013-11-19 14:56:00 [facility] Temperature Oral (F) 2013-11-19 14:56:00 98.5 F [facility] Respitory Rate 2013-11-19 14:56:00 Memori al Kris Procedures Procedure Date / Time Performing Clinician Source Performed Procedure on Shoulder 2019-07-29 00:00:00 [facility] Colonoscopy 2019-04-29 00:00:00 [facility] Ass[facility] Situ [facility] Laparoscopic [facility] Family Cholecystectomy Practice Total Replacement of Left [facility] Complete Repair of Rotator Nino ge Family Cuff Practice Knee replacement Gaurav chery Rotator cuff repair Gaurav urbano Plan of Care Planned Activity Planned Date Details Comments Source Future Scheduled 2022-03-04 HEPATITIS B VACCINES [facility] Test 11:34:57 (1 of 3 - 3-dose series) [code = HEPATITIS B VACCINES (1 of 3 - 3-dose series)] Future Scheduled 2022-03-04 COVID-19 VACCINE (#1) [facility] Test 11:34:57 [code = COVID-19 VACCINE (#1)] Future Scheduled 2022-03-04 SHINGLES VACCINES (1 [facility] Test 11:34:57 of 2) [code = SHINGLES VACCINES (1 of 2)] Future Scheduled 2022-03-04 65+ [facility] 11:34:57 VACCINE (1 - PCV) [code = 65+ PNEUMOCOCCAL VACCINE (1 - PCV)] Future Scheduled 2022-03-04 INFLUENZA VACCINE [facility] Hospital Test 11:34:57 [code = INFLUENZA VACCINE] Future Scheduled 2021-12-30 HEPATITIS B VACCINES [facility] Test 00:42:39 (1 of 3 - 3-dose series) [code = HEPATITIS B VACCINES (1 of 3 - 3-dose series)] Future Scheduled 2021-12-30 COVID-19 VACCINE (#1) [facility] Test 00:42:39 [code = COVID-19 VACCINE (#1)] Future Scheduled 2021-12-30 SHINGLES VACCINES (1 [facility] Test 00:42:39 of 2) [code = SHINGLES VACCINES (1 of 2)] Future Scheduled 2021-12-30 65+ [facility] Test 00:42:39 VACCINE (1 - PCV) [code = 65+ PNEUMOCOCCAL VACCINE (1 - PCV)] Future Scheduled 2021-12-30 INFLUENZA VACCINE [facility] Test 00:42:39 [code = INFLUENZA VACCINE] Diagnostic Test 2021-03-07 glucose, fingerstick, Josr marky Family Pending 00:00:00 blood [code = Practice glucose, fingerstick, blood] Diagnostic Test 2021-03-07 hemoglobin A1C, Portia lee Pending 00:00:00 fingerstick [code = Practice hemoglobin A1C, fingerstick] Encounters Start End Encounter Admission Attending Care Care Encounter Source Date/Time Date/Time Type Type Clinicians Facility Department ID 2022-08-17 2022-08-17 Outpatient MHIE MHIE [id number] Memoria 13:00:00 13:00:00 15 l Kris 2022-02-16 2022-02-17 Outpatient nullFlavo MNA [id number] Memoria 18:00:00 04:59:59 r Neurology 14 l Shannan Ponce 2022-02-16 2022-02-16 Outpatient JOHNNY AsherMISCHER [id number] 13:00:00 23:59:59 Sina 14 [place] 2022-02-16 2022-02-16 Outpatient MHIE MHIE [id number] Memoria 13:00:00 13:00:00 14 radha Ponce 2021-10-31 2021-10-31 Ambulatory nullFlavo MNA [id number] Memoria 15:45:00 15:45:00 Pre-Reg r Neurology 13 l hSannan Ponce 2021-10-31 2021-10-31 Outpatient Demetri PAZ [place] [id number] Univers 14:30:00 14:30:00 SILVA [facility] 2021-10-31 2021-10-31 Outpatient MHIE MHIE [id number] Memoria 10:45:00 10:45:00 13 radha Ponce 2021-10-31 2021-10-31 Outpatient JOHNNY Asher MHMISCHER [id number] 10:45:00 10:45:00 Sina 13 [place] 2021-10-23 2021-10-23 Outpatient Demetri FREITAS [place] [id number] Univers 14:45:00 [facility]40[facility] 2021-10-23 Office Silva Paz [facility] [id number] [facility] 14:45:00 15:40:17 Visit Harvey Freitas L HEALTH 350.1.13.10 ity of [place] [id number] Maximus as ELIECER?BLEA [phone] Ga manjit ROD [address] [place] MEDICAL OFFICE [facility] 2021-10-23 2021-10-23 Outpatient R FORTINO [place] [id number] Univers 14:45:00 14:45:00 HARVEY lara [facility] 2021-10-22 2021-10-22 Letter NINI Perla [id number] Univers 00:00:00 00:00:00 (Out) Beata Blair APOLINAR 350.1.13.10 it y of [facility] 4.2.7.2.686 Maximus as [phone] [address] 2021-10-21 2021-10-21 Laboratory Only, Ang Db Test RUST 1.2.8 40.114 [id number] Univers 18:00:00 18:15:00 Only Margarette Sandra JUNE 350.1.13.10 ity of [place] 4.2.7.2.686 Maximus as ELIECER?BLEA [id number] Ga manjit ROD [address] [place] MEDICAL OFFICE [facility] 2021-10-21 2021-10-21 Outpatient R MARGARETTE, [place] [id number] Univers 18:00:00 18:00:[address] SAN[address]A [address] o f [facility] 2021-10-16 2021-10-16 Outpatient R FORTINO [place] [id number] Univers 14:30:00 14:58:03 HARVEY lara [facility] 2021-10-16 2021-10-16 [facility] [id number] Univers 14:30:00 14:58:03 Visit Harvey Suero ADINCON 350.1.13.10 it y of [place] 4.2.7.2.686 Maximus as ELIECER?BLEA [phone] Ga manjit ROD [address] [place] MEDICAL OFFICE [facility] 2021-10-12 2021-10-12 [facility] [id number] Univers 10:15:00 10:15:00 HARVEY jane [facility] 2021-10-12 2021-10-12 [facility] [id number] Univers 10:15:00 10:15:00 HARVEY lara [facility] 2021-10-05 2021-10-05 [facility] [id number] Univers 10:15:00 10:38:26 HARVEY lara [facility] 2021-10-05 2021-10-05 [facility] [id number] Univers 10:15:00 10:38:26 Visit Harvey Suero ADINCON 350.1.13.10 it y of [place] 4.2.7.2.686 Maximus as ELIECER?BLEA [phone] Ga manjit ROD [address] [place] [address] OFFICE [facility] 2021-10-05 2021-10-05 Orders Doctor NINI 1.2.840.114 [id number] Univers 00:00:00 00:00:00 Only Unassigned, APOLINAR 350.1.13.10 [place] [facility] 4.2.7.2.686 Maximus as [phone] [address] 2021-10-04 2021-10-04 Telephone [facility] 1.2.840.114 [id number] Univers 00:00:00 00:00:00 Harvey Suero HEALTH 350.1.13.10 it y of [place] 4.2.7.2.686 Maximus as ELIECER?BLEA [id number] Ga amnjit ROD [address] [place] [address] OFFICE [facility] 2021-09-13 2021-09-13 Telephone [facility] 1.2.840.114 [id number] Univers 00:00:00 00:00:00 Harvey Suero HEALTH 350.1.13.10 it y of [place] 4.2.7.2.686 Maximus as ELIECER?BLEA [phone] Ga manjit ROD [address] [place] [address] OFFICE [facility] 2021-09-12 2021-09-12 Telephone [facility] [id number] Univers 00:00:00 00:00:00 Silva S HEALTH 350.1.13.10 it y of [place] 4.2.7.2.686 Maximus as ELIECER?BLEA [id number] Ga dicjavi GUNNEY [address] [facility] OFFICE [facility] 2021-09-08 2021-09-08 Out[facility] [id number] Univers 08:45:00 09:24:40 HARVEYMANUELA lara [facility] 2021-09-08 2021-09-08 Office [facility] [id number] Univers 08:45:00 09:24:40 Visit Harvey [facility] 350.1.13.10 it y [facility] 4.2.7.2.686 Maximus as ELIECER?BLEA [phone] Ga manjit ROD [address] [facility] OFFICE [facility] 2021-09-08 2021-09-08 Outpatient [facility] [id number] Univers 08:45:00 09:24:40 [facility] 2021-08-24 2021-08-24 Outpatient [facility] [id number] Univers 09:30:00 23:59:00 HARVEY jane [facility] 2021-08-24 2021-08-24 Outpatient [facility] [id number] Univers 08:45:00 09:52:57 [facility] 2021-08-24 2021-08-24 Office [facility] [id number] Univers 08:45:00 09:52:57 [facility] 350.1.13.10 it [facility] 4.2.7.2.686 Maximus as ELIECER?BLEA [id number] Ga manjit ROD [address] [facility] OFFICE [facility] 2021-08-24 2021-08-24 Orders Doctor TERRAZAS 1.2.840.114 [id number] Univers 00:00:00 00:00:00 Only Unassigned, APOLINAR 350.1.13.10 [place] [facility] 4.2.7.2.686 Maximus as [id number] [address] 2021-08-10 2021-08-10 Outpatient [facility] [id number] Univers 08:45:00 08:45:00 HARVEY cady [facility] 2021-07-20 2021-07-21 Outpatient nullFlavo MNA [id number] Memoria 15:45:00 04:59:59 r Neurology 12 radha Ponce 2021-07-20 2021-07-20 Outpatient Lb JOLANTAMISCHER MHMISCHER [id number] 10:45:00 23:59:59 Sina 12 [place] 2021-07-20 2021-07-20 Outpatient MHIE MHIE [id number] Memoria 10:45:00 10:45:00 12 radha Ponce 2021-05-31 2021-05-31 Ambulatory nullFlavo MNA [id number] Memoria 15:00:00 15:00:00 Pre-Reg r Neurology 10 radha Ponce 2021-05-31 2021-05-31 Outpatient MHIE MHIE [id number] Memoria 09:00:00 09:00:00 10 radha Ponce 2021-05-31 2021-05-31 Outpatient JOLANTA [facility]ER [id number] 09:00:00 09:00:00 Sina 10 [place] 2021-05-30 2021-05-30 Telephone [facility] 1.2.840.114 [id number] Univers 00:00:00 00:00:00 [facility] ADINCON 350.1.13.10 it y of [facility] 4.2.7.2.686 Maximus as ELIECER?BLEA [phone] [address] OFFICE [facility] 2021-05-18 2021-05-19 Outpatient nullFlavo MNA [id number] Memoria 15:00:00 05:59:59 r Neurology 11 radha Ponce 2021-05-18 2021-05-18 Outpatient Lb MERCEDESSCHER MHMISCHER [id number] 09:00:00 23:59:59 Sina 11 [place] 2021-05-18 2021-05-18 Outpatient MHIE MHIE [id number] Memoria 09:00:00 09:00:00 11 radha Ponce 2021-05-17 2021-05-17 Telephone [facility] 1.2.840.114 [id number] Univers 00:00:00 00:00:00 [facility] ADINCON 350.1.13.10 it y of [place] 4.2.7.2.686 Maximus as ELIECER?BLEA [phone] Ga manjit [address] MEDICAL OFFICE [facility] 2021-04-29 2021-04-29 Outpatient Daniel_T VFP VFP [id number] [facility] 05:01:00 05:01:00 [id number] Family Practic e 2021-04-29 2021-04-29 Outpatient Daniel_T VFP VFP [id number] [address] [address] 05:01:00 05:01:00 [id number] Family Practic e 2021-04-03 2021-04-03 Outpatient Daniel_T VFP VFP [id number] [address] [place] [place] [address] 08:37:00 08:37:00 [id number] Family Practic e 2021-03-07 2021-03-07 Outpatient Daniel_T VFP VFP [id number] [address] [place] [place] [address] 05:08:00 05:08:00 [id number] Family Practic e 2021-03-07 2021-03-07 Luis VFP [place] - [id number] V illage 00:00:00 00:00:00 [facility] Family Trinh, Medical - Practi aminah COULTER: [id number] VM_HOU_Shatomeka e Shadow [place] [facility], [address], [place] [address] , Ph. 2021-02-28 2021-03-01 Outpatient nullFlavo MNA [id number] Memoria 19:45:00 04:59:59 r Neurology 09 l Shannan Ponce 2021-02-28 2021-02-28 Outpatient JOHNNY Asher [id number] 14:45:00 23:59:59 Sina 09 [place] 2021-02-28 2021-02-28 Outpatient JOLANTAIE JOLANTAIE [id number] Memoria 14:45:00 14:45:00 09 l Kirs 2020-12-29 2020-12-29 [facility] Brandi RUST 1.2.840.114 [id number] Univers 10:51:10 23:59:00 Encounter Silva Bean 350.1.13.10 ity of [place] 4.2.7.2.686 [place] [facility] [phone] [address] 2020-12-29 2020-12-29 Office [facility] 1.2.840.114 [id number] Univers 11:47:56 12:02:56 Visit [facility] 350.1.13.10 it y of [place] 4.2.7.2.686 Maximus as Eliecer?Blea [phone] Ga manjit rod [address] [facility] Office [facility] 2020-12-29 2020-12-29 [facility] [id number] Univers 00:00:00 00:00:00 [facility] 2020-12-29 2020-12-29 Orders Doctor NINI 1.2.840.114 [id number] Univers 00:00:00 00:00:00 Only Unassigned, APOLINAR 350.1.13.10 [place] [facility] 4.2.7.2.686 Maximus as [phone] [facility] [address] [place] 2020-12-29 2020-12-29 Telephone [facility] [id number] Univers 00:00:00 00:00:00 [facility] 350.1.13.10 it y of [place] 4.2.7.2.686 Maximus as Eliecer?Blea [phone] Ga manjit gunn[address] 2020-11-02 2020-11-02 [facility] [id number] Univers 16:00:00 16:00:00 [facility] 2020-11-01 2020-11-01 [facility] [id number] Univers 15:30:00 15:30:00 [facility] 2020-10-28 2020-10-28 Outpatient Daniel_T VFP VFP [id number] [place] 06:10:00 06:10:00 [id number] Family Practic e 2020-10-28 2020-10-28 Outpatient Daniel_T VFP VFP [id number] [place] 06:10:00 06:10:00 [id number] Family Practic e 2020-10-26 2020-10-26 Outpatient Daniel_T VFP VFP [id number] [facility] 03:14:00 03:14:00 [id number] Family Shelly franklin 2020-10-26 2020-10-26 Luis VFP [place] - [id number] V illage 00:00:00 00:00:00 Ashlie [facility] Family Trinh, Medical - Prachans burr MD: [id number] VM_HOU_Shad e [place] [address], [place] [address] , Ph. 2020-10-05 2020-10-05 [facility] [id number] Univers 13:15:00 13:15:00 [facility] 2020-09-07 2020-09-07 [facility] [id number] Univers 13:00:00 13:00:00 [facility] 2020-09-01 2020-09-01 Ambulatory nullFlavo MNA [id number] Memoria 16:45:00 16:45:00 Pre-Reg r Neurology 08 l Shannan Ponce 2020-09-01 2020-09-01 Ambulatory nullFlavo MNA [id number] Memoria 16:45:00 16:45:00 Pre-Reg r Neurology 08 l Shannan Ponce 2020-09-01 2020-09-01 Outpatient JOHNNY Asher MHMISCHER [id number] 11:45:00 11:45:00 Sina Byrd 2020-08-24 2020-08-24 Outpatient JAMIE AYALA [id number] Memoria 09:00:00 09:00:00 08 radha Ponce 2020-08-24 2020-08-24 [facility] NUT [id number] Univers 00:00:00 00:00:00 [facility] 2020-08-20 2020-08-20 Outpatient Ziggy_T VFP VFP [id number] [facility] 02:40:00 02:40:00 [id number] Family Shelly franklin 2020-08-17 2020-08-17 [facility] [id number] Univers 13:45:00 13:45:00 [facility] 2020-08-02 2020-08-02 Outpatient Demetri BRANDI [place] [id number] Univers 09:45:00 09:45:00 SILVA [facility] 2020-07-25 2020-07-25 Outpatient Demetri FREITAS [place] [id number] Univers 00:00:00 00:00:00 [facility] 2020-07-22 2020-07-22 Outpatient Robertoel_T VFP VF [id number] [facility] 07:52:00 07:52:00 [id number] Family Shelly franklin 2020-07-18 2020-07-18 Outpatient FREITAS, [place] [id number] Univers 14:48:58 23:59:00 [facility] 2020-07-18 2020-07-18 Outpatient Demetri CHILDSFREITAS, [place] [id number] Univers 14:30:00 14:30:00 [facility] 2020-07-14 2020-07-14 Outpatient Demetri FREITAS [place] [id number] Univers 10:15:00 10:15:00 [facility] 2020-07-13 2020-07-13 Outpatient Ziggy_T VFP VF [id number] Dionne [facility] 01:17:00 01:17:00 [id number] Family Shelly franklin 2020-07-13 2020-07-13 Luis VFP [place] - [id number] V illage 00:00:00 00:00:00 [facility] Family Trinh, Medical - Practi aminah COULTER: [id number] [email or web address] e Shadow [place] [employer] [employer] [place] [facility] [place], [address], [place] [address] , Ph. 2020-07-12 2020-07-12 Outpatient Robertoel_T VFP VFP [id number] [facility] 07:47:00 07:47:00 [id number] Family Shelly franklin 2020-07-07 2020-07-07 Outpatient [place] [id number] 10:15:00 10:15:00 [facility] 2020-05-26 2020-05-27 Outpatient nullFlavo MNA [id number] Memoria 17:15:00 05:59:59 r Neurology 07 l Shannan Ponce 2020-05-26 2020-05-27 Outpatient nullFlavo MNA [id number] Memoria 17:15:00 05:59:59 r Neurology 07 l Shannan Ponce 2020-05-26 2020-05-26 [facility] MISCHER [id number] 11:15:00 23:59:59 Sina Catie Byrd 2020-05-26 2020-05-26 Outpatient MHIE MHIE [id number] Memoria 11:15:00 11:15:00 07 radha Ponce 2020-05-18 2020-05-18 Ambulatory nullFlavo MNA [id number] Memoria 19:45:00 19:45:00 Pre-Reg r Neurology 06 l Shannan Ponce 2020-05-18 2020-05-18 Ambulatory nullFlavo MNA [id number] Memoria 19:45:00 19:45:00 Pre-Reg r Neurology 06 l Shannan Ponce 2020-05-18 2020-05-18 Outpatient MHIE MHIE [id number] Memoria 13:45:00 13:45:00 06 radha Ponce 2020-05-18 2020-05-18 [facility] [id number] 13:45:00 13:45:00 Sina Adali Byrd 2020-04-18 2020-04-18 Outpatient Daniel_T VFP VFP [id number] Village 06:01:00 06:01:00 [id number] Family Practic noemi 2020-04-06 2020-04-07 Outpatient nullFlavo MNA [id number] Memoria 19:00:00 05:59:59 r Neurology 05 radha Ponce 2020-04-06 2020-04-07 Outpatient nullFlavo MNA [id number] Memoria 19:00:00 05:59:59 r Neurology 05 radha Ponce 2020-04-06 2020-04-06 Outpatient JOLANTA AsherAZSCHER MISCHER [id number] 13:00:00 23:59:59 Sina 05 [place] 2020-04-06 2020-04-06 Outpatient MHIE MHIE [id number] Memoria 13:00:00 13:00:00 05 l Kris 2020-04-04 2020-04-04 Outpatient Daniel_T VFP VFP [id number] [address] [place] [address] 07:55:00 07:55:00 Family Practic e 2020-03-30 2020-03-30 Outpatient Daniel_T VFP VFP [id number] [address] [place] [address] 01:21:00 01:21:00 Family Practic e 2020-03-30 2020-03-30 Luis VFP [place] - [id number] V illage 00:00:00 00:00:00 Ashlie [facility] Practi c MD: [id number] GENOVEVA_KEYANNAeBrry noemi [facility] [address], [place] [address] , Ph. 2020-03-29 2020-03-29 Outpatient Daniel_T VFP VFP [id number] [address] [place] [address] 04:57:00 04:57:00 Family Practic e 2020-02-29 2020-02-29 Outpatient Daniel_T VFP VFP [id number] [address] [place] [place] [address] 02:38:00 02:38:00 Family Practic e 2020-02-29 2020-02-29 Luis VFP [place] - [id number] V illage 00:00:00 00:00:00 Ashlie [facility] Family [facility] - Practi aminah MD: [id number] ASTRIDChandler noemi [facility] [address], [place] [address] , Ph. 2020-02-26 2020-02-26 Outpatient Daniel_T VFP VFP [id number] [address] [place] [address] 02:07:00 02:07:00 Family Practic e 2020-02-15 2020-02-15 Outpatient [place] [id number] Univers 09:40:00 09:40:[address] [facility] 2020-02-14 2020-02-14 Laboratory Lab, Adc RUST [id number] 10:15:11 10:35:11 Only Fam Pob I Health [id number] [place] [id number] Professio [id number] nal 0[address] One 2020-02-14 2020-02-14 Outpatient [place] [id number] Univers 10:20:00 10:20:[address] [facility] 2020-02-14 2020-02-14 Orders Doctor NINI [id number] 00:00:00 00:00:00 Only Unassigned, APOLINAR [id number] [place] [facility] [id number] [id number] 2019-12-22 2019-12-22 Ambulatory nullFlavo MNA [id number] Memoria 14:30:00 14:30:00 Pre-Reg r Neurology 04 l [place] 2019-12-22 2019-12-22 Ambulatory nullFlavo MNA [id number] Memoria 14:30:00 14:30:00 Pre-Reg r Neurology 03 l Price [place] 2019-12-22 2019-12-22 Ambulatory nullFlavo MNA [id number] Memoria 14:30:00 14:30:00 Pre-Reg r Neurology 04 l [facility] [place] 2019-12-22 2019-12-22 Ambulatory nullFlavo MNA [id number] Memoria 14:30:00 14:30:00 Pre-Reg r Neurology 03 l [facility] [place] 2019-12-22 2019-12-22 Outpatient MHIE MHIE [id number] Memoria 09:30:00 09:30:00 04 l Kris 2019-12-22 2019-12-22 Outpatient MHIE MHIE [id number] Memoria 09:30:00 09:30:00 03 radha Ponce 2019-12-22 2019-12-22 Outpatient Lb, MHMISCHER MHMISCHER [id number] 09:30:00 09:30:00 Sina 03 [place] 2019-12-22 2019-12-22 Outpatient Lb, MHMISCHER MHMISCHER [id number] 09:30:00 09:30:00 Sina 04 [place] 2019-08-19 2019-08-20 Outpatient nullFlavo MNA [id number] Memoria 14:30:00 04:59:59 r Neurology 02 l [place] 2019-08-19 2019-08-20 Outpatient nullFlavo MNA [id number] Memoria 14:30:00 04:59:59 r Neurology 02 l Price [place] 2019-08-19 2019-08-19 [facility] Lb[facility] [id number] 09:30:00 23:59:59 Sina 02 [place] 2019-08-19 2019-08-19 Outpatient MHIE MHIE [id number] Memoria 09:30:00 09:30:00 02 radha [place] 2019-05-20 2019-05-21 Outpatient nullFlavo MNA [id number] Memoria 16:45:00 05:59:59 r Neurology 01 l Shannan Ponce 2019-05-20 2019-05-21 Outpatient nullFlavo MNA [id number] Memoria 16:45:00 05:59:59 r Neurology 01 radha Ponce 2019-05-20 2019-05-20 Outpatient Lb, MHMISCHER MHMISCHER [id number] 10:45:00 23:59:59 Sina 01 [place] 2019-05-20 2019-05-20 Outpatient MHIE MHIE [id number] Memoria 10:45:00 10:45:00 01 radha Kris 2019-04-08 2019-04-09 Outpatient nullFlavo MNA [id number] Memoria 17:15:00 05:59:59 r Neurology 00 l Shannan Kris 2019-04-08 2019-04-09 Outpatient nullFlavo MNA [id number] Memoria 17:15:00 05:59:59 r Neurology 00 l Shannan Kris 2019-04-08 2019-04-08 [facility] Lb[facility] [id number] 11:15:00 23:59:59 Sina 00 [place] 2019-04-08 2019-04-08 Outpatient MHIE MHIE [id number] Memoria 11:15:00 11:15:00 00 [facility] 2019-01-02 2019-01-02 Office [place]UST [id number] 08:31:13 10:01:24 Visit Sony Bean [id number] [place] [id number] Edwin [id number] [address] 2013-11-19 2013-11-19 EC nullFlavo [facility] [id number] Memoria 14:56:00 19:53:00 Emergency r [address] 2013-11-19 2013-11-19 EC Lisa [facility] [id number] Memoria 14:56:00 19:53:00 Emergency r [address] 2013-11-19 2013-11-19 Outpatient Ashley Powers [id number]. [id number] 09:56:00 14:53:00 Oneil [id number] 5.0.101 01 Results Test Description Test Time Test Comments Results Result Comments Source Hemoglobin A1c measurement device panel 2021-03-07 15:02:32 Test Item Value Reference Range Interpretation Comme nts Hemoglobin A1C Fingerstick: (test code = Hemoglobin A1C Fingerstick :) [facility]6 [facility] [[facility]/volume] in Capillary [id number] 14:49:06 Test Item Value Reference Range Interpretation Comments Blood Glucose: mg/dl (test code = Blood 235 Glucose: mg/dl) [facility] [id number] 14:27:33 Test Item Value Reference Range Interpretation Comments Blood Glucose: mg/dl (test code = Blood 177 Glucose: mg/dl) [facility]aryJepvijniVHHMBJWFIK4296-76-59 [facility] VSWUKOUZAO9668-00-85 15:00:42 Test Item Value Reference Range Interpretation Comments PT (test code = PT) 11.9 s 12.0-14.7 [facility]fydtdlVQSLVPJVWC4110-12-99 15:00:42 Test Item Value Reference Range Interpretation Comments PTT (test code = PTT) 27.3 s 22.9-35.[address] [facility]RfeidsnLRJXTTKAEZ6371-86-43 15:00:42 Test Item Value Reference Range Interpretation Comments INR (test code = INR) 0.88 0.85-1.[address] [facility] HospitalXiruobnKJXKKQOKDT6740-07-89 15:00:42 Test Item Value Reference Range Interpretation Comments PT (test code = PT) 11.9 s 12.0-14.[address] [facility] HospitalRhlvcmkSUWRCHGJWJ1691-16-27 15:00:42 Test Item Value Reference Range Interpretation Comments PTT (test code = PTT) 27.3 s 22.9-35.8 [facility] [id number] 15:00:0080[facility]ann[facility]M PANEL 2013-11-19 15:00:0057[facility]annCHEM STTOC8917-12-80 15:00:85777Itloawrn HermannCHEM CGXQK6449-94-04 15:00:001.0[facility]ann[facility] SZJBR5120-55-60 15:00:0022[facility]annCHEM IZDLC1277-41-17 15:00:0010.3[facility]ann[facility] CDWAO2907-87-74 15:00:0026[facility]annCHEM PEZVE9455-25-08 15:00:60358 [facility] KSHQT3448-57-24 15:00:28045Cdhkqspz HermannCHEM PANEL 2013-11-19 15:00:004.0[facility]annCHEM LDWUE7655-11-80 15:00:0013.0[facility] PtbyfjqWXCBZJVWVI7211-14-64 15:00:009.2[facility] DmmjsajHRNWECGKBY2226-55-04 15:00:90362Frlwcxre TydbzvpQMPPKGSZFP7723-14-12 15:00:0015.6[facility] Kris KVUKMWDNWV6223-03-91 15:00:0044.7[facility] TxvvawcABNYZTNOUD4742-85-88 15:00:00 12.9[facility] DrgyosjQPQNFWHOEB0368-38-33 15:00:0034.8[facility]annHEMATOLOGY 2013-11-19 15:00:007.4[facility] GhirggnFWVKIUJAFV0989-05-09 15:00:005.09[facility] XbzduupLZDSXAMNER1542-85-45 15:00:00 Test Item Value Reference Range Interpretation Comments MCH (test code = MCH) 30.7 pg 27.0-31.0 [facility] AfvcbfuEZHSKUUCPX9599-57-92 15:00:0088.0[facility]ann[facility]MATOLOGY 2013-11-19 15:00:000.0[facility] TewhrvrRTVSWJIRUX3103-53-90 15:00:00 Test Item Value Reference Range Interpretation Comments MPV (test code = MPV) 9.2 7.4-10.4 [facility] CenterTnbkrikDSNJXUJOZV8547-55-03 15:00:00 Test Item Value Reference Range Interpretation Comments Platelet (test code = Platelet) 235 133-450 [facility] CenterQhwdlabWUSPSVKUFS9553-17-62 15:00:00 Test Item Value Reference Range Interpretation Comments Hgb (test code = Hgb) 15.6 12.0-16.0 [facility] CenterHzdunpaBDHDORJMXR9797-59-26 15:00:00 Test Item Value Reference Range Interpretation Comments Hct (test code = Hct) 44.7 36.0-48.0 [facility] CenterEtcfqnzRHPYSHBDCO4186-55-32 15:00:00 Test Item Value Reference Range Interpretation Comments RDW (test code = RDW) 12.9 11.5-14.5 [facility] CenterGwvkdfcEBBSDOGQIP4115-75-76 15:00:00 Test Item Value Reference Range Interpretation Comments MCHC (test code = MCHC) 34.8 32.0-36.0 [facility] CenterCatkelfKFJKCFBWZU8043-00-14 15:00:00 Test Item Value Reference Range Interpretation Comments WBC (test code = WBC) 7.4 3.7-10.4 [facility] CenterNgxbdvlRNRVUCQELF6691-97-53 15:00:00 Test Item Value Reference Range Interpretation Comments RBC (test code = RBC) 5.09 4.20-5.40 [facility] CenterZrkensqJONUKVVHAB3558-22-19 15:00:00 Test Item Value Reference Range Interpretation Comments MCH (test code = MCH) 30.7 pg 27.0-31.0 [facility] CenterFdsftnnBBOLYMFLUX7657-69-89 15:00:000.6[facility] 2013-11-19 15:00:00 Test Item Value Reference Range Interpretation Comments MCV (test code = MCV) 88.0 81.0-99.0 [facility] CenterXyklxwfHWQRJGEIDK5312-18-75 15:00:00 Test Item Value Reference Range Interpretation Comments Basophils # (test code 0.0 See_Comment [Aut omated message] The = Basophils #) system which generated this result tra nsmitted reference range : <=0.2. The reference r arron was not used to int erpret this result as normal/abnormal . [facility] CenterNlgloeaRZERSMBGCI3292-81-17 15:00:00 Test Item Value Reference Range Interpretation Comments Monocytes # (test code 0.6 See_Comment [Aut omated message] The = Monocytes #) system which generated this result tra nsmitted reference range : <=0.8. The reference r arron was not used to int erpret this result as normal/abnormal . [facility] CenterJhjyevpAVPWJRADEE2225-59-36 15:00:00 Test Item Value Reference Range Interpretation Comments Eosinophils # (test code 0.3 See_Comment [A utomated message] The = Eosinophils #) system whic h generated this result tra nsmitted reference range : <=0.5. The reference r arron was not used to int erpret this result as normal/abnormal . [facility] CenterQrpkbxkSOWSODZWDY4463-88-41 15:00:00 Test Item Value Reference Range Interpretation Comments Segs (test code = Segs) 43.4 45.0-75.0 [facility] CenterVljarieWZNSVFQQUW3030-50-60 15:00:00 Test Item Value Reference Range Interpretation Comments Lymphocytes (test code = Lymphocytes) 44.2 20.0-40.0 [facility] CenterHjwbeekVWUSZAUTNL3693-90-79 15:00:00 Test Item Value Reference Range Interpretation Comments Eosinophils (test code = 4.7 See_Comment [A utomated message] The Eosinophils) system which ge nerated this result tra nsmitted reference range : <=4.0. The reference r arron was not used to int erpret this result as normal/abnormal . [facility] CenterZdbtdziOPMSEEAQOX9669-31-41 15:00:00 Test Item Value Reference Range Interpretation Comments Segs-Bands # (test code = Segs-Bands #) 3.2 1.5-8.1 [facility] CenterFuwftapOMQVSJSJKD4841-00-15 15:00:00 Test Item Value Reference Range Interpretation Comments Lymphocytes # (test code = Lymphocytes 3.3 1.0-5.5 #) [facility] CenterZsupfoiJYAQWTRBVL7710-73-32 15:00:00 Test Item Value Reference Range Interpretation Comments Basophils (test code = 0.1 See_Comment [Aut omated message] The Basophils) system which ge nerated this result tra nsmitted reference range : <=1.0. The reference r arron was not used to int erpret this result as normal/abnormal . [facility] CenterZpoyymbUSHOKJGRLM5212-87-28 15:00:000.3[facility]ann[facility] 2013-11-19 15:00:00 Test Item Value Reference Range Interpretation Comments Monocytes (test code = Monocytes) 7.6 2.0-12.0 [facility] UGAFSNV4525-40-11 15:00:00 Test Item Value Reference Range Interpretation Comments Total CK (test code = Total CK) 80 12-191 [facility]CHE[facility] NFOII2337-33-49 15:00:00 Test Item Value Reference Range Interpretation Comments eGFR (test code = eGFR) 57 [facility] RJTHS4243-65-78 15:00:00 Test Item Value Reference Range Interpretation Comments Glucose Lvl (test code = Glucose Lvl) 179 70-99 [facility] CNBYV2115-33-26 15:00:00 Test Item Value Reference Range Interpretation Comments Creatinine Lvl (test code = Creatinine 1.0 0.5-1.4 Lvl) [facility] SVUQL3942-16-35 15:00:00 Test Item Value Reference Range Interpretation Comments BUN (test code = BUN) 22 7-22 [facility] [id number] 15:00:00 Test Item Value Reference Range Interpretation Comments Calcium Lvl (test code = Calcium Lvl) 10.3 8.5-10.5 [facility]anoXbtvlyhRAYNSEKVNY4775-90-48 15:00:0043.4[facility] [place] PAN[place] 2013-11-19 15:00:00 Test Item Value Reference Range Interpretation Comments CO2 (test code = CO2) 26 24-32 [facility] [id number] 15:00:00 Test Item Value Reference Range Interpretation Comments Chloride Lvl (test code = Chloride Lvl) 105 95-109 [facility] LTMBM2229-92-62 15:00:00 Test Item Value Reference Range Interpretation Comments Sodium Lvl (test code = Sodium Lvl) 140 135-145 [facility] [id number] 15:00:00 Test Item Value Reference Range Interpretation Comments Potassium Lvl (test code = Potassium 4.0 3.5-5.1 Lvl) [facility] [id number] 15:00:00 Test Item Value Reference Range Interpretation Comments AGAP (test code = AGAP) 13.0 10.0-20.0 [facility]anoMildetdZIWQVOMWLT2344-08-29 15:00:0044.2[facility]annHEMATOLOGY 2013-11-19 15:00:004.7[facility] ZjtheruZSPVRMIKXZ8962-09-37 15:00:003.2[facility] XgmyefsWJUFHAXNCG2070-83-05 15:00:003.3[facility] JlrxdeoIRENHCYBVO6869-26-78 15:00:000.1[facility] WkytnguTXYVZJJMMY6809-90-93 15:00:007.6[facility] [place]
[2022-03-14 20:57] LABS: Absolute Lymphocytes (CBC) 3.5 K/uL (0.7-4.9); Hematocrit 42.7 % (36.0-45.0); Lymphocytes % 29.9 % (15.3-44.8); MCV 89.1 fL (80-100); MPV 9.5 fL (7.6-11.3)
--- NOTE | 2022-03-14 21:08 | RAD REPORT ---
EXAM DESCRIPTION: CT - CTHCSPWOC - 03/14/2022 8:45 pm CLINICAL HISTORY: Trauma, head and neck injury. trauma COMPARISON: No comparisons TECHNIQUE: Axial 5 mm thick images of the head were obtained. Axial 2 mm thick images of the cervical spine were obtained with sagittal and coronal reconstruction images generated and reviewed. All CT scans are performed using dose optimization technique as appropriate and may include automated exposure control or mA/KV adjustment according to patient size. FINDINGS: CT HEAD WITHOUT CONTRAST: No acute hemorrhage, hydrocephalus or extra-axial collection is identified.Mild generalized brain atr ophy.No areas of brain edema or midline shift. Trace bilateral mastoid effusions. Paranasal sinuses appear clear.The calvarium is intact. CT CERVICAL SPINE WITHOUT CONTRAST: No fracture or subluxation.Mild cervical spondylosis.No prevertebral soft tissues swelling is identif ied. IMPRESSION: No acute intracranial or cervical spine findings.
--- NOTE | 2022-03-14 21:21 | RAD REPORT ---
EXAM DESCRIPTION: RAD - Hand Right 3 View - 03/14/2022 9:05 pm CLINICAL HISTORY: SWELLING COMPARISON: No comparisons FINDINGS: Moderate soft tissue swelling is seen dorsal to the wrist. The bones are demineralized. No acute fracture or dislocation.
[2022-03-14 22:49] LABS: Potassium 3.8 mmol/L (3.5-5.1); Troponin High Sensitivity 5.9 pg/mL (<58.9)
--- NOTE | 2022-03-14 23:18 | ER ---
Nurse's Notes [facility] Name: María Robison Age: 76 yrs Sex: Female : 1945 Arrival Date: 03/14/2022 Time: 18:22 Bed 19 Private MD: Sugey Thompson C Diagnosis: Fall on same level, unspecified;Unspecified injury of head, initial encounter Presentation: 03/14 18:32 Chief complaint: Patient states: Fell today, unwitnessed. Abrasion to R side of head ll1 near jaw. Broke R hearing aid in half. R hand bruising noted. Denies pain, Unknown LOC (dementia). Coronavirus screen: Vaccine status: Patient reports receiving the 2nd dose of the covid vaccine. Client denies travel out of the [place] in the last 14 days. At this time, the client does not indicate any symptoms associated with coronavirus-19. Ebola Screen: Patient denies travel to an Ebola-affected area in the 21 days before illness onset. Initial Sepsis Screen: Does the patient meet any 2 criteria? No. Patient's initial sepsis screen is negative. Does the patient have a suspected source of infection? No. Patient's initial sepsis screen is negative. Risk Assessment: Do you want to hurt yourself or someone else? Patient reports no desire to harm self or others. Onset of symptoms was March 14, 2022. 18:32 Method Of Arrival: Ambulatory ll1 18:32 Acuity: CHEVY 3 ll1 Triage Assessment: 18:34 General: Appears in no apparent distress. Behavior is calm, cooperative, appropriate ll1 for age. Pain: Denies pain. EENT: Reports pain in right cheek and right jaw. Neuro: Reports headache. Musculoskeletal: Circulation, motion, and sensation intact. Capillary refill < 3 seconds. Historical: - Allergies: 18:29 Compazine; ll1 - PMHx: 18:29 High Cholesterol; Diabetes - NIDDM; Hypertension; bladder problems; Diabetes - IDDM; ll1 - PSHx: 18:29 Left knee replacement; right rotator cuff; ll1 - Immunization history:: Client reports receiving the 2nd dose of the Covid vaccine. - Social history:: Smoking status: Patient denies any tobacco usage or history of. - Family history:: not pertinent. Screenin:11 Abuse screen: Denies threats or abuse. Denies injuries from another. Nutritional tp1 screening: No deficits noted. Tuberculosis screening: No symptoms or risk factors identified. Fall Risk Fall in past 12 months (25 points). Secondary diagnosis (15 points) dementia, IV access (20 points). Ambulatory Aid- None/Bed Rest/Nurse Assist (0 pts). Gait- Normal/Bed Rest/Wheelchair (0 pts) Mental Status- Oriented to own ability (0 pts). Total [place] Fall Scale indicates High Risk Score (45 or more points). Fall prevention measures have been instituted. Side Rails Up X 2 Placed Close to Nursing Station Frequent Obs/Assessments Occuring Family Present and informed to notify staff if the need to leave the bedside As available patient and family educated on Fall Prevention Program and Strategies. Assessment: 20:35 General: Appears in no apparent distress. comfortable. Cardiovascular: Patient's skin tp1 is warm and dry. Respiratory: Airway is patent Respiratory effort is even, unlabored. Derm: Skin is pink, warm \T\ dry. Musculoskeletal: Circulation, motion, and sensation intact. 20:40 Reassessment: Escorted to CT via wheelchair by [employer]. tp1 21:10 General: Behavior is calm, cooperative. Pain: Denies pain. Neuro: Level of tp1 Consciousness is awake, alert, obeys commands, Oriented to person, place, time, situation, daughter states PT is at baseline . GI: Abdomen is obese, Abd is soft and non tender. : No signs and/or symptoms were reported regarding the genitourinary system. EENT: No signs and/or symptoms were reported regarding the EENT system. Injury Description: Abrasion sustained to right cheek. 21:43 Reassessment: Patient appears in no apparent distress at this time. No changes from tp1 previously documented assessment. Patient and/or family updated on plan of care and expected duration. Pain level reassessed. Patient is alert, oriented x 3, equal unlabored respirations, skin warm/dry/pink. Patient denies pain at this time. 22:53 Reassessment: Patient appears in no apparent distress at this time. No changes from tp1 previously documented assessment. Patient is alert, oriented x 3, equal unlabored respirations, skin warm/dry/pink. Patient denies pain at this time. Vital Signs: 18:32 BP 157 / 81; Pulse 66; Resp 18; Temp 98.9; Pulse Ox 99% ; Weight 58.97 kg; Height 4 ft. ll1 11 in. (149.86 cm); Pain 0/10; 21:13 BP 157 / 68; Pulse 65; Resp 16; Pulse Ox 100% on R/A; tp1 22:17 BP 175 / 65; Pulse 67; Resp 19; Pulse Ox 100% on R/A; tp1 22:54 BP 140 / 65; Pulse 68; Resp 16; Pulse Ox 99% on R/A; tp1 18:32 Body Mass Index 26.26 (58.97 kg, 149.86 cm) ll1 ED Course: 18:22 Patient arrived in ED. am2 18:23 Sugey Thompson MD is Private Physician. am2 18:34 Triage completed. ll1 18:35 Arm band placed on. ll1 18:57 Tano Miller MD is Attending Physician. rt 20:42 Missed attempt(s): 20 gauge in right forearm. Bleeding controlled, band aid applied, aa9 catheter tip intact. 20:43 Donna Oliver, BHARAT is Primary Nurse. tp1 20:43 Basic Metabolic Panel Sent. aa9 20:43 CBC with Diff Sent. aa9 20:43 Troponin HS Sent. aa9 20:47 Head C Spine Mpr Wo Con In Process Unspecified. EDMS 21:06 Hand Right 3 View XRAY In Process Unspecified. EDMS 21:12 Patient has correct armband on for positive identification. Bed in low position. Call tp1 light in reach. Side rails up X 1. Adult w/ patient. 21:12 Inserted saline lock: 20 gauge in left antecubital area, using aseptic technique. tp1 23:43 No provider procedures requiring assistance completed. Patient did not have IV access vc1 during this emergency room visit. Administered Medications: No medications were administered Medication: 23:43 VIS not applicable for this client. vc1 Outcome: 23:17 Discharge ordered by . rt 23:43 Discharged to home ambulatory. vc1 23:43 Condition: good 23:43 Discharge instructions given to patient, Instructed on discharge instructions, follow up and referral plans. Demonstrated understanding of instructions, follow-up care. 23:43 Patient left the ED. vc1 Signatures: Dispatcher [employer] EDDE Ana Decker am2 Tom Bassett, RN RN ll1 Donna Oliver, RN RN tp1 Elena Mendez, RN RN vc1 Nella Lopez, RN RN aa9 Tano Miller MD MD rt
--- NOTE | 2022-03-14 23:18 | EDPHYS ---
Physician Documentation [facility] Name: María Robison Age: 76 yrs Sex: Female : 1945 Arrival Date: 03/14/2022 Time: 18:22 Bed 19 Private MD: Sugey Thompson C ED Physician Tano Miller HPI: 03/14 20:23 This 76 yrs old Female presents to ER via Ambulatory with complaints of Fall Injury, rt Facial Injury. 20:23 Details of fall: The patient fell from an upright position. Onset: The symptoms/episode rt began/occurred just prior to arrival. Associated injuries: The patient sustained injury to the head, abrasion. Severity of symptoms: At their worst the symptoms were mild. Presents to the ED following a fall. She cannot recall the circumstances surrounding the fall. Patient reportedly hit the right side of her head, breaking her hearing aid. Just reports of bruising to the right hand. She denies any preceding symptoms. Unclear if she had a syncopal event or not. She denies other acute complaints at this time stating that she feels well in the ED. Symptoms are mild in severity, no other aggravating or alleviating factors.. Historical: - Allergies: 18:29 Compazine; ll1 - PMHx: 18:29 High Cholesterol; Diabetes - NIDDM; Hypertension; bladder problems; Diabetes - IDDM; ll1 - PSHx: 18:29 Left knee replacement; right rotator cuff; ll1 - Immunization history:: Client reports receiving the 2nd dose of the Covid vaccine. - Social history:: Smoking status: Patient denies any tobacco usage or history of. - Family history:: not pertinent. ROS: 20:23 MS/extremity: Positive for contusion, Negative for laceration. rt Exam: 20:23 Constitutional: This is a well developed, well nourished patient who is awake, alert, rt and in no acute distress. Eyes: Pupils equal round and reactive to light, extra-ocular motions intact. Lids and lashes normal. Conjunctiva and sclera are non-icteric and not injected. Cornea within normal limits. Periorbital areas with no swelling, redness, or edema. Neck: Trachea midline, no thyromegaly or masses palpated, and no cervical lymphadenopathy. Supple, full range of motion without nuchal rigidity, or vertebral point tenderness. No Meningismus. Chest/axilla: Normal chest wall appearance and motion. Nontender with no deformity. No lesions are appreciated. Cardiovascular: Regular rate and rhythm with a normal S1 and S2. No gallops, murmurs, or rubs. Normal PMI, no JVD. No pulse deficits. Respiratory: Lungs have equal breath sounds bilaterally, clear to auscultation and percussion. No rales, rhonchi or wheezes noted. No increased work of breathing, no retractions or nasal flaring. Abdomen/GI: Soft, non-tender, with normal bowel sounds. No distension or tympany. No guarding or rebound. No evidence of tenderness throughout. Back: No spinal tenderness. No costovertebral tenderness. Full range of motion. Skin: Warm, dry with normal turgor. Normal color with no rashes, no lesions, and no evidence of cellulitis. Neuro: Awake and alert, GCS 15, oriented to person, place, time, and situation. Cranial nerves II-XII grossly intact. Motor strength 5/5 in all extremities. Sensory grossly intact. Cerebellar exam normal. Normal gait. Psych: Awake, alert, with orientation to person, place and time. Behavior, mood, and affect are within normal limits. 20:23 Head/face: Normocephalic, abrasion to the right jawline, able to open and close mouth without difficulty, no laceration.. 20:23 ENT: No obvious foreign body to the right EAC, difficult to Schweiss TM, no obvious rupture.. 20:23 Musculoskeletal/extremity: Bruising to the dorsum over the right fourth metacarpal, no deformities, minimal tenderness at that region.. 22:10 ECG was reviewed by the Attending Physician. rt Vital Signs: 18:32 BP 157 / 81; Pulse 66; Resp 18; Temp 98.9; Pulse Ox 99% ; Weight 58.97 kg; Height 4 ft. ll1 11 in. (149.86 cm); Pain 0/10; 21:13 BP 157 / 68; Pulse 65; Resp 16; Pulse Ox 100% on R/A; tp1 22:17 BP 175 / 65; Pulse 67; Resp 19; Pulse Ox 100% on R/A; tp1 22:54 BP 140 / 65; Pulse 68; Resp 16; Pulse Ox 99% on R/A; tp1 18:32 Body Mass Index 26.26 (58.97 kg, 149.86 cm) ll1 MDM: 20:06 Patient medically screened. rt 23:20 Differential diagnosis: abrasion, closed head injury. Data reviewed: vital signs, rt nurses notes, lab test result(s), EKG, radiologic studies. ED course: This to the ED with a fall. Is unclear if this represented a syncopal event or not. She is completely symptomatic in the ED. Her EKG shows left bundle branch block, no acute findings. Her labs are unremarkable. CT scan of the head is unremarkable. At this time, she is not likely to benefit from mission to the hospital, stable for outpatient care, return precautions were discussed.. 03/14 20:17 Order name: Basic Metabolic Panel; Complete Time: 23:08 rt 03/14 20:17 Order name: CBC with Diff; Complete Time: 21:34 rt 03/14 20:17 Order name: Hand Right 3 View XRAY; Complete Time: 21:34 rt 03/14 20:17 Order name: Troponin HS; Complete Time: 23:08 rt 03/14 20:17 Order name: EKG; Complete Time: 20:18 rt 03/14 20:17 Order name: Cardiac monitoring; Complete Time: 21:14 rt 03/14 20:17 Order name: EKG - Nurse/Tech; Complete Time: 21:25 rt 03/14 20:17 Order name: IV Saline Lock; Complete Time: 21:14 rt 03/14 20:17 Order name: Labs collected and sent; Complete Time: 20:43 rt 03/14 20:28 Order name: Head C Spine Mpr Wo Con; Complete Time: 21:34 EDMS EC:10 Rate is 64 beats/min. Rhythm is regular, Normal Sinus Rhythm. QRS [place] is Normal. [place] rt interval is normal. QRS interval is normal. QT interval is normal. No Q waves. T waves are Normal. No ST changes noted. Interpreted by me. Administered Medications: No medications were administered Disposition Summary: 03/14/22 23:17 Discharge Ordered Location: Home rt Problem: new rt Symptoms: have improved rt Condition: Stable rt Diagnosis - Fall on same level, unspecified rt - Unspecified injury of head, initial encounter rt Followup: rt - With: Private Physician - When: 2 - 3 days - Reason: Discharge Instructions: - Discharge Summary Sheet rt - Head Injury, Adult rt Forms: - Medication Reconciliation Form rt - Thank You Letter rt - Antibiotic Education rt - Prescription Opioid Use rt Signatures: Dispatcher [employer] EDTom Finch, RN RN ll1 Tano Miller MD MD rt Corrections: (The following items were deleted from the chart) 20:28 19:22 Head Brain Wo Cont+CT.RAD.BRZ ordered. EDMS EDMS 20:31 19:24 C Spine Wo Con+CT.RAD.BRZ ordered. EDMS EDMS
[2022-03-14 23:53] VITALS: TEMP 98.9
[2022-03-15 00:18] VITALS: BP 140/65; O2SAT 99
--- NOTE | 2022-03-17 19:19 | EKG ---
Test Date: 2022-03-14 Test Time: 21:19:57 [employer] Hvac Technician: TP MEASUREMENT RESULTS: Intervals: Rate: 64 OK: 136 QRSD: 68 QT: 446 QTc: 460 Cobb: P: 44 OK: 136 QRS: 4 T: 78 INTERPRETIVE STATEMENTS: Normal sinus rhythm Cannot rule out Anterior infarct, age undetermined Abnormal ECG Compared to ECG 01/14/2018 07:55:24 Myocardial infarct finding now present Electronically Signed On 03-17-22 19:11:14 OPERATIONS DIRECTOR by Fausto Segura
== END 2022-03-14 23:43 | disposition home or self-care (01) ==
LOC: ER 18:22
DX: S00.83XA Contusion of other part of head, initial encounter (principal); W18.30XA Fall on same level, unspecified, initial encounter; I10 Essential (primary) hypertension; Z88.8 Allergy status to other drugs, medicaments and biological substances
CPT/HCPCS: 36415; 70450; 72125; 80048; 84484; 85025; 93005; 99284

== ENCOUNTER 2022-12-08 14:04 | Emergency (ER) | payer OTHER ==
[2022-12-08 14:32] LABS: Absolute Lymphocytes (CBC) 2.4 K/uL (0.7-4.9); Hematocrit 41.4 % (36.0-45.0); Lymphocytes % 35.9 % (15.3-44.8); MCV 88.9 fL (80-100); MPV 8.8 fL (7.6-11.3); Platelets 225 thou/uL (152-406); RBC Red Blood Cell Count 4.66 M/uL (3.86-4.86)
[2022-12-08 14:46] LABS: Protime INR 0.96
[2022-12-08] MEDS ORDERED: TENECTEPLASE 50 MG/10 ML VIAL IV ONE (14:49)
[2022-12-08 14:51] LABS: Albumin 3.1 g/dL (3.4-5.0); Bilirubin Direct 0.2 mg/dL (0-0.2); Bilirubin Indirect, Calculated 0.3 mg/dL (0.2-0.8); Bilirubin Total 0.5 mg/dL (0.2-1.0); Magnesium 1.9 mg/dL (1.6-2.4); Potassium 3.6 mEq/L (3.5-5.1); Protein, Total 6.4 g/dL (6.4-8.2); Troponin High Sensitivity 3.5 pg/mL (<58.9)
--- NOTE | 2022-12-08 14:51 | RAD REPORT ---
EXAM DESCRIPTION: CT - Ct Stroke Brain Wo Cont - 12/08/2022 2:25 pm CLINICAL HISTORY: STROKE ALERT COMPARISON: HEAD BRAIN W O CONTRAST dated 12/07/2011; Head C Spine Mpr Wo Con dated 03/14/2022 TECHNIQUE: Noncontrast head CT images were obtained without IV contrast. Multiplanar reformats were generated and reviewed. All CT scans are performed using dose optimization technique as appropriate and may include automated exposure control or mA/KV adjustment according to patient size. FINDINGS: No intracranial hemorrhage, mass, or edema. Midline structures are unremarkable. Normal ventricular caliber for age, with mild diffuse parenchymal volume loss. Mild burden of nonspecific periventricular and deep white matter hypodensities, suggestive of chronic small vessel ischemic changes. Mahmood-white matter differentiation is preserved, without evidence of acute infarct. No abnormal extra- axial fluid collections. Mastoid air cells are opacified bilaterally. Visualized portions of the paranasal sinuses are clear. No acute bony findings. IMPRESSION: No evidence of an acute intracranial process. Bilateral opacified mastoid air cells may relate to effusions. The findings were communicated to Sony Lin on 12/08/2022 at 14:44 hours.
--- OUTSIDE RECORDS SUMMARY | 2022-12-08 15:24 | XMS REPORT | Continuity of Care Document ---
:1945 Author Organization [facility] t Address [address] [place] [address] [address] [place] [address] Care Team Providers Name Role Phone Asked, No Pcp Primary Care Physician Unavailable Sina Asher Attending Clinician SILVA PAZ Attending Clinician Unavailable HARVEY FREITAS Attending Clinician Unavailable Silva Gautam Attending Clinician Harvey Freitas MD Attending Clinician Beata Perla RN Attending Clinician Unavailable Only, Ang Db Test Attending Clinician Unavailable Sandra Tang Attending Clinician SANDRA TOLBERT Attending Clinician Unavailable Doctor Unassigned, [facility] Attending Clinician Unavailable Ziggy_Johnnie Attending Clinician Unavailable Lab, Adc Fam Pob I Attending Clinician Unavailable Sony Olmos Attending Clinician Ashley Powers Attending Clinician Oralia Admitting Clinician Unavailable Andreas Mccartney Admitting Clinician Payers Payer Name Policy Type Policy Number Effective Date Expiration Date S cee [facility] [id number] 2020 [facility] 00:00:00 O [facility] [id number] (MEDICARE REPLACEMENT/ADVANT AGE - PPO) [place] (MEDICARE [id number] 2019 2020 REPLACEMENT/ADVANT 00:00:00 00:00:00 AGE - PPO) [employer] MEDICARE [id number] 2016 ERS 00:00:00 Problems Condition Condition Condition Status Onset Resolution Last Treating Co mments Source Name Details Category Date Date Treatment Clinician Date Overweight Overweight Problem Active 2020-04 V ill[place] 1-09 Family 00:00: Practic 00 e Orthostati Orthostati Problem Active 2020-04 V illage c c 1-09 Family hypotensio Hypotensio 00:00: Pr actic n n 00 e Recurrent Recurrent Problem Active 2020-04 [place] 1-09 Family 00:00: Practic 00 [...] 0-02 it y of is is 00:00: [place] 00 Medical Branch Uncontroll Uncontroll Disease Active U roderick ed ed 09-26 ity of diabetes diabetes 00:00: [place] mellitus mellitus 00 Medica l type 2 type 2 Branch without without complicati complicati ons ons Primary Primary Disease Active Univers hypothyroi hypothyroi 5 it y of dism dism 00:00: [place] [facility] Wrist pain Wrist pain Disease Active 2014-04 U nivers 0-28 ity of 00:00: [place] [facility] Hand pain Hand pain Disease Active 2014-04 Uni vers 0-28 ity of 00:00: [place] 00 Medical Branch LIFE LIFE Diagnosis Active 2013-11-19 [facility] FLIGHT FLIGHT 11-19 11:46:00 l BILLING BILLING 00:00: Kris Active 00 11/19/2013 [facility] SNAKEBITE SNAKEBITE Diagnosis Active 2013-11-19 Memoria Active 11-19 11:39:00 l 11/19/2013 00:00: Joe chery [address] Atheroscle Atheroscl Problem Resolve 2021-11-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 rosis of erosis of d 21:55:11 l coronary coronary Joe n artery artery (disorder) (disorder) Resolved Problem 11/02/2021 [facility] Diabetes Diabetes Problem Resolve 2021-11-02 Memoria mellitus mellitus d 21:55:11 l (disorder) (disorder) He rmann Resolved Problem 11/02/2021 [facility] Hypothyroi Problem Resolve 2021-11-02 Memoria dism Hypothyroi d 21:55:11 l (disorder) dism Joe n (disorder) Resolved Problem 11/02/2021 [facility] Dementia Dementia Problem Active 2022-08-25 Memoria (disorder) (disorder) 13:24:25 l Active Kris Problem 08/25/2022 [facility] 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 [facility] Headache Headache Problem Active 2022-08-25 Memoria (finding) (finding) 13:24:25 l Active [place] Problem 08/25/2022 [facility] Hypertensi Hypertens Problem Active 2022-08-25 Memoria ve angel 13:24:25 l disorder, disorder, Herm valarie systemic systemic arterial arterial (disorder) (disorder) Active Problem 08/25/2022 [facility] Hyperlipid Hyperlipi Problem Active 2022-08-25 [facility] 13:24:25 l (disorder) (disorder) He rmann Active Problem 08/25/2022 [facility] History of Past Illness Condition Condition Condition Status Onset Resolution Last Treating Co mments Source Name Details Category Date Date Treatment Clinician Date Discharge Discharge Problem 2013-11-22 2013-11-22 Memoria Diagnosis: Diagnosis: 11-19 03:26:16 03:26:16 l Snake bite Snake bite 05:00: He rmann 11/19/2013 00 11/22/2013 [facility] Allergies, Adverse Reactions, Alerts Allergy Allergy Status Severity Reaction(s) Onset Inactive Treating Comm ents Source Name Type Date Date Clinician Tamiko Propensi Active Unknown - 2014-04 Mental Uni vers perazine ty to See comments 0-28 reaction ity of adverse 00:00: [place] reaction 00 Medical s Branch PROCHLOR DRUG Active Unknown-Cmnt 2014-04 Un jessika PERAZINE INGREDI 0-28 ity of 00:00: [place] 00 Medical Branch Compazin Allergy Active Anaphylaxis Vi llage e to Family substanc Practic e e Compazin Compazin Active Memori a e e l [place] Social History Social Habit Start Date Stop Date Quantity Comments Source History SDOH Alcohol [facility] Comment Medical Branch History SDOH Alcohol [facility] Std Drinks Medical Branch History SDOH Alcohol [facility] Binge Medical Branch Gender identity [facility] Sexual orientation Method [facility] Alcohol intake 2021-10-23 2021-10-23 0 /d [facility] 00:00:00 00:00:00 Medical Branch Exposure to 2021-10-11 2021-10-21 Not sure [facility] SARS-CoV-2 (event) 00:00:00 17:38:00 Medica l Branch History SDOH Alcohol 2020-07-18 2020-07-18 1 [facility] Frequency 00:00:00 00:00:00 Medical Branch Sex [birth year] Met [facility] 00:00:00 00:00:00 Smoking Status Start Date Stop Date Source Tobacco smoking consumption unknown [facility] Tobacco smoking status [facility] Medications Ordered Filled Start Stop Current Ordering Indication Dosage Frequency Signature Comments Components Source Medication Medication Date Date Medication? Clinician (SIG) Name Name sotalol 80 2021-04 Yes TAKE 1/2 Mem oria mg oral 0-21 TABLET BY l tablet 18:40: MOUTH Kris 00 TWICE DAILY aspirin 325 2021-04 Yes 325 mg = 1 Memoria mg tablet 0-21 tab, PO, l 18:40: Daily, # Kris 00 90 tab, 3 Refill(s) sotalol 80 2021-04 Yes TAKE 1/2 Mem oria mg oral 0-21 TABLET BY l tablet 18:40: MOUTH [place] 00 TWICE DAILY aspirin 325 2021-04 Yes 325 mg = 1 Memoria mg tablet 0-21 tab, PO, l 18:40: Daily, # [place] 00 90 tab, 3 Refill(s) memantine Yes = 1 tab, Ronald johana 10 mg oral 9-26 PO, BID, # l tablet 13:22: 180 tab, 2 Daphne nn 00 Refill(s), Pharmacy: [facility] STORE [id number], 149.86, cm, 07/20/21 11:05:00 CDT, Height, 57.273, kg, 07/20/21 11:05:00 CDT, Weight galantamine Yes = 1 cap, Me moria 8 mg oral 9-26 PO, QAM, # l capsule, 13:22: 90 unknown Her urbano extended 00 unit, 2 release Refill(s), Pharmacy: [facility] STORE [id number], 149.86, cm, 07/20/21 11:05:00 CDT, Height, 57.273, kg, 07/20/21 11:05:00 CDT, Weight memantine Yes = 1 tab, Ronald johana 10 mg oral 9-26 PO, BID, # l tablet 13:22: 180 tab, 2 Daphne nn 00 Refill(s), Pharmacy: [facility] STORE [id number], 149.86, cm, 07/20/21 11:05:00 CDT, Height, 57.273, kg, 07/20/21 11:05:00 CDT, Weight galantamine Yes = 1 cap, Me moria 8 mg oral 9-26 PO, QAM, # l capsule, 13:22: 90 unknown Her urbano extended 00 unit, 2 release Refill(s), Pharmacy: [facility] STORE [id number], 149.86, cm, 07/20/21 11:05:00 CDT, Height, 57.273, kg, 07/20/21 11:05:00 CDT, Weight hyaluronate 2021- No [id number] 16mg Univers (SYNVISC) 10-23 9100 ity of injection 21:45: 20:38 [place] 16 mg 00 :00 Medical Branch hyaluronate 2021- No [id number] 16mg 16 mg, Univers (SYNVISC) 10-23 9100 Intra-deep ity of injection 21:45: 20:38 cular, [place] 16 mg 00 :00 ONCE, 1 Medical dose, On Branch 10/23/21 at 1645, Routine tramadol Yes TAKE 1 Memoria hydrochlori 3-24 TABLET BY l de 50 MG 16:17: MOUTH [place] Oral Tablet 00 THREE TIMES A DAY NEEDED FOR PAIN meloxicam Yes TAKE 1 Memori a 15 mg oral 3-24 TABLET BY l tablet 16:17: MOUTH [place] 00 EVERY DAY WITH FOOD tramadol 50 Yes TAKE 1 Ronald johana mg oral 3-24 TABLET BY l tablet 16:17: MOUTH Kris 00 THREE TIMES A DAY NEEDED FOR PAIN tramadol Yes TAKE 1 Memoria hydrochlori 3-24 TABLET BY l de 50 MG 16:17: MOUTH [place] Oral Tablet 00 THREE TIMES A DAY NEEDED FOR PAIN tramadol 50 Yes TAKE 1 Ronald johana mg oral 3-24 TABLET BY l tablet 16:17: MOUTH [place] 00 THREE TIMES A DAY NEEDED FOR PAIN meloxicam Yes TAKE 1 Memori a 15 mg oral 3-24 TABLET BY l tablet 16:17: MOUTH Kris 00 EVERY DAY WITH FOOD 24 HR 2020-04 Yes 8 mg = 1 Memoria galantamine 1-02 cap, PO, l hydrobromid 20:29: QAM, # 90 H ermann e 8 MG 00 cap, 2 Extended Refill(s), Release Pharmacy: [facility] [[facility] cy #[id number], 147.32, cm, 02/28/21 15:03:00 CDT, Height, 56.824, kg, 02/28/21 15:03:00 CDT, Weight 24 HR 2020-04 Yes 8 mg = 1 Memoria galantamine 1-02 cap, PO, l hydrobromid 20:29: QAM, # 90 H ermann e 8 MG 00 cap, 2 Extended Refill(s), Release Pharmacy: [facility] [[facility]] cy #[id number], 147.32, cm, 02/28/21 15:03:00 CDT, Height, 56.824, kg, 02/28/21 15:03:00 CDT, Weight memantine 2020-04 Yes 10 mg = 1 Mem oria 10 mg oral 1-02 tab, PO, l tablet 20:23: BID, # 180 Daphne nn 00 tab, 2 Refill(s), Pharmacy: [facility] cy #[id number], 147.32, cm, 02/28/21 15:03:00 CDT, Height, 56.824, kg, 02/28/21 15:03:00 CDT, Weight memantine 2020-04 Yes 10 mg = 1 Mem oria 10 mg oral 1-02 tab, PO, l tablet 20:23: BID, # 180 Daphne nn 00 tab, 2 Refill(s), Pharmacy: [facility] cy #[id number], 147.32, cm, 02/28/21 15:03:00 CDT, Height, 56.824, kg, 02/28/21 15:03:00 CDT, Weight TRESIBA Yes Univers FLEXTOUCH 3-08 ity of U-100 100 00:00: [place] unit/mL (3 00 Medical mL) InPn Branch memantine Yes Univers 10 mg 3-05 ity of tablet 00:00: [place] 00 Medical Branch losartan 25 2020-0 Yes Univer s mg tablet 3-03 ity of 00:00: [place] 00 Medical Branch fluconazole 0 Yes TAKE 1 Univ ers 150 mg 2-26 TABLET BY ity of tablet 00:00: ORAL ROUTE [place] 00 ONCE FOR Medical VAGINAL Branch YEAST INFECTION Memantine Yes 10 mg = 1 Mem oria hydrochlori 1-28 tab, PO, l de 10 MG 18:08: BID, # 60 Herm valarie Oral Tablet 00 tab, 3 [Namenda] Refill(s), Pharmacy: [facility] cy #[id number], 152.4, cm, 05/26/20 11:42:00 CASH MANAGEMENT CLERK, Height, 88.636, kg, 05/26/20 11:42:00 CASH MANAGEMENT CLERK, Weight Memantine Yes 10 mg = 1 Mem oria hydrochlori -28 tab, PO, l de 10 MG 18:08: BID, # 60 Herm valarie Oral Tablet 00 tab, 3 [Namenda] Refill(s), Pharmacy: [facility] cy #[id number], 152.4, cm, 05/26/20 11:42:00 CASH MANAGEMENT CLERK, Height, 88.636, kg, 05/26/20 11:42:00 CASH MANAGEMENT CLERK, Weight Memantine Yes 10 mg = 1 Mem oria hydrochlori 05-26 tab, PO, l de 10 MG 18:08: BID, # 60 Herm valarie Oral Tablet 00 tab, 3 [Namenda] Refill(s), Pharmacy: [facility] #[id number], 152.4, cm, 05/26/20 11:42:00 CASH MANAGEMENT CLERK, Height, 88.636, kg, 05/26/20 11:42:00 CASH MANAGEMENT CLERK, Weight TRIJARDY XR Yes 2{tbl} Take 2 Un jessika 5-2.5-1,000 1-02 tablets by it y of mg TBph 00:00: mouth [place] 00 daily. Medical Branch pantoprazol 2019-04 Yes 40 mg, PO, Memoria e 2-09 Daily, # l 19:35: 30 tab, 0 [place] 00 Refill(s) Memantine 2019-04 Yes 5 mg = 1 Ronald johana hydrochlori 2-09 tab, PO, l de 5 MG 19:35: BID, # 60 Daphne nn Oral Tablet 00 tab, 3 [Namenda] Refill(s), Pharmacy: [facility] cy #[id number], 149.86, cm, 05/20/19 10:56:00 CASH MANAGEMENT CLERK, Height, 63.636, kg, 05/20/19 10:56:00 CASH MANAGEMENT CLERK, Weight 24 HR 2019-04 Yes 2 tab, [...] n 2-09 Daily, 0 l 19:35: Refill(s) [place] 00 pantoprazol 2019-04 Yes 40 mg, PO, Memoria e 2-09 Daily, # l 19:35: 30 tab, 0 [place] 00 Refill(s) Trijardy XR 2019-04 Yes 2 tab, PO, Memoria 25 mg-5 2-09 QAM, 0 l mg-1000 mg 19:35: Refill(s) He rmann oral 00 tablet, extended release Tresiba 2019-04 Yes 14 units, Memor ia 2-09 SUB-Q, l 19:35: Daily, 0 [place] 00 Refill(s) rosuvastati 2019-04 Yes 10 mg, PO, Memoria n 2-09 Daily, 0 l 19:35: Refill(s) [place] 00 pantoprazol 2019-04 Yes 40 mg, PO, Memoria e 2-09 Daily, # l 19:35: 30 tab, 0 Kris 00 Refill(s) Memantine 2019-04 Yes 5 mg = 1 Ronald johana hydrochlori 2-09 tab, PO, l de 5 MG 19:35: BID, # 60 Daphne nn Oral Tablet 00 tab, 3 [Namenda] Refill(s), Pharmacy: [facility] cy #[id number], 149.86, cm, 05/20/19 10:56:00 CASH MANAGEMENT CLERK, Height, 63.636, kg, 05/20/19 10:56:00 CASH MANAGEMENT CLERK, Weight 24 HR 2019-04 Yes 2 tab, PO, Memori a empaglifloz 2-09 QAM, 0 l in 25 MG / 19:35: Refill(s) He rmann linagliptin 00 5 MG / metformin hydrochlori de 1000 MG Extended Release Oral Tablet [Trijardy] Tresiba 2019-04 Yes 14 units, Memor ia 2-09 SUB-Q, l 19:35: Daily, 0 [place] 00 Refill(s) rosuvastati 2020-1 Yes 10 mg, PO, Memoria n 2-09 Daily, 0 l 19:35: Refill(s) [place] pantoprazol 2019-04 Yes 40 mg, PO, Memoria e 2-09 Daily, # l 19:35: 30 tab, 0 Kris 00 Refill(s) Memantine 2019-04 Yes 5 mg = 1 Ronald johana hydrochlori 2-09 tab, PO, l de 5 MG 19:35: BID, # 60 Daphne nn Oral Tablet 00 tab, 3 [Namenda] Refill(s), Pharmacy: [facility] #[id number], 149.86, cm, 05/20/19 10:56:00 CASH MANAGEMENT CLERK, Height, 63.636, kg, 05/20/19 10:56:00 CASH MANAGEMENT CLERK, Weight 24 HR 2019-04 Yes 2 tab, [...] n 2-09 Daily, 0 l 19:35: Refill(s) pantoprazol 2019-04 Yes 40 mg, PO, Memoria e 2-09 Daily, # l 19:35: 30 tab, 0 Kris 00 Refill(s) Trijardy XR 2019-04 Yes 2 tab, PO, Memoria 25 mg-5 2-09 QAM, 0 l mg-1000 mg 19:35: Refill(s) He rmann oral 00 tablet, extended release Tresiba 2019-04 Yes 14 units, Memor ia 2-09 SUB-Q, l 19:35: Daily, 0 Kris 00 Refill(s) rosuvastati 2019-04 Yes 10 mg, PO, Memoria n 2-09 Daily, 0 l 19:35: Refill(s) Kris donepezil Yes 10 mg = 1 Mem oria 10 mg oral 4-22 tab, PO, l tablet 14:45: Bedtime, # Daphne nn 00 30 tab, 3 Refill(s), Pharmacy: [facility] cy #[id number] donepezil 2020-0 Yes 10 mg = 1 Mem oria 10 mg oral 4-22 tab, PO, l tablet 14:45: Bedtime, # Daphne nn 00 30 tab, 3 Refill(s), Pharmacy: [facility] cy #[id number] donepezil 2020-0 Yes 10 mg = 1 Mem oria 10 mg oral 4-22 tab, PO, l tablet 14:45: Bedtime, # Daphne nn 30 tab, 3 Refill(s), Pharmacy: [facility] #[id number] Donepezil 2020-0 Yes 5 mg = 1 Ronald johana hydrochlori 1-22 tab, PO, l de 5 MG 17:33: Bedtime, # Herm valarie Oral Tablet 00 30 tab, 3 [Aricept] Refill(s), Pharmacy: [id number] Donepezil 2020-0 Yes 5 mg = 1 Ronald johana hydrochlori 1-22 tab, PO, l de 5 MG 17:33: Bedtime, # Herm valarie Oral Tablet 00 30 tab, 3 [Aricept] Refill(s), Pharmacy: [facility] #[id number] Donepezil 2020-0 Yes 5 mg = 1 Ronald johana hydrochlori 1-22 tab, PO, l de 5 MG 17:33: Bedtime, # Herm valarie Oral Tablet 00 30 tab, 3 [Aricept] Refill(s), Pharmacy: [facility] #[id number] Linagliptin 2020-0 Yes 5 mg = 1 Me moria 5 MG Oral 1-22 tab, PO, l Tablet 17:01: Daily, # Kris [Tradjenta] 00 30 tab, 3 Refill(s) Linagliptin 2020-0 Yes 5 mg = 1 Me moria 5 MG Oral 1-22 tab, PO, l Tablet 17:01: Daily, # Kris [Tradjenta] 00 30 tab, 3 Refill(s) Linagliptin [...] tab, PO, l tablet 17:24: Daily, # [place] 00 30 tab, 0 Refill(s) predniSONE 2018-04 Yes 5 mg = 1 Mem oria 5 mg oral 2-11 tab, PO, l tablet 17:24: Every Kris 00 Other Day, 2.5 QD, 0 Refill(s) [...] dulaglutide 2-11 Refill(s) l 3 MG/ML 17:24: [place] Prefilled 00 Syringe [Trulicity] losartan 2018-04 Yes 25 mg = 1 M emoria mg oral 2-11 tab, PO, l tablet 17:24: Daily, # [place] 00 30 tab, 0 Refill(s) amLODIPine 2018-04 [...] dulaglutide 2-11 Refill(s) l 3 MG/ML 17:24: [place] Prefilled 00 Syringe [Trulicity] amLODIPine 2018-04 Yes 5 mg = 1 Mem oria 5 mg oral 2-11 tab, PO, l tablet 17:24: Daily, # Kris 00 30 tab, 0 Refill(s) gemfibrozil 2018-04 Yes 600 mg = 1 Memoria 600 mg oral 2-11 tab, PO, l tablet 17:24: BID, # 60 Joe n 00 tab, 1 Refill(s) 0.5 ML 2018-04 Yes SUB-Q, 0 Memoria dulaglutide 2-11 Refill(s) l 3 MG/ML 17:24: [place] Prefilled 00 Syringe [Trulicity] predniSONE 2018-04 Yes 5 mg = 1 Mem oria 5 mg oral 2-11 tab, PO, l tablet 17:24: Every [place] 00 Other Day, 2.5 QD, 0 Refill(s) levothyroxi 2018-04 Yes 75 Memori a ne 75 mcg 2-11 microgram l (0.075 mg) 17:24: = 1 tab, Her urbano oral tablet 00 PO, Daily, 1/2 QD, 0 Refill(s) losartan 25 2018-04 Yes 25 mg = 1 M emoria mg oral 2-11 tab, PO, l tablet 17:24: Daily, # [place] 00 30 tab, 0 Refill(s) gemfibrozil Yes TAKE 1 Univ ers 600 mg 8-27 TABLET BY ity of tablet 00:00: MOUTH 00 TWICE A Medical DAY Branch rosuvastati Yes TAKE 1 Univ ers n 5 mg 8-27 TABLET BY ity of tablet 00:00: MOUTH 2 00 TIMES A Medical WEEK Branch predniSONE Yes 5mg Take 5 mg Un jessika 5 mg tablet - by mouth ity of 00:00: daily. 00 Medical Branch pantoprazol Yes TAKE 1 Univ ers e 40 mg EC 7- TABLET BY ity of tablet 00:00: MOUTH 00 EVERYDAY Medical AT BEDTIME Branch ACCU-CHEK Yes Use as Univer s GUIDE 08-07 directed, ity of GLUCOSE 00:00: TID, [place] METER Mis 00 DX:E11.9 Medic al Branch metoprolol Yes 50mg Take 50 mg U nivers succinate 07-29 by mouth. ity o f XL 50 mg 24 09:07: [place] hr tablet 26 Medical Branch amlodipine Yes Take by Univ ers besylate - mouth. ity of (AMLODIPINE 09:07: [place] ORAL) 26 Medical Branch blood sugar Yes [id number] Use daily Univers diagnostic 4- DX E11.8. ity of (FREESTYLE 00:00: Twice [place] LITE 00 daily Medical STRIPS) Branch strip Insulin Yes [id number] Use as Univ ers [place], 4- directed, ity of Disposable, 00:00: twice [place] (PEN 00 daily, Medical NEEDLE) 31 DX;E11.8 Branc h gauge x 5/16" Ndle Lancets Yes [id number] Use as Univ ers (ACCU-CHEK 4-02 directed, ity of FASTCLIX 00:00: 1-2 times [place] LANCET 00 daily, Medical DRUM) [facility] DX:E11.9 Branc h diclofenac Yes [id number] 75mg Take 1 U nivers 75 mg EC 2-21 tablet by ity of tablet 00:00: mouth 2 00 (two) Medical times Branch daily with meals. Insulin Yes Use as Univers Syringe-Nee 2-06 directed ity of dle U-100 00:00: BID DX: [place] (INSULIN 00 E11.9 Medical SYRINGE) Branch 1/2 mL 30 gauge x 5/16 Syrg levothyroxi Yes Univer s ne 75 mcg 8-08 ity of tablet 00:00: [place] 00 Medical Branch 0.5 ML No Notes: Memoria Bordetella 7-24 (Tdap ) l pertussis 15:44: For Kris filamentous 00 Adolecent hemagglutin and Adult in vaccine, use For IM inactivated Use. Same 0.016 MG/ML as: Adacel / (Tdap) Bordetella pertussis pertactin vaccine, inactivated 0.005 MG/ML / Bordetella pertussis toxoid vaccine, inactivated 0.016 MG/ML / diphtheria toxoid vaccine, inactivate 0.5 ML No Notes: Memoria Bordetella 7-24 (Tdap ) l pertussis 15:44: For Kris filamentous 00 Adolecent hemagglutin and Adult in vaccine, use For IM inactivated Use. Same 0.016 MG/ML as: Adacel / (Tdap) Bordetella pertussis pertactin vaccine, inactivated 0.005 MG/ML / Bordetella pertussis toxoid vaccine, inactivated 0.016 MG/ML / diphtheria toxoid vaccine, inactivate 0.5 ML No Notes: Memoria Bordetella 7-24 (Tdap ) l pertussis 15:44: For Kris filamentous 00 Adolecent hemagglutin and Adult in [...] 7-24 Refill(s) l de 500 MG 15:12: Kris Oral Tablet 00 Hydrochloro Yes 0 Memori a thiazide 7-24 Refill(s) l 12.5 MG / 15:12: Losartan 00 Potassium 100 MG Oral Tablet Metformin Yes 0 Memoria hydrochlori 7-24 Refill(s) l de 500 MG 15:12: Kris Oral Tablet 00 Hydrochloro Yes 0 Memori a thiazide 7-24 Refill(s) l 12.5 MG / 15:12: Losartan 00 Potassium 100 MG Oral Tablet Metformin Yes 0 Memoria hydrochlori 7-24 Refill(s) l de 500 MG 15:12: [place] Oral Tablet 00 Hydrochloro Yes 0 Memori a thiazide 7-24 Refill(s) l 12.5 MG / 15:12: Losartan 00 Potassium 100 MG Oral Tablet Fish Oil Yes 0 Memoria 7-24 Refill(s) l 15:11: metoprolol Yes 12.5 mg, Mem oria tartrate 7-24 PO, BID, 0 l 15:11: Refill(s) Aspirin Low Yes 0 Memori a Dose 81 mg 7-24 Refill(s) l oral tablet 15:11: Joe n Aspirin Low Yes 0 Memori a Dose 81 mg 7-24 Refill(s) l oral tablet 15:11: Joe n Fish Oil Yes 0 Memoria 7-24 Refill(s) l 15:11: metoprolol Yes 0 Memoria tartrate 7-24 Refill(s) l 15:11: Fish Oil Yes 0 Memoria 7-24 Refill(s) l 15:11: metoprolol Yes 12.5 mg, Mem oria tartrate 7-24 PO, BID, 0 l 15:11: Refill(s) Aspirin Low Yes 0 Memori a Dose 81 mg 7-24 Refill(s) l oral tablet 15:11: Joe n Crestor Yes 0 Memoria 7-24 Refill(s) l 15:10: oxybutynin Yes 0 Memoria 7-24 Refill(s) l 15:10: Crestor Yes 0 Memoria 7-24 Refill(s) l 15:10: oxybutynin Yes 0 Memoria 7-24 Refill(s) l 15:10: Crestor Yes 0 Memoria 7-24 Refill(s) l 15:10: oxybutynin Yes 0 Memoria 7-24 Refill(s) l 15:10: Accu-Chek Accu-Chek No Accu-Chek [facility] FastClix FastClix FastClix Fam jose Lancing Lancing Lancing Practi c Device Device Device e Accu-Chek Accu-Chek No Accu-Chek [facility] Guide test Guide test Guide test Family [...] by oral route. alprazolam alprazolam No alprazolam [facility] 0.25 mg 0.25 mg 0.25 mg Family tablet tablet tablet Practic e amlodipine amlodipine No amlodipine [facility] 5 mg tablet 5 mg tablet 5 [...] DX E11.8 90 ciprofloxac ciprofloxac No ciprofloxa [facility] in 500 mg in 500 mg laxmi 500 mg Family tablet tablet tablet Practic e diclofenac diclofenac No diclofenac [facility] sodium 75 sodium 75 sodium 75 Family mg mg mg Practic tablet,korin tablet,korin tablet,del e yed release yed release ayed release dicyclomine dicyclomine No dicyclomin [facility] 10 mg 10 mg e 10 mg Family capsule capsule capsule Practi c e donepezil donepezil No donepezil [facility] 10 mg 10 mg 10 mg Family tablet tablet tablet Practic e famotidine famotidine No famotidine [facility] 20 mg 20 mg 20 mg Family tablet tablet tablet Practic e fluconazole fluconazole No fluconazol [facility] 150 mg 150 mg e 150 mg Family tablet TAKE tablet TAKE tablet Practic 1 TABLET BY 1 TABLET BY TAKE 1 e ORAL ROUTE ORAL ROUTE TABLET BY ONCE FOR ONCE FOR ORAL ROUTE VAGINAL VAGINAL ONCE FOR YEAST YEAST VAGINAL INFECTION INFECTION YEAST INFECTION FreeStyle FreeStyle No FreeStyle [facility] Soheila 14 Soheila 14 Soheila 14 Fam jose Day Sensor Day Sensor Day Sensor Practic e galantamine galantamine No galantamin [facility] ER 8 mg 24 ER 8 mg 24 e ER 8 mg Family hr hr 24 hr Practic capsule,ext capsule,ext capsule,ex e ended ended tended release release release Humira(CF) Humira(CF) No Humira(CF) [facility] Pen 40 Pen 40 Pen 40 Family mg/0.4 mL mg/0.4 mL mg/0.4 mL Practic subcutaneou subcutaneou subcutaneo e s kit s kit us kit hydroxychlo hydroxychlo No hydroxychl [facility] roquine 200 roquine 200 oroquine Family mg tablet mg tablet 200 mg Pra ctic tablet e levothyroxi levothyroxi No levothyrox [facility] ne 75 mcg ne 75 mcg ine 75 mcg Family tablet 1 tablet 1 tablet 1 Pra ctic TABLET BY TABLET BY TABLET BY e MOUTH MOUTH MOUTH DAILY, 30 DAILY, 30 DAILY, 30 MINUTES MINUTES MINUTES BEFORE BEFORE BEFORE BREAKFAST BREAKFAST BREAKFAST lorazepam lorazepam No lorazepam [facility] 0.5 mg 0.5 mg 0.5 mg Family tablet tablet tablet Practic e losartan 25 losartan 25 No losartan [place] mg tablet mg tablet 25 mg Fami ly TAKE 1 TAKE 1 tablet Practic TABLET BY TABLET BY TAKE 1 e MOUTH EVERY MOUTH EVERY TABLET BY DAY DAY MOUTH EVERY DAY memantine memantine No memantine [facility] 10 mg 10 mg 10 mg Family [...] TWICE A DAY metoprolol metoprolol No metoprolol [facility] tartrate 25 tartrate 25 tartrate Family mg tablet mg tablet 25 mg Prac tic tablet e metoprolol [facility] tartrate 50 tartrate 50 tartrate Family mg tablet mg tablet 50 mg Prac tic TAKE 1 TAKE 1 tablet e TABLET BY TABLET BY TAKE 1 MOUTH TWICE MOUTH TWICE TABLET BY A DAY A DAY MOUTH TWICE A DAY metronidazo metronidazo No metronidaz [facility] le 500 mg le 500 mg ole 500 mg Family tablet tablet tablet Practic e ondansetron ondansetron No ondansetro [facility] HCl 4 mg HCl 4 mg n HCl 4 mg F amily tablet tablet tablet Practic e pantoprazol pantoprazol No pantoprazo [facility] e 40 mg e 40 mg le [...] MOUTH EVERY DAY prednisone prednisone No prednisone [facility] 5 mg tablet 5 mg tablet 5 mg F amily TAKE 1 TAKE 1 tablet Practic TABLET BY TABLET BY TAKE 1 e MOUTH EVERY MOUTH EVERY TABLET BY OTHER DAY OTHER DAY MOUTH EVERY OTHER DAY rosuvastati rosuvastati No rosuvastat [facility] n 10 mg n 10 mg in 10 mg Famil y tablet TAKE tablet TAKE tablet Practic 1 TABLET BY 1 TABLET BY TAKE 1 e MOUTH MOUTH TABLET BY EVERYDAY AT EVERYDAY AT MOUTH BEDTIME BEDTIME EVERYDAY AT BEDTIME rosuvastati rosuvastati No 1 Q1D rosuvastat [facility] n 5 mg n 5 mg in [...] 30 Trijardy XR Trijardy XR No Trijardy [facility] 5 mg-2.5 5 mg-2.5 XR Family mg-1,000 mg mg-1,000 mg mg-2.5 Practic tablet, tablet, mg-1,000 e extended extended mg tablet, release release extended TAKE 2 TAKE 2 release TABLETS BY TABLETS BY TAKE 2 MOUTH EVERY MOUTH EVERY TABLETS BY DAY DAY MOUTH EVERY DAY Immunizations Ordered Filled Immunization Date Status Comments [facility] e Immunization Name Name SARS-COV-2 COVID-19 2020-07-07 [facility]OX[facility]NE/J&J VACCINE 00:00:00 [facility] SARS-COV-2 SARS-COV-2 2020-06-27 Completed [facility] (COVID-19) vaccine, (COVID-19) vaccine, 00:00:00 Practice UNSPECIFIED UNSPECIFIED influenza, influenza, 2020-03-15 Completed [facility] injectable, injectable, 00:00:00 Practice quadrivalent quadrivalent diphtheria/pertussi 2013-11-19 Completed Ren mejia acel/tetanus 18:23:00 adult diphtheria/pertussi 2013-11-19 Completed Ren mejia acel/tetanus 18:23:00 adult diphtheria/pertussi 2013-11-19 Completed [facility] [place] s, acel/tetanus 18:23:00 adult Vital Signs Vital Name Observation Time Observation Value Comments Source Systolic blood 2021-10-23 20:30:00 126 mm[Hg] Univer sity of pressure [facility] Diastolic blood 2021-10-23 20:30:00 69 mm[Hg] Unive rsity of pressure [facility] Heart rate 2021-10-23 20:30:00 77 /min [facility] Body weight 2021-10-23 20:30:00 56.7 kg [facility] BMI 2021-10-23 20:30:00 25[facility]25 [facility] in 2021-10-23 20:30:00 95 /min [facility] blood by [facility] Pulse oximetry Branch BP Diastolic 2021-03-07 00:00:00 [...] Family Practice Height 2020-03-30 00:00:00 60 [in_i] [facility] BMI (Body Mass 2020-03-30 00:00:00 30.5 kg/m2 [facility] BP Systolic 2020-03-30 00:00:00 126 mm[Hg] [facility] Body Weight 2020-03-30 00:00:00 156 [lb_av] [facility] BP Diastolic 2020-02-29 00:00:00 72 mm[Hg] [facility] Height 2020-02-29 00:00:00 60 [in_i] [facility] BMI (Body Mass 2020-02-29 00:00:00 29.9 kg/m2 [facility] BP Systolic 2020-02-29 00:00:00 128 mm[Hg] [facility] Body Weight 2020-02-29 00:00:00 153 [lb_av] [facility] Systolic (mm Hg) 2022-08-22 15:31:00 [facility] [place] Diastolic (mm Hg) 2022-08-22 15:31:00 [facility] [place] Heart Rate 2022-08-22 15:31:00 [facility] [place] Height 2022-08-22 15:31:00 4 [ft_i] [facility] Weight 2022-08-22 15:31:00 [facility] BMI Calculated 2022-08-22 15:31:00 [facility] Systolic (mm Hg) 2022-02-16 18:29:00 [facility] [place] Diastolic (mm Hg) 2022-02-16 18:29:00 Mem [facility] Heart Rate 2022-02-16 18:29:00 [facility] Height 2022-02-16 18:29:00 4 [ft_i] [facility] Weight 2022-02-16 18:29:00 [facility] BMI Calculated 2022-02-16 18:29:00 [facility] Systolic (mm Hg) 2021-07-20 15:55:00 Ronald rial [facility] Diastolic (mm Hg) 2021-07-20 15:55:00 Mem [facility] Heart Rate 2021-07-20 15:55:00 [facility] Respitory Rate 2021-07-20 15:55:00 [facility] Height 2021-07-20 15:55:00 149.86 cm [facility] [place] Weight 2021-07-20 15:55:00 [facility] BMI Calculated 2021-07-20 15:55:00 [facility] Systolic (mm Hg) 2021-05-18 15:12:00 [facility] [place] Diastolic (mm Hg) 2021-05-18 15:12:00 [facility] Heart Rate 2021-05-18 15:12:00 [facility] [place] Respitory Rate 2021-05-18 15:12:00 [facility] Height 2021-05-18 15:12:00 149.86 cm [facility] [place] Weight 2021-05-18 15:12:00 [facility] [place] BMI Calculated 2021-05-18 15:12:00 [facility] [place] Systolic (mm Hg) 2021-02-28 19:54:00 [facility] [place] Diastolic (mm Hg) 2021-02-28 19:54:00 Mem [facility] Heart Rate 2021-02-28 19:54:00 [facility] [place] Respitory Rate 2021-02-28 19:54:00 [facility] [place] Height 2021-02-28 19:54:00 147.32 cm [facility] Weight 2021-02-28 19:54:00 [facility] [place] BMI Calculated 2021-02-28 19:54:00 [facility] [place] Systolic (mm Hg) 2020-05-26 17:13:00 [facility] [place] Diastolic (mm Hg) 2020-05-26 17:13:00 [facility] [place] Heart Rate 2020-05-26 17:13:00 [facility] [place] Respitory Rate 2020-05-26 17:13:00 [facility] [place] Height 2020-05-26 17:13:00 152.4 cm [facility] Weight 2020-05-26 17:13:00 [facility] BMI Calculated 2020-05-26 17:13:00 [facility] Systolic (mm Hg) 2020-04-06 19:20:00 [facility] [place] Diastolic (mm Hg) 2020-04-06 19:20:00 [facility] [place] Heart Rate 2020-04-06 19:20:00 [facility] [place] Respitory Rate 2020-04-06 19:20:00 [facility] [place] Height 2020-04-06 19:20:00 147.32 cm [facility] [place] Weight 2020-04-06 19:20:00 [facility] BMI Calculated 2020-04-06 19:20:00 [facility] [place] Respitory Rate 2019-05-20 16:56:00 [facility] [place] Height 2019-05-20 16:56:00 149.86 cm [facility] [place] Weight 2019-05-20 16:56:00 [facility] BMI Calculated 2019-05-20 16:56:00 [facility] [place] Systolic (mm Hg) 2019-05-20 16:56:00 Ronald [facility] [place] Diastolic (mm Hg) 2019-05-20 16:56:00 [facility] [place] Heart Rate 2019-05-20 16:56:00 [facility] Systolic (mm Hg) 2019-04-08 16:53:00 Ronald [facility] [place] Diastolic (mm Hg) 2019-04-08 16:53:00 [facility] Heart Rate 2019-04-08 16:53:00 [facility] [place] Respitory Rate 2019-04-08 16:53:00 [facility] Height 2019-04-08 16:53:00 152.4 cm [facility] Weight 2019-04-08 16:53:00 [facility] BMI Calculated 2019-04-08 16:53:00 [facility] Diastolic (mm Hg) 2013-11-19 19:51:00 [facility] [place] Heart Rate 2013-11-19 19:51:00 [facility] [place] Respitory Rate 2013-11-19 19:51:00 [facility] Systolic (mm Hg) 2013-11-19 19:51:00 Ronald rial [facility] Respitory Rate 2013-11-19 18:25:00 [facility] Diastolic (mm Hg) 2013-11-19 18:25:00 [facility] [place] Systolic (mm Hg) 2013-11-19 18:25:00 Ronald rial [facility] Weight 2013-11-19 14:56:00 [facility] [place] BMI Calculated 2013-11-19 14:56:00 Juan Antonioori al [place] Height 2013-11-19 14:56:00 152.4 cm [facility] [place] Diastolic (mm Hg) 2013-11-19 14:56:00 Mem [facility]rial [facility] Systolic (mm Hg) 2013-11-19 14:56:00 Ronald santos [facility] Heart Rate 2013-11-19 14:56:00 [facility] [place] Temperature Oral (F) 2013-11-19 14:56:00 98.5 F [facility] [place] Respitory Rate 2013-11-19 14:56:00 Gloria Sears Procedures Procedure Date / Time Performing Clinician Source Performed Procedure on Shoulder 2019-07-29 00:00:00 [facility] Colonoscopy 2019-04-29 00:00:00 [facility] Laser Assisted in Situ [facility] Laparoscopic [facility] Family Cholecystectomy Practice Total Replacement of Left [facility] Complete Repair of Rotator Nino ge Family Cuff Practice Rotator cuff repair [facility] Knee replacement [facility] Joe chery Plan of Care Planned Activity Planned Date Details Comments Source Future Scheduled 2022-12-01 COVID-19 VACCINE (#1) [facility] Hospital Test 16:29:04 [code = COVID-19 VACCINE (#1)] Future Scheduled 2022-12-01 SHINGLES VACCINES (1 Met [facility] Test 16:29:04 of 2) [code = SHINGLES VACCINES (1 of 2)] Future Scheduled 2022-12-01 65+ [facility]CCAL [facility] Test 16:29:04 VACCINE (1 - PCV) [code = 65+ PNEUMOCOCCAL VACCINE (1 - PCV)] Future Scheduled 2022-12-01 INFLUENZA VACCINE Method [facility] Hospital Test 16:29:04 [code = INFLUENZA VACCINE] Future Scheduled 2022-03-04 SHINGLES VACCINES (1 Met [facility] Test 11:34:57 of 2) [code = SHINGLES VACCINES (1 of 2)] Future Scheduled 2022-03-04 65+ PNEUMOCOCCAL [facility] Hospital Test 11:34:57 VACCINE (1 - PCV) [code = 65+ PNEUMOCOCCAL VACCINE (1 - PCV)] Future Scheduled 2022-03-04 INFLUENZA VACCINE Method [facility] Hospital Test 11:34:57 [code = INFLUENZA VACCINE] Future Scheduled 2022-03-04 HEPATITIS B VACCINES Met [facility] Test 11:34:57 (1 of 3 - 3-dose series) [code = HEPATITIS B VACCINES (1 of 3 - 3-dose series)] Future Scheduled 2022-03-04 COVID-19 VACCINE (#1) [facility] Test 11:34:57 [code = COVID-19 VACCINE (#1)] Future Scheduled 2021-12-30 65+ [facility]OCOCCAL [facility] Test 00:42:39 VACCINE (1 - PCV) [code = 65+ PNEUMOCOCCAL VACCINE (1 - PCV)] Future Scheduled 2021-12-30 INFLUENZA VACCINE Method [facility] Test 00:42:39 [code = INFLUENZA VACCINE] Future Scheduled 2021-12-30 HEPATITIS B VACCINES Met [facility] Test 00:42:39 (1 of 3 - 3-dose series) [code = HEPATITIS B VACCINES (1 of 3 - 3-dose series)] Future Scheduled 2021-12-30 COVID-19 VACCINE (#1) [facility] Test 00:42:39 [code = COVID-19 VACCINE (#1)] Future Scheduled 2021-12-30 SHINGLES VACCINES (1 Met [facility] Test 00:42:39 of 2) [code = SHINGLES VACCINES (1 of 2)] Diagnostic Test 2021-03-07 glucose, fingerstick, Josr marky Family Pending 00:00:00 blood [code = Practice glucose, fingerstick, blood] Diagnostic Test 2021-03-07 hemoglobin A1C, [facility] Pending 00:00:00 fingerstick [code = Practice hemoglobin A1C, fingerstick] Encounters Start End Encounter Admission Attending Care Care Encounter Source Date/Time Date/Time Type Type Clinicians Facility Department ID 2023-02-21 2023-02-21 Outpatient JAMIE AYALA [id number] [facility] 09:15:00 09:15:00 17 l Kris 2022-08-22 2022-08-23 Outpatient JAMIE KING [id number] [facility] 15:00:00 04:59:59 Neurology 16 l Shannan Ponce 2022-08-22 2022-08-22 Outpatient JOHNNY Asher [id number] 10:00:00 23:59:59 Sina Jordi Byrd 2022-08-22 2022-08-22 Outpatient MHIE MHIE [id number] [facility]oria 10:00:00 10:00:00 16 radha Ponce 2022-08-17 2022-08-17 Ambulatory MHIE MNA [id number] [facility]oria 18:00:00 18:00:00 Pre-Reg Neurology 15 l Shannan Ponce 2022-08-17 2022-08-17 Outpatient MHIE MHIE [id number] [facility]oria 13:00:00 13:00:00 15 radha Ponce 2022-08-17 2022-08-17 Outpatient MHIE MHIE [id number] Memoria 13:00:00 13:00:00 15 radha Ponce 2022-08-17 2022-08-17 [facility] [id number] 13:00:00 13:00:00 Sina 15 [place] 2022-02-16 2022-02-17 Outpatient nullFlavo MNA [id number] Mem[facility] 18:00:00 04:59:59 r Neurology 14 l Shannan Crossann 2022-02-16 2022-02-17 Outpatient nullFlavo MNA [id number] Mem[facility] 18:00:00 04:59:59 r Neurology 14 l Shannan Crossann 2022-02-16 2022-02-16 Outpatient Lb [facility] [id number] 13:00:00 23:59:59 Sina 14 [place] 2022-02-16 2022-02-16 Outpatient MHIE MHIE [id number] [facility]oria 13:00:00 13:00:00 14 [place] 2021-10-31 2021-10-31 Ambulatory nullFlavo MNA [id number] Mem[facility] 15:45:00 15:45:00 Pre-Reg r Neurology 13 l Shannan Kris 2021-10-31 2021-10-31 Ambulatory nullFlavo MNA [id number] Memoria 15:45:00 15:45:00 Pre-Reg r Neurology 13 l Delta Kris 2021-10-31 2021-10-31 Outpatient Demetri PAZ [facility] [id number] Univers 14:30:00 14:30:00 SILVA lara [facility] 2021-10-31 2021-10-31 Outpatient MHIE MHIE [id number] Memoria 10:45:00 10:45:00 13 radha Ponce 2021-10-31 2021-10-31 Outpatient JOHNNY Asher [facility] [id number] 10:45:00 10:45:00 Sina Byrd 2021-10-23 2021-10-23 Outpatient R FORTINO [facility] [id number] Univers 14:45:00 15:40:17 HARVEY lara [facility] 2021-10-23 2021-10-23 Office Silva Paz [facility] [id number] Univers 14:45:00 15:40:17 Visit Harvey Freitas [facility] [id number] ity of [place] [id number] Maximus as ELIECER?BLEA [id number] Sc manjit [address] OFFICE [facility] 2021-10-23 2021-10-23 Outpatient R FORTINO [facility] [id number] Univers 14:45:00 14:45:00 HARVEY grandecady [facility] 2021-10-22 2021-10-22 Letter NINI Perla [id number] Univers 00:00:00 00:00:00 (Out) Beata JIANG [id number] it y of [facility] [id number] Maximus as [id number] [address] 2021-10-21 2021-10-21 Laboratory Only, Ang Db Test [facility] 1.2.8 [id number] Univers 18:00:00 18:15:00 Only Sandra Tolbert advisorCONNECT [id number] ity of [place] [id number] Maximus as ELIECER?BLEA [id number] Sc manjit RODRÍGUEZ [address] [facility] OFFICE [facility] 2021-10-21 2021-10-21 Outpatient R TOMASZ [facility] [id number] Univers 18:00:00 18:00:00 SANDRA lara o f [facility] 2021-10-16 2021-10-16 Outpatient R FORTINO [facility] [id number] Univers 14:30:00 14:58:03 [facility] 2021-10-16 2021-10-16 [facility] [id number] Univers 14:30:00 14:58:03 Visit Harvey Suero [facility] [id number] it y of [place] [id number] Maximus as ELIECER?BLEA [phone] Sc manjit RODRÍGUEZ [address] [place] [address] OFFICE [facility] 2021-10-12 2021-10-12 [facility] [id number] Univers 10:15:00 10:15:00 [facility] 2021-10-12 2021-10-12 [facility] [id number] Univers 10:15:00 10:15:00 [facility] 2021-10-05 2021-10-05 [facility] [id number] Univers 10:15:00 10:38:26 [facility] 2021-10-05 2021-10-05 Office [facility] [id number] Univers 10:15:00 10:38:26 Visit Harvey [facility] [id number] it y [facility] [id number] Maximus as ELIECER?BLEA [id number] Sc manjit [address]ID[address] 2021-10-05 2021-10-05 Orders Doctor NINI 1.2.840.114 [id number] Univers 00:00:00 00:00:00 Only Unassigned, APOLINAR [id number] ity of [facility] 4.2.7.2.686 Maximus as [id number] [address] 2021-10-04 2021-10-04 Telephone [facility] 1.2.840.114 [id number] Univers 00:00:00 00:00:00 Harvey [facility] [id number] it y of [place] 4.2.7.2.686 Maximus as ELIECER?BLEA [id number] Sc manjit RODRÍGUEZ [address] [place] [address] OFFICE [facility] 2021-09-13 2021-09-13 Telephone [facility] 1.2.840.114 [id number] Univers 00:00:00 00:00:00 Harvey Suero [facility] [id number] it y of [place] 4.2.7.2.686 Maximus as ELIECER?BLEA [id number] Sc manjit RODRÍGUEZ [address] [facility] 2021-09-12 2021-09-12 Telephone Brandi [facility] [id number] Univers 00:00:00 00:00:00 Silva advisorCONNECT [id number] it y of [place] 4.2.7.2.686 Maximus as ELIECER?BLEA [id number] Sc manjit RODRÍGUEZ 198 [facility] 2021-09-08 2021-09-08 [facility] [id number] Univers 08:45:00 09:24:40 HARVEY lara [facility] 2021-09-08 2021-09-08 Office [facility] [id number] Univers 08:45:00 09:24:40 Visit Harvey Suero [facility] [id number] it y of [place] 4.2.7.2.686 Maximus as ELIECER?BLEA [id number] Sc manjit RODRÍGUEZ 198 [facility] 2021-09-08 2021-09-08 Outpatient [facility] [id number] Univers 08:45:00 09:24:40 HARVEY lara [facility] 2021-08-24 2021-08-24 Out[facility] [id number] Univers 09:30:00 23:59:00 HARVEY lara [facility] 2021-08-24 2021-08-24 Outpatient [facility]ri [facility] [id number] Univers 08:45:00 09:52:57 HARVEY lara [facility] 2021-08-24 2021-08-24 Office [facility] [id number] Univers 08:45:00 09:52:57 Visit Harvey Suero [facility] [id number] it y of [place] 4.2.7.2.686 Maximus as ELIECER?BLEA [id number] Sc dical [address] MEDICAL OFFICE BUILDING 2021-08-24 2021-08-24 Orders Doctor NINI 1.2.840.114 [id number] 00:00:00 00:00:00 Only Unassigned, APOLINAR 350.1.13.10 ity of [facility] 4.2.7.2.686 Maximus as [id number] [address] 2021-08-10 2021-08-10 Outpatient R FORTINO [facility] [id number] [facility] 08:45:00 08:45:00 HARVEY ity [facility] 2021-07-20 2021-07-21 Outpatient nullFlavo MNA [id number] Memoria 15:45:00 04:59:59 r Neurology 12 l Shannan Ponce 2021-07-20 2021-07-21 Outpatient nullFlavo MNA [id number] Memoria 15:45:00 04:59:59 r Neurology 12 l Shannan Ponce 2021-07-20 2021-07-20 Outpatient JOHNNY Asher MISCHER [id number] 10:45:00 23:59:59 Sina Jimbo Carson 2021-07-20 2021-07-20 Outpatient MHIE MHIE [id number] Memoria 10:45:00 10:45:00 12 radha Kris 2021-05-31 2021-05-31 Ambulatory nullFlavo MNA [id number] Memoria 15:00:00 15:00:00 Pre-Reg r Neurology 10 l Delta Kris 2021-05-31 2021-05-31 Ambulatory nullFlavo MNA [id number] Memoria 15:00:00 15:00:00 Pre-Reg r Neurology 10 l Shannan Ponce 2021-05-31 2021-05-31 Outpatient MHIE MHIE [id number] Memoria 09:00:00 09:00:00 10 radha Kris 2021-05-31 2021-05-31 Outpatient MERCEDES AsherSCHLALIT MHMISCHER [id number] 09:00:00 09:00:00 Sina 10 [place] 2021-05-30 2021-05-30 Telephone [facility] 1.2.840.114 [id number] Univers 00:00:00 00:00:00 Harvey Suero [facility] 350.1.13.10 it y [facility] 4.2.7.2.686 Maximus as ELIECER?BLEA [id number] Sc manjit RODRÍGUEZ 198 [facility] 2021-05-18 2021-05-19 Outpatient nullFlavo MNA [id number] Memoria 15:00:00 05:59:59 r Neurology 11 radha Ponce 2021-05-18 2021-05-19 Outpatient nullFlavo MNA [id number] Memoria 15:00:00 05:59:59 r Neurology 11 radha Ponce 2021-05-18 2021-05-18 Outpatient JOLANTA AsherMISCHER JOLANTAMISCHER [id number] 09:00:00 23:59:59 Sina Pat Byrd 2021-05-18 2021-05-18 Outpatient MHIE MHIE [id number] Memoria 09:00:00 09:00:00 11 radha Ponce 2021-05-17 2021-05-17 Telephone [facility] 1.2.840.114 [id number] Univers 00:00:00 00:00:00 Harvey [facility] 350.1.13.10 it y of [place] 4.2.7.2.686 Maximus as ELIECER?BLEA [id number] Sc manjit RODRÍGUEZ 198 [facility] 2021-04-29 2021-04-29 Outpatient Daniel_T VFP VFP [id number] [address] [place] [address] 05:01:00 05:01:00 [id number] Family Practic e 2021-04-29 2021-04-29 Outpatient Daniel_T VFP VFP [id number] [address] [place] [address] 05:01:00 05:01:00 [id number] Family Practic e 2021-04-03 2021-04-03 Outpatient Daniel_T VFP VFP [id number] [address] [place] [address] 08:37:00 08:37:00 [id number] Family Practic e 2021-03-07 2021-03-07 Outpatient Daniel_T VFP VFP [id number] [address] [place] [address] 05:08:00 05:08:00 [id number] Family Practic e 2021-03-07 2021-03-07 Luis VFP [place] - [id number] V illage 00:00:00 00:00:00 [facility] Ziggy, Jessy - Prachans burr MD: [id number] VM_HOU_Shatomeka e [place] [address], [place] [address] , Ph. 2021-02-28 2021-03-01 Outpatient nullFlavo MNA [id number] Memoria 19:45:00 04:59:59 r Neurology 09 l Shannan Ponce 2021-02-28 2021-03-01 Outpatient nullFlavo MNA [id number] Memoria 19:45:00 04:59:59 r Neurology 09 l Shannan Ponce 2021-02-28 2021-02-28 Outpatient JOLANTA AsherMISCHER MHMISCHER [id number] 14:45:00 23:59:59 Sina Calvin Byrd 2021-02-28 2021-02-28 Outpatient MHIE MHIE [id number] Memoria 14:45:00 14:45:00 09 radha Ponce 2020-12-29 2020-12-29 [facility] 1.2.840.114 [id number] Univers 10:51:10 23:59:00 Encounter Silva Mejia [place] 350.1.13.10 ity [facility] [id number] [place] [facility] [id number] [address] 2020-12-29 2020-12-29 Office [facility] 1.2.840.114 [id number] Univers 11:47:56 12:02:56 Visit [facility] 350.1.13.10 it y of [place] 4.2.7.2.686 Maximus as Eliecer?Blea [id number] Sc manjit romie [address] [place] [address] Medical Office Building 2020-12-29 2020-12-29 [facility] [id number] Univers 00:00:00 00:00:00 SILVA [facility] 2020-12-29 2020-12-29 Orders Doctor TERRAZAS 1.2.840.114 [id number] Univers 00:00:00 00:00:00 Only Unassigned, APOLINAR 350.1.13.10 ity of [facility] [place] [facility] 4.2.7.2.686 Maximus as [id number] [address] 2020-12-29 2020-12-29 [facility] [id number] Univers 00:00:00 00:00:00 [facility] 350.1.13.10 it y of [place] 4.2.7.2.686 Maximus as Eliecer?Blea [id number] [address] Medical Office Building 2020-11-02 2020-11-02 Outpatient Demetri PAZ [facility] [id number] Univers 16:00:00 16:00:00 [facility] 2020-11-01 2020-11-01 [facility] [id number] [facility] 15:30:00 15:30:00 [facility] 2020-10-28 2020-10-28 Outpatient Daniel_T VFP VFP [id number] [facility] 06:10:00 06:10:00 [id number] Family Pract[facility] e 2020-10-28 2020-10-28 Outpatient Daniel_T VFP VFP [id number] [address] [place] [address] 06:10:00 06:10:00 [id number] Family Practic e 2020-10-26 2020-10-26 Outpatient Daniel_T VFP VFP [id number] [address] [place] [address] 03:14:00 03:14:00 [id number] Family Practic e 2020-10-26 2020-10-26 Luis VFP [place] - [id number] V ill[facility] 00:00:00 00:00:00 [facility] Family ZiggyJessy - Practi aminah COULTER: [id number] VM_KEYANNA_Wei e [place] [facility], [address], [place] [address] , Ph. 2020-10-05 2020-10-05 [facility] [id number] Univers 13:15:00 13:15:00 [facility] 2020-09-07 2020-09-07 Outpatient Demetri FREITAS [facility] [id number] Univers 13:00:00 13:00:00 [facility] 2020-09-01 2020-09-01 Ambulatory nullFlavo MNA [id number] Memoria 16:45:00 16:45:00 Pre-Reg r Neurology 08 l Shannan Ponce 2020-09-01 2020-09-01 Ambulatory nullFlavo MNA [id number] Memoria 16:45:00 16:45:00 Pre-Reg r Neurology 08 l Shannan Ponce 2020-09-01 2020-09-01 Outpatient JOLANTA AsherMISCHER MISCHER [id number] 11:45:00 11:45:00 Sina Brayden Byrd 2020-08-24 2020-08-24 Outpatient MHIE MHIE [id number] [facility] 09:00:00 09:00:00 08 radha Ponce 2020-08-24 2020-08-24 [facility] [id number] Univers 00:00:00 00:00:00 [facility] 2020-08-20 2020-08-20 Outpatient Daniel_T VFP VFP [id number] 2-20 Village 02:40:00 02:40:00 [id number] Family Practic e 2020-08-17 2020-08-17 [facility] [id number] Univers 13:45:00 13:45:00 [facility] 2020-08-02 2020-08-02 Outpatient Demetri PAZ [facility] [id number] Univers 09:45:00 09:45:00 SILVA [facility] 2020-07-25 2020-07-25 [facility] [id number] Univers 00:00:00 00:00:00 [facility] 2020-07-22 2020-07-22 Outpatient Daniel_T VFP VFP [id number] 2-20 Village 07:52:00 07:52:00 [id number] Family Practic e 2020-07-18 2020-07-18 [facility] [id number] Univers 14:48:58 23:59:00 [facility] 2020-07-18 2020-07-18 Outpatient Demetri FREITAS, [facility] [id number] Univers 14:30:00 14:30:00 [facility] 2020-07-14 2020-07-14 Outpatient Demetri FREITAS, [facility] [id number] Univers 10:15:00 10:15:00 [facility] 2020-07-13 2020-07-13 Outpatient Daniel_T VFP VFP [id number] 2-20 [facility] 01:17:00 01:17:00 [id number] Family Shelly franklin 2020-07-13 2020-07-13 Luis VFP [place] - [id number] V illage 00:00:00 00:00:00 Dilandre [facility] Family Trinh, Jessy - Prachans burr MD: [id number] VM_HOU_Shad e Shadow ow [place] [facility], [address], [place] [address] , Ph. 2020-07-12 2020-07-12 Outpatient Daniel_T VFP VFP [id number] 2-20 [facility] 07:47:00 07:47:00 [id number] Family Shelly franklin 2020-07-07 2020-07-07 Outpatient [facility] [id number] Univers 10:15:00 10:15:00 [facility] 2020-05-26 2020-05-27 Outpatient nullFlavo MNA [id number] Memoria 17:15:00 05:59:59 r Neurology 07 l Shannan Ponce 2020-05-26 2020-05-27 Outpatient nullFlavo MNA [id number] Memoria 17:15:00 05:59:59 r Neurology 07 l Shannan Ponce 2020-05-26 2020-05-26 Outpatient JOHNNY AsherMISCHER [id number] 11:15:00 23:59:59 Sina Catie Byrd 2020-05-26 2020-05-26 Outpatient MHIE MHIE [id number] [facility] 11:15:00 11:15:00 07 radha Ponce 2020-05-18 2020-05-18 Ambulatory nullFlavo MNA [id number] Memoria 19:45:00 19:45:00 Pre-Reg r Neurology 06 l Shannan Ponce 2020-05-18 2020-05-18 Ambulatory nullFlavo MNA [id number] Memoria 19:45:00 19:45:00 Pre-Reg r Neurology 06 l Shannan Ponce 2020-05-18 2020-05-18 Outpatient MHIE MHIE [id number] Mem[facility] 13:45:00 13:45:00 06 radha Ponce 2020-05-18 2020-05-18 Outpatient JOLANTA AsherMISCHER MISCHER [id number] 13:45:00 13:45:00 Sina 06 [facility] 2020-04-18 2020-04-18 Outpatient Daniel_T VFP VFP [id number] [address] [place] [address] 06:01:00 06:01:00 [id number] Family Practic e 2020-04-06 2020-04-07 Outpatient nullFlavo MNA [id number] Memoria 19:00:00 05:59:59 r Neurology 05 l Shannan Ponce 2020-04-06 2020-04-07 Outpatient nullFlavo MNA [id number] Memoria 19:00:00 05:59:59 r Neurology 05 l Shannan Ponce 2020-04-06 2020-04-06 Outpatient MERCEDES AsherSCHER MISCHER [id number] 13:00:00 23:59:59 Sina 05 [facility] 2020-04-06 2020-04-06 Outpatient MHIE MHIE [id number] Memoria 13:00:00 13:00:00 05 l Kris 2020-04-04 2020-04-04 Outpatient Daniel_T VFP VFP [id number] [address] [place] [address] 07:55:00 07:55:00 [id number] Family Practic e 2020-03-30 2020-03-30 Outpatient Daniel_T VFP VFP [id number] [address] [place] [address] 01:21:00 01:21:00 Family Practic e 2020-03-30 2020-03-30 Luis VFP [place] - [id number] V illage 00:00:00 00:00:00 [facility] Family TrinhJessy - Juma burr MD: [id number] VM_HOU_Roberto franklin [address] [address] , Ph. 2020-03-29 2020-03-29 Outpatient Daniel_T VFP VFP [id number] [facility] 04:57:00 04:57:00 Family Practic e 2020-02-29 2020-02-29 Outpatient Daniel_T VFP VFP [id number] [facility] 02:38:00 02:38:00 Family Practic e 2020-02-29 2020-02-29 Luis VFP [place] - [id number] V illage 00:00:00 00:00:00 Dilon [facility] Family Ziggy, Jessy - Juma burr MD: [id number] VM_HOU_Dani e Shadow [facility] [address], [place] [address] , Ph. 2020-02-26 2020-02-26 Outpatient Daniel_T VFP VFP [id number] [facility] 02:07:00 02:07:00 Family Practic e 2020-02-15 2020-02-15 Outpatient R [facility] [id number] Univers 09:40:00 09:40:00 ity [facility] 2020-02-14 2020-02-14 Laboratory Lab, [facility] [id number] 10:15:11 10:35:11 Only Fam Pob I Health [id number] [place] 4.2.7.2.686 Professio [id number] nal 0[address] One 2020-02-14 2020-02-14 Outpatient R [facility] [id number] Univers 10:20:00 10:20:00 ity [facility] 2020-02-14 2020-02-14 Orders Doctor NINI [id number] 00:00:00 00:00:00 Only Unassigned, APOLINAR [id number] [facility] [id number] [id number] 2019-12-22 2019-12-22 Ambulatory nullFlavo MNA [id number] Memoria 14:30:00 14:30:00 Pre-Reg r Neurology 04 l [place] 2019-12-22 2019-12-22 Ambulatory nullFlavo MNA [id number] Memoria 14:30:00 14:30:00 Pre-Reg r Neurology 03 l Shannan Ponce 2019-12-22 2019-12-22 Ambulatory nullFlavo MNA [id number] Memoria 14:30:00 14:30:00 Pre-Reg r Neurology 04 l Shannan [place] 2019-12-22 2019-12-22 Ambulatory nullFlavo MNA [id number] Memoria 14:30:00 14:30:00 Pre-Reg r Neurology 03 l Shannan Kris 2019-12-22 2019-12-22 Outpatient MHIE MHIE [id number] [facility] 09:30:00 09:30:00 03 l Kris 2019-12-22 2019-12-22 Outpatient MHIE MHIE [id number] Mem[facility] 09:30:00 09:30:00 04 radha [place] 2019-12-22 2019-12-22 [id number] 09:30:00 09:30:00 Sina 03 [place] 2019-12-22 2019-12-22 Outpatient Lb MISCHER MISCHER [id number] 09:30:00 09:30:00 Sina 04 [place] 2019-08-19 2019-08-20 Outpatient nullFlavo MNA [id number] Memoria 14:30:00 04:59:59 r Neurology 02 radha [place] 2019-08-19 2019-08-20 Outpatient nullFlavo MNA [id number] Memoria 14:30:00 04:59:59 r Neurology 02 radha [place] 2019-08-19 2019-08-19 [facility] Lb [facility] [id number] 09:30:00 23:59:59 Sina 02 [place] 2019-08-19 2019-08-19 Outpatient MHIE MHIE [id number] Memoria 09:30:00 09:30:00 02 radha [place] 2019-05-20 2019-05-21 Outpatient nullFlavo MNA [id number] Memoria 16:45:00 05:59:59 r Neurology 01 radha [place] 2019-05-20 2019-05-21 Outpatient nullFlavo MNA [id number] Memoria 16:45:00 05:59:59 r Neurology 01 l [place] 2019-05-20 2019-05-20 Outpatient Lb, JOLANTAMISCHER MHMISCHER [id number] 10:45:00 23:59:59 Sina 01 [place] 2019-05-20 2019-05-20 Outpatient MHIE MHIE [id number] [facility] 10:45:00 10:45:00 01 radha [place] 2019-04-08 2019-04-09 Outpatient nullFlavo MNA [id number] Memoria 17:15:00 05:59:59 r Neurology 00 l Shannan [place] 2019-04-08 2019-04-09 Outpatient nullFlavo MNA [id number] Memoria 17:15:00 05:59:59 r Neurology 00 l Shannan [place] 2019-04-08 2019-04-08 Outpatient Lb, MHMISCHER MHMISCHER [id number] 11:15:00 23:59:59 Sina 00 [place] 2019-04-08 2019-04-08 Outpatient MHIE MHIE [id number] Mem[facility] 11:15:00 11:15:00 00 [facility] 2019-01-02 2019-01-02 Office Nickolas CTMARC [id number] 08:31:13 10:01:24 Visit Sony Bean [id number] [place] 4.2.7.2.686 [id number] [address] 2013-11-19 2013-11-19 EC nullFlavo [facility] [id number] Memoria 14:56:00 19:53:00 Emergency r Kris 67 [facility] 2013-11-19 2013-11-19 EC nullFlavo [facility] [id number] Memoria 14:56:00 19:53:00 Emergency r Kris 67 [facility] 2013-11-19 2013-11-19 Outpatient Ashley Powers [id number]. [id number] 1. [id number] 09:56:00 14:53:00 Oneil [id number] 5.0.101 01 Results Test Description Test Time Test Comments Results Result Comments Source Hemoglobin A1c measurement device panel 2021-03-07 15:02:32 Test Item Value Reference Range Interpretation Comme nts Hemoglobin A1C Fingerstick: (test code = Hemoglobin A1C Fingerstick :) 4.6 [facility] Capillary njmrl7533-82-18 14:49:06 Test Item Value Reference Range Interpretation Comments Blood Glucose: mg/dl (test code = Blood 235 Glucose: mg/dl) [facility] [Mass/volume] in Capillary coopm9816-19-27 14:27:33 Test Item Value Reference Range Interpretation Comments Blood Glucose: mg/dl (test code = Blood 177 Glucose: mg/dl) [facility]YattdpevJPTHNBADFD8332-20-47 15:00:42 Test Item Value Reference Range Interpretation Comments INR (test code = INR) 0.88 0.85-1.17 [facility]CkrvydrJJDXOKFNGL7395-17-87 15:00:42 Test Item Value Reference Range Interpretation Comments PT (test code = PT) 11.9 s 12.0-14.7 [facility] CenterUhiipqpHRWMDPWTVS5928-53-71 15:00:42 Test Item Value Reference Range Interpretation Comments PTT (test code = PTT) 27.3 s 22.9-35.8 [facility] CenterVtmrjzxNXAXGUJPXK0689-16-27 15:00:42 Test Item Value Reference Range Interpretation Comments INR (test code = INR) 0.88 0.85-1.17 [facility] CenterUxwgeqfPQSHHRTSBC0908-57-28 15:00:42 Test Item Value Reference Range Interpretation Comments PT (test code = PT) 11.9 s 12.0-14.7 [facility] CenterNeyxssfOMESZRSTGW9497-59-14 15:00:42 Test Item Value Reference Range Interpretation Comments PTT (test code = PTT) 27.3 s 22.9-35.8 [facility] CenterFjucxflXGQPNZVXQR9661-34-34 15:00:420.88[facility] 2013-11-19 15:00:42 Test Item Value Reference Range Interpretation Comments PT (test code = PT) 11.9 s 12.0-14.7 [facility] CenterTgwflkaRKREPPLBKC3970-30-67 15:00:42 Test Item Value Reference Range Interpretation Comments PTT (test code = PTT) 27.3 s 22.9-35.8 [facility] CenterEdfgkwwPQSSQDGWGH7708-73-21 15:00:009.2[facility] 2013-11-19 15:00:55371Ldqtkmig TospagjNSIZLCAAAV7936-93-79 15:00:0015.6[facility]orial VfuggehBYZYHPPTWP2436-79-25 15:00:0044.7[facility] QjfbkmqRLWINPXDKL6713-80-88 15:00:0012.9[facility] FgraxipDXERIIOQDS2859-73-07 15:00:0034.8[facility] [place] CHUMTLCZSN4989-28-08 15:00:007.4[facility] AzgssvgQHPTKQVCVL9794-81-70 15:00:00 5.09[facility] PzsjesjGMHCYPISPD0556-34-29 15:00:00 Test Item Value Reference Range Interpretation Comments MCH (test code = MCH) 30.7 pg 27.0-31.0 [facility] JxmobgaKOAXMOTJAP2054-03-87 15:00:0088.0[facility] 2013-11-19 15:00:000.0[facility] UhirwquUDNOGRCXBF4458-28-65 15:00:000.6[facility] VlqdpxjRPINFUCIJJ3615-27-22 15:00:000.3[facility] QrwfrfgRCQMJIQFXZ3499-39-58 15:00:0043.4[facility] JafwyeeNHUEHINELY7577-99-81 15:00:0044.2[facility] Kris YXLHHDGVTG0852-38-26 15:00:004.7[facility] WjrktorCDNWJOGEMM8671-44-38 15:00:003.2 Memorial VdunhyqOBMBWSMLEC8175-94-88 15:00:003.3[facility] 2013-11-19 15:00:000.1[facility] NsemvfhWEQRNASTYN2167-05-80 15:00:007.6[facility] HermannCARDIAC QFUNVQY6327-75-61 15:00:00 Test Item Value Reference Range Interpretation Comments Total CK (test code = Total CK) 80 12-191 [facility] HermannCHEM JOEYB2847-62-64 15:00:00 Test Item Value Reference Range Interpretation Comments eGFR (test code = eGFR) 57 [facility]CHE[facility] AOQEK1544-55-60 15:00:00 Test Item Value Reference Range Interpretation Comments Glucose Lvl (test code = Glucose Lvl) 179 70-99 [facility]2014-07-24 15:00:00 Test Item Value Reference Range Interpretation Comments Creatinine Lvl (test code = Creatinine 1.0 0.5-1.4 Lvl) [facility]2014-07-24 15:00:00 Test Item Value Reference Range Interpretation Comments BUN (test code = BUN) 22 7-22 [facility]2014-07-24 15:00:00 Test Item Value Reference Range Interpretation Comments Calcium Lvl (test code = Calcium Lvl) 10.3 8.5-10.5 [facility]2014-07-24 15:00:00 Test Item Value Reference Range Interpretation Comments CO2 (test code = CO2) 26 24-32 [facility]2014-07-24 15:00:00 Test Item Value Reference Range Interpretation Comments Chloride Lvl (test code = Chloride Lvl) 105 95-109 [facility]2014-07-24 15:00:00 Test Item Value Reference Range Interpretation Comments Sodium Lvl (test code = Sodium Lvl) 140 135-145 [facility]2014-07-24 15:00:00 Test Item Value Reference Range Interpretation Comments Potassium Lvl (test code = Potassium 4.0 3.5-5.1 Lvl) [facility]2014-07-24 15:00:00 Test Item Value Reference Range Interpretation Comments AGAP (test code = AGAP) 13.0 10.0-20.0 [facility] CenterYzzdndiHRSGWEZCNI0392-79-23 15:00:00 Test Item Value Reference Range Interpretation Comments MPV (test code = MPV) 9.2 7.4-10.4 [facility] CenterUqoiqqqONFLLVQDWO4568-86-68 15:00:00 Test Item Value Reference Range Interpretation Comments Platelet (test code = Platelet) 235 133-450 [facility] CenterSzxmhepSQOSMNCAMP2487-32-10 15:00:00 Test Item Value Reference Range Interpretation Comments Hgb (test code = Hgb) 15.6 12.0-16.0 [facility] CenterGdshlmlJVBGGVSAUJ4831-24-52 15:00:00 Test Item Value Reference Range Interpretation Comments Hct (test code = Hct) 44.7 36.0-48.0 [facility] CenterNxygmaoRSEJEARKUA6832-84-11 15:00:00 Test Item Value Reference Range Interpretation Comments RDW (test code = RDW) 12.9 11.5-14.5 [facility] CenterOifekjdSAKHSSIXYU4609-24-46 15:00:00 Test Item Value Reference Range Interpretation Comments MCHC (test code = MCHC) 34.8 32.0-36.0 [facility] CenterPnvlbqdMDTTFKULVN7846-77-68 15:00:00 Test Item Value Reference Range Interpretation Comments WBC (test code = WBC) 7.4 3.7-10.4 [facility] CenterOaibxdrPSBVTIZTIY8616-65-75 15:00:00 Test Item Value Reference Range Interpretation Comments RBC (test code = RBC) 5.09 4.20-5.40 [facility] CenterJagbcqnEHHWXENAIK5984-98-79 15:00:00 Test Item Value Reference Range Interpretation Comments MCH (test code = MCH) 30.7 pg 27.0-31.0 [facility] CenterVffmlriAMEEDUEHWU1296-69-23 15:00:00 Test Item Value Reference Range Interpretation Comments MCV (test code = MCV) 88.0 81.0-99.0 [facility]2014-07-24 15:00:00 Test Item Value Reference Range Interpretation Comments Chloride Lvl (test code = Chloride Lvl) 105 95-109 [facility]2014-07-24 15:00:00 Test Item Value Reference Range Interpretation Comments Sodium Lvl (test code = Sodium Lvl) 140 135-145 [facility]2014-07-24 15:00:00 Test Item Value Reference Range Interpretation Comments Potassium Lvl (test code = Potassium 4.0 3.5-5.1 Lvl) [facility]2014-07-24 15:00:00 Test Item Value Reference Range Interpretation Comments AGAP (test code = AGAP) 13.0 10.0-20.0 [facility] CenterSnirkptLSAGLJXFQE1788-48-69 15:00:00 Test Item Value Reference Range Interpretation Comments Basophils # (test code 0.0 See_Comment [Aut omated message] The = Basophils #) system which generated this result tra nsmitted reference range : <=0.2. The reference r arron was not used to int erpret this result as normal/abnormal . [facility] CenterUmipwnoCRHYQBYLCL6502-25-33 15:00:00 Test Item Value Reference Range Interpretation Comments MPV (test code = MPV) 9.2 7.4-10.4 [facility] CenterXxstqydRGAPUXRCEV7409-73-55 15:00:00 Test Item Value Reference Range Interpretation Comments Platelet (test code = Platelet) 235 133-450 [facility] CenterOogoizzNZTACOSTPS6494-46-00 15:00:00 Test Item Value Reference Range Interpretation Comments Hgb (test code = Hgb) 15.6 12.0-16.0 [facility] CenterYwwmhpaTQMLUPAFNT3899-27-44 15:00:00 Test Item Value Reference Range Interpretation Comments Hct (test code = Hct) 44.7 36.0-48.0 [facility] CenterMllscspYLSMTUNEPB8329-46-49 15:00:00 Test Item Value Reference Range Interpretation Comments RDW (test code = RDW) 12.9 11.5-14.5 [facility] CenterNbbxopwUFUJVVYSYF6344-51-87 15:00:00 Test Item Value Reference Range Interpretation Comments MCHC (test code = MCHC) 34.8 32.0-36.0 [facility] CenterAadqyeePBZPVDVYRT7931-89-05 15:00:00 Test Item Value Reference Range Interpretation Comments WBC (test code = WBC) 7.4 3.7-10.4 [facility] CenterHvbjxmlCVPWWHRLFC2915-80-41 15:00:00 Test Item Value Reference Range Interpretation Comments RBC (test code = RBC) 5.09 4.20-5.40 [facility] CenterRhplxtdJCAINIGGFG3337-63-03 15:00:00 Test Item Value Reference Range Interpretation Comments MCH (test code = MCH) 30.7 pg 27.0-31.0 [facility] CenterXjqiluiRCKWFNXFTZ8491-25-80 15:00:00 Test Item Value Reference Range Interpretation Comments MCV (test code = MCV) 88.0 81.0-99.0 [facility] CenterWepnkdyETUKGRJXHA7422-90-44 15:00:00 Test Item Value Reference Range Interpretation Comments Monocytes # (test code 0.6 See_Comment [Aut omated message] The = Monocytes #) system which generated this result tra nsmitted reference range : <=0.8. The reference r arron was not used to int erpret this result as normal/abnormal . [facility] CenterAloruhePHFAEEIAZD9260-60-06 15:00:00 Test Item Value Reference Range Interpretation Comments Basophils # (test code 0.0 See_Comment [Aut omated message] The = Basophils #) system which generated this result tra nsmitted reference range : <=0.2. The reference r arron was not used to int erpret this result as normal/abnormal . [facility] CenterLgfaxcvDOUWEALZAQ5109-98-51 15:00:00 Test Item Value Reference Range Interpretation Comments Monocytes # (test code 0.6 See_Comment [Aut omated message] The = Monocytes #) system which generated this result tra nsmitted reference range : <=0.8. The reference r arron was not used to int erpret this result as normal/abnormal . [facility] CenterFroundmDBRXMLFGDQ3643-69-11 15:00:00 Test Item Value Reference Range Interpretation Comments Eosinophils # (test code 0.3 See_Comment [A utomated message] The = Eosinophils #) system whic h generated this result tra nsmitted reference range : <=0.5. The reference r arron was not used to int erpret this result as normal/abnormal . [facility] CenterSrlqqpcNSJWVMIDGI3313-41-04 15:00:00 Test Item Value Reference Range Interpretation Comments Segs (test code = Segs) 43.4 45.0-75.0 [facility] CenterSjkxxhdOETECOFGGL0729-60-17 15:00:00 Test Item Value Reference Range Interpretation Comments Lymphocytes (test code = Lymphocytes) 44.2 20.0-40.0 [facility] CenterHmfiazkSQGLWDQABH5670-97-32 15:00:00 Test Item Value Reference Range Interpretation Comments Eosinophils (test code = 4.7 See_Comment [A utomated message] The Eosinophils) system which ge nerated this result tra nsmitted reference range : <=4.0. The reference r arron was not used to int erpret this result as normal/abnormal . [facility] CenterLzqopsbCBHHGRWJLF0920-15-99 15:00:00 Test Item Value Reference Range Interpretation Comments Segs-Bands # (test code = Segs-Bands #) 3.2 1.5-8.1 [facility] CenterXgyrksqHZHHFBFFWD2353-15-07 15:00:00 Test Item Value Reference Range Interpretation Comments Lymphocytes # (test code = Lymphocytes 3.3 1.0-5.5 #) [facility] CenterTerjrgvXCNUTYTUGR3323-98-80 15:00:00 Test Item Value Reference Range Interpretation Comments Basophils (test code = 0.1 See_Comment [Aut omated message] The Basophils) system which ge nerated this result tra nsmitted reference range : <=1.0. The reference r arron was not used to int erpret this result as normal/abnormal . [facility] CenterLurahqzMSZHRXEKZB3098-09-97 15:00:00 Test Item Value Reference Range Interpretation Comments Monocytes (test code = Monocytes) 7.6 2.0-12.0 [facility] CenterSzjhsajUFKOHATSML3512-12-98 15:00:00 Test Item Value Reference Range Interpretation Comments Eosinophils # (test code 0.3 See_Comment [A utomated message] The = Eosinophils #) system whic h generated this result tra nsmitted reference range : <=0.5. The reference r arron was not used to int erpret this result as normal/abnormal . [facility] CenterCARDIAC TAQMHRZ7904-62-45 15:00:00 Test Item Value Reference Range Interpretation Comments Total CK (test code = Total CK) 80 12-191 [facility] CenterSumav[facility] XDJDL3968-27-15 15:00:00 Test Item Value Reference Range Interpretation Comments eGFR (test code = eGFR) 57 [facility] UJVLO4756-31-93 15:00:00 Test Item Value Reference Range Interpretation Comments Glucose Lvl (test code = Glucose Lvl) 179 70-99 [facility] KSYSQ3303-46-43 15:00:00 Test Item Value Reference Range Interpretation Comments Creatinine Lvl (test code = Creatinine 1.0 0.5-1.4 Lvl) [facility] [id number] 15:00:00 Test Item Value Reference Range Interpretation Comments BUN (test code = BUN) 22 7-22 [facility] [id number] 15:00:00 Test Item Value Reference Range Interpretation Comments Calcium Lvl (test code = Calcium Lvl) 10.3 8.5-10.5 [facility] TQKUG7312-05-12 15:00:00 Test Item Value Reference Range Interpretation Comments CO2 (test code = CO2) 26 24-32 [facility] CenterSfbckbaEJBLLLTSSD7565-41-32 15:00:00 Test Item Value Reference Range Interpretation Comments Segs (test code = Segs) 43.4 45.0-75.0 [facility] CenterFdkbisuNLSMQOSOIL5682-02-26 15:00:00 Test Item Value Reference Range Interpretation Comments Lymphocytes (test code = Lymphocytes) 44.2 20.0-40.0 [facility] CenterXhtnqltTDVYASMAKV2039-04-00 15:00:00 Test Item Value Reference Range Interpretation Comments Eosinophils (test code = 4.7 See_Comment [A utomated message] The Eosinophils) system which ge nerated this result tra nsmitted reference range : <=4.0. The reference r arron was not used to int erpret this result as normal/abnormal . [facility] CenterHglbqkyPOMOLTFVDV5109-79-12 15:00:00 Test Item Value Reference Range Interpretation Comments Segs-Bands # (test code = Segs-Bands #) 3.2 1.5-8.1 [facility] CenterGvvckwjZFCSUXSZQM7004-27-17 15:00:00 Test Item Value Reference Range Interpretation Comments Lymphocytes # (test code = Lymphocytes 3.3 1.0-5.5 #) [facility] CenterUqnmshnYSXRSKAUKW5826-20-61 15:00:00 Test Item Value Reference Range Interpretation Comments Basophils (test code = 0.1 See_Comment [Aut omated message] The Basophils) system which ge nerated this result tra nsmitted reference range : <=1.0. The reference r arron was not used to int erpret this result as normal/abnormal . [facility] CenterHrhpmpkVPCZGDWYTO5523-25-76 15:00:00 Test Item Value Reference Range Interpretation Comments Monocytes (test code = Monocytes) 7.6 2.0-12.0 [facility] HermannCARDIAC [id number] 15:00:0080[facility] HermannCHEM PANEL 2013-11-19 15:00:0057[facility] HermannCHEM [id number] 15:00:04468Akqcmsog HermannCHEM [id number] 15:00:001.0[facility] HermannCHEM [id number] 15:00:0022[facility] HermannCHEM [id number] 15:00:0010.3[facility] HermannCHEM [id number] 15:00:0026[facility] HermannCHEM [id number] 15:00:47671 [facility]annCHEM [id number] 15:00:12322Rjdvhkbk HermannCHEM PANEL 2013-11-19 15:00:004.0[facility] HermannCHEM [id number] 15:00:0013.0Memorijavi Ponce
--- NOTE | 2022-12-08 15:38 | RAD REPORT ---
EXAM DESCRIPTION: RADChest Single View12/08/2022 3:05 pm CLINICAL HISTORY: AMS COMPARISON: Chest Pa And Lat (2 Views) dated 07/11/2022; Chest Pa And Lat (2 Views) dated 09/29/2021; C hest Pa And Lat (2 Views) dated 09/09/2019; Abdomen Acute Series dated 04/10/2019 TECHNIQUE: Portable AP view of the chest. FINDINGS: The lungs are clear. No pneumothorax or effusion. The cardiomediastinal contours are unrem arkable. IMPRESSION: No acute cardiopulmonary process.
[2022-12-08] MEDS ORDERED: METOPROLOL TARTRATE 5 MG/5 ML INJ IV ONE (15:52)
[2022-12-08] MEDS ORDERED: Nicardipine/NS 25 MG/250 ML KIT IV ONE (16:42)
--- NOTE | 2022-12-08 17:19 | RAD REPORT ---
EXAM DESCRIPTION: CT - Neck Angio - 12/08/2022 4:49 pm CLINICAL HISTORY: confusion COMPARISON: Head C Spine Mpr Wo Con dated 03/14/2022; Ct Stroke Brain Wo Cont dated 12/08/2022 TECHNIQUE: Axial CT angiography images of the head was performed with multiplanar and maximum intens ity projection reconstructions. Images performed following intravenous administration of 100mL Isovue 370. All CT scans are performed using dose optimization technique as appropriate and may include automated exposure control or mA/KV adjustment according to patient size. Quantification of carotid stenosis, if any, is performed according to NASCET criteria. FINDINGS: A left aortic arch is identified with normal three vessel configuration of the great vesse ls. No significant flow abnormality is seen of the common carotid bilaterally. No significant stenosis is identified involving the cervical segments of both internal carotid arteri es. Normal flow is seen within both vertebral arteries, with the left vertebral artery being dominant. Small hypoattenuating nodules of the right thyroid lobe, largest measuring 1.2 cm. Left thyroid lobe is diminutive, and may be surgically removed. IMPRESSION: No significant flow abnormality of the neck vessels is identified. CAROTID STENOSIS REFERENCE USING NASCET CRITERIA: % ICA stenosis = (1 - narrowest ICA diameter/diameter of distal cervical ICA) x 100. Mild - <50% stenosis. Moderate - 50-69% stenosis. Severe - 70-94% stenosis. Near occlusion - 95-99% stenosis. Occluded - 100% stenosis.
[2022-12-08] MEDS ORDERED: ASPIRIN 81 MG CHEWABLE TABLET ONE (17:22)
--- NOTE | 2022-12-08 17:22 | RAD REPORT ---
EXAM DESCRIPTION: CT - Head angio - 12/08/2022 4:48 pm CLINICAL HISTORY: CONFUSED COMPARISON: Ct Stroke Brain Wo Cont dated 12/08/2022; HEAD BRAIN W O CONTRAST dated 12/07/2011; Head C Spine Mpr Wo Con dated 03/14/2022 TECHNIQUE: Axial CT angiography images of the head was performed with multiplanar and maximum intens ity projection reconstructions. Images performed following intravenous administration of 100mL Isovue 370. All CT scans are performed using dose optimization technique as appropriate and may include automated exposure control or mA/KV adjustment according to patient size. FINDINGS: No evidence of large vessel occlusion. No evidence of aneurysm or dissection flap is detec danny. No flow-limiting stenosis or vascular malformation identified. Left vertebral artery is patent. There is abrupt transition to marked luminal narrowing along the pro ximal intradural right vertebral artery, does following the origin of the right PICA, to the level of the vertebrobasilar junction. The vertebral arteries are codominant. The visualized dural venous sinuses are grossly patent. Mastoid air cells are opacified bilaterally. Moderate left maxillary sinus mucosal thickening with sm all air-fluid level. IMPRESSION: Abrupt transition to marked luminal narrowing along the proximal intradural right verteb ral artery. This could be of acute nature such as with an unstable plaque, or dissection, but could a lso be chronic. No other evidence of large vessel occlusion or flow-limiting stenosis. The findings were communicated to Sony Lin on 12/08/2022 at 17:18 hours.
[2022-12-08] MEDS ORDERED: CLOPIDOGREL 75 MG TABLET ONE (17:23)
[2022-12-08] MEDS ORDERED: FOLIC ACID 1 MG TABLET ONE (17:23)
--- NOTE | 2022-12-08 18:49 | ER ---
Nurse's Notes [facility] Name: María Robison Age: 77 yrs Sex: Female : 1945 Arrival Date: 12/08/2022 Time: 14:04 Bed 17 Private MD: Diagnosis: Cerebral ischemia;Weakness;Narrowing of right intradural vertebral artery;Aphasia Presentation: 12/08 14:11 Chief complaint: EMS states: family toned out to home, pt last known well 1300 and eh3 family found her on the floor with pj leg/arm weakness and slurred speech at approximately 1330. Pt has Hx of dementia and diabetes, EMS reports BGL 348. Coronavirus screen: Vaccine status: Patient reports receiving the 2nd dose of the covid vaccine. Ebola Screen: No symptoms or risks identified at this time. An acute neurological deficit is present. The charge nurse has been notified. The patients blood glucose was checked prior to arriving to the hospital and was found to be hyperglycemic. The charge nurse has been notified. Initial Sepsis Screen: Does the patient meet any 2 criteria? No. Patient's initial sepsis screen is negative. Does the patient have a suspected source of infection? No. Patient's initial sepsis screen is negative. Risk Assessment: Do you want to hurt yourself or someone else? Patient reports no desire to harm self or others. Onset of symptoms was December 08, 2022. 14:11 Method Of Arrival: EMS: [place] [id number] 14:11 Acuity: [facility] 2 [facility] Triage Assessment: 14:11 The onset of the patients symptoms was less than three hours ago. The onset of the [facility] patients symptoms was December 08, 2022 at 13:00. General: Appears in no apparent distress. comfortable, Behavior is calm, cooperative. Pain: Denies pain. Neuro: Level of Consciousness is awake, alert, obeys commands, Oriented to person, Reports numbness paresthesias weakness. Cardiovascular: Capillary refill < 3 seconds Patient's skin is warm and dry. Respiratory: Airway is patent Respiratory effort is even, unlabored, Respiratory pattern is regular, symmetrical. GI: Abdomen is round non-distended. Derm: Skin is pink, warm \T\ dry. Musculoskeletal: Reports weakness in right hand, left hand, right leg and left leg. Stroke Activation: Physician: Stroke Attending; Name: Dr. Lin; Notified At: ; Arrived At: Physician: Chief Stroke Resident; Name: ; Notified At: ; Arrived At: Physician: Stroke Resident; Name: ; Notified At: ; Arrived At: Physician: ED Attending; Name: ; Notified At: ; Arrived At: Physician: ED Resident; Name: ; Notified At: ; Arrived At: Historical: - Allergies: 14:11 Compazine; eh3 - Home Meds: 18:07 Metoprolol Tartrate Oral [Active]; sotalol 80 mg Oral tablet [Active]; memantine 10 mg hb oral tablet [Active]; galantamine oral [Active]; prednisone 2.5 mg Oral tablet [Active]; Vitamin D Oral [Active]; levothyroxine 50 mcg capsule [Active]; docusate sodium 100 mg Oral capsule [Active]; rosuvastatin 10 mg oral tablet [Active]; 18:10 aspirin 325 mg oral tablet [Active]; Trijardy XR oral [Active]; hb - PMHx: 14:11 bladder problems; Diabetes - NIDDM; High Cholesterol; Hypertension; Dementia; eh3 - PSHx: 14:11 Left knee replacement; right rotator cuff; eh3 - Immunization history:: Adult Immunizations up to date. - Social history:: Smoking status: unknown. Screenin:11 [facility] ED Fall Risk Assessment (Adult) Score/Fall Risk Level 0 - 2 = Low Risk. Abuse eh3 screen: Denies threats or abuse. Denies injuries from another. Nutritional screening: No deficits noted. Tuberculosis screening: No symptoms or risk factors identified. Assessment: 14:11 Reassessment: CODE STROKE CALLED. hb 14:12 Reassessment: Dr. Lin at bedside. hb 14:20 Reassessment: Pt to CT with Maria M NICHOLSON. hb 14:22 Reassessment: Blood sent to lab with Code Stroke label, lab notified. hb 14:56 Reassessment: TNK administered as ordered. See paper chart for observations/vital signs.hb 15:30 Reassessment: BP 173/82, Delia Hermosillo notified, medicated as ordered. hb 15:51 Reassessment: Swallow Screen completed, passed. hb 16:25 Reassessment: BP 202/97, Pt AOx1-2, NAD, denies headache. Dr. Lin notified, Cardene hb drip ordered. PT to CT with Irlanda NICHOLSON and Mario Alberto from CT. 16:34 Reassessment: Reassessment: Cardene started at 5mg/hr to 20g LFA. hb 16:56 Reassessment: Pt returned from CT. BP 156/64, HR 74. Cardene continues at 5mg/hr. hb Family remains at bedside. 17:44 Reassessment: BP 141/84, Carene on pause. Dr. Lin at bedside. hb 18:19 Reassessment: Patient appears in no apparent distress at this time. Patient and/or hb family updated on plan of care and expected duration. Pain level reassessed. 18:45 Reassessment: BP 159/114, Cardene restarted at 2.5mg/hr. Family remains at bedside. hb 18:58 Reassessment: BP 143/64, Cardene continues at 2.5mg/hr. hb 19:15 Reassessment: Reassessment: BP 104/86. Cardene continues at 2.5mg/hr. eh3 19:30 Reassessment: BP 113/64. Cardene continues at 2.5mg/hr. Nurse to nurse report received eh3 by Prudence at [facility] ICU. 19:45 Reassessment: BP 116/64. Cardene continues at 2.5mg/hr. eh3 20:00 Reassessment: BP 124/64. Cardene continues at 2.5mg/hr. eh3 20:15 Reassessment: BP 124/64. Cardene continues at 2.5mg/hr. eh3 Vital Signs: 14:11 BP 158 / 69; Pulse 81; Resp 16; Temp 98.5; Pulse Ox 99% on R/A; eh3 14:25 BP 172 / 81; Pulse 78; Resp 18; Pulse Ox 98% on R/A; eh3 14:40 BP 131 / 102; Pulse 75; Resp 18; Pulse Ox 98% on R/A; eh3 14:49 Weight 56.6 kg; eh3 14:55 BP 140 / 89; Pulse 76; Resp 18; Pulse Ox 96% on R/A; eh3 15:10 BP 164 / 92; Pulse 81; Resp 18; Pulse Ox 99% on R/A; eh3 15:26 BP 173 / 82; Pulse 77; Resp 15; Pulse Ox 100% on R/A; hb 16:26 BP 201 / 94; Pulse 76; Resp 16; Pulse Ox 100% on R/A; Pain 0/10; hb 17:26 BP 141 / 84; Pulse 85; Resp 17; Pulse Ox 100% on R/A; hb 18:26 BP 152 / 86; Pulse 80; Resp 15; Pulse Ox 100% on R/A; Pain 0/10; hb 18:47 BP 159 / 114; Pulse 80; Resp 16; Pulse Ox 100% on R/A; hb 18:58 BP 143 / 64; Pulse 91; Resp 18; Pulse Ox 98% on R/A; hb 16:26 Pain Scale: Adult hb 18:26 Pain Scale: Adult hb NIH Stroke Scale Scores: 14:15 NIHSS Score: 6 hb 15:07 NIHSS Score: 6 kdr ED Course: 14:10 Patient arrived in ED. eh3 14:11 Sony Lin MD is Attending Physician. kdr 14:11 Patient has correct armband on for positive identification. Bed in low position. Call eh3 light in reach. Side rails up X2. Adult w/ patient. Provided Education on: Use of call sloan. Client placed on continuous cardiac and pulse oximetry monitoring. NIBP monitoring applied. 14:22 Initial lab(s) drawn, by me, sent to lab. Maintain EMS IV. Dressing intact. Good blood hb return noted. Site clean \T\ dry. Gauge \T\ site: 20g LFA. 14:26 CT Stroke Brain w/o Contrast In Process Unspecified. EDMS 14:29 Triage completed. eh3 14:30 Maria M Winn, RN is Primary Nurse. eh3 14:30 Arm band placed on. hb 15:06 Stroke CXR 1 View In Process Unspecified. EDMS 16:50 CT Head Angio In Process Unspecified. EDMS 16:51 CT Neck Angio In Process Unspecified. EDMS 17:15 Primary Nurse role handed off by Maria M Winn, BHARAT hb 17:15 Irlanda Nuñez, BHARAT is Primary Nurse. hb 19:16 requested transport truck from [facility]- 30 min ETA. mc5 20:27 No provider procedures requiring assistance completed. Patient transferred, IV remains eh3 in place. Administered Medications: 14:56 Drug: TNK FOR STROKE - Tenecteplase IV 0.25 mg/kg {Co-Signature: me1 (Clyde, Ginger NICHOLSON).} Route: IV; Rate: per protocol; Site: left forearm; 18:02 Follow up: Response: No adverse reaction hb 15:48 Drug: Metoprolol IVP 2.5 mg Route: IVP; Site: left forearm; hb 16:11 Drug: Metoprolol IVP 2.5 mg Route: IVP; Site: left forearm; hb 18:02 Follow up: Response: No adverse reaction hb 16:34 Drug: niCARdipine IV 5 mg/hr Route: IV; Rate: calculated rate; Site: left forearm; hb 17:15 Drug: foLIC Acid PO 1 mg Route: PO; hb 18:02 Follow up: Response: No adverse reaction hb 17:15 Drug: Clopidogrel PO 75 mg Route: PO; hb 18:02 Follow up: Response: No adverse reaction hb 17:15 Drug: Aspirin PO 81 mg Route: PO; hb 18:02 Follow up: Response: No adverse reaction hb Medication: 15:26 VIS not applicable for this client. hb Point of Care Testing: Ranges: Outcome: 18:48 ER care complete, transfer ordered by MD. kdr 20:28 Transferred by ground EMS [facility]. to [facility], Transfer form 3 completed. 20:28 Condition: stable 20:28 Instructed on the need for transfer. 20:30 Patient left the ED. eh3 NIH Stroke Scale - NIH Stroke Score Date: 12/08/2022 Time: 14:15 Total Score = 6 10. Dysarthria (speech clarity - read or repeat words) - 1(Mild to Moderate) 11. Extinction and Inattention (visual/tactile/auditory/spatial/personal) - 0(No abnormality) 1a. Level of Consciousness (LOC) - 1(Not Alert) 1b. Level of Consciousness (LOC) (Month \T\ Age) - 2(Neither) 1c. LOC Commands (Open \T\ Closes Eyes/Change Of Address Clerk) - 1(One) 2. Best Gaze (Lateral Gaze Paresis) - 0(Normal) 3. Visual Field Loss - 0(No visual loss) 4. Facial Palsy - 0(Normal) 5a. Left Arm: Motor (10-second hold) - 0(No drift) 5b. Right Arm: Motor (10-second hold) - 0(No drift) 6a. Left Leg: Motor (5-second hold - always test supine) - 0(No drift) 6b. Right Leg: Motor (5-second hold - always test supine) - 0(No drift) 7. Limb Ataxia (finger/nose \T\ heel/juares - test with eyes open) - 0(Absent) 8. Sensory Loss (pinprick arms/legs/face) - 0(Normal) 9. Best Language: Aphasia (description/naming/reading) - 1(Mild to moderate aphasia) Initials: NIH Stroke Scale - NIH Stroke Score Date: 12/08/2022 Time: 15:07 Total Score = 6 10. Dysarthria (speech clarity - read or repeat words) - 1(Mild to Moderate) 11. Extinction and Inattention (visual/tactile/auditory/spatial/personal) - 0(No abnormality) 1a. Level of Consciousness (LOC) - 1(Not Alert) 1b. Level of Consciousness (LOC) (Month \T\ Age) - 2(Neither) 1c. LOC Commands (Open \T\ Closes Eyes/Change Of Address Clerk) - 1(One) 2. Best Gaze (Lateral Gaze Paresis) - 0(Normal) 3. Visual Field Loss - 0(No visual loss) 4. Facial Palsy - 0(Normal) 5a. Left Arm: Motor (10-second hold) - 0(No drift) 5b. Right Arm: Motor (10-second hold) - 0(No drift) 6a. Left Leg: Motor (5-second hold - always test supine) - 0(No drift) 6b. Right Leg: Motor (5-second hold - always test supine) - 0(No drift) 7. Limb Ataxia (finger/nose \T\ heel/juares - test with eyes open) - 0(Absent) 8. Sensory Loss (pinprick arms/legs/face) - 0(Normal) 9. Best Language: Aphasia (description/naming/reading) - 1(Mild to moderate aphasia) Initials: kdr Signatures: Dispatcher [employer] Sony Chapman MD MD [facility] Irlanda Nuñez RN RN Maria M Winn RN RN 3 Demetrice Baca [facility] [place] [place] Ginger Tang RN me1 Corrections: (The following items were deleted from the chart) 14:28 14:25 Reassessment: hb hb 14:31 14:10 Reassessment: CODE STROKE CALLED hb hb 14:31 14:11 PMHx: Diabetes - IDDM; eh3 eh3 15:24 15:23 Reassessment: TNK administered as ordered. See paper chart for hb observations/vital signs hb 15:25 15:24 TNK FOR STROKE - Tenecteplase IV 0.25 mg/kg IV at per protocol in hb left forearm hb 16:58 16:25 Reassessment: hb hb 18:46 18:41 Reassessment: Patient appears in no apparent distress at this time. hb Patient and/or family updated on plan of care and expected duration. Pain level reassessed. hb 18:47 18:41 BP 152 / 86; Pulse 80bpm; Resp 15bpm; Pulse Ox 100% RA; Pain 0/10, Adult; hb hb 20:09 19:58 Reassessment: eh3 eh3 20:09 19:15 Reassessment: BP 113/64. Cardene continues at 2.5mg/hr eh3 eh3 20:09 19:15 Reassessment: BP 116/64. Cardene continues at 2.5mg/hr eh3 eh3 20:27 19:15 Reassessment: BP 104/86. Cardene continues at 2.5mg/hr Reassessment: BP eh3 104/86. Cardene continues at 2.5mg/hr eh3 20:27 19:30 Reassessment: BP 113/64. Cardene continues at 2.5mg/hr eh3 eh3 20:27 20:26 Reassessment: eh3 eh3
--- NOTE | 2022-12-08 18:49 | EDPHYS ---
Physician Documentation [facility] Name: María Robison Age: 77 yrs Sex: Female : 1945 Arrival Date: 12/08/2022 Time: 14:04 Bed 17 Private MD: ED Physician Sony Lin HPI: 12/09 09:17 This 77 yrs old Female presents to ER via EMS with complaints of Weakness, Altered kdr Mental Status, Slurred Speech. 09:17 Patient was found on the floor with bilateral arm and leg weakness. Patient also has kdr slurred speech. Patient has a history of dementia but is normally conversive and able to do some home care and self-care. Patient's last known well was 1300. Patient was discovered in this condition at about 1330. On arrival to the ED, the patient is aphasic. She appears to be able to move all extremities but does not follow commands. Patient has no obvious trauma.. Onset: The symptoms/episode began/occurred suddenly, just prior to arrival. Severity of symptoms: At their worst the symptoms were severe incapacitating in the emergency department the symptoms are unchanged. The patient has not experienced similar symptoms in the past. The patient has not recently seen a physician. Historical: - Allergies: 12/08 14:11 Compazine; eh3 - Home Meds: 18:07 Metoprolol Tartrate Oral [Active]; sotalol 80 mg Oral tablet [Active]; memantine 10 mg hb oral tablet [Active]; galantamine oral [Active]; prednisone 2.5 mg Oral tablet [Active]; Vitamin D Oral [Active]; levothyroxine 50 mcg capsule [Active]; docusate sodium 100 mg Oral capsule [Active]; rosuvastatin 10 mg oral tablet [Active]; 18:10 aspirin 325 mg oral tablet [Active]; Trijardy XR oral [Active]; hb - PMHx: 14:11 bladder problems; Diabetes - NIDDM; High Cholesterol; Hypertension; Dementia; eh3 - PSHx: 14:11 Left knee replacement; right rotator cuff; eh3 - Immunization history:: Adult Immunizations up to date. - Social history:: Smoking status: unknown. ROS: 12/09 09:17 Constitutional: Patient is unable to give any review of systems or history. The kdr information was obtained from the daughter whom the patient lives with. Eyes: Negative for injury, pain, redness, and discharge, Cardiovascular: Negative for chest pain, palpitations, and edema, Respiratory: Negative for shortness of breath, cough, wheezing, and pleuritic chest pain, Abdomen/GI: Negative for abdominal pain, nausea, vomiting, diarrhea, and constipation, Back: Negative for injury and pain, MS/Extremity: Negative for injury and deformity, Skin: Negative for injury, rash, and discoloration, Psych: Negative for depression, anxiety, suicide ideation, homicidal ideation, and hallucinations, Allergy/Immunology: Negative for hives, rash, and allergies, Endocrine: Negative for neck swelling, polydipsia, polyuria, polyphagia, and marked weight changes, Hematologic/Lymphatic: Negative for swollen nodes, abnormal bleeding, and unusual bruising. Neuro: Positive for altered mental status, Patient has dementia however according to daughter she is fairly high functioning and able to care for her daily living activities. Family had just completed a small apartment next to the house that the patient was to live in with one of the daughters children.. Exam: 09:20 Constitutional: This is a well developed, well nourished patient who is awake, alert, kdr and in no acute distress. Head/Face: Normocephalic, atraumatic. Eyes: Pupils equal round and reactive to light, extra-ocular motions intact. Lids and lashes normal. Conjunctiva and sclera are non-icteric and not injected. Cornea within normal limits. Periorbital areas with no swelling, redness, or edema. Chest/axilla: Normal chest wall appearance and motion. Nontender with no deformity. No lesions are appreciated. Cardiovascular: Regular rate and rhythm with a normal S1 and S2. No gallops, murmurs, or rubs. Normal PMI, no JVD. No pulse deficits. Respiratory: Lungs have equal breath sounds bilaterally, clear to auscultation and percussion. No rales, rhonchi or wheezes noted. No increased work of breathing, no retractions or nasal flaring. Abdomen/GI: Soft, non-tender, with normal bowel sounds. No distension or tympany. No guarding or rebound. No evidence of tenderness throughout. Back: No spinal tenderness. No costovertebral tenderness. Full range of motion. Skin: Warm, dry with normal turgor. Normal color with no rashes, no lesions, and no evidence of cellulitis. MS/ Extremity: Pulses equal, no cyanosis. Neurovascular intact. Full, normal range of motion. Vital Signs: 12/08 14:11 BP 158 / 69; Pulse 81; Resp 16; Temp 98.5; Pulse Ox 99% on R/A; eh3 14:25 BP 172 / 81; Pulse 78; Resp 18; Pulse Ox 98% on R/A; eh3 14:40 BP 131 / 102; Pulse 75; Resp 18; Pulse Ox 98% on R/A; eh3 14:49 Weight 56.6 kg; eh3 14:55 BP 140 / 89; Pulse 76; Resp 18; Pulse Ox 96% on R/A; eh3 15:10 BP 164 / 92; Pulse 81; Resp 18; Pulse Ox 99% on R/A; eh3 15:26 BP 173 / 82; Pulse 77; Resp 15; Pulse Ox 100% on R/A; hb 16:26 BP 201 / 94; Pulse 76; Resp 16; Pulse Ox 100% on R/A; Pain 0/10; hb 17:26 BP 141 / 84; Pulse 85; Resp 17; Pulse Ox 100% on R/A; hb 18:26 BP 152 / 86; Pulse 80; Resp 15; Pulse Ox 100% on R/A; Pain 0/10; hb 18:47 BP 159 / 114; Pulse 80; Resp 16; Pulse Ox 100% on R/A; hb 18:58 BP 143 / 64; Pulse 91; Resp 18; Pulse Ox 98% on R/A; hb 16:26 Pain Scale: Adult hb 18:26 Pain Scale: Adult hb NIH Stroke Scale Scores: 14:15 NIHSS Score: 6 hb 15:07 NIHSS Score: 6 kdr MDM: 18:48 Patient medically screened. kdr 12/09 09:20 Data reviewed: vital signs, nurses notes, lab test result(s), radiologic studies. ED kdr course: The patient had some improvement with the TNK but did not return to baseline. Subsequent studies (angiograms) showed possible stricture though not blockage of her intradural vertebral arteries. After discussing the options with the daughter, it was elected to transfer the patient to a higher level of care where further evaluation and potential intervention could be had. Initially a bed was secured at [facility] however the family subsequently requested that the patient be transferred to [facility]. The patient was excepted at [facility] after consultation with their admission teams. Patient was transferred to [facility] in stable condition without further issue or problem. Family is happy with the care provided the plan for transfer to [facility]. 12/08 14:20 Order name: Basic Metabolic Panel; Complete Time: 16:05 kdr 12/08 14:20 Order name: CBC with Diff; Complete Time: 16: kdr 12/08 14:20 Order name: Hepatic Function; Complete Time: 16: kdr 12/08 14:20 Order name: High Sensitivity Troponin; Complete Time: 16: kdr 12/08 14:20 Order name: Magnesium; Complete Time: 16: kdr 12/08 14:20 Order name: Protime (+inr); Complete Time: 16: kdr 12/08 14:20 Order name: Ptt, Activated; Complete Time: 16: kdr 12/08 14:28 Order name: Glucose, Ancillary Testing; Complete Time: 16:05 EDMS 12/08 14:20 Order name: CT Stroke Brain w/o Contrast; Complete Time: 16: kdr 12/08 14:20 Order name: Stroke CXR 1 View; Complete Time: 16: kdr 12/08 16:10 Order name: CT Head Angio; Complete Time: 17:24 kdr 12/08 16:10 Order name: CT Neck Angio; Complete Time: 17:24 kdr 12/08 14:20 Order name: EKG; Complete Time: 14:21 kdr 12/08 14:20 Order name: Accucheck; Complete Time: 14:34 kdr 12/08 14:20 Order name: Cardiac monitoring; Complete Time: 14:34 kdr 12/08 14:20 Order name: EKG - Nurse/Tech; Complete Time: 15:06 kdr 12/08 14:20 Order name: IV Saline Lock; Complete Time: 14:34 kdr 12/08 14:20 Order name: Labs collected and sent; Complete Time: 14:34 kdr 12/08 14:20 Order name: NPO; Complete Time: 14:35 kdr 12/08 14:20 Order name: O2 Per Protocol; Complete Time: 14:35 kdr 12/08 14:20 Order name: O2 Sat Monitoring; Complete Time: 14:35 kdr 12/08 14:20 Order name: Stroke Swallow Screen; Complete Time: 15:51 kdr Administered Medications: 12/08 14:56 Drug: TNK FOR STROKE - Tenecteplase IV 0.25 mg/kg {Co-Signature: me1 (mireille Tang RN).} Route: IV; Rate: per protocol; Site: left forearm; 18:02 Follow up: Response: No adverse reaction hb 15:48 Drug: Metoprolol IVP 2.5 mg Route: IVP; Site: left forearm; hb 16:11 Drug: Metoprolol IVP 2.5 mg Route: IVP; Site: left forearm; hb 18:02 Follow up: Response: No adverse reaction hb 16:34 Drug: niCARdipine IV 5 mg/hr Route: IV; Rate: calculated rate; Site: left forearm; hb 17:15 Drug: foLIC Acid PO 1 mg Route: PO; hb 18:02 Follow up: Response: No adverse reaction hb 17:15 Drug: Clopidogrel PO 75 mg Route: PO; hb 18:02 Follow up: Response: No adverse reaction hb 17:15 Drug: Aspirin PO 81 mg Route: PO; hb 18:02 Follow up: Response: No adverse reaction hb Point of Care Testing: Ranges: Critical Glucose Levels:Adult <50 mg/dl or >400 mg/dl <40 mg/dl or >180 mg/dl Disposition Summary: 12/08/22 18:48 Transfer Ordered Transfer Location: [facility] kdr Reason: Higher level of care kdr Condition: Serious kdr Problem: new kdr Symptoms: have improved kdr Accepting Physician: Dr. Sanchez(12/08/22 20:30) eh3 Diagnosis - Cerebral ischemia kdr - Weakness kdr - Narrowing of right intradural vertebral artery kdr - Aphasia kdr Forms: - Medication Reconciliation Form kdr - SBAR form kdr NIH Stroke Scale - NIH Stroke Score Date: 12/08/2022 Time: 14:15 Total Score = 6 10. Dysarthria (speech clarity - read or repeat words) - 1(Mild to Moderate) 11. Extinction and Inattention (visual/tactile/auditory/spatial/personal) - 0(No abnormality) 1a. Level of Consciousness (LOC) - 1(Not Alert) 1b. Level of Consciousness (LOC) (Month \T\ Age) - 2(Neither) 1c. LOC Commands (Open \T\ Closes Eyes/Care Process Manager) - 1(One) 2. Best Gaze (Lateral Gaze Paresis) - 0(Normal) 3. Visual Field Loss - 0(No visual loss) 4. Facial Palsy - 0(Normal) 5a. Left Arm: Motor (10-second hold) - 0(No drift) 5b. Right Arm: Motor (10-second hold) - 0(No drift) 6a. Left Leg: Motor (5-second hold - always test supine) - 0(No drift) 6b. Right Leg: Motor (5-second hold - always test supine) - 0(No drift) 7. Limb Ataxia (finger/nose \T\ heel/juares - test with eyes open) - 0(Absent) 8. Sensory Loss (pinprick arms/legs/face) - 0(Normal) 9. Best Language: Aphasia (description/naming/reading) - 1(Mild to moderate aphasia) Initials: NIH Stroke Scale - NIH Stroke Score Date: 12/08/2022 Time: 15:07 Total Score = 6 10. Dysarthria (speech clarity - read or repeat words) - 1(Mild to Moderate) 11. Extinction and Inattention (visual/tactile/auditory/spatial/personal) - 0(No abnormality) 1a. Level of Consciousness (LOC) - 1(Not Alert) 1b. Level of Consciousness (LOC) (Month \T\ Age) - 2(Neither) 1c. LOC Commands (Open \T\ Closes Eyes/Care Process Manager) - 1(One) 2. Best Gaze (Lateral Gaze Paresis) - 0(Normal) 3. Visual Field Loss - 0(No visual loss) 4. Facial Palsy - 0(Normal) 5a. Left Arm: Motor (10-second hold) - 0(No drift) 5b. Right Arm: Motor (10-second hold) - 0(No drift) 6a. Left Leg: Motor (5-second hold - always test supine) - 0(No drift) 6b. Right Leg: Motor (5-second hold - always test supine) - 0(No drift) 7. Limb Ataxia (finger/nose \T\ heel/juares - test with eyes open) - 0(Absent) 8. Sensory Loss (pinprick arms/legs/face) - 0(Normal) 9. Best Language: Aphasia (description/naming/reading) - 1(Mild to moderate aphasia) Initials: kdr Signatures: Dispatcher [employer] Sony Chapman MD MD kdr Irlanda Nuñez RN RN Maria M Winn RN RN 3 Ginger Tang RN in1 Corrections: (The following items were deleted from the chart) 14:11 PMHx: Diabetes - IDDM; 3 3 18:51 18:48 Dr. Laura mckinley kdr 20:30 18:51 Dr. Sanchez [facility]3
[2022-12-08 20:35] VITALS: TEMP 98.5
[2022-12-08 20:46] VITALS: BP 143/64; O2SAT 98
--- NOTE | 2022-12-09 15:28 | EKG ---
Test Date: 2022-12-08 Test Time: 15:03:50 Skull Chopper: FRANCESCA MEASUREMENT RESULTS: Intervals: Rate: 78 MT: 132 QRSD: 78 QT: 418 QTc: 476 [place]: P: 43 MT: 132 QRS: 2 T: 18 INTERPRETIVE STATEMENTS: Sinus rhythm with premature atrial complexes Otherwise normal ECG Compared to ECG 03/14/2022 21:19:57 Atrial premature complex(es) now present Myocardial infarct finding no longer present Electronically Signed On 12-09-22 15:28:05 CDT by Trey Hdez
== END 2022-12-08 20:30 | disposition short-term general hospital (02) ==
LOC: ER 14:04
DX: I67.82 Cerebral ischemia (principal); I65.01 Occlusion and stenosis of right vertebral artery; R47.01 Aphasia; R29.706 NIHSS score 6; I10 Essential (primary) hypertension; E11.9 Type 2 diabetes mellitus without complications; F03.90 Unspecified dementia, unspecified severity, without behavioral disturbance, psychotic disturbance, mood disturbance, and anxiety; Z79.82 Long term (current) use of aspirin; Z88.1 Allergy status to other antibiotic agents
CPT/HCPCS: 92977; 93005; 85025; 80048; 36415; 83735; 85610; 82947; 80076; 85730; 84484; 70496; 70498; 70450; 71045; 96375; 96374; 99291; 99292; Q9967; J3101

== ENCOUNTER 2023-07-27 20:12 | Emergency (ER) | payer OTHER ==
[2023-07-27] MEDS ORDERED: LIDOCAINE 2% W/EPI 1:200,000 MPF 20 ML VIAL IM ONE (20:24)
[2023-07-27] MEDS ORDERED: TDAP (DIPHTH,PERTUSS(ACELL),TET VAC) 0.5 ML VIAL IMVAC ONE (20:42)
[2023-07-27] MEDS ORDERED: WATER FOR INJ,STERILE 10 ML ONE (21:05)
[2023-07-27] MEDS ORDERED: CEFAZOLIN SODIUM 1 GM/VIAL ONE (21:05)
[2023-07-27 21:20] LABS: Absolute Basophils 0.1 K/uL (0-0.5); Absolute Eosinophils 0.1 K/uL (0-0.5); Absolute Lymphocytes (CBC) 2.3 K/uL (0.7-4.9); Absolute Monocytes 0.5 K/uL (0.1-1.3); Basophils % 1.7 % (0-1.3); Eosinophils % 0.9 % (0-4.4); Hematocrit 40.6 % (36.0-45.0); Hemoglobin 14.4 g/dL (12.0-15.0); MCH 31.2 pg (27.0-35.0); MCHC 35.5 g/dL (32.0-36.0); MPV 9.1 fL (7.6-11.3); Monocytes % 7.3 % (3.3-12.3); Neutrophils % 57.1 % (41.7-73.7); Nucleated Red Blood Cells % 0.1 % (0-0); Platelets 236 thou/uL (152-406); RBC Red Blood Cell Count 4.61 M/uL (3.86-4.86)
[2023-07-27 21:41] LABS: Albumin 3.5 g/dL (3.4-5.0); Anion Gap 8.9 mEq/L (5.0-15.0); Bilirubin Total 0.7 mg/dL (0.2-1.0); Globulin 3.5 g/dL (2.3-3.5); Potassium 3.9 mEq/L (3.5-5.1)
--- NOTE | 2023-07-27 22:06 | RAD REPORT ---
EXAM DESCRIPTION: CT - Head C Spine Cap Wo Con - 07/27/2023 9:31 pm CLINICAL HISTORY: Head and neck injury with chest and abdominal pain status post fall TECHNIQUE: Computed axial tomography of head, neck, chest, abdomen and pelvis obtained. IV and oral contrast not requested. Coronal and sagittal reconstruction performed. All CT scans are performed using dose optimization technique as appropriate and may include automated exposure control or mA/KV adjustment according to patient size. COMPARISON: Head, C-spine, abdomen CT 2019, 2021 and 2022 FINDINGS: Left frontal scalp swelling An intracranial bleed is not seen. The ventricles are normal in caliber. An extra-axial fluid collection is not noted. No fluid within the sinuses. Chronic opacification mastoids A cervical fracture is not seen. No dislocation is noted. The evaluation of mediastinum, trish, vessels, solid organs and bowel are limited secondary to the lac k of contrast administration. A mediastinal hematoma is not noted. A pleural effusion is not seen. A lung contusion is not present. The liver,spleen, pancreas, adrenals,kidneys and bladder do not demonstrate an acute traumatic injury IMPRESSION: No acute intracranial abnormality is seen. A cervical fracture is not visualized. If the patient continues to have symptoms to suggest intracran ial/spinal cord pathology MRI be recommended No acute traumatic abnormality involving the chest, abdomen or pelvis
--- NOTE | 2023-07-27 22:15 | EDPHYS ---
Physician Documentation [facility] Name: María Robison Age: 78 yrs Sex: Female : 1945 Arrival Date: 07/27/2023 Time: 20:12 Bed 15 Private MD: ED Physician Shalom Marshall HPI: 07/26 20:47 This 78 yrs old Female presents to ER via EMS with complaints of fall, hit juma head , forehead laceration. 20:47 The patient has a laceration related to: walking. The laceration(s) is(are) located on juma the face. Details of fall: The patient fell from an upright position, while walking. Onset: The symptoms/episode began/occurred just prior to arrival. Associated injuries: The patient sustained injury to the head, laceration, pain. Severity of symptoms: At their worst the symptoms were mild, in the emergency department the symptoms are unchanged. Associated signs and symptoms: The patient has no apparent associated signs or symptoms. The patient has experienced similar episodes in the past, multiple times. Historical: - Allergies: 20:22 Compazine; jb4 - PMHx: 20:22 High Cholesterol; Hypertension; Dementia; bladder problems; Diabetes - NIDDM; jb4 - PSHx: 20:22 Left knee replacement; right rotator cuff; jb4 - Immunization history:: Adult Immunizations unknown. - Social history:: Smoking status: unknown. - Family history:: not pertinent. ROS: 20:47 Constitutional: Negative for fever, chills, and weight loss, Eyes: Negative for injury, juma pain, redness, and discharge, ENT: Negative for injury, pain, and discharge, Neck: Negative for injury, pain, and swelling, Cardiovascular: Negative for chest pain, palpitations, and edema, Respiratory: Negative for shortness of breath, cough, wheezing, and pleuritic chest pain, Abdomen/GI: Negative for abdominal pain, nausea, vomiting, diarrhea, and constipation, Back: Negative for injury and pain, : Negative for injury, bleeding, discharge, and swelling, MS/Extremity: Negative for injury and deformity, Neuro: Negative for headache, weakness, numbness, tingling, and seizure, Psych: Negative for depression, anxiety, suicide ideation, homicidal ideation, and hallucinations, Allergy/Immunology: Negative for hives, rash, and allergies, Endocrine: Negative for neck swelling, polydipsia, polyuria, polyphagia, and marked weight changes, Hematologic/Lymphatic: Negative for swollen nodes, abnormal bleeding, and unusual bruising, 20:47 Skin: Positive for laceration(s), swelling, of the forehead, Exam: 20:47 Constitutional: This is a well developed, well nourished patient who is awake, alert, juma and in no acute distress. Eyes: Pupils equal round and reactive to light, extra-ocular motions intact. Lids and lashes normal. Conjunctiva and sclera are non-icteric and not injected. Cornea within normal limits. Periorbital areas with no swelling, redness, or edema. ENT: Nares patent. No nasal discharge, no septal abnormalities noted. Tympanic membranes are normal and external auditory canals are clear. Oropharynx with no redness, swelling, or masses, exudates, or evidence of obstruction, uvula midline. Mucous membranes moist. Neck: Trachea midline, no thyromegaly or masses palpated, and no cervical lymphadenopathy. Supple, full range of motion without nuchal rigidity, or vertebral point tenderness. No Meningismus. Chest/axilla: Normal chest wall appearance and motion. Nontender with no deformity. No lesions are appreciated. Cardiovascular: Regular rate and rhythm with a normal S1 and S2. No gallops, murmurs, or rubs. Normal PMI, no JVD. No pulse deficits. Respiratory: Lungs have equal breath sounds bilaterally, clear to auscultation and percussion. No rales, rhonchi or wheezes noted. No increased work of breathing, no retractions or nasal flaring. Abdomen/GI: Soft, non-tender, with normal bowel sounds. No distension or tympany. No guarding or rebound. No evidence of tenderness throughout. Back: No spinal tenderness. No costovertebral tenderness. Full range of motion. Female : Normal external genitalia. Skin: Warm, dry with normal turgor. Normal color with no rashes, no lesions, and no evidence of cellulitis. MS/ Extremity: Pulses equal, no cyanosis. Neurovascular intact. Full, normal range of motion. Neuro: Awake and alert, GCS 15, oriented to person, place, time, and situation. Cranial nerves II-XII grossly intact. Motor strength 5/5 in all extremities. Sensory grossly intact. Cerebellar exam normal. Normal gait. Psych: Awake, alert, with orientation to person, place and time. Behavior, mood, and affect are within normal limits. 20:47 Head/face: Noted is a laceration(s), swelling, that is moderate, of the forehead, Vital Signs: 20:35 BP 124 / 53; Pulse 75; Resp 17; Temp 98; Pulse Ox 99% on R/A; rv 21:39 BP 124 / 50; Pulse 72; Resp 17; Pulse Ox 98% ; rv 22:33 BP 111 / 57; Pulse 71; Resp 17; Temp 98; Pulse Ox 99% on R/A; rv MDM: 20:21 Patient medically screened. juma 20:50 Differential diagnosis: abrasion, closed head injury, contusion, fracture, laceration, juma multiple trauma, sprain, strain. Data reviewed: vital signs, nurses notes, lab test result(s), EKG. Consideration of Admission/Observation Escalation of care including admission/observation considered. I considered the following discharge prescriptions or medication management in the emergency department Medications were administered in the Emergency Department. See MAR. Independent interpretation of the following test(s) in the Emergency Department EKG: See my EKG interpretation above. Test considered but Not performed: EKG: no ekg. Care significantly affected by the following chronic conditions: Diabetes, Hypertension, bladder, dementia, high chlesterol. 07/26 20:45 Order name: CBC with Diff; Complete Time: 21:36 [facility] 07/26 20:45 Order name: Comprehensive Metabolic Panel; Complete Time: 21:54 [facility] 07/26 20:45 Order name: CT Traumagram (Head C Spine CAP wo con); Complete Time: 22:14 [facility] 07/26 20:51 Order name: EKG; Complete Time: 20:52 [facility] 07/26 20:45 Order name: Dressing - Wound; Complete Time: 20:51 [facility] 07/26 20:45 Order name: Gloves, Sterile; Complete Time: 20:51 [facility] 07/26 20:45 Order name: Prolene, Sutures; Complete Time: 20:51 [facility] 07/26 20:45 Order name: Setup Suture Tray; Complete Time: 20:51 [facility] 07/26 20:51 Order name: EKG - Nurse/Tech; Complete Time: 21:04 [facility] Administered Medications: 20:51 Drug: Boostrix Tdap IM 0.5 ml IM once; as a single dose Route: IM; Site: left deltoid; rv 22:33 Follow up: Response: No adverse reaction rv 20:51 Drug: Lidocaine-Epinephrine Infiltration -1%: (1:100,000) 10 ml 20 ml Infiltration rv once; to bedside {Note: administered by Dr Marshall.} Volume: 20 ml; Route: Infiltration; 20:51 Drug: Opbbihcr-Hcfnlkoptf-Bayqqltlr Topical Ointment 1 application Topical once Route: rv Topical; Site: wound; 22:33 Follow up: Response: No adverse reaction rv 21:15 Drug: ceFAZolin IVPB 1 grams IVPB once Route: IVPB; Site: right hand; rv 22:33 Follow up: Response: No adverse reaction; IV Status: Completed infusion rv Disposition Summary: 07/27/23 22:14 Discharge Ordered Notes: Location: Home juma Problem: new juma Symptoms: have improved juma Condition: Stable juma Diagnosis - Fall on same level, unspecified juma - Unspecified injury of head, initial encounter juma - Laceration without foreign body of other part of head juma - Dementia in other diseases classified elsewhere without behavioral disturbance juma Followup: juma - With: Private Physician - When: 2 - 3 days - Reason: Recheck today's complaints, Continuance of care, Re-evaluation by your physician Discharge Instructions: - Discharge Summary Sheet juma - Dementia juma - Head Injury, Adult juma - Fall Prevention in the Home, Adult juma - Facial Laceration juma - Facial Laceration, [id number] juma - Fall Prevention in the Home, Adult, [id number] juma - Head Injury, Adult, [id number] [facility] Forms: - Medication Reconciliation Form [facility] - Thank You Letter [facility] - Antibiotic Education [facility] - Prescription Opioid Use [facility] - Patient Portal Instructions [facility] - Leadership Thank You Letter [facility] Prescriptions: - Centany 2 % Topical ointment - apply 1 application TOPICAL route 3 times per day; 15 gram tube; Refills: 0, [facility] Product Selection Permitted - Cephalexin 500 mg Oral capsule - take 1 capsule ORAL route every 6 hours for 10 days; 20 capsule; Refills: 0, juma Product Selection Permitted Signatures: Dispatcher [employer] Shalom Rush MD MD cha Bryson, James, RN RN jb4 Naldo Herrera RN RN rv
--- NOTE | 2023-07-27 22:15 | ER ---
Nurse's Notes [facility] Name: María Robison Age: 78 yrs Sex: Female : 1945 Arrival Date: 07/27/2023 Time: 20:12 Bed 15 Private MD: Diagnosis: Fall on same level, unspecified;Unspecified injury of head, initial encounter;Laceration without foreign body of other part of head;Dementia in other diseases classified elsewhere without behavioral disturbance Presentation: 07/26 20:20 Chief complaint: EMS states: Pt normally wobbles around when walking. Pt fell, family jb4 thinks she hit her head on the left side of the forehead. Coronavirus screen: At this time, the client does not indicate any symptoms associated with coronavirus-19. Ebola Screen: No symptoms or risks identified at this time. Risk Assessment: Do you want to hurt yourself or someone else? Patient reports no desire to harm self or others. Onset of symptoms was July 27, 2023. Transition of care: patient was not received from another setting of care. 20:20 Method Of Arrival: EMS: [facility] jb4 20:20 Acuity: CHEVY 3 jb4 20:35 Initial Sepsis Screen: Does the patient meet any 2 criteria? No. Patient's initial rv sepsis screen is negative. Does the patient have a suspected source of infection? No. Patient's initial sepsis screen is negative. Triage Assessment: 20:22 General: Appears in no apparent distress. comfortable, Behavior is calm, cooperative. jb4 Pain: Unable to use pain scale. Patient is disoriented. FLACC scale score is 3 out of 10. Historical: - Allergies: 20:22 Compazine; jb4 - PMHx: 20:22 High Cholesterol; Hypertension; Dementia; bladder problems; Diabetes - NIDDM; jb4 - PSHx: 20:22 Left knee replacement; right rotator cuff; jb4 - Immunization history:: Adult Immunizations unknown. - Social history:: Smoking status: unknown. - Family history:: not pertinent. Screenin:33 [facility] ED Fall Risk Assessment (Adult) History of falling in the last 3 months, rv including since admission Yes- fall prone (multiple falls) (3 pts) Score/Fall Risk Level 3 or more points = High Risk Oriented to surroundings, Maintained a safe environment, Educated pt \T\ family on fall prevention, incl call for assistance when getting out of bed, Assessed \T\ reinforced patient's understanding of fall precautions. Abuse screen: Denies threats or abuse. Denies injuries from another. Nutritional screening: No deficits noted. Tuberculosis screening: No symptoms or risk factors identified. Assessment: 20:32 General: Appears comfortable, Behavior is calm, cooperative. Pain: Complains of pain in rv forehead. Neuro: Level of Consciousness is awake, alert, confused. Cardiovascular: Capillary refill < 3 seconds Patient's skin is warm and dry. Respiratory: Airway is patent Respiratory effort is even, unlabored. Derm: Injury Description: Laceration sustained to forehead. Vital Signs: 20:35 BP 124 / 53; Pulse 75; Resp 17; Temp 98; Pulse Ox 99% on R/A; rv 21:39 BP 124 / 50; Pulse 72; Resp 17; Pulse Ox 98% ; rv 22:33 BP 111 / 57; Pulse 71; Resp 17; Temp 98; Pulse Ox 99% on R/A; rv ED Course: 20:20 Patient arrived in ED. jb4 20:21 Shalom Marshall MD is Attending Physician. juma 20:22 Triage completed. jb4 20:22 Arm band placed on right wrist. jb4 20:33 Assist provider with laceration repair on forehead that was 2.5 cm. or less using rv sutures. Set up tray. Performed by Shalom Marshall MD Dressed with 4X4s, Patient tolerated well. Patient did not have IV access during this emergency room visit. 20:35 Patient has correct armband on for positive identification. Client placed on continuous rv cardiac and pulse oximetry monitoring. NIBP monitoring applied. 21:23 Comprehensive Metabolic Panel Sent. rv 21:24 Initial lab(s) drawn, by me, sent to lab. rv 21:32 CT Traumagram (Head C Spine CAP wo con) In Process Unspecified. EDMS Administered Medications: 20:51 Drug: Boostrix Tdap IM 0.5 ml IM once; as a single dose Route: IM; Site: left deltoid; rv 22:33 Follow up: Response: No adverse reaction rv 20:51 Drug: Lidocaine-Epinephrine Infiltration -1%: (1:100,000) 10 ml 20 ml Infiltration rv once; to bedside {Note: administered by Dr Marshall.} Volume: 20 ml; Route: Infiltration; 20:51 Drug: Icdodwgp-Mdjvpvkvpa-Uezxkppnp Topical Ointment 1 application Topical once Route: rv Topical; Site: wound; 22:33 Follow up: Response: No adverse reaction rv 21:15 Drug: ceFAZolin IVPB 1 grams IVPB once Route: IVPB; Site: right hand; rv 22:33 Follow up: Response: No adverse reaction; IV Status: Completed infusion rv Medication: 20:33 Vaccine Information Statement (VIS) provided today. Questions and/or concerns rv addressed. VIS edition date: July 27, 2023. Outcome: 22:14 Discharge ordered by . juma 22:33 Discharged to home via wheelchair, with family, rv 22:33 Condition: good 22:33 Discharge instructions given to family, Instructed on discharge instructions, follow up and referral plans. medication usage, Demonstrated understanding of instructions, follow-up care, medications, wound care, Prescriptions given X 2, 22:34 Patient left the ED. rv Signatures: Dispatcher [employer] EDShalom Marroquin MD MD cha Bryson, James, RN RN jb4 Naldo Herrera RN RN rv
[2023-07-28 01:28] VITALS: BP 111/57; TEMP 98; O2SAT 99
== END 2023-07-27 22:34 | disposition home or self-care (01) ==
LOC: ER 20:12
PROC: 0HQ1XZZ Repair Face Skin, External Approach (ICD-10-PCS; principal; 2023-07-27)
DX: S01.81XA Laceration without foreign body of other part of head, initial encounter (principal); F03.90 Unspecified dementia, unspecified severity, without behavioral disturbance, psychotic disturbance, mood disturbance, and anxiety; W18.30XA Fall on same level, unspecified, initial encounter; Z88.1 Allergy status to other antibiotic agents; I10 Essential (primary) hypertension; Z96.652 Presence of left artificial knee joint
CPT/HCPCS: 96365; 85025; 36415; 80053; 70450; 71250; 72125; 96372; 99284; 12011; J0690